=== PATIENT | male | born 1945 | race Caucasian/White ===

== ENCOUNTER → 2021-02-15 01:08 | Outpatient (CLI) | payer MEDICARE, SELFPAY ==
[2021-02-15 18:48] LABS: SARS-CoV-2 RNA PCR Negative
== END ==
PROVIDERS: PCP Internal Medicine; Visit Provider Urology
DX: Z01.812 Encounter for preprocedural laboratory examination (principal); Z20.822 Contact with and (suspected) exposure to COVID-19
CPT/HCPCS: C9803; U0003; U0005

== ENCOUNTER 2021-02-19 16:06 | Observation (INO) | payer MEDICARE, SELFPAY ==
[2021-02-03 15:36] VITALS: BMI 26.9
--- NOTE | 2021-02-12 08:04 | PM.IMHP ---
H&P: HPI History of Present Illness Date/Time: 02/12/21 08:04 75-year-old gentleman's been known to our practice for quite some time. He has longstanding lower urinary tract symptoms consisting of both obstructive and irritable symptoms. He tried a variety of BPH and overactive bladder medications either by themselves or in combination with minimal success. Recent urodynamic study shows a mixed picture of both hyperreflexia and outlet obstruction. After discussion of therapeutic options he has elected to proceed with a TURP with the understanding that he may have persistent irritable voiding symptoms thereafter. His where the risk of this procedure including retrograde ejaculation and postoperative hematuria Chief Complaint: Lower urinary tract symptoms Review of Systems Cardiovascular: Cardiovascular: Denies chest pain, Denies lightheadedness, Denies palpitations and Denies dyspnea Respiratory: Respiratory: Denies dyspnea Gastrointestinal: Gastrointestinal: Denies diarrhea, Denies nausea and Denies vomiting Genitourinary: Genitourinary: Denies hematuria and Denies dysuria Endocrine: Endocrine: Denies palpitations [facility] Surgical History Surgical History H/O toe surgery (~08/2019) Family History Family History Sibling Family history of arthritis Father Family history of congestive heart failure, Onset Age: 86 Patient's father is Mother Patient's mother is Social History Social History Smoking status: Never smoker Second hand tobacco smoke exposure: No Alcohol intake: current Drinks per week: 2 Substance use: never Spiritual care concerns: No Meds Home Medications and Allergies Home Medications Medication Instructions Recorded Confirmed Type aspirin 81 mg tablet,delayed 81 mg PO DAILY 08/13/19 02/03/21 History release atorvastatin 20 mg tablet 20 mg PO DAILY 08/13/19 02/03/21 History cyanocobalamin (vitamin B-12) 1,000 mcg PO DAILY 08/13/19 02/03/21 History 1,000 mcg capsule ergocalciferol (vitamin D2) 1,250 50,000 unit PO WEEKLY 08/13/19 02/03/21 History mcg (50,000 unit) capsule gabapentin 300 mg capsule 600 mg PO HS 08/13/19 02/05/21 History testosterone 30 mg/actuation (1.5 2 pump TOPICAL DAILY 08/13/19 02/03/21 History mL) transderm solution metered pump triamcinolone acetonide 0.025 % 1 applic TOPICAL BID 08/13/19 02/03/21 History topical cream Lactobacillus 1 cap PO DAILY 02/14/20 02/03/21 History acidophilus-Bifidobac.animalis 2.5 billion cell capsule allopurinol 100 mg tablet 100 mg PO DAILY 02/14/20 02/03/21 History metoprolol succinate 50 mg 50 mg PO DAILY 02/14/20 02/03/21 History tablet,extended release 24 hr multivitamin 1 tablet PO DAILY 02/14/20 02/03/21 History calcium carbonate 600 mg calcium 600 mg PO DAILY 08/19/20 02/03/21 History (1,500 mg) tablet diphenhydramine HCl 25 mg capsule 25 mg PO Q6H PRN 08/19/20 02/03/21 History glucosamine-chondroitin 250 mg-200 2 tablet PO TID 08/19/20 02/03/21 History mg tablet nabumetone 750 mg tablet 750 mg PO BID #180 tablet 09/22/20 02/03/21 Rx lisinopril 20 mg tablet 20 mg PO DAILY #90 tablet 10/19/20 02/03/21 Rx tramadol 50 mg tablet 100 mg PO .COMPLEX PRN #270 tablet 12/02/20 02/03/21 Rx venlafaxine 75 mg capsule,extended 75 mg PO DAILY #90 cap 01/01/21 02/03/21 Rx release 24 hr Allergies Allergy/AdvReac Type Severity Reaction Status Date / Time adhesive Allergy Mild Rash Verified 02/03/21 15:11 bupropion Allergy Mild rash Verified 02/03/21 15:11 sertraline Allergy Mild rash Verified 02/03/21 15:11 Exam Const: General: no acute distress Resp: Effort & Inspection: normal respiratory effort GI: Inspection: non-distended GI Palp: No abdominal tenderness and No Guarding due t
[2021-02-18] VITALS (17 sets, daily range): BP systolic 103–129; BP diastolic 51–78; PULSE 41–84; RESP 10–20; TEMP 36.2–36.7; O2SAT 92–100
--- NOTE | 2021-02-18 06:33 | WPDHPUPDATE1 ---
History and Physical Update Update Date/Time: 02/18/21 06:33 History and Physical has been reviewed, including an updated exam of the patient. There are NO changes in the patient's condition. Risks, benefits, and alternatives have been discussed and questions answered. Patient agrees to proceed with procedure.
--- NOTE | 2021-02-18 10:08 | WPDANESEPPF ---
Anes - Initial Pre Proc Eval Procedure: Operation Date: 02/18/21 12:00 Proposed Procedures p Trans Urethral Resection Prostate - Juan Pablo Frank MD Date/Time: 02/18/21 10:08 Surgeon: Juan Pablo Frank MD Pre Op Diagnosis: BPH Patient Data Age: 75 Gender: M Height: 1.88 m Weight: 95.35 kg Allergies Allergy/AdvReac Type Severity Reaction Status Date / Time adhesive Allergy Mild Rash Verified 02/18/21 10:29 bupropion Allergy Mild rash Verified 02/18/21 10:29 sertraline Allergy Mild rash Verified 02/18/21 10:29 Home Medications Medication Instructions Recorded Confirmed Type aspirin 81 mg tablet,delayed 81 mg PO DAILY 08/13/19 02/03/21 History release atorvastatin 20 mg tablet 20 mg PO DAILY 08/13/19 02/03/21 History cyanocobalamin (vitamin B-12) 1,000 mcg PO DAILY 08/13/19 02/03/21 History 1,000 mcg capsule ergocalciferol (vitamin D2) 1,250 50,000 unit PO WEEKLY 08/13/19 02/03/21 History mcg (50,000 unit) capsule gabapentin 300 mg capsule 600 mg PO HS 08/13/19 02/05/21 History testosterone 30 mg/actuation (1.5 2 pump TOPICAL DAILY 08/13/19 02/03/21 History mL) transderm solution metered pump triamcinolone acetonide 0.025 % 1 applic TOPICAL BID 08/13/19 02/03/21 History topical cream Lactobacillus 1 cap PO DAILY 02/14/20 02/03/21 History acidophilus-Bifidobac.animalis 2.5 billion cell capsule allopurinol 100 mg tablet 100 mg PO DAILY 02/14/20 02/03/21 History metoprolol succinate 50 mg 50 mg PO DAILY 02/14/20 02/03/21 History tablet,extended release 24 hr multivitamin 1 tablet PO DAILY 02/14/20 02/03/21 History calcium carbonate 600 mg calcium 600 mg PO DAILY 08/19/20 02/03/21 History (1,500 mg) tablet diphenhydramine HCl 25 mg capsule 25 mg PO Q6H PRN 08/19/20 02/03/21 History glucosamine-chondroitin 250 mg-200 2 tablet PO TID 08/19/20 02/03/21 History mg tablet nabumetone 750 mg tablet 750 mg PO BID #180 tablet 09/22/20 02/03/21 Rx lisinopril 20 mg tablet 20 mg PO DAILY #90 tablet 10/19/20 02/03/21 Rx tramadol 50 mg tablet 100 mg PO .COMPLEX PRN #270 tablet 12/02/20 02/03/21 Rx venlafaxine 75 mg capsule,extended 75 mg PO DAILY #90 cap 01/01/21 02/03/21 Rx release 24 hr Patient hx anesthesia problems: none Family hx anesthesia problems: none [facility] Past Medical History Medical History (Updated 02/17/21 @ 10:05 by Raffi Merrill DO) Anxiety Depression Excessive anger Hyperlipidemia Hypertension PVC (premature ventricular contraction) Sleep apnea, unspecified Surgical History Surgical History (Updated 02/17/21 @ 10:05 by Raffi Merrill DO) H/O toe surgery (~08/2019) History of joint replacement right knee Family History Family History Sibling Family history of arthritis Father Family history of congestive heart failure, Onset Age: 86 Patient's father is Mother Patient's mother is Social History Social History Smoking status: Never smoker Second hand tobacco smoke exposure: No Alcohol intake: current Drinks per week: 2 Substance use: never Living arrangements: with family Spiritual care concerns: No Anes - Eval Final PreProcedure Day of Procedure 02/18/21 10:08 Patient weight: overweight Heart: regular rate and rhythm Lungs: clear to auscultation and normal air movement Airway: Mallampati scale class II Neurological: alert and oriented Last oral intake: >/= 8 hours ASA classification: III Emergent: no Anesthetic plan: proceed Anesthesia type and monitoring: general LMA and standard monitoring Informed Consent: The patient's anesthetic plan and its attendant risks and benefits were discussed with the patient/family/POA. Questions were solicited and answers provided to the satisfaction of the patient/family/POA.
[2021-02-18] MEDS: LACTATED RINGERS 1,000 ML 30 ML IV CONT (10:49)
[2021-02-18] MEDS: ceFAZolin 2 GM/D5W 50 ML 2 GM/50 ML BAG IVPB (12:44)
--- NOTE | 2021-02-18 13:25 | SUR.OPER ---
EBL 50ML
--- NOTE | 2021-02-18 13:37 | PM.PROC ---
Procedure Note - Detailed Date of procedure: 02/18/21 Pre-op diagnosis: BPH Post-op diagnosis: same Procedure performed: TURP Description of procedure: The patient was brought to the operative suite where he is prepped and draped in routine sterile fashion while in the dorsal lithotomy position after the uneventful induction of a general LMA anesthetic. A 27 Telugu resectoscope sheath was placed into his bladder. He had no urethral strictures. The patient had bilobar hyperplasia with no significant median lobe. The bladder itself was endoscopically normal, showing no mucosal hyperemia, intravesical neoplasm or foreign bodies. There was a single, orthotopic ureteral orifice bilaterally. These orifices were identified and preserved throughout the remainder of the procedure. The left lateral lobe was resected starting at the 6 o'clock position, working counter clockwise to the 12 o'clock position. Again, resection was carried out from the bladder neck to the verumontanum until the capsular fibers of the prostate were identified. The right lateral lobe was resected in a similar fashion starting at the 6 o'clock position working clockwise to the 12 o'clock position and carried out until the capsular fibers of the prostate were identified. Apical tissue was then circumferentially resected. Identified 5 Urolift stable-like devices. All of these were transected and removed. All chips were evacuated from the bladder using an Cube [employer] evacuator. Hemostasis was obtained with electric cautery. The ureteral orifices were again inspected and found to be without injury. Estimated blood loss throughout this procedure was 50cc. The patient was taken to recovery room having tolerated this well. Anesthesia: GLMA Surgeon: Juan Pablo Frank MD Car Inspection And Repair Manager: None Estimated blood loss (mL): 50 Drains: Yes (24F hematuria) Packing: No Pathology: yes Complications: No immediate complications Condition: stable Disposition: PACU
[2021-02-18] MEDS: fentaNYL CITRATE INJ (*CRX) 100 MCG/2 ML VIAL 25 MCG IV PUSH ×4 (14:20→14:39)
--- NOTE | 2021-02-18 15:15 | ADMGEN ---
This patient, Marshal Wray, was admitted to Medical Room 261-01. Patient/family oriented to hospital policies and general routines including ID bracelet, bed and alarms, visiting hours, pain management, procedures, bathroom and other care routines, personal items, smoking policy, room service/diet, and visiting hours. Information on how to activate the Rapid Response Team has been discussed. Patient/Family are encouraged to report perceived risks to care and to ask questions if they do not understand what they are told or what they should do.
[2021-02-18] MEDS: DEXTROSE 5%/LACTATED RINGERS 1,000 ML 125 ML IV CONT (15:35)
[2021-02-18] MEDS: VENLAFAXINE HCL XR 75 MG CAP.ER.24H PO (15:41)
[2021-02-18] MEDS: ATORVASTATIN 20 MG TABLET PO (15:41)
[2021-02-18] MEDS: allopurinoL 100 MG TABLET PO (15:41)
[2021-02-18] MEDS: lisinopriL 20 MG TABLET PO (15:41)
[2021-02-18] MEDS: METOPROLOL SUCCINATE EXT REL 50 MG TABCR PO (15:41)
[2021-02-18] MEDS: HYDROcodone/acetaminophen (*CRX) 5-325 MG TABLET 1 TAB PO ×2 (15:42→23:27)
[2021-02-18] MEDS: HYOSCYAMINE SULFATE 0.125 MG TABLET SUBLINGUAL (15:48)
[2021-02-18] MEDS: DOCUSATE SODIUM 100 MG CAPSULE PO (15:48)
[2021-02-18] MEDS: GABAPENTIN 300 MG CAPSULE 600 MG PO (20:01)
[2021-02-19] VITALS (11 sets, daily range): BP systolic 103–152; BP diastolic 54–88; PULSE 56–95; RESP 16–24; TEMP 36–37.1; O2SAT 93–100
--- NOTE | ~2021-02-19 | US_ITS ---
EXAMINATION: US renal BI DATE: 02/20/2021 15:59 INDICATION: Acute kidney injury TECHNIQUE: Multiple grayscale and Doppler ultrasound images of the kidneys were obtained. COMPARISON: CT, 07/12/2018 FINDINGS: The right kidney measures 11.2 x 5.7 x 7.5 cm and contains a 3.6 cm cyst. The left kidney m easures 11.5 x 6.3 x 6.3 cm and contains a 3.1 cm cyst. The kidneys demonstrate normal parenchymal ec hogenicity. There is no hydronephrosis. The bladder is incompletely distended but otherwise normal in appearance. IMPRESSION: 1. Normal kidneys without hydronephrosis. Reviewed, dictated and finalized at location A.
[2021-02-19 05:42] LABS: Hematocrit 39.4 % (42.0-52.0); Hemoglobin 12.3 g/dL (14.0-18.0)
[2021-02-19 05:58] LABS: Potassium 4.5 mmol/L (3.4-5.0)
[2021-02-19 05:59] LABS: Anion Gap 6 mmol/L (8-16); Blood Urea Nitrogen 18 mg/dL (9-20); Calcium 8.9 mg/dL (8.4-10.2); Carbon Dioxide 27 mmol/L (22-30); Chloride 105 mmol/L (98-107); Estimated CRCL calculation 72 ml/min; Estimated Glomerular Filt Rate > 60; Glucose 120 mg/dL (75-110); Sodium 138 mmol/L (137-145)
--- NOTE | 2021-02-19 07:06 | WPDUROPN2 ---
Progress Note: A&P Assessment and Plan (1) BPH loc w urin obs/LUTS: Code(s): N40.1 - Benign prostatic hyperplasia with lower urinary tract symptoms Status: Acute Assessment and Plan: Doing well POD #1 TURP Stop CBI now, voiding trial later this morning if urine remains clarence. Subjective Subjective Date/Time Seen: 02/19/21 07:06 Comfortable, uneventful night Review of Systems Cardiovascular: Cardiovascular: Denies chest pain, Denies lightheadedness, Denies palpitations and Denies dyspnea Respiratory: Respiratory: Denies dyspnea Gastrointestinal: Gastrointestinal: Denies diarrhea, Denies nausea and Denies vomiting Genitourinary: Genitourinary: Denies hematuria and Denies dysuria Endocrine: Endocrine: Denies palpitations Exam Const: General: no acute distress Resp: Effort & Inspection: normal respiratory effort GI: Inspection: non-distended GI Palp: No abdominal tenderness and No Guarding due to palpation present (GI) Auscultation: normal bowel sounds Urinary Catheter: Urinary Catheter: patent and draining and urine clear Objective Data Vital Signs Vital Signs: Vital Signs - 24 hr 02/18/21 11:07 02/18/21 13:33 02/18/21 13:45 Temperature 98.1 F 97.8 F Pulse Rate 41 L 70 67 Respiratory Rate 16 10 L 16 Blood Pressure 114/66 129/75 111/68 Pulse Oximetry 98 98 100 02/18/21 14:00 02/18/21 14:15 02/18/21 14:30 Temperature Pulse Rate 76 72 73 Respiratory Rate 17 14 16 Blood Pressure 112/76 117/70 112/76 Pulse Oximetry 100 94 93 02/18/21 14:45 02/18/21 14:54 02/18/21 15:09 Temperature 97.1 F L 97.5 F L Pulse Rate 66 62 70 Respiratory Rate 15 16 16 Blood Pressure 110/78 120/65 115/62 Pulse Oximetry 92 98 97 02/18/21 15:39 02/18/21 15:41 02/18/21 16:39 Temperature 97.4 F L 97.3 F L Pulse Rate 64 84 60 Respiratory Rate 16 16 Blood Pressure 112/59 L 106/62 Pulse Oximetry 96 94 02/18/21 18:00 02/18/21 20:32 02/18/21 20:33 Temperature 97.4 F L 97.1 F L 97.1 F L Pulse Rate 66 56 L 56 L Respiratory Rate 16 20 20 Blood Pressure 128/63 121/51 L 121/51 L Pulse Oximetry 98 98 98 02/18/21 23:02 02/18/21 23:59 02/19/21 02:00 Temperature 97.4 F L 97.4 F L Pulse Rate 76 56 L 56 L Respiratory Rate 20 20 Blood Pressure 103/60 103/60 Pulse Oximetry 95 96 96 02/19/21 04:39 02/19/21 06:00 Temperature 96.8 F L 97.1 F L Pulse Rate 56 L 95 Respiratory Rate 20 24 H Blood Pressure 105/56 L 152/88 H Pulse Oximetry 93 100 Intake/Output Intake/Output: Intake & Output 02/16/21 02/17/21 02/18/21 02/19/21 23:59 23:59 23:59 23:59 Intake Total 2040 190 Output Total 2800 750 Balance -760 -560 Meds/Results Medications: Active Medications Generic Name Dose Route Start Last Admin Trade Name Freq PRN Reason Stop Dose Admin Hydrocodone Bitart/Acetaminophen 1 tab 02/18/21 14:54 02/18/21 23:27 Hydrocodone/Acetaminophen (*Crx) 5-325 Mg Tablet PO 1 tab Q4H PRN Administration Pain Rated 1-6 Allopurinol 100 mg 02/18/21 15:00 02/18/21 15:41 Allopurinol 100 Mg Tablet PO 100 mg DAILY NIMESH Administration Atorvastatin Calcium 20 mg 02/18/21 15:00 02/18/21 15:41 Atorvastatin 20 Mg Tablet PO 20 mg DAILY NIMESH Administration Cephalexin HCl 500 mg 02/19/21 13:00 Cephalexin 500 Mg Capsule PO QID NIMESH Docusate Sodium 100 mg 02/18/21 17:00 02/18/21 15:48 Docusate Sodium 100 Mg Capsule PO 100 mg BID NIMESH Administration Fentanyl Citrate 25 mcg 02/17/21 10:05 02/18/21 14:39 Fentanyl Citrate Inj (*Crx) 100 Mcg/2 Ml Vial IV PUSH 25 mcg Q2M PRN Administration Pain Gabapentin 600 mg 02/18/21 21:00 02/18/21 20:01 Gabapentin 300 Mg Capsule PO 600 mg HS NIMESH Administration Hyoscyamine 0.125 mg 02/18/21 14:54 02/18/21 15:48 Hyoscyamine Sulfate 0.125 Mg Tablet SUBLINGUAL 0.125 mg Q6H PRN Administration Bladder Spasm Lisinopril 20 mg 02/18/21 15:00 02/18/21 15:41 Lis
[2021-02-19] MEDS: DOCUSATE SODIUM 100 MG CAPSULE PO ×2 (08:29→16:43)
[2021-02-19] MEDS: METOPROLOL SUCCINATE EXT REL 50 MG TABCR PO (08:29)
[2021-02-19] MEDS: allopurinoL 100 MG TABLET PO (08:29)
[2021-02-19] MEDS: ATORVASTATIN 20 MG TABLET PO (08:29)
[2021-02-19] MEDS: VENLAFAXINE HCL XR 75 MG CAP.ER.24H PO (08:29)
[2021-02-19] MEDS: lisinopriL 20 MG TABLET PO (08:29)
[2021-02-19] MEDS: CEPHALEXIN 500 MG CAPSULE PO ×3 (12:28→19:49)
[2021-02-19 16:24] LABS: Hematocrit 38.4 % (42.0-52.0); Hemoglobin 12.6 g/dL (14.0-18.0); Mean Corpuscular HGB Conc 32.8 g/dl (32-36); Mean Corpuscular Hemoglobin 31.1 pg (26-34); Mean Corpuscular Volume 94.8 fl (80-100); Mean Platelet Volume 9.3 fl (7.4-10.4); Platelet Count Result 288 k/mm3 (150-375); Red Blood Count 4.05 M/mm3 (4.6-6.20); Red Cell Distribution Width 11.9 % (11.5-14.5); White Blood Count 16.2 K/mm3 (4.5-10.0)
[2021-02-19 16:34] LABS: Anion Gap 5 mmol/L (8-16); Blood Urea Nitrogen 24 mg/dL (9-20); Carbon Dioxide 23 mmol/L (22-30); Chloride 106 mmol/L (98-107); Estimated CRCL calculation 37 ml/min; Estimated Glomerular Filt Rate 37; Glucose 168 mg/dL (75-110); Potassium 3.6 mmol/L (3.4-5.0); Sodium 134 mmol/L (137-145)
[2021-02-19] MEDS: GABAPENTIN 300 MG CAPSULE 600 MG PO (19:48)
--- NOTE | 2021-02-19 20:00 | PM.IMCN ---
Assessment and Plan Assessment and plan (1) Weakness: Code(s): R53.1 - Weakness Status: Acute Assessment and Plan: PT and OT evaluation. Is reported that the patient had tremors. The patient denies any alcohol withdrawal symptoms. The patient stated he last drank alcohol approximately 1 week ago. Patient is not currently having any hand tremors. He states that he typically does not have hand tremors. He does not have a shuffling gait or any other symptoms the Parkinson's. The patient appears to be dehydrated and he has acute kidney injury today. I encouraged the patient to drink more water. (2) S/P TURP: Code(s): Z90.79 - Acquired absence of other genital organ(s) Status: Chronic Assessment and Plan: Postop care per Dr. espinosa. Patient stated that he was incontinent x2. He stated that he does have some pain when he urinates. Pain management per urology. (3) Congestive heart failure: Code(s): I50.9 - Heart failure, unspecified Status: Chronic Assessment and Plan: I am going to hold his lisinopril today due to his acute kidney injury. He has been continue with metoprolol. He is managed by cardiology outpatient. (4) Gout: Code(s): M10.9 - Gout, unspecified Status: Chronic Assessment and Plan: The patient is on allopurinol daily if his renal function gets worse may consider holding they allopurinol. (5) Acute kidney injury: Code(s): N17.9 - Acute kidney failure, unspecified Status: Acute Assessment and Plan: Patient has had a poor oral intake. Encourage the patient to take in more liquids today. May consider renal ultrasound. (6) Depression: Code(s): F32.9 - Major depressive disorder, single episode, unspecified Status: Chronic Assessment and Plan: The patient is on Effexor. The patient has been complaining of dry eyes and dry mouth. Could be related to his Effexor. I did order Biotene (7) Anxiety: Code(s): F41.9 - Anxiety disorder, unspecified Status: Chronic Assessment and Plan: Continue Effexor (8) Hypertension: Code(s): I10 - Essential (primary) hypertension Status: Acute Assessment and Plan: Hold lisinopril but continue metoprolol (9) Sleep apnea, unspecified: Code(s): G47.30 - Sleep apnea, unspecified Status: Acute Assessment and Plan: The patient has a CPAP from here. However patient stated he did not think he would use it tonight because it was too loud. I asked if we could get him another 1 or his could bring his in. HPI Data of Consult Consult date: 02/19/21 Requesting Physician: Juan Pablo Frank MD Primary Care Provider: John Ibrahim, DO Consult Narrative Narrative: Marshal Wray is a 75 year old male who has a history of BPH. He is on postop day 1. For a TURP per Dr. espinosa. The patient stated that he is doing well except for when he urinates. The patient stated that he was incontinent 2 times a day. The patient stated that he wanted to get up and shower today but he felt very shaky and weak. He said his appetite was poor today and he was not drinking that much. Patient was complaining about dry eyes and a dry mouth. He denies having any history of having any chronic kidney diseaseAnd the patient's creatinine was found to be 1.8 today. The patient stated that he was having a poor appetite and not drinking that much today. 134. His glucose was 168. Patient's H&H just 12.6 and 38.4. Patient who was admitted for observation per urology and the hospitalist group was asked to consult on the patient due to his weakness and shakiness. Date of consult is 02/19/2021. Review of Systems Review of Systems: All systems reviewed & are unremarkable except as noted in HPI and below Constitutional: Constitutional: Reports as per HPI and Reports no additional constitutional complaints Eyes: Eyes: Reports as per HPI and R
[2021-02-20] VITALS (8 sets, daily range): BP systolic 100–126; BP diastolic 51–76; PULSE 60–85; RESP 16–20; TEMP 36.2–37.2; O2SAT 93–98
[2021-02-20 06:16] LABS: Hematocrit 37.3 % (42.0-52.0); Mean Corpuscular HGB Conc 32.2 g/dl (32-36); Mean Corpuscular Hemoglobin 30.6 pg (26-34); Mean Corpuscular Volume 95.2 fl (80-100); Mean Platelet Volume 9.4 fl (7.4-10.4); Platelet Count Result 251 k/mm3 (150-375); Red Blood Count 3.92 M/mm3 (4.6-6.20); White Blood Count 14.7 K/mm3 (4.5-10.0)
[2021-02-20 06:27] LABS: Anion Gap 3 mmol/L (8-16); Blood Urea Nitrogen 27 mg/dL (9-20); Calcium 8.8 mg/dL (8.4-10.2); Carbon Dioxide 26 mmol/L (22-30); Chloride 105 mmol/L (98-107); Estimated CRCL calculation 40 ml/min; Estimated Glomerular Filt Rate 39; Glucose 104 mg/dL (75-110); Magnesium 2.1 mg/dL (1.6-2.3); Potassium 4.3 mmol/L (3.4-5.0); Sodium 134 mmol/L (137-145)
[2021-02-20] MEDS: SALIVA SUBSTITUTE RINSE 473 ML BOTTLE 15 ML PO (06:41)
[2021-02-20] MEDS: CEPHALEXIN 500 MG CAPSULE PO ×4 (08:56→20:16)
[2021-02-20] MEDS: DOCUSATE SODIUM 100 MG CAPSULE PO ×2 (08:56→16:25)
[2021-02-20] MEDS: ATORVASTATIN 20 MG TABLET PO (08:56)
[2021-02-20] MEDS: allopurinoL 100 MG TABLET PO (08:56)
[2021-02-20] MEDS: VENLAFAXINE HCL XR 75 MG CAP.ER.24H PO (08:57)
[2021-02-20] MEDS: METOPROLOL SUCCINATE EXT REL 50 MG TABCR PO (08:57)
--- NOTE | 2021-02-20 10:19 | WPDUROPN2 ---
Progress Note: A&P Assessment and Plan (1) S/P TURP: Code(s): Z90.79 - Acquired absence of other genital organ(s) Status: Chronic Assessment and Plan: he is voiding with urge incontinence. check post void residuals. no clots, urine pink, expected (2) Acute kidney injury: Code(s): N17.9 - Acute kidney failure, unspecified Status: Acute Assessment and Plan: Cr improving, encouraged po hydration, monitor I/O. may consider light IVF if not drinking. we will check Cr tomorrow appreciate hospitalist tirso, lisinopril on hold possible d/c tomorrow pending improvement in Cr (3) BPH loc w urin obs/LUTS: Code(s): N40.1 - Benign prostatic hyperplasia with lower urinary tract symptoms Status: Acute Assessment and Plan: s/p TURP (4) Weakness: Code(s): R53.1 - Weakness Status: Acute Assessment and Plan: pt attributes to hydrocodone. he has been on tramadol in the past, we will use for pain control. Subjective Subjective Date/Time Seen: 02/20/21 10:19 No acute events overnight. he complains of urgency and urge incontinence, denies stress incontinence. No fevers/chills/dysuria. No flank pain. He states his weakness is improved. + ambulating Review of Systems Review of Systems: All systems reviewed & are unremarkable except as noted in HPI and below Constitutional: Constitutional: Reports as per HPI Eyes: Eyes: Reports no additional eye complaints Cardiovascular: Cardiovascular: Reports no additional cardiovascular complaints Respiratory: Respiratory: Reports no additional respiratory complaints Gastrointestinal: Gastrointestinal: Denies abdominal pain Genitourinary: Genitourinary: Reports as per HPI Musculoskeletal: Musculoskeletal: Reports no additional musculoskeletal complaints Integumentary/Breasts: Skin/Breast: Reports system reviewed and no additional complaints, except as docu Hematologic/Lymphatic: Hematologic/Lymphatic: Reports as per HPI Exam Const: General: cooperative, healthy appearing, comfortable and no acute distress HENMT: Head: normal to inspection, normocephalic and atraumatic Ears: hearing grossly normal bilaterally Face and sinus: normal facial exam Eyes: General: appearance normal, both eyes and all related structures EOM: EOMs intact bilaterally GI: Inspection: non-distended GI Palp: No abdominal tenderness, Yes Soft to palpation and No Tenderness to palpation present (GI) : General: Yes no CVA tenderness Back/Spine/Pelvis: Back: no CVA tenderness Neuro: General: oriented to person, oriented to place, oriented to time and patient oriented x3 Extrem: General: no pedal edema and no calf tenderness Objective Data Vital Signs Vital Signs: Vital Signs - 24 hr 02/19/21 11:33 02/19/21 12:49 02/19/21 14:00 Temperature 36.6 C 37.1 C 37.1 C Pulse Rate 92 82 90 Respiratory Rate 20 18 Blood Pressure 106/67 112/65 106/69 Pulse Oximetry 94 94 02/19/21 18:00 02/19/21 20:00 02/19/21 21:29 Temperature 36.3 C L 37.1 C Pulse Rate 65 65 81 Respiratory Rate 16 16 20 Blood Pressure 125/54 L 120/54 L Pulse Oximetry 100 100 96 02/20/21 00:36 02/20/21 05:36 02/20/21 08:49 Temperature 37.2 C 36.8 C Pulse Rate 85 78 Respiratory Rate 18 20 Blood Pressure 102/62 113/62 111/60 Pulse Oximetry 96 96 02/20/21 08:57 02/20/21 09:10 Temperature 36.2 C L Pulse Rate 85 83 Respiratory Rate 18 Blood Pressure 100/60 Pulse Oximetry 98 Intake/Output Intake/Output: Intake & Output 02/17/21 02/18/21 02/19/21 02/20/21 23:59 23:59 23:59 23:59 Intake Total 2040 1730 886 Output Total 2800 1100 Balance -760 630 886 Meds/Results Medications: Active Medications Generic Name Dose Route Start Last Admin Trade Name Freq PRN Reason Stop Dose Admin Hydrocodone Bitart/Acetaminophen 1 tab 02/18/21 14:54 02/18/21 23:27 Hydrocodone/Acetaminophen (*Crx) 5-325 Mg Tablet PO 1 tab
--- NOTE | 2021-02-20 14:23 | P.PNIM_ITS ---
Progress Note: A&P Assessment and Plan (1) Alcohol abuse with alcohol-induced anxiety disorder: Code(s): F10.180 - Alcohol abuse with alcohol-induced anxiety disorder Status: Acute Assessment and Plan: * Patient is aggressive * patient threatened to call the police * Patient stated that he would like beer, wine, or cocktail * CIWA ordered * Ativan and Librium ordered PRN in line with the CIWA score (2) Weakness: Code(s): R53.1 - Weakness Status: Acute Assessment and Plan: PT and OT evaluation. Is reported that the patient had tremors. The patient denies any alcohol withdrawal symptoms. The patient stated he last drank alcohol approximately 1 week ago. Patient is not currently having any hand tremors. He states that he typically does not have hand tremors. He does not have a shuffling gait or any other symptoms the Parkinson's. The patient appears to be dehydrated and he has acute kidney injury today. I encouraged the patient to drink more water. (3) S/P TURP: Code(s): Z90.79 - Acquired absence of other genital organ(s) Status: Chronic Assessment and Plan: * Postop care per Dr. espinosa. * Patient stated that he was incontinent x2. * He stated that he does have some pain when he urinates. * Pain management per urology. (4) Congestive heart failure: Qualifiers: Heart failure type: unspecified Heart failure chronicity: chronic Qualified Code(s): I50.9 - Heart failure, unspecified Code(s): I50.9 - Heart failure, unspecified Status: Chronic Assessment and Plan: * 2+ pitting edema * Hold lisinopril acute kidney injury. * Continue metoprolol 50mg Daily * He is managed by cardiology outpatient. 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 * Encourage the patient to take in more liquids today. * Gatorade ordered for better intake * Educated the patient about need for PO intake * Creatinine 1.8 after procedure down to 1.7 this am * Trend creatinine * Labs in the am * 1L bolus of LR (7) Depression: Qualifiers: Depression Type: unspecified Qualified Code(s): F32.9 - Major depressive disorder, single episode, unspecified Code(s): F32.9 - Major depressive disorder, single episode, unspecified Status: Chronic Assessment and Plan: * Continue home Effexor. * The patient has been complaining of dry eyes and dry mouth. * Biotene ordered (8) Anxiety: Code(s): F41.9 - Anxiety disorder, unspecified Status: Chronic Assessment and Plan: * Continue Effexor (9) Hypertension: Qualifiers: Hypertension type: essential hypertension Qualified Code(s): I10 - Essential (primary) hypertension Code(s): I10 - Essential (primary) hypertension
--- NOTE | 2021-02-20 14:23 | PM.IMPN ---
Progress Note: A&P Assessment and Plan (1) Alcohol abuse with alcohol-induced anxiety disorder: Code(s): F10.180 - Alcohol abuse with alcohol-induced anxiety disorder Status: Acute Assessment and Plan: Patient is aggressive patient threatened to call the police Patient stated that he would like beer, wine, or cocktail CIWA ordered Ativan and Librium ordered PRN in line with the CIWA score (2) Weakness: Code(s): R53.1 - Weakness Status: Acute Assessment and Plan: PT and OT evaluation. Is reported that the patient had tremors. The patient denies any alcohol withdrawal symptoms. The patient stated he last drank alcohol approximately 1 week ago. Patient is not currently having any hand tremors. He states that he typically does not have hand tremors. He does not have a shuffling gait or any other symptoms the Parkinson's. The patient appears to be dehydrated and he has acute kidney injury today. I encouraged the patient to drink more water. (3) S/P TURP: Code(s): Z90.79 - Acquired absence of other genital organ(s) Status: Chronic Assessment and Plan: Postop care per Dr. espinosa. Patient stated that he was incontinent x2. He stated that he does have some pain when he urinates. Pain management per urology. (4) Congestive heart failure: Qualifiers: Heart failure type: unspecified Heart failure chronicity: chronic Qualified Code(s): I50.9 - Heart failure, unspecified Code(s): I50.9 - Heart failure, unspecified Status: Chronic Assessment and Plan: 2+ pitting edema Hold lisinopril acute kidney injury. Continue metoprolol 50mg Daily He is managed by cardiology outpatient. 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 Encourage the patient to take in more liquids today. Gatorade ordered for better intake Educated the patient about need for PO intake Creatinine 1.8 after procedure down to 1.7 this am Trend creatinine Labs in the am 1L bolus of LR (7) Depression: Qualifiers: Depression Type: unspecified Qualified Code(s): F32.9 - Major depressive disorder, single episode, unspecified Code(s): F32.9 - Major depressive disorder, single episode, unspecified Status: Chronic Assessment and Plan: Continue home Effexor. The patient has been complaining of dry eyes and dry mouth. Biotene ordered (8) Anxiety: Code(s): F41.9 - Anxiety disorder, unspecified Status: Chronic Assessment and Plan: Continue Effexor (9) Hypertension: Qualifiers: Hypertension type: essential hypertension Qualified Code(s): I10 - Essential (primary) hypertension Code(s): I10 - Essential (primary) hypertension Status: Acute Assessment and Plan: Blood pressure 106/51 Trend blood pressure Metoprolol 50mg daily Hold lisinopril due to HARSH (10) Sleep apnea, unspecified: Qualifiers: Sleep apnea type: unspecified type Qualified Code(s): G47.30 - Sleep apnea, unspecified Code(s): G47.30 - Sleep apnea, unspecified Status: Acute Assessment and Plan: Uses a home cpap Refuses house CPAP due to noise and comfort Refused this intervention last night Trend night SPO2 Josue
[2021-02-20] MEDS: SODIUM CHLORIDE 0.9% IV 500 ML 999 ML IV CONT (15:38)
[2021-02-20] MEDS: GABAPENTIN 300 MG CAPSULE 600 MG PO (20:16)
[2021-02-21] MEDS: traMADol HCL (*CRX) 50 MG TABLET PO (00:43)
[2021-02-21 00:50] VITALS: BP 106/54; PULSE 63; RESP 18; TEMP 36.6; O2SAT 96
[2021-02-21 04:51] VITALS: BP 112/67; PULSE 77; RESP 20; TEMP 36.4; O2SAT 93
[2021-02-21 06:19] LABS: Hematocrit 35.6 % (42.0-52.0); Hemoglobin 11.6 g/dL (14.0-18.0); Mean Corpuscular HGB Conc 32.6 g/dl (32-36); Mean Corpuscular Hemoglobin 30.9 pg (26-34); Mean Corpuscular Volume 94.7 fl (80-100); Platelet Count Result 239 k/mm3 (150-375); Red Blood Count 3.76 M/mm3 (4.6-6.20); Red Cell Distribution Width 11.9 % (11.5-14.5); White Blood Count 9.8 K/mm3 (4.5-10.0)
[2021-02-21 06:26] LABS: Anion Gap 5 mmol/L (8-16); Blood Urea Nitrogen 20 mg/dL (9-20); Calcium 8.8 mg/dL (8.4-10.2); Carbon Dioxide 24 mmol/L (22-30); Chloride 109 mmol/L (98-107); Estimated CRCL calculation 72 ml/min; Estimated Glomerular Filt Rate > 60; Glucose 103 mg/dL (75-110); Potassium 3.9 mmol/L (3.4-5.0); Sodium 138 mmol/L (137-145)
[2021-02-21] MEDS: HYOSCYAMINE SULFATE 0.125 MG TABLET SUBLINGUAL (07:37)
[2021-02-21] MEDS: VENLAFAXINE HCL XR 75 MG CAP.ER.24H PO (08:38)
[2021-02-21] MEDS: CEPHALEXIN 500 MG CAPSULE PO (08:38)
[2021-02-21] MEDS: allopurinoL 100 MG TABLET PO (08:38)
[2021-02-21 08:39] VITALS: PULSE 68
[2021-02-21] MEDS: METOPROLOL SUCCINATE EXT REL 50 MG TABCR PO (08:39)
--- NOTE | 2021-02-21 08:42 | PC.NURSE ---
pt refused am lipitor takes in pm will take at home tonight
[2021-02-21 09:00] VITALS: BP 125/70; PULSE 68; RESP 18; TEMP 36.3; O2SAT 98
--- NOTE | 2021-02-21 09:40 | WPDUROPN2 ---
Progress Note: A&P Assessment and Plan (1) S/P TURP: Code(s): Z90.79 - Acquired absence of other genital organ(s) Status: Chronic Assessment and Plan: stable UTS, urine clear. urge incotniennce unchanged. plan for dc and followup to assess urge in few weeks. will allow prostat efossa to heeal, may benefit from anticholinergic, or beta 3 agonist after TURP has healed (2) Acute kidney injury: Code(s): N17.9 - Acute kidney failure, unspecified Status: Acute Assessment and Plan: Cr back to baseline. ok to dc Subjective Subjective Date/Time Seen: 02/21/21 09:40 doing better, pain controlled. urine clearing. Still with urge incontinence ( present prior to admission) Review of Systems Constitutional: Constitutional: Reports no additional constitutional complaints and Denies chills Exam Const: General: cooperative, healthy appearing, comfortable and no acute distress Eyes: General: appearance normal, both eyes and all related structures Resp: Effort & Inspection: normal respiratory effort, able to speak in complete sentences and no audible wheezes : General: Yes no CVA tenderness Skin: General skin exam: normal color and no rashes or lesions noted Neuro: General: oriented to person, oriented to place, oriented to time and patient oriented x3 Extrem: General: no clubbing, cyanosis or edema, no pedal edema and no calf tenderness Objective Data Vital Signs Vital Signs: Vital Signs - 24 hr 02/20/21 13:00 02/20/21 17:00 02/20/21 21:00 Temperature 36.4 C L 36.7 C 36.6 C Pulse Rate 72 60 63 Respiratory Rate 16 20 20 Blood Pressure 106/51 L 126/67 116/76 Pulse Oximetry 96 94 93 02/21/21 00:50 02/21/21 04:51 02/21/21 08:39 Temperature 36.6 C 36.4 C Pulse Rate 63 77 68 Respiratory Rate 18 20 Blood Pressure 106/54 L 112/67 Pulse Oximetry 96 93 Intake/Output Intake/Output: Intake & Output 02/18/21 02/19/21 02/20/21 02/21/21 23:59 23:59 23:59 23:59 Intake Total 2040 1730 1826 390 Output Total 2800 1100 175 300 Balance -783 895 6494 90 Meds/Results Medications: Active Medications Generic Name Dose Route Start Last Admin Trade Name Freq PRN Reason Stop Dose Admin Hydrocodone Bitart/Acetaminophen 1 tab 02/18/21 14:54 02/18/21 23:27 Hydrocodone/Acetaminophen (*Crx) 5-325 Mg Tablet PO 1 tab Q4H PRN Administration Pain Rated 1-6 Allopurinol 100 mg 02/18/21 15:00 02/21/21 08:38 Allopurinol 100 Mg Tablet PO 100 mg DAILY NIMESH Administration Artificial Tears 1 drop 02/19/21 19:51 02/20/21 06:42 Artificial Tears Op Soln 15 Ml Bottle EACH EYE 1 drop QID PRN Administration Dry Eye(s) Atorvastatin Calcium 20 mg 02/18/21 15:00 02/21/21 08:42 Atorvastatin 20 Mg Tablet PO Not Given DAILY NIMESH Cephalexin HCl 500 mg 02/19/21 13:00 02/21/21 08:38 Cephalexin 500 Mg Capsule PO 500 mg QID NIMESH Administration Chlordiazepoxide HCl 25 mg 02/20/21 14:27 Chlordiazepoxide (*Crx) 25 Mg Capsule PO Q6H PRN Withdrawal Docusate Sodium 100 mg 02/18/21 17:00 02/21/21 08:42 Docusate Sodium 100 Mg Capsule PO Not Given BID NIMESH Gabapentin 600 mg 02/18/21 21:00 02/20/21 20:16 Gabapentin 300 Mg Capsule PO 600 mg HS NIMESH Administration Hyoscyamine 0.125 mg 02/18/21 14:54 02/21/21 07:37 Hyoscyamine Sulfate 0.125 Mg Tablet SUBLINGUAL 0.125 mg Q6H PRN Administration Bladder Spasm Lorazepam 1 mg 02/20/21 14:27 Lorazepam Inj (*Crx) 2 Mg/Ml Vial IV PUSH Q4H PRN Withdrawal Metoprolol Succinate 50 mg 02/18/21 15:00 02/21/21 08:39 Metoprolol Succinate Ext Rel 50 Mg Tabcr PO 50 mg DAILY NIMESH Administration Morphine Sulfate 2 mg 02/18/21 14:54 Morphine Sulfate (*Crx) 2 Mg/Ml Inj IV PUSH Q2H PRN Pain Rated 7-10 Naloxone HCl 0.1 mg 02/18/21 14:54 Naloxone Hcl 0.4 Mg/Ml Vial IV PUSH Q2M PRN Opiate Reversal Ondansetron
--- NOTE | 2021-02-21 09:48 | P.PNIM_ITS ---
Progress Note: A&P Assessment and Plan (1) Alcohol abuse with alcohol-induced anxiety disorder: Code(s): F10.180 - Alcohol abuse with alcohol-induced anxiety disorder Status: Acute Assessment and Plan: * Patient is aggressive * patient threatened to call the police * Patient stated that he would like beer, wine, or cocktail * CIWA ordered * Ativan and Librium ordered PRN in line with the CIWA score * patient is very particular. * CIWA scores have been as high as three (2) Weakness: Code(s): R53.1 - Weakness Status: Acute Assessment and Plan: PT and OT evaluation. Is reported that the patient had tremors. The patient denies any alcohol withdrawal symptoms. The patient stated he last drank alcohol approximately 1 week ago. Patient is not currently having any hand tremors. He states that he typically does not have hand tremors. He does not have a shuffling gait or any other symptoms the Parkinson's. The patient appears to be dehydrated and he has acute kidney injury today. I encouraged the patient to drink more water. (3) S/P TURP: Code(s): Z90.79 - Acquired absence of other genital organ(s) Status: Chronic Assessment and Plan: * Postop care per Dr. espinosa. * Patient stated that he was incontinent x2. * He stated that he does have some pain when he urinates. * Complains of urgency and frequency * Dr. Saenz wants to see patient in one week to readdress. * Pain management per urology. (4) Congestive heart failure: Qualifiers: Heart failure type: unspecified Heart failure chronicity: chronic Qualified Code(s): I50.9 - Heart failure, unspecified Code(s): I50.9 - Heart failure, unspecified Status: Chronic Assessment and Plan: * 2+ pitting edema * Restart lisinopril acute kidney injury. * Continue metoprolol 50mg Daily * He is managed by cardiology outpatient. 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 * Encourage the patient to take in more liquids today. * Gatorade ordered for better intake * Educated the patient about need for PO intake * Creatinine 1.7 after procedure down to 0.9 this am * Trend creatinine (7) Depression: Qualifiers: Depression Type: unspecified Qualified Code(s): F32.9 - Major depressive disorder, single episode, unspecified Code(s): F32.9 - Major depressive disorder, single episode, unspecified Status: Chronic Assessment and Plan: * Continue home Effexor. * The patient has been complaining of dry eyes and dry mouth. * Seem to be resolved today * Biotene ordered (8) Anxiety: Code(s): F41.9 - Anxiety disorder, unspecified Status: Chronic Assessment and Plan: * Continue Effexor (9) Hypertension: Qualifiers:
--- NOTE | 2021-02-21 09:48 | PM.IMPN ---
Progress Note: A&P Assessment and Plan (1) Alcohol abuse with alcohol-induced anxiety disorder: Code(s): F10.180 - Alcohol abuse with alcohol-induced anxiety disorder Status: Acute Assessment and Plan: Patient is aggressive patient threatened to call the police Patient stated that he would like beer, wine, or cocktail CIWA ordered Ativan and Librium ordered PRN in line with the CIWA score patient is very particular. CIWA scores have been as high as three (2) Weakness: Code(s): R53.1 - Weakness Status: Acute Assessment and Plan: PT and OT evaluation. Is reported that the patient had tremors. The patient denies any alcohol withdrawal symptoms. The patient stated he last drank alcohol approximately 1 week ago. Patient is not currently having any hand tremors. He states that he typically does not have hand tremors. He does not have a shuffling gait or any other symptoms the Parkinson's. The patient appears to be dehydrated and he has acute kidney injury today. I encouraged the patient to drink more water. (3) S/P TURP: Code(s): Z90.79 - Acquired absence of other genital organ(s) Status: Chronic Assessment and Plan: Postop care per Dr. espinosa. Patient stated that he was incontinent x2. He stated that he does have some pain when he urinates. Complains of urgency and frequency Dr. Saenz wants to see patient in one week to readdress. Pain management per urology. (4) Congestive heart failure: Qualifiers: Heart failure type: unspecified Heart failure chronicity: chronic Qualified Code(s): I50.9 - Heart failure, unspecified Code(s): I50.9 - Heart failure, unspecified Status: Chronic Assessment and Plan: 2+ pitting edema Restart lisinopril acute kidney injury. Continue metoprolol 50mg Daily He is managed by cardiology outpatient. 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 Encourage the patient to take in more liquids today. Gatorade ordered for better intake Educated the patient about need for PO intake Creatinine 1.7 after procedure down to 0.9 this am Trend creatinine (7) Depression: Qualifiers: Depression Type: unspecified Qualified Code(s): F32.9 - Major depressive disorder, single episode, unspecified Code(s): F32.9 - Major depressive disorder, single episode, unspecified Status: Chronic Assessment and Plan: Continue home Effexor. The patient has been complaining of dry eyes and dry mouth. Seem to be resolved today Biotene ordered (8) Anxiety: Code(s): F41.9 - Anxiety disorder, unspecified Status: Chronic Assessment and Plan: Continue Effexor (9) Hypertension: Qualifiers: Hypertension type: essential hypertension Qualified Code(s): I10 - Essential (primary) hypertension Code(s): I10 - Essential (primary) hypertension Status: Acute Assessment and Plan: Blood pressure 125/70 Trend blood pressure Metoprolol 50mg daily Continue lisinopril (10) Sleep apnea, unspecified: Qualifiers: Sleep apnea type: unspecified type Qualified Code(s): G47.30 - Sleep apnea, unspecified Code(s): G47.30 - Sleep apnea, unspecified Status: Acute
--- NOTE | 2021-02-21 09:57 | PC.NURSE ---
bladder scan 26 ml
--- NOTE | 2021-02-25 06:45 | PM.DS ---
DS: Admitting Diagnosis Admitting Diagnosis Admitting Diagnosis: BPH DS: Discharge Diagnosis Discharge Diagnosis (1) BPH loc w urin obs/LUTS: Code(s): N40.1 - Benign prostatic hyperplasia with lower urinary tract symptoms Status: Acute (2) Acute kidney injury: Code(s): N17.9 - Acute kidney failure, unspecified Status: Acute (3) S/P TURP: Code(s): Z90.79 - Acquired absence of other genital organ(s) Status: Chronic (4) Alcohol abuse with alcohol-induced anxiety disorder: Code(s): F10.180 - Alcohol abuse with alcohol-induced anxiety disorder Status: Acute DS: Summary Hospital Course Hospital Course: Patient was admitted on the morning of a planned TURP for persistent lower urinary tract symptoms with urodynamics suggesting both outlet obstruction and hyperreflexia. After discussion of options he has elected to proceed with a TURP with the understanding that persistent irritable symptoms may required additional medications and/or procedures in the future. Procedure was uneventful his Jimenez catheter was removed the following morning. Was anticipating discharge but he developed some anxiety and feeling of shakiness. He was seen by hospitalist consultation felt this was likely due to anxiety with possible contribution from alcohol abuse in the past. He had a transient elevation in his serum creatinine from 0.9-1.8 but that resolved quickly with hydration. Discharge his creatinine was back down the 0.9. His catheter was out he was voiding clear urine with some persistent frequency and urgency. Time Spent with Patient Time attestation: Total time spent providing and/or coordinating discharge services: 30 min. Exam Const: General: no acute distress Resp: Effort & Inspection: normal respiratory effort GI: Inspection: non-distended GI Palp: No abdominal tenderness and No Guarding due to palpation present (GI) Auscultation: normal bowel sounds DS: Data Data Completed and Pending Completed studies during hospitalization: Pending at discharge 02/18/21 13:24 Surgical [PTH] Routine Discharge Plan Discharge Attending physician on discharge: Juan Pablo Frank Consulting providers: Sin Giles ; Denise Petersen ; Yohan Alfonso ; Ernesto Saenz Discharging Clinician: Ernesto Saenz Anticipated Discharge Date/Time: 02/21/21 09:42 Patient Disposition: Home, Self-Care Activity: as tolerated Diet: regular Discharge Instructions: 1) Activity: No lifting/straining >15lbs. x2 weeks. 2) Diet: Resume normal pre-admission diet. 3) Follow-up: 2-3 weeks / call office for appointment ([phone]). Stand Alone Forms: General Discharge Instructions Follow-up/Referrals: Juan Pablo Frank MD [Physician] - 1 Week Discharge Medications: New hydrocodone-acetaminophen 5-325 mg tablet 1 - 2 tablet PO Q6H PRN (Reason: pain) Qty: 20 RF: 0 cephalexin 500 mg capsule 500 mg PO Q8H Qty: 9 RF: 0 hyoscyamine sulfate [Levsin] 0.125 mg tablet 0.125 mg PO BID Qty: 14 RF: 0 Continued metoprolol succinate 50 mg tablet extended release 24 hr 50 mg PO DAILY RF: 0 multivitamin [Multiple Vitamins] Tablet 1 tablet PO DAILY RF: 0 allopurinol 100 mg tablet 100 mg PO DAILY RF: 0 Daily Probiotic 2.5 billion cell capsule 1 cap PO DAILY RF: 0 diphenhydramine HCl [Benadryl] 25 mg capsule 25 mg PO Q6H PRN (Reason: Allergy Symptoms) RF: 0 calcium carbonate [Calcium 600] 600 mg calcium (1,500 mg) tablet 600 mg PO DAILY RF: 0 triamcinolone acetonide 0.025 % cream 1 applic TOPICAL BID RF: 0 atorvastatin [Lipitor] 20 mg tablet 20 mg PO DAILY RF: 0 ergocalciferol (vitamin D2) 50,000 unit capsule 50,000 unit PO WEEKLY RF: 0 testosterone 30 mg/actuation (1.5 mL) solution in metered pump w/karen 2 pump TOPICAL DAILY RF: 0 gabapentin 300 mg capsule 600 mg PO HS RF: 0 cyanocobalamin (vitamin B-1
== END 2021-02-21 11:39 | disposition home or self-care (01) ==
LOC: ANHSURGERY 16:15 → ANH2MED 02-20 09:13
PROVIDERS: Nurse Practitioner; Admitting Provider Urology; PCP Internal Medicine; Visit Provider Urology
PROC: 0VT08ZZ Resection of Prostate, Via Natural or Artificial Opening Endoscopic (ICD-10-PCS; CPT 52601; principal; 2021-02-18 12:00)
DX: N40.1 Benign prostatic hyperplasia with lower urinary tract symptoms (principal); N34.2 Other urethritis; N13.9 Obstructive and reflux uropathy, unspecified; N17.9 Acute kidney failure, unspecified; F10.180 Alcohol abuse with alcohol-induced anxiety disorder; I11.0 Hypertensive heart disease with heart failure; I50.9 Heart failure, unspecified; R53.1 Weakness; M10.9 Gout, unspecified; F41.8 Other specified anxiety disorders; E78.5 Hyperlipidemia, unspecified; G47.30 Sleep apnea, unspecified; I49.3 Ventricular premature depolarization; Z79.82 Long term (current) use of aspirin
CPT/HCPCS: 52601; 36415; 76775; 80048; 83735; 84443; 85014; 85018; 85027; 88305; 97161; 97165; A9270; C1757; C1758; G0378; J0690; J1100; J2405; J2704; J3010; J7040; J7120; J7121

== ENCOUNTER 2021-06-14 01:58 | Day surgery (SDC) | payer MEDICARE, SELFPAY ==
[2021-06-09 11:10] VITALS: BMI 29.0
--- NOTE | ~2021-06-14 | XR_ITS ---
EXAMINATION: XR fl neurostim insert<1hr EXAM DATE: 06/14/2021 14:31 INDICATION: Neurostimulator implant. TECHNIQUE: Fluoroscopy used during XR fl neurostim insert<1hr performed by Dr. Sebas Brown MD . Radiologist was not present for the imaging or procedure. Total fluoroscopic time of 123 seconds. The DAP for this procedure was 1.9 mGym2. A total of 3 images sent to PACS from the exam. FINDINGS: Neural stimulator identified, lead likely projecting through the right S3-4 neural foramin a. Correlate with procedure note. IMPRESSION: Fluoroscopy used during neurostimulator insertion. Reviewed, dictated and finalized at location B.
--- NOTE | 2021-06-14 07:30 | PM.IMHP ---
H&P: HPI History of Present Illness Date/Time: 06/14/21 07:30 76 yo with Urge incontinence and a successful interStim trial Chief Complaint: UUI Review of Systems Review of Systems: All systems reviewed & are unremarkable except as noted in HPI and below PMFSH Past Medical History Medical History Alcohol abuse with alcohol-induced anxiety disorder Anxiety Cardiac arrhythmia Frequent PVCs and PACs Chronic back pain Congestive heart failure Depression Dry eyes Excessive anger Gout Hyperlipidemia Hypertension Hypertension PVC (premature ventricular contraction) Sleep apnea, unspecified Surgical History Surgical History H/O bilateral cataract extraction H/O foot surgery Left foot hammertoe H/O toe surgery (~08/2019) History of arthroplasty of right knee History of joint replacement right knee S/P TURP Family History Family History Sibling Family history of arthritis Father Family history of congestive heart failure, Onset Age: 86 Patient's father is Mother Patient's mother is Heart disease Family history of congestive heart failure Social History Social History Social History: The patient is a lifelong nonsmoker. He is and lives with his . She is the durable power commonwealth attorney for healthcare. He has 2 biological children and 1 stepchild. The patient is retired from [employer] and [employer]. The patient desires to be a full code. The patient states that he socially drinks wine. Smoking status: Never smoker Second hand tobacco smoke exposure: No Alcohol intake: current Drinks per week: 6 Substance use: never Substance use type: does not use Living arrangements: with family Gender identity (if verbalized by the patient): Male Spiritual care concerns: No Meds Home Medications and Allergies Home Medications Medication Instructions Recorded Confirmed Type aspirin 81 mg tablet,delayed 81 mg PO DAILY 08/13/19 06/09/21 History release atorvastatin 20 mg tablet 20 mg PO DAILY 08/13/19 06/09/21 History cyanocobalamin (vitamin B-12) 1,000 mcg PO DAILY 08/13/19 06/09/21 History 1,000 mcg capsule ergocalciferol (vitamin D2) 1,250 50,000 unit PO WEEKLY 08/13/19 06/09/21 History mcg (50,000 unit) capsule testosterone 30 mg/actuation (1.5 2 pump TOPICAL DAILY 08/13/19 06/09/21 History mL) transderm solution metered pump triamcinolone acetonide 0.025 % 1 applic TOPICAL BID 08/13/19 06/09/21 History topical cream Lactobacillus 1 cap PO DAILY 02/14/20 06/09/21 History acidophilus-Bifidobac.animalis 2.5 billion cell capsule allopurinol 100 mg tablet 100 mg PO DAILY 02/14/20 06/09/21 History metoprolol succinate 50 mg 50 mg PO DAILY 02/14/20 06/09/21 History tablet,extended release 24 hr multivitamin 1 tablet PO DAILY 02/14/20 06/09/21 History calcium carbonate 600 mg calcium 600 mg PO DAILY 08/19/20 06/09/21 History (1,500 mg) tablet diphenhydramine HCl 25 mg capsule 25 mg PO Q6H PRN 08/19/20 06/09/21 History glucosamine-chondroitin 250 mg-200 2 tablet PO TID 08/19/20 06/09/21 History mg tablet venlafaxine 75 mg capsule,extended 75 mg PO DAILY #90 cap 01/01/21 06/09/21 Rx release 24 hr hydrocodone-acetaminophen 1 - 2 tablet PO Q6H PRN #20 tablet 02/19/21 06/09/21 Rx hyoscyamine sulfate [Levsin] 0.125 mg PO BID #14 tablet 02/21/21 06/09/21 Rx nabumetone 750 mg tablet 750 mg PO BID #180 tablet 04/08/21 06/09/21 Rx lisinopril 20 mg tablet 20 mg PO DAILY #90 tablet 05/02/21 06/09/21 Rx gabapentin 300 mg capsule 600 mg PO HS #180 cap 05/31/21 06/09/21 Rx cephalexin 500 mg PO DAILY 06/09/21 06/09/21 History metronidazole 0.75 applic TOPICAL BID 06/09/21 06/09/21 His
--- NOTE | 2021-06-14 07:32 | WPDHPUPDATE1 ---
History and Physical Update Update Date/Time: 06/14/21 07:32 History and Physical has been reviewed, including an updated exam of the patient. There are NO changes in the patient's condition. Risks, benefits, and alternatives have been discussed and questions answered. Patient agrees to proceed with procedure.
--- NOTE | 2021-06-14 08:38 | WPDANESEPPF ---
Anes - Initial Pre Proc Eval Procedure: Operation Date: 06/14/21 13:00 Proposed Procedures p Neurostimulator Implant - Sebas Brown MD Date/Time: 06/14/21 08:38 Surgeon: Sebas Brown MD Pre Op Diagnosis: urge incontinence Patient Data Age: 76 Gender: M Height: 1.85 m Weight: 99.8 kg Allergies Allergy/AdvReac Type Severity Reaction Status Date / Time adhesive Allergy Mild Rash Verified 06/09/21 10:47 bupropion Allergy Mild rash Verified 06/09/21 10:47 sertraline Allergy Mild rash Verified 06/09/21 10:47 Home Medications Medication Instructions Recorded Confirmed Type aspirin 81 mg tablet,delayed 81 mg PO DAILY 08/13/19 06/09/21 History release atorvastatin 20 mg tablet 20 mg PO DAILY 08/13/19 06/09/21 History cyanocobalamin (vitamin B-12) 1,000 mcg PO DAILY 08/13/19 06/09/21 History 1,000 mcg capsule ergocalciferol (vitamin D2) 1,250 50,000 unit PO WEEKLY 08/13/19 06/09/21 History mcg (50,000 unit) capsule testosterone 30 mg/actuation (1.5 2 pump TOPICAL DAILY 08/13/19 06/09/21 History mL) transderm solution metered pump triamcinolone acetonide 0.025 % 1 applic TOPICAL BID 08/13/19 06/09/21 History topical cream Lactobacillus 1 cap PO DAILY 02/14/20 06/09/21 History acidophilus-Bifidobac.animalis 2.5 billion cell capsule allopurinol 100 mg tablet 100 mg PO DAILY 02/14/20 06/09/21 History metoprolol succinate 50 mg 50 mg PO DAILY 02/14/20 06/09/21 History tablet,extended release 24 hr multivitamin 1 tablet PO DAILY 02/14/20 06/09/21 History calcium carbonate 600 mg calcium 600 mg PO DAILY 08/19/20 06/09/21 History (1,500 mg) tablet diphenhydramine HCl 25 mg capsule 25 mg PO Q6H PRN 08/19/20 06/09/21 History glucosamine-chondroitin 250 mg-200 2 tablet PO TID 08/19/20 06/09/21 History mg tablet venlafaxine 75 mg capsule,extended 75 mg PO DAILY #90 cap 01/01/21 06/09/21 Rx release 24 hr hydrocodone-acetaminophen 1 - 2 tablet PO Q6H PRN #20 tablet 02/19/21 06/09/21 Rx hyoscyamine sulfate [Levsin] 0.125 mg PO BID #14 tablet 02/21/21 06/09/21 Rx nabumetone 750 mg tablet 750 mg PO BID #180 tablet 04/08/21 06/09/21 Rx lisinopril 20 mg tablet 20 mg PO DAILY #90 tablet 05/02/21 06/09/21 Rx gabapentin 300 mg capsule 600 mg PO HS #180 cap 05/31/21 06/09/21 Rx cephalexin 500 mg PO DAILY 06/09/21 06/09/21 History metronidazole 0.75 applic TOPICAL BID 06/09/21 06/09/21 History tramadol 100 mg PO HS PRN 06/09/21 06/09/21 History Patient hx anesthesia problems: none Family hx anesthesia problems: none PMFSH Past Medical History Medical History (Updated 06/14/21 @ 08:39 by Raffi Merrill DO) Alcohol abuse with alcohol-induced anxiety disorder Anxiety Cardiac arrhythmia Frequent PVCs and PACs Chronic back pain Congestive heart failure Depression Dry eyes Excessive anger Gout Hyperlipidemia Hypertension Hypertension Neuropathy JUAN (obstructive sleep apnea) PVC (premature ventricular contraction) Sleep apnea, unspecified Surgical History Surgical History H/O bilateral cataract extraction H/O foot surgery Left foot hammertoe H/O toe surgery (~08/2019) History of arthroplasty of right knee History of joint replacement right knee S/P TURP Family History Family History Sibling Family history of arthritis Father Family history of congestive heart failure, Onset Age: 86 Patient's father is Mother Patient's mother is Heart disease Family history of congestive heart failure Social History Social History Social History: The patient is a lifelong nonsmoker. He is and lives with his . She is the durable power servomechanism designer for healthcare. He has 2 biological children and 1 stepchild. The patient is retired from [employer] physical [employer]
[2021-06-14 11:30] VITALS: BP 133/79; PULSE 95; RESP 16; TEMP 36.5; O2SAT 99
[2021-06-14] MEDS: ceFAZolin 2 GM/D5W 50 ML 2 GM/50 ML BAG IVPB (13:45)
[2021-06-14] MEDS: BUPIVACAINE/EPINEPHRINE 0.25% 50 ML VIAL 20 ML INFILTRATE (13:59)
--- NOTE | 2021-06-14 14:18 | SUR.OPER ---
Medtronic leads [id number] exp 2022-12-07 Sacrum Lead Medtronic Interstim 11 Neurostimulator [id number], Exp 2022-09-28 PIN [id number] Implant right upper buttock
--- NOTE | 2021-06-14 14:36 | W.PM.PROC2 ---
Procedure Note - Detailed Date of Procedure 06/14/21 Pre-op Diagnosis urge incontinence Post-op Diagnosis same Procedure Performed Implantation of sacral lead 12011 Fluoroscopic guidance for needle placement 79197-15 Placement of implantable pulse generator 63984 Complex neurostimulator programming impedance check 78312 Surgeon Sebas Brown MD Anesthesia MAC and local Indications This is a patient with refractory urge urinary incontinence. They have undergone a successful trial of sacral nerve stimulation. They present today for permanent implantation. They understand the risks of bleeding, infection, decreased efficacy, need for revision and battery changes. They agree to proceed Findings See dictated Description of Procedure They were correctly identified and informed consent was obtained. There brought to the operating room. There placed in the prone position. There given appropriate perioperative antibiotics. A time-out performed. I used fluoroscopy to angela out my sacral landmarks in the AP and the lateral orientation. I anesthetized the skin. I entered the S3 foramen. I monitored the needle with fluoroscopy. I got appropriate Nathaniel and toe response at a low threshold. I made a skin jake. I placed a stylet. I placed the lead introducer sheath. I thinned placed and deployed to my lead. I got appropriate responses again at a low threshold. I marked out the site of the pulse generator. I anesthetized the skin and made that incision. I created a subcutaneous pocket to house the pulse generator. I tunneled the lead towards this pocket. Appropriate connections were made between the lead and the battery. It was placed in the pocket. It was programmed and impedances were checked and found to be normal. I irrigated out all wounds. I ensured hemostasis. I closed the subcutaneous tissues with 2 Vicryl. I closed the skin with 4 0 Vicryl. Glue was applied. There then awakened and transferred to the PACU in stable condition. Implants Sacral neurostimulator Estimated Blood Loss 5 Drains No Packing No Pathology none sent Condition stable Disposition PACU
[2021-06-14 14:37] VITALS: BP 130/82; PULSE 50; RESP 16; O2SAT 97
[2021-06-14] MEDS: LACTATED RINGERS 1,000 ML 30 ML IV CONT (14:37)
[2021-06-14 15:07] VITALS: BP 152/71; PULSE 62; RESP 16
[2021-06-14 15:37] VITALS: BP 149/75; PULSE 65; RESP 16
[2021-06-14 15:50] VITALS: BP 142/76; PULSE 68; RESP 16
== END 2021-06-14 16:00 | disposition home or self-care (01) ==
PROVIDERS: PCP Internal Medicine; Visit Provider Urology
PROC: (CPT 64590; principal; 2021-06-14 13:00)
DX: N39.41 Urge incontinence (principal); I11.0 Hypertensive heart disease with heart failure; I50.9 Heart failure, unspecified; E78.5 Hyperlipidemia, unspecified; I49.3 Ventricular premature depolarization; G47.30 Sleep apnea, unspecified; M10.9 Gout, unspecified; F41.8 Other specified anxiety disorders; Z79.82 Long term (current) use of aspirin; Z79.891 Long term (current) use of opiate analgesic
CPT/HCPCS: 64590; 64581; C1767; C1778; C1787; J0690; J2250; J2704; J3010; J7120

== ENCOUNTER 2023-02-20 12:37 | Outpatient (CLI) | payer MEDICARE, SELFPAY ==
--- NOTE | ~2023-02-20 | US_ITS ---
US retroperitoneal comp 02/20/2023 13:07 Procedure: Realtime transabdominal ultrasound of the kidneys and bladder. Indication: Benign prostatic hypertension Comparison: 02/20/2021 Findings: Renal echotexture is normal bilaterally without hydronephrosis, contour deforming mass or r enal calculus. The right kidney measures 20 2011.6 cm and left kidney measures 10.6 cm. Bladder with in normal limits. Impression: 1: Unremarkable renal ultrasound. No stones, masses or hydronephrosis. Reviewed, dictated and finalized at location B. Impression: 1: Unremarkable renal ultrasound. No stones, masses or hydronephrosis.
== END 2023-02-20 12:38 | disposition home or self-care (01) ==
PROVIDERS: PCP Internal Medicine; Visit Provider Urology
DX: N40.1 Benign prostatic hyperplasia with lower urinary tract symptoms (principal)
CPT/HCPCS: 76770

== ENCOUNTER 2023-06-23 00:42 | Day surgery (SDC) | payer MEDICARE, SELFPAY ==
[2023-06-09 08:44] VITALS: BMI 30.4
[2023-06-23 07:09] VITALS: BP 136/70; PULSE 57; RESP 18; TEMP 36.1; O2SAT 99
[2023-06-23] MEDS: LACTATED RINGERS 1,000 ML 150 ML IV CONT (07:26)
--- NOTE | 2023-06-23 07:58 | WPDANESEPPF ---
Anes - Initial Pre Proc Eval Procedure: Operation Date: 06/23/23 08:30 Proposed Procedures p Colonoscopy - Woody Turner MD Date/Time: 06/23/23 07:58 Surgeon: Woody Turner MD Pre Op Diagnosis: hx colon polyps Patient Data Age: 78 Gender: M Height: 1.85 m Weight: 106 kg Last Vital Signs Temp 97 F L 06/23/23 07:09 Pulse 57 L 06/23/23 07:09 Resp 18 06/23/23 07:09 BP 136/70 06/23/23 07:09 Pulse Ox 99 06/23/23 07:09 O2 Del Method Room Air 06/23/23 07:09 Allergies Allergy/AdvReac Type Severity Reaction Status Date / Time adhesive Allergy Mild Rash Verified 06/23/23 07:08 bupropion Allergy Mild rash Verified 06/23/23 07:08 sertraline Allergy Mild rash Verified 06/23/23 07:08 Home Medications Medication Instructions Recorded Confirmed Type aspirin 81 mg tablet,delayed 81 mg PO DAILY 08/13/19 06/09/23 History release (Adult Low Dose Aspirin) atorvastatin 20 mg tablet (Lipitor) 20 mg PO DAILY 08/13/19 06/09/23 History cyanocobalamin (vitamin B-12) 1,000 mcg PO 3XW 08/13/19 06/09/23 History 1,000 mcg capsule metoprolol succinate 50 mg 50 mg PO DAILY 02/14/20 06/09/23 History tablet,extended release 24 hr calcium carbonate 600 mg calcium 600 mg PO 3XW 08/19/20 06/09/23 History (1,500 mg) tablet (Calcium) diphenhydramine HCl 25 mg capsule 50 mg PO HS 08/19/20 06/09/23 History (Benadryl) glucosamine-chondroitin 250 mg-200 1 tablet PO DAILY 08/19/20 06/09/23 History mg tablet (Osteo Bi-Flex) gabapentin 300 mg capsule 600 mg PO HS #180 caps 05/31/21 06/09/23 Rx metronidazole 0.75 % topical gel 0.75 applic topical HS 06/09/21 06/09/23 History lisinopril 40 mg tablet 40 mg PO DAILY #1 tablet 07/11/22 06/09/23 Rx allopurinol 100 mg tablet 100 mg PO DAILY #90 tabs 12/30/22 06/09/23 Rx tramadol 50 mg tablet 100 mg PO HS PRN pain #180 tabs 04/02/23 06/09/23 Rx venlafaxine 75 mg capsule,extended 75 mg PO DAILY #90 caps 04/07/23 06/09/23 Rx release 24 hr (Effexor XR) nabumetone 750 mg tablet 750 mg PO BID #180 tabs 05/15/23 06/09/23 Rx Patient hx anesthesia problems: none Family hx anesthesia problems: none Results Review: All pre-operative results and documents have been reviewed as part of the pre-operative evaluation. [facility] Past Medical History Medical History Alcohol abuse with alcohol-induced anxiety disorder Anxiety Cardiac arrhythmia Frequent PVCs and PACs Chronic back pain Congestive heart failure Depression Dry eyes Excessive anger Gout Hyperlipidemia Hypertension Hypertension Neuropathy JUAN (obstructive sleep apnea) PVC (premature ventricular contraction) Sleep apnea, unspecified Surgical History Surgical History H/O bilateral cataract extraction H/O foot surgery Left foot hammertoe H/O toe surgery (~08/2019) History of arthroplasty of right knee History of joint replacement right knee S/P TURP Family History Family History Sibling Family history of arthritis Father Family history of congestive heart failure, Onset Age: 86 Patient's father is Mother Patient's mother is Heart disease Family history of congestive heart failure Social History Social History Social History: The patient is a lifelong nonsmoker. He is and lives with his . She is the durable power employment law attorney for healthcare. He has 2 biological children and 1 stepchild. 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 The patient desires to be a full code. The patient states that he socially drinks wine. Smoking status: Never smoker Second hand tobacco smoke exposure: No Alcohol intake: current Drinks per week: 7 Alcohol use details: WINE OR
--- NOTE | 2023-06-23 08:17 | PM.HPGS ---
History of Present Illness History of Present Illness Consent: Risks, benefits, and alternatives have been discussed and questions answered. Patient agrees to proceed with procedure. Chief complaint: hx colon polyps Narrative: Marshal Wray is a 78 year old male with colon polyp in 2018 Review of Systems Constitutional: Constitutional: Denies headache(s) and Denies weakness Eyes: Eyes: Denies blurry vision ENT: Reports Normal hearing present, Denies headache(s) and Denies neck pain Cardiovascular: Cardiovascular: Denies chest pain and Denies dyspnea Respiratory: Respiratory: Denies dyspnea Gastrointestinal: Gastrointestinal: Reports no additional gastrointestinal complaints Genitourinary: Genitourinary: Denies dysuria Musculoskeletal: Musculoskeletal: Denies neck pain Integumentary/Breasts: Skin/Breast: Denies dry skin Neurologic: Reports Normal hearing present, Denies headache(s) and Denies weakness Psychiatric: Psychiatric: Denies anxiety Endocrine: Endocrine: Denies change in body appearance Hematologic/Lymphatic: Hematologic/Lymphatic: Denies easy bleeding Allergic/Immunologic: Allergic/Immunologic: Denies urticaria PMFSH Past Medical History Medical History (Updated 06/23/23 @ 08:17 by Woody Turner MD) Alcohol abuse with alcohol-induced anxiety disorder Anxiety Cardiac arrhythmia Frequent PVCs and PACs Chronic back pain Colon polyp Congestive heart failure Depression Dry eyes Excessive anger Gout Hyperlipidemia Hypertension Hypertension Neuropathy JUAN (obstructive sleep apnea) PVC (premature ventricular contraction) Sleep apnea, unspecified Surgical History Surgical History H/O bilateral cataract extraction H/O foot surgery Left foot hammertoe H/O toe surgery (~08/2019) History of arthroplasty of right knee History of joint replacement right knee S/P TURP Family History Family History Sibling Family history of arthritis Father Family history of congestive heart failure, Onset Age: 86 Patient's father is Mother Patient's mother is Heart disease Family history of congestive heart failure Social History Social History Social History: The patient is a lifelong nonsmoker. He is and lives with his . She is the durable power news internship for healthcare. He has 2 biological children and 1 stepchild. The patient is retired from [employer]. The patient desires to be a full code. The patient states that he socially drinks wine. Smoking status: Never smoker Second hand tobacco smoke exposure: No Alcohol intake: current Drinks per week: 7 Alcohol use details: WINE OR DRINK Substance use: never Substance use type: does not use Lack of Transportation: No Lack of Food: Never True Current Housing: I Have Housing Concerned About Future Housing: No Difficulty Paying Gas/Electric Bills: No Difficulty Paying for Meds: No Education: Bachelor's Degree Difficulty w/ Childcare or Family Care: No Living arrangements: with family Gender identity (if verbalized by the patient): Male Spiritual care concerns: No Meds Home Medications and Allergies Home Medications Medication Instructions Recorded Confirmed Type aspirin 81 mg tablet,delayed 81 mg PO DAILY 08/13/19 06/09/23 History release (Adult Low Dose Aspirin) atorvastatin 20 mg tablet (Lipitor) 20 mg PO DAILY 08/13/19 06/09/23 History cyanocobalamin (vitamin B-12) 1,000 mcg PO 3XW 08/13/19 06/09/23 History 1,000 mcg capsule metoprolol succinate 50 mg 50 mg PO DAILY 02/14/20 06/09/23 History tablet,extended release 24 hr calcium carbonate 600 mg calcium 600 mg PO 3XW 08/19/20 06/09/23 History (1,500 mg) tablet (Calc
[2023-06-23 08:48] VITALS: BP 104/63; PULSE 57; RESP 20; O2SAT 96
[2023-06-23 08:58] VITALS: BP 117/75; PULSE 62; RESP 18; O2SAT 100
[2023-06-23 09:08] VITALS: BP 123/74; PULSE 60; RESP 18; O2SAT 100
== END 2023-06-23 09:19 | disposition home or self-care (01) ==
PROVIDERS: PCP Internal Medicine; Visit Provider Internal Medicine Gastroenterology
PROC: 0DJD8ZZ Inspection of Lower Intestinal Tract, Via Natural or Artificial Opening Endoscopic (ICD-10-PCS; CPT 45378; principal; 2023-06-23 08:30)
DX: Z12.11 Encounter for screening for malignant neoplasm of colon (principal); D12.3 Benign neoplasm of transverse colon; K63.5 Polyp of colon; K57.30 Diverticulosis of large intestine without perforation or abscess without bleeding; K64.8 Other hemorrhoids; I11.0 Hypertensive heart disease with heart failure; I50.9 Heart failure, unspecified; E78.5 Hyperlipidemia, unspecified; G47.30 Sleep apnea, unspecified; G62.9 Polyneuropathy, unspecified; I49.3 Ventricular premature depolarization; F41.9 Anxiety disorder, unspecified; F32.A Depression, unspecified; M10.9 Gout, unspecified; Z79.82 Long term (current) use of aspirin; E66.9 Obesity, unspecified; Z68.30 Body mass index [BMI] 30.0-30.9, adult
CPT/HCPCS: 45385; 88305; J2704; J7120

== ENCOUNTER 2023-09-01 16:05 | Outpatient (CLI) | payer MEDICARE, SELFPAY ==
--- NOTE | ~2023-09-01 | XR_ITS ---
XR chest 2V 09/01/2023 16:22 Indication: Shortness of breath and feet swelling Procedure: 2 view chest Comparison: 10/13/2016 Findings: Elevated left diaphragm with left basilar atelectasis. No focal pneumonia, edema, significa nt effusion or pneumothorax. No acute osseous abnormality. 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 2: Left basilar atelectasis. Reviewed, dictated and finalized at location B. 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 2: Left basilar atelectasis.
== END 2023-09-01 16:06 | disposition home or self-care (01) ==
LOC: ANHIMG 16:12
PROVIDERS: PCP Internal Medicine; Visit Provider Nurse Practitioner Adult Health
DX: R06.09 Other forms of dyspnea (principal); R91.8 Other nonspecific abnormal finding of lung field
CPT/HCPCS: 71046

== ENCOUNTER 2023-09-30 11:33 | Outpatient (CLI) | payer MEDICARE, SELFPAY ==
[2023-09-30 12:08] LABS: Anion Gap 8 mmol/L (8-16); Blood Urea Nitrogen 41 mg/dL (9-20); Calcium 9.8 mg/dL (8.4-10.2); Carbon Dioxide 22 mmol/L (22-30); Chloride 109 mmol/L (98-107); Estimated Glomerular Filt Rate 45; Glucose 123 mg/dL (65-110); Potassium 5.1 mmol/L (3.4-5.0); Sodium 139 mmol/L (137-145)
== END 2023-09-30 11:34 | disposition home or self-care (01) ==
PROVIDERS: PCP Internal Medicine; Visit Provider Nurse Practitioner Adult Health
DX: I42.8 Other cardiomyopathies (principal)
CPT/HCPCS: 36415; 80048

== ENCOUNTER 2023-11-02 16:09 | Outpatient (CLI) | payer MEDICARE, SELFPAY ==
--- NOTE | ~2023-11-02 | US_ITS ---
EXAMINATION: US venous doppler [facility] DATE: 11/02/2023 16:56 INDICATION: Left lower limb pain TECHNIQUE: Grayscale ultrasound images without and with compression and Doppler ultrasound images of the bilateral lower extremity veins were obtained. COMPARISON: None. FINDINGS: The visualized portions of right common femoral vein, profunda (deep) femoral vein, femoral vein, pop liteal vein, posterior tibial veins, peroneal veins, gastrocnemius vein and greater saphenous vein ou tflow are patent. The visualized portions of left common femoral vein, profunda femoral vein, femoral vein, popliteal v ein, posterior tibial veins, peroneal veins, gastrocnemius vein and greater saphenous vein outflow ar e patent. IMPRESSION: 1. No deep venous thrombosis in either lower limb. Reviewed, dictated and finalized at location A. [facility]
== END 2023-11-02 16:10 | disposition home or self-care (01) ==
LOC: ANHIMG 16:14
PROVIDERS: PCP Internal Medicine; Visit Provider Internal Medicine Nephrology
DX: M79.672 Pain in left foot (principal); M79.89 Other specified soft tissue disorders
CPT/HCPCS: 93970

== ENCOUNTER 2023-11-03 10:10 | Outpatient (CLI) | payer MEDICARE, SELFPAY ==
--- NOTE | ~2023-11-03 | US_ITS ---
Renal-Bladder ultrasound Clinical History: Abnormal renal function studies Technique: Real-time sonographic imaging of the kidneys and urinary bladder was performed. Findings: The right kidney measures 11.0 cm in length and the left kidney measures 9.9 cm. There is n o hydronephrosis or renal calculus identified. Renal cortical echogenicity is within normal limits. N o solid renal mass lesion is identified. Bilateral renal cysts are noted. The urinary bladder is partially distended at the time of this exam. There is a 1.0 x 0.6 cm hyperech oic round structure or mass at the posterior left side of the bladder. No distinct posterior shadowin g. Impression: No significant abnormality of the kidneys. 1.0 x 0.6 cm hyperechoic round structure or mass at the posterior left bladder. Diagnostic considerat ions include stone, possibly small soft tissue mass, or possibly iatrogenic material. Correlate with any relevant procedural history. Reviewed, dictated and finalized at [facility]. LOADER Impression: No significant abnormality of the kidneys. 1.0 x 0.6 cm hyperechoic round structure or mass at the posterior left bladder. Diagnostic considerations include stone, possibly small soft tissue mass, or p ossibly iatrogenic material. Correlate with any relevant procedural history.
== END 2023-11-03 10:11 ==
LOC: MICIMG 10:13
PROVIDERS: PCP Internal Medicine; Visit Provider Internal Medicine Nephrology
DX: R94.4 Abnormal results of kidney function studies (principal)
CPT/HCPCS: 76775

== ENCOUNTER 2023-11-20 12:49 | Outpatient (CLI) | payer MEDICARE, SELFPAY ==
[2023-11-20 13:44] LABS: Albumin Level 4.5 g/dL (3.5-5.1); Anion Gap 8 mmol/L (8-16); Blood Urea Nitrogen 54 mg/dL (9-20); Calcium 10.2 mg/dL (8.4-10.2); Carbon Dioxide 21 mmol/L (22-30); Chloride 112 mmol/L (98-107); Estimated Glomerular Filt Rate 39; Glucose 111 mg/dL (65-110); Phosphorus 5.3 mg/dL (2.5-4.5); Potassium 5.4 mmol/L (3.4-5.0); Sodium 141 mmol/L (137-145)
== END 2023-11-20 12:50 | disposition home or self-care (01) ==
LOC: ANHLAB 12:51
PROVIDERS: PCP Internal Medicine; Visit Provider Internal Medicine Nephrology
DX: R94.4 Abnormal results of kidney function studies (principal)
CPT/HCPCS: 36415; 80069

== ENCOUNTER 2023-12-27 10:52 | Outpatient (CLI) | payer MEDICARE, SELFPAY ==
--- NOTE | ~2023-12-27 | CT_ITS ---
EXAMINATION: CT abdomen pelvis wo con DATE: 12/27/2023 11:12 INDICATION: Microhematuria TECHNIQUE: Computed tomography (CT) of the abdomen and pelvis was performed without intravenous contr ast. The dose-length product was 982.91 mGy-cm. Automated exposure control and iterative reconstructi on technique were employed. COMPARISON: CT dated 07/12/2018 FINDINGS: Chronic bibasilar atelectasis. Heart size normal. No significant pleural or pericardial eff usion. The liver, spleen, pancreas, adrenal glands are unremarkable. There are bilateral renal cysts. Gallbladder is present. Nonobstructive bowel gas pattern. Colonic diverticulosis without evidence fo r diverticulitis. There is atherosclerosis of the aorta without aneurysm. No lymphadenopathy. No free air or free fluid. Nonobstructive bowel pattern. There is gas in the bladder lumen, likely from prio r instrumentation. Severe lower thoracic and lumbar spondylosis with scoliosis. IMPRESSION: 1. Bilateral renal cysts, largest in the left kidney measuring 3.6 cm. 2: Chronic bibasilar atelectasis. Reviewed, dictated and finalized at location B.
== END 2023-12-27 10:53 | disposition home or self-care (01) ==
PROVIDERS: PCP Internal Medicine; Visit Provider Urology
DX: R31.29 Other microscopic hematuria (principal); N28.1 Cyst of kidney, acquired
CPT/HCPCS: 74176

== ENCOUNTER 2024-01-08 09:30 | Outpatient (CLI) | payer MEDICARE, SELFPAY ==
--- NOTE | 2024-01-08 09:35 | EST_ITS ---
Patient Info Name: Marshal Wray Age: 78 years : 1945 Gender: Male Ht: 75 in Wt: 240 lbs BSA: 2.42 m2 HR: 58 bpm BP: 104 / 67 mmHg Technical Quality: Good Exam Date: 01/08/2024 9:42 AM Exam Location: Echo Lab Patient Status: Outpatient Admit Date: 01/08/2024 Staff Ordering Physician: Ramiro Crystal PA-C Corporate Relations Director: Jing Valdovinos RDCS Attending Provider: JAYY ALCOCER NP Referring Physician: Marah CASTAÑEDA; Exercise Technologist: Jing Valdovinos RDCS Nurse: Jayy Alcocer APN Exam Type: CA stress echo Study Info Indications R06.02 - Shortness of breath Treadmill exercise stress echocardiogram is performed. Summary 1. Sinus rhythm with occasional PVCs intraventricular conduction delay, incomplete left bundle branch block. 2. No diagnostic ST and T abnormalities, sensitivity reduced because of IVCD. 3. Occasional PVCs. 4. Non-sustained ventricular tachycardia (3-5 beats). 5. At rest left ventricular is mildly enlarged with mild global systolic dysfunction and abnormal septal motion with bundle branch block ejection fraction 40%. 6. Post exercise LV is smaller with all segments demonstrating augmented contractility, no stress-induced ischemia. Protocol: Prakash Stress ECG Details Stage: REST Duration (min): 1 min : 45 sec Speed (mph): 0.0 Grade (%): 0 HR (bpm): 58 SBP (mmHg): 104 DBP (mmHg): 67 METS: --- Stage: REST Duration (min): 10 min : 7 sec Speed (mph): 0.0 Grade (%): 0 HR (bpm): 71 SBP (mmHg): 104 DBP (mmHg): 67 METS: --- Stage: STAGE 1 Duration (min): 1 min : 0 sec Speed (mph): 1.7 Grade (%): 10 HR (bpm): 105 SBP (mmHg): 104 DBP (mmHg): 67 METS: --- Stage: STAGE 1 Duration (min): 2 min : 0 sec Speed (mph): 1.7 Grade (%): 10 HR (bpm): 115 SBP (mmHg): 104 DBP (mmHg): 67 METS: --- Stage: STAGE 1 Duration (min): 3 min : 0 sec Speed (mph): 0.0 Grade (%): 0 HR (bpm): 113 SBP (mmHg): 115 DBP (mmHg): 68 METS: --- Stage: STAGE 1 Duration (min): 4 min : 0 sec Speed (mph): 0.0 Grade (%): 0 HR (bpm): 106 SBP (mmHg): 115 DBP (mmHg): 68 METS: --- Stage: STAGE 1 Duration (min): 5 min : 0 sec Speed (mph): 0.0 Grade (%): 0 HR (bpm): 78 SBP (mmHg): 115 DBP (mmHg): 68 METS: --- Stage: STAGE 1 Duration (min): 5 min : 10 sec Speed (mph): 0.0 Grade (%): 0 HR (bpm): 75 SBP (mmHg): 115 DBP (mmHg): 68 METS: --- Stage: RECOVERY Duration (min): 0 min : 49 sec Speed (mph): 0.0 Grade (%): 0 HR (bpm): 71 SBP (mmHg): 115 DBP (mmHg): 68 METS: --- Stage: RECOVERY Duration (min): 1 min : 49 sec Speed (mph): 0.0 Grade (%): 0 HR (bpm): 74 SBP (mmHg): 115 DBP (mmHg): 68 METS: --- Stage: RECOVERY Duration (min): 2 min : 49 sec Speed (mph): 0.0 Grade (%): 0 HR (bpm): 87 SBP (mmHg): 129 DBP (mmHg): 83 METS: --- Stage: RECOVERY Duration (min): 3 min : 4 sec Speed (mph): 0.0 Grade
== END 2024-01-08 09:31 | disposition home or self-care (01) ==
LOC: ANHCARD 09:32
PROVIDERS: PCP Internal Medicine; Visit Provider Physician Assistant
DX: R06.02 Shortness of breath (principal); I51.89 Other ill-defined heart diseases
CPT/HCPCS: 93351

== ENCOUNTER 2024-04-17 10:26 | Outpatient (CLI) | payer MEDICARE, SELFPAY ==
[2024-04-17 11:18] LABS: Albumin Level 4.3 g/dL (3.5-5.1); Anion Gap 9 mmol/L (4-12); Blood Urea Nitrogen 53 mg/dL (9-20); Calcium 9.3 mg/dL (8.4-10.2); Carbon Dioxide 21 mmol/L (22-30); Chloride 111 mmol/L (98-107); Estimated Glomerular Filt Rate 31; Glucose 93 mg/dL (65-110); Phosphorus 4.3 mg/dL (2.5-4.5); Potassium 5.4 mmol/L (3.4-5.0); Sodium 141 mmol/L (137-145)
== END 2024-04-17 10:27 | disposition home or self-care (01) ==
PROVIDERS: Visit Provider Internal Medicine Nephrology
DX: R94.4 Abnormal results of kidney function studies (principal)
CPT/HCPCS: 36415; 80069

== ENCOUNTER 2024-06-10 10:45 | Outpatient (CLI) | payer MEDICARE, SELFPAY ==
[2024-06-10 11:46] LABS: Basophils Percent Auto 0.6 % (0.2-1.2); Eosinophils Absolute Auto 0.2 K/mm3 (0-0.3); Eosinophils Percent Auto 3.5 % (0-4.4); Hematocrit 44.4 % (42.0-52.0); Hemoglobin 14.2 g/dL (14.0-18.0); Immature Granulocyte Absolute 0.02 K/mm3 (0.00-0.031); Immature Granulocyte Percent A 0.3 % (0-0.5); Lymphocytes Absolute Auto 1.63 K/mm3 (0.9-3.2); Lymphocytes Percent Auto 23.9 % (18.3-44.2); Mean Corpuscular Hemoglobin 31.6 pg (26-34); Mean Corpuscular Volume 98.9 fl (80-100); Mean Platelet Volume 9.7 fl (7.4-10.4); Monocytes Absolute Auto 0.7 K/mm3 (0.1-0.6); Monocytes Percent Auto 10.9 % (2.6-8.5); Neutrophils Absolute Auto 4.2 K/mm3 (1.3-6.7); Neutrophils Percent Auto 60.8 % (45.5-73.1); Platelet Count Result 240 k/mm3 (150-375); Red Blood Count 4.49 M/mm3 (4.6-6.20); Red Cell Distribution Width 12.3 % (11.5-14.5); White Blood Count 6.8 K/mm3 (4.5-10.0)
[2024-06-10 11:57] LABS: Add Urine Microscopic? YES; Appearance Urine Clear (Clear); Bacteria Urine None Seen /hpf; Bilirubin Urine Negative (Negative); Blood Urine Negative (Negative); Color Urine Dark Yellow (Yellow); Glucose Urine UA Negative (Negative); Ketones Urine Negative (Negative); Leukocyte Esterase Ur Negative LEU/UL (Negative); Nitrate Urine Negative (Negative); Protein Urine Trace mg/dL (Negative); RBC Urine 0-2 /hpf (0-2); Specific Grav Ur 1.032 (1.001-1.035); Squamous Epithelial Cell Urine None Seen /hpf (Few); Urobilinogen Urine 0.2 mg/dL (<2.0); WBC Urine 0-5 /hpf (0-3); pH Urine 5.5 (5.0-9.0)
[2024-06-10 12:11] LABS: Creatinine Urine 219.3 mg/dL
[2024-06-10 12:13] LABS: Alanine Aminotransferase 28 U/L (6-50); Albumin Level 4.3 g/dL (3.5-5.1); Alkaline Phosphatase 112 U/L (38-126); Anion Gap 12 mmol/L (4-12); Aspartate Amino Transferase 30 U/L (17-59); Bilirubin,Total 0.6 mg/dL (0.2-1.3); Blood Urea Nitrogen 28 mg/dL (9-20); Calcium 9.6 mg/dL (8.4-10.2); Carbon Dioxide 22 mmol/L (22-30); Chloride 106 mmol/L (98-107); Estimated Glomerular Filt Rate 58; Glucose 150 mg/dL (65-110); Phosphorus 3.3 mg/dL (2.5-4.5); Potassium 3.9 mmol/L (3.4-5.0); Sodium 140 mmol/L (137-145)
[2024-06-10 12:15] LABS: Sodium Urine Random 78 meq/L
[2024-06-10 12:36] LABS: Immunoglobulin A 164 mg/dL (70-400); Immunoglobulin G 846 mg/dL (700-1600)
[2024-06-10 12:52] LABS: Immunoglobulin M 750 mg/dL (40-230)
[2024-06-12 06:44] LABS: Protein, Total 6.9 g/dL (6.1-8.1)
[2024-06-12 15:03] LABS: Abnormal Protein Band 1 0.7 g/dL (NONE DETECTED); Abnormal Protein Band 2 0.2 g/dL (NONE DETECTED); Albumin 4.1 g/dL (3.8-4.8); Alpha 1 Globulin 0.2 g/dL (0.2-0.3); Alpha 2 Globulin 0.7 g/dL (0.5-0.9); Beta 1 Globulin 0.5 g/dL (0.4-0.6); Gamma Globulin 0.8 g/dL (0.8-1.7)
[2024-06-14 16:04] LABS: Kappa\\Lambda Light Chains 6.52 (0.26-1.65); Lambda Light Chain 12.3 mg/L (5.7-26.3)
== END 2024-06-10 10:46 | disposition home or self-care (01) ==
PROVIDERS: PCP Internal Medicine; Referring Provider Internal Medicine Hematology & Oncology; Visit Provider Internal Medicine Nephrology
DX: D72.9 Disorder of white blood cells, unspecified (principal)
CPT/HCPCS: 36415; 80053; 81001; 82570; 82784; 83883; 84100; 84155; 84165; 84300; 85025

== ENCOUNTER 2024-06-25 10:36 | Outpatient (CLI) | payer MEDICARE, SELFPAY ==
[2024-06-27 12:13] LABS: TSH QUEST 1.99 mIU/L (0.40-4.50)
== END 2024-06-25 10:37 | disposition home or self-care (01) ==
PROVIDERS: PCP Internal Medicine; Visit Provider Internal Medicine Hematology & Oncology
DX: R61 Generalized hyperhidrosis (principal)
CPT/HCPCS: 36415; 84481; 86376

== ENCOUNTER 2024-06-27 10:30 | Outpatient (CLI) | payer MEDICARE, SELFPAY ==
[2024-07-03 05:43] LABS: Metanephrine, Total Urine 543 mcg/24 h (224-832); Metanephrine, Urine 81 mcg/24 h (90-315); Normetanephrine, Urine 462 mcg/24 h (122-676)
[2024-07-05 07:35] LABS: Calculated Total (E+NE) 61 mcg/24 h (26-121); Dopamine, 24hr Urine 275 mcg/24 h (52-480); Norepinephrine, 24hr Urine 61 mcg/24 h (15-100)
== END 2024-06-27 10:31 | disposition home or self-care (01) ==
LOC: ANHLAB 10:40
PROVIDERS: PCP Internal Medicine; Visit Provider Internal Medicine Hematology & Oncology
DX: R61 Generalized hyperhidrosis (principal)
CPT/HCPCS: 82384; 83497; 83835

== ENCOUNTER 2024-08-26 10:59 | Outpatient (CLI) | payer MEDICARE, SELFPAY ==
[2024-08-26 12:09] LABS: Albumin Level 4.2 g/dL (3.5-5.1); Anion Gap 5 mmol/L (4-12); Blood Urea Nitrogen 26 mg/dL (9-20); Calcium 9.5 mg/dL (8.4-10.2); Carbon Dioxide 26 mmol/L (22-30); Chloride 109 mmol/L (98-107); Estimated Glomerular Filt Rate > 60; Glucose 133 mg/dL (65-110); Phosphorus 3.1 mg/dL (2.5-4.5); Sodium 140 mmol/L (137-145)
[2024-08-26 12:21] LABS: Parathyroid Intact 50.8 pg/mL (14.5-75.2)
[2024-08-26 12:27] LABS: Creatinine Urine 76.7 mg/dL; Total Protein Urine Random 7 mg/dL; Ur Ttl Prot Creatinine Ratio 0.09 mg/mg (0-0.20)
[2024-08-26 13:03] LABS: Hematocrit 41.5 % (42.0-52.0); Hemoglobin 13.2 g/dL (14.0-18.0); Mean Corpuscular HGB Conc 31.8 g/dl (32-36); Mean Corpuscular Hemoglobin 31.3 pg (26-34); Mean Corpuscular Volume 98.3 fl (80-100); Mean Platelet Volume 10.2 fl (7.4-10.4); Platelet Count Result 225 k/mm3 (150-375); Red Blood Count 4.22 M/mm3 (4.6-6.20); Red Cell Distribution Width 12.8 % (11.5-14.5)
== END 2024-08-26 11:00 | disposition home or self-care (01) ==
PROVIDERS: PCP Internal Medicine; Visit Provider Internal Medicine Nephrology
DX: R94.4 Abnormal results of kidney function studies (principal); N18.9 Chronic kidney disease, unspecified
CPT/HCPCS: 36415; 80069; 82570; 83970; 84156; 85027

== ENCOUNTER 2025-01-06 18:44 | Emergency (ER) | payer MEDICARE, SELFPAY ==
--- NOTE | ~2025-01-06 | CT_ITS ---
History: Left groin pain and chronic back pain PROCEDURE: CT lumbar spine without intravenous contrast. COMPARISON: None. Reference is made to an MRI examination of the lumbar spine dated 08/20/2015. TECHNIQUE: Multiple contiguous axial images of the lumbar spine were performed without the administration of int ravenous contrast. DLP: 1091 mGy-cm FINDINGS: 41 degrees of levoscoliotic curvature of the lumbar spine is visualized. Straightening of the lumbar spine is also noted, likely muscular in origin. Diffuse bony demineralization is present. A heterogeneous appearance bone marrow is also noted without discrete lytic or blastic lesions identi fied. No acute compression fractures are present. At the level of T12/L1: A left paracentral disc protrusion is identified with mass effect on both the spinal canal and bilate ral neural foramen. At the level of L1/L2: There is a broad-based disc protrusion with significant mass effect on both th e spinal canal and bilateral neural foramen. Hypertrophy of the ligamentum flavum is also noted, contributing to the degree of spinal stenosis. At the level of L2/L3: There is a broad-based disc protrusion with significant mass effect on the spi nal canal and right neural foramen. Hypertrophy of the ligamentum flavum is also noted contributing to the degree of spinal stenosis. At the level of L3/L4: There is a broad-based disc protrusion with significant mass effect on both th e spinal canal and bilateral neural foramen. Hypertrophy of the ligamentum flavum is also noted contributing to the degree of spinal stenosis. At the level of L4/L5: There is a broad-based disc protrusion with mass effect on both the spinal can al and bilateral neural foramen. Hypertrophy of the ligamentum flavum is also noted contributing to the degree of spinal stenosis. At the level of L5/S1: is a left paracentral disc protrusion without significant mass effect on the s traci canal or bilateral neural foramen. Impression: No acute findings within the lumbar spine. Multilevel disc disease most prominent at the levels of L1/L2, L2/L3, and L3/L4. No acute compression fracture. Reviewed, dictated and finalized at location A. Impression: No acute findings within the lumbar spine. Multilevel disc disease most prominent at the levels of L1/L2, L2/L3, and L3/L4 . No acute compression fracture.
--- NOTE | ~2025-01-06 | XR_ITS ---
HISTORY: pain in groin; no injury COMPARISON: None TECHNIQUE: 2 views of the left hip along with an AP view of the pelvis FINDINGS: No acute fracture or dislocation is identified. Superior lateral sclerosis of the femoral acetabular joint space is present consistent with osteoarth ritis. Neurostimulator projects over the right hemipelvis. Fecal stasis within the colon. Air within the rectum. Normal mineralization. IMPRESSION: Degenerative disease without acute fracture or dislocation Reviewed, dictated and finalized at location A.
--- OUTSIDE RECORDS SUMMARY | 2025-01-06 18:47 | XMS_ITS | Encounter Summary ---
Author Organization [facility] Address [address] [place] [address] Care Team Providers Care Buncher Operator Name Role Phone Irene Solis MD Unavailable [phone] John Ibrahim DO Primary Care Provider [phone] Encounter Details Date Type Department Care Team (Late st Contact Info) Description 02/20/2024 Lab Requisition [facility] Derm[facility] Lab [address] [place] [id number] Jose العراقي MD [address] [place] [address] Social History Tobacco Use Types Packs/Day Years Used Date Smoking Tobacco: Never Smokeless Tobacco: Never Alcohol Use Standard Drinks/Week Comments Yes 0 (1 standard drink = 0.6 oz pur e alcohol) 2-4 glasses of wine per day Sex and Gender Information Value Date Recorded Sex Assigned at Not on file Gender Identity Not on file Sexual Orientation Not on file documented as of this encounter Plan of Treatment Not on file documented as of this encounter Visit Diagnoses Not on filedocumented in this encounter Care Teams Buncher Operator Relationship Specialty Start Date End Date John Ibrahim DO [address] [facility] [address] [facility] [address] [place] [address] PCP - General Internal Medicine 12/25/13 Irene Solis MD Orthopedic Surgery 12/25/13 documented as of this encounter
--- OUTSIDE RECORDS SUMMARY | 2025-01-06 18:47 | XMS_ITS | Clinical Summary ---
Author Organization [facility] Address [address] [place] [address] Care Team Providers Care Card Folder Name Role Phone Irene Solis MD Unavailable [phone] John Ibrahim DO Primary Care Provider [phone] Source Comments [facility],non-owned Affiliates and Associated Physician Practices is amultiple site organization consisting of ambulatory clinics and hospital sitesin [place], [place], [place] and [place]. This disclosure is being madepursuant to the Care Everywhere program and may not contain all information available regarding this patient. Last updated 18.[facility] Allergies Active Allergy Reactions Criticality Noted Date Comments Adhesive Sensitivity 12/25/2013 Medications * Be aware that medications may not be up to date on this document. Alwaysverify current medications with the patient. Medication Sig Dispensed Refills Start Date End Date Status atorvastatin (LIPITOR) 20 MG tabletIndications:K nee pain,Rotator cuff (capsule) sprain,Osteoarthros is, unspecified whether generalized or localized, lower leg,Tear of medial cartilage or meniscus of knee, current,Tear of lateral cartilage or meniscus of knee, current Take 20 mg by mouth at bedtime. Active lisinopril (PRINIVIL; ZESTRIL) 20 MG tabletIndications:K nee pain,Rotator cuff (capsule) sprain,Osteoarthros is, unspecified whether generalized or localized, lower leg,Tear of medial cartilage or meniscus of knee, current,Tear of lateral cartilage or meniscus of knee, current Take 20 mg by mouth once daily. Active nabumetone (RELAFEN) 750 MG tabletIndications:K nee pain,Rotator cuff (capsule) sprain,Osteoarthros is, unspecified whether generalized or localized, lower leg,Tear of medial cartilage or meniscus of knee, current,Tear of lateral cartilage or meniscus of knee, current Take 750 mg by mouth 2 times daily. Active aspirin 81 MG tabletIndications:K nee pain,Rotator cuff (capsule) sprain,Osteoarthros is, unspecified whether generalized or localized, lower leg,Tear of medial cartilage or meniscus of knee, current,Tear of lateral cartilage or meniscus of knee, current Take 81 mg by mouth once daily. Active diphenhydrAMINE (BENADRYL) 25 MG capsule Take 50 mg by mouth nightly as needed Active traMADol (ULTRAM) 50 MG tablet Take 100 mg by mouth at bedtime Active venlafaxine (EFFEXOR) 37.5 MG tablet Take 75 mg by mouth once daily Active triamcinolone acetonide (KENALOG) 0.025 % ointment Apply to affected area 2 times daily Active allopurinol (ZYLOPRIM) 100 MG tablet Take 100 mg by mouth once daily 09/16/2019 Active Testosterone (AXIRON) 30 MG/ACT solution Apply 1 Pump to affected area once daily as needed 10/30/2019 Active metoprolol succinate XL 24hr (TOPROL XL) 50 MG tablet TAKE 1 TABLET DAILY 08/03/2020 Active cephalexin (KEFLEX) 500 MG capsuleIndications: Acne rosacea Take one daily 90 day supply 90 capsule 3 10/19/2020 Active metroNIDAZOLE (METROGEL) 0.75 % gelIndications:Acne rosacea Apply thin layer topically to affected areav twice daily. 30 days supply. 45 g 2 10/19/2020 Active gabapentin (NEURONTIN) 300 MG capsuleIndications: Brachioradial pruritus Take 2 (two) capsules by mouth at bedtime 180 capsule 12/01/2020 Active Active Problems Problem Noted Date Diagnosed Date Actinic skin damage 10/19/2020 Assessment & Plan (10/19/2020 10:27 AM PUBLIC RELATIONS DIRECTOR): - Chronic - Extensive lesions associated with sun damage and increased risk of skin cancer - Reviewed concerning signs for development of skin cancer - Counseled on importance of daily sun protection, recommend OTC broad spectrum, SPF >30 - Advised monthly self skin exams Ingrown hair 10/19/2020 Assessment & Plan (10/19/2020 10:38 AM PUBLIC RELATIONS DIRECTOR): - L upper cutaneous lip - Topical retinoid samples provided today, apply small amount to area TIW Seborrheic keratosis, inflamed 06/24/2019 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 06/24/2019 Rash and other nonspecific skin eruption 019 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 (10/19/2020 10:28 AM PUBLIC RELATIONS DIRECTOR): - Chronic, stable - Continue gabapentin 600 mg QHS - Refills today Actinic keratosis 04/30/2018 Assessment & Plan (10/19/2020 10:37 AM PUBLIC RELATIONS DIRECTOR): - Counseled on diagnosis, etiology, natural disease course- including pre- malignant nature of lesions and association with sun exposure - Discussed option for Efudex vs more frequent visits for cryotherapy, patient elects for cryotherapy - Cryotherapy performed today (see procedure note) - Wound care reviewed, post-cryo handout given - Counseled on importance of daily sun protection (SPF 30+, UVA/UVB) and monthly self skin exams Seborrheic keratosis 04/30/2018 Acne rosacea 04/30/2018 Assessment & Plan (10/19/2020 10:27 AM PUBLIC RELATIONS DIRECTOR): - Chronic, stable - Continue Keflex 500 mg EOD - Continue metrogel 0.75% daily - Refills today Inflamed seborrheic keratosis 04/30/2018 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 04/30/2018 Lentigines 04/30/2018 Primary localized osteoarthrosis, lower leg 05/0 10/2014 Old bucket handle tear of medial meniscus 2013 Encounters Date Type Department Care Team Description 10/25/2024 Telephone [facility] - Dermatology [address] [place] [address], [place] [address] Vamsi Nguyen MD Concerns from Last 3 Months Immunizations Name Administration Dates Next Due INFLUENZA VACCINE, HIGH-DOSE , QUADR. (FLUZONE HIGH-DOSE QUADRIVALENT; 65Y+), 0.7 ML (HD-IIV4) 06/01/2020,06/27/2019 PNEUMOCOCCAL PPSV23 06/27/2019 Zoster Hzv Vacc Recombinant Inj Im 08/05/2020, Family History Medical History Relation Name Comments None Known Brother None Known Father None Known Maternal Aunt None Known Maternal Grandfather None Known Maternal Grandmother None Known Maternal Uncle None Known Mother None Known Other None Known Paternal Aunt None Known Paternal Grandfather None Known Paternal Grandmother None Known Paternal Uncle None Known Sister Asthma Neg Hx CVA Neg Hx Cancer - Breast Neg Hx Cancer - Other Neg Hx Cancer - Skin, Melanoma Neg Hx Cancer - Skin, Non Melanoma Neg Hx Eczema Neg Hx Hemophilia Neg Hx Psoriasis Neg Hx Relation Name Status Comments Brother Father Maternal Aunt Maternal Grandfather Maternal Grandmother Maternal Uncle Mother Other Paternal Aunt Paternal Grandfather Paternal Grandmother Paternal Uncle Sister Social History Tobacco Use Types Packs/Day Years Used Date Smoking Tobacco: Never Smokeless Tobacco: Never Alcohol Use Standard Drinks/Week Comments Yes 0 (1 standard drink = 0.6 oz pur e alcohol) 2-4 glasses of wine per day Sex and Gender Information Value Date Recorded Sex Assigned at Not on file Gender Identity Not on file Sexual Orientation Not on file Last Filed Vital Signs Vital Sign Reading Time Taken Comments Blood Pressure 111/81 02/27/2014 9:15 AM CDT Pulse 76 02/27/2014 9:15 AM CDT Temperature 36.7 C (98 F) 02/27/2014 9:15 AM CDT Respiratory Rate 16 02/27/2014 9:15 AM CDT Oxygen Saturation 98% 02/27/2014 9:34 AM CDT Inhaled Oxygen Concentration - - Weight 103.5 kg (228 lb 2 oz) 02/27/2014 6:28 AM CDT Height 190.5 cm (6' 3 ) 02/27/2014 6:28 AM CDT Body Mass Index 28.51 02/27/2014 6:28 AM CDT Plan of Treatment Health Maintenance Due Date Last Done Comments MEDICARE AWV 12 MONTHS 1945 DTAP/TDAP/TD VACCINES (1 - Tdap) 1964 Respiratory Syncytial Virus (RSV) Vaccine Pt: or over 60 yrs (1 - 1-dose 75+ series) 2020 PNEUMOCOCCAL VACCINE 50+ (2 of 2 - PCV) 06/27/2020 06/27/2019 COVID-19 VACCINE (2023-2 5 season) 2024 DEPRESSION SCREENING 10/02/2024 INFLUENZA VACCINE (Season Ended) 2025 06/01/2020, 06/27/2019 ZOSTER VACCINE Completed 08/05/2020, 06/01/2020 HEPATITIS B VACCINE Aged Out No longe r eligible based on patient's age to complete this topic HIB VACCINE Aged Out No longer eligi ble based on patient's age to complete this topic HPV VACCINE Aged Out No longer eligi ble based on patient's age to complete this topic MENINGOCOCCAL (Group B) VACCINE SHARED DECISION-MAKING Aged Out No longer eligible based on patient's age to complete this topic MENINGOCOCCAL GROUPS A/C/Y/W VACCINE Aged Out No longer eligible b ased on patient's age to complete this topic Care Teams Card Folder Relationship Specialty Start Date End Date John Ibrahim DO [address] [facility] [address] [place] [address] PCP - General Internal Medicine 12/25/13 Irene Solis MD Orthopedic Surgery 12/25/13
--- OUTSIDE RECORDS SUMMARY | 2025-01-06 18:47 | XMS_ITS | Clinical Summary ---
Author Organization [facility] Address [address] [place] [id number] Care Team Providers Care Refuse Driver Name Role Phone Medardo Jaramillo DO Primary Care Provider [phone] Allergies Active Allergy Reactions Criticality Noted Date Comments Adhesive Tape-Silicones Swelling Medium Medications traMADol (ULTRAM) 50 mg tablet take 1 tablet (50MG) by oral route every 6 hours as needed 0 2 Active triamcinolone (KENALOG) 0.025 % ointment apply by topical route 2 times every day a thin layer to the affected area(s) 0 0 4 Active aspirin 81 mg tablet take 1 tablet by oral route every day 0 0 6 Active nabumetone (RELAFEN) 750 mg tablet take 1 tablet by oral route 2 times every day 0 0 6 Active diphenhydrAMINE (diphenhydrAMINE) 25 mg capsule Take 1 tablet/capsu le (25 mg total) by mouth every 6 (six) hours as needed for itching Active venlafaxine XR (EFFEXOR-XR) 75 mg 24 hr capsule Take 1 capsule (75 mg total) by mouth daily 3 Active gabapentin (NEURONTIN) 300 mg capsuleIndications: Neuropathic Pain Take 1 capsule (300 mg total) by mouth 2 (two) times a day for 90 days, THEN 2 capsules (600 mg total) nightly. 120 capsule 3 4 Active metoprolol XL (TOPROL-XL) 50 mg extended release tablet TAKE 1 TABLET DAILY 90 tablet 3 4 Active atorvastatin (LIPITOR) 20 mg tablet TAKE 1 TABLET DAILY 90 tablet 2 4 Active allopurinoL (ZYLOPRIM) 100 mg tablet Take 1 tablet (100 mg total) by mouth daily 5 Active sacubitriL-valsarta n (ENTRESTO) 24-26 mg tabletIndications:c hronic heart failure Take 1 tablet by mouth 2 (two) times a day 30 tablet 3 5 Active empagliflozin (JARDIANCE) 10 mg tabletIndications:D ilated cardiomyopathy (HCC) Take 1 tablet (10 mg total) by mouth daily 30 tablet 3 5 Active Active Problems Problem Noted Date Diagnosed Date Chronic combined systolic an d diastolic congestive heart failure 08/28/2024 Right wrist tendonitis 04/10/2024 Wrist arthritis 04/10/2024 Pain of left eye 03/22/2024 Hypotension 01/15/2024 Shortness of breath 01/15/2024 Glaucoma suspect of both eyes 03/11/2023 Chronic fatigue 08/31/2022 Plasma cell disorder 08/31/2022 Trigger ring finger of right hand 11/10/2021 Right wrist pain 11/10/2021 Left wrist pain 11/10/2021 Mixed hyperlipidemia 07/30/2021 Actinic skin damage 10/19/2020 Overview (11/10/2021): Last Assessment & Plan: - Chronic - Extensive lesions associated with sun damage and increased risk of skin cancer - Reviewed concerning signs for development of skin cancer - Counseled on importance of daily sun protection, recommend OTC broad spectrum, SPF >30 - Advised monthly self skin exams Last Assessment & Plan: - Chronic - Extensive lesions associated with sun damage and increased risk of skin cancer - Reviewed concerning signs for development of skin cancer - Counseled on importance of daily sun protection, recommend OTC broad spectrum, SPF >30 - Advised monthly self skin exams Ingrown hair 10/19/2020 Overview (11/10/2021): Last Assessment & Plan: - L upper cutaneous lip - Topical retinoid samples provided today, apply small amount to area TIW Last Assessment & Plan: - L upper cutaneous lip - Topical retinoid samples provided today, apply small amount to area TIW Dry eye syndrome of left eye 01/04/2019 Ptosis of both eyelids 01/04/2019 Pseudophakia of both eyes 12/29/2018 JUAN on CPAP 08/20/2018 Acne rosacea 04/30/2018 Minocycline pigmentation 04/30/2018 Seborrheic keratosis 04/30/2018 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 Overview (11/10/2021): Last Assessment & Plan: - Chronic, stable - Continue gabapentin 600 mg QHS - Refills today Premature atrial contractions 02/14/2018 Cervical radiculopathy, chronic 01/23/2018 Cervical disc disorder 11/21/2017 H/O cardiac radiofrequency ablation 08/31/2017 Abnormal laboratory test result 07/31/2017 Eczema 04/19/2017 Testicular hypofunction 10/10/2016 Overview (01/07/2017): Testicular hypofunction Assessment & Plan (11/16/2022 11:48 AM PAYROLL EXAMINER): Hypogonadism for few years. on small dose of Testosterone, due to high H&H He was symptomatic when we took him off Androgel. PSA stable at 0.2 on 01/17/22- done annually with his Urologist. Last testosterone was normal 536 on 04/20/22 H/H was 14.7/42 Plan: Patient agrees that it is better to get him off Testosterone. I would like him to try to wean off Testosterone gradually and see if he can get off medication Decrease Androgel 1 pumps /day, 3 x per week for 4 weeks then go down to once /week for and if asymptomatic then can stop Patient will continue to have prostate checked with his Urologist on annual basis. No follow up needed with me. Assessment & Plan (04/20/2022 10:31 AM CDT): Hypogonadism for few years. on small dose of Testosterone, due to high H&H He was symptomatic when we took him off Androgel. PSA stable at 0.2 on 01/17/22- done annually with his Urologist. Last testosterone was normal 404 on 10/20/21 H/H was 14.7/46 Plan: Explained to patient possibility of developing prostate cancer as he gets older. I would like him to try to wean off Testosterone gradually and see if he can get off medication Decrease Androgel 1 pumps /day, and if asymptomatic then can make it every other day Check labs today. Patient will continue to have prostate checked with his Urologist on annual basis. Assessment & Plan (10/20/2021 10:00 AM PAYROLL EXAMINER): Hypogonadism for few years. on small dose of Testosterone, due to high H&H He was symptomatic when we took him off Androgel. PSA stable at 0.4 on 12/22/20- done annually with his Urologist. Last testosterone was normal 784 on 04/20/21 H/H was 13.8/44 Plan: Side effects of testosterone treatment reviewed with patient especially on older men. We will monitor CBC and he needs PSA on annual basis. Continue Androgel 2 pumps /day Check labs today- I will adjust the dose of testosterone based on results. Patient will continue to have prostate checked with his Urologist on annual basis. Assessment & Plan (04/14/2021 10:23 AM CDT): Hypogonadism for few years. on small dose of Testosterone, due to high H&H He was symptomatic when we took him off Androgel. PSA 0.4 on 12/09/19- done annually with his Urologist. Last testosterone on 10/14/20 was 381 H/H was 15.7/48.7 Plan: Side effects of testosterone treatment reviewed with patient especially on older men. We will monitor CBC and he needs PSA on annual basis. Continue Androgel 2 pumps /day Check labs today- I will adjust the dose of testosterone based on results. Patient will continue to have prostate checked with his Urologist on annual basis. Assessment & Plan (10/14/2020 10:19 AM PAYROLL EXAMINER): Hypogonadism for few years. on small dose of Testosterone, due to high H&H He was symptomatic when we took him off Androgel. PSA 0.4 on 12/09/19- done annually with his Urologist. Last testosterone on 04/15/20 : 388 H/H was 15.4/48.8 Plan: Side effects of testosterone treatment reviewed with patient especially on older men. We will monitor CBC and he needs PSA on annual basis. Continue Androgel 2 pumps /day Check labs today- I will adjust the dose of testosterone based on results. Patient will continue to have prostate checked with his Urologist on annual basis. Carpal tunnel syndrome of left wrist 09/02/2016 History of open heart surgery 07/05/2016 Overview (01/07/2017): S/P ablation operation for arrhythmia PVC's (premature ventricular contractions) 12/28 Overview (01/07/2017): PVC's (premature ventricular contractions) Benign hypertension 12/29/2015 Overview (01/07/2017): HTN (hypertension), benign Assessment & Plan (11/16/2022 11:39 AM PAYROLL EXAMINER): Controlled with medication - low salt diet - continue medication per PCP Assessment & Plan (04/20/2022 10:28 AM CDT): Controlled with medication - low salt diet - continue medication per PCP Assessment & Plan (10/20/2021 10:01 AM PAYROLL EXAMINER): Controlled with medication - low salt diet - continue medication per PCP Assessment & Plan (04/14/2021 10:36 AM CDT): Controlled with medication - low salt diet - continue medication per PCP Assessment & Plan (10/14/2020 10:19 AM PAYROLL EXAMINER): Controlled with medication - low salt diet - patient to reduce risk factors for CVD with control of BP- cholesterol and weight. - continue medication per PCP Nonischemic cardiomyopathy 12/29/2015 Overview (01/07/2017): Nonischemic cardiomyopathy Swelling of extremity 12/04/2015 Surgical follow-up care 12/03/2015 Lumbago 08/18/2015 Perineal pain in male 07/28/2015 Primary localized osteoarthrosis, lower leg 05/0 10/2014 Notalgia 11/19/2014 Cervicalgia 11/19/2014 Dizziness 11/18/2014 Overview (01/07/2017): Dizziness Knee pain 09/30/2013 Arthralgia of shoulder 05/30/2012 Arthralgia of hip 08/31/2011 Resolved Problems Problem Noted Date Diagnosed Date Resolved Date After-cataract with vision obscured 01/30/2017 08/20/2018 Meibomianitis 11/21/2016 02/13/2022 Rosacea blepharoconjunctivitis 11/21/2016 03/22/2024 Corneal scar 11/21/2016 03/22/2024 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), bilateral 05/10/2016 03/11/2023 Dyslipidemia 12/29/2015 07/30/2021 Overview (01/07/2017): Mixed dyslipidemia Benign prostatic hyperplasia 05/01/2007 05/01/2019 Encounters Date Type Department Care Team Description 12/25/2024 11:00 AM CDT Office Visit [facility] Cardiology [address] [facility] [[email or web address] [address] [place] [address] Polly West NP Dilated cardiomyopathy (HCC) (Primary Dx); Nonischemic cardiomyopathy (HCC); Chronic combined systolic and diastolic congestive heart failure (HCC); Benign hypertension 10/29/2024 Telephone [facility] [address] [facility] [address] [place] [address] Carmelina Norwood MA 10/25/2024 Telephone [facility] [address] [facility] [address] [place] [address] Lisa Pollard RN DME order 10/25/2024 Orders Only [facility] [address] [facility] [address] [place] [id number] Nino Vivar MD JUAN (obstructive sleep apnea) (Primary Dx) 10/16/2024 Documentation [facility] [address] [facility] [address] [place] [address] Nino Vivar MD 10/11/2024 Orders Only [facility] Scanning, Provider from Last 3 Months Immunizations Immunization Administration Dates Next Due Influenza, Quadrivalent, Hig h Dose, Preservative Free, Intrr 06/01/2020 Influenza, Quadrivalent, Spl it, Preservative Free, Intramuscular 08/12/2013 Influenza, Trivalent, High D ose, Split, Preservative Free, Intramuscular 06/27/2019,06/25/2018,06/11/2017,06/24,07/05/2015 Influenza, Trivalent, IM (MDV) 06/24/2014 Pneumococcal Conjugate PCV 13 06/25/2018 Pneumococcal Polysaccharide PPV23 06/27/2019 ZOSTER Recombinant 08/05/2020,06/01/2020 Surgical History Surgery Date Site/Laterality Comments OTHER SURGICAL HISTORY Arrhythmias very (frequent PVC's): EPIDURAL INJECTION LUMBOSACRAL 10/20/2015 N/A EPIDURAL INJECTION LUMBOSACRAL 09/10/2015 N/A CATARACT EXTRACTION BLEPHAROPTOSIS REPAIR Medical History Medical History Date Comments Hx Other Medical Cardiomyopathy Hx Other Medical Arrhythmias pro y (frequent PVC's) Hypertension Hypertension Hx Other Medical mild aortic gurjit t dilatation at 4.1 Hx Other Medical small pericardi al effusion Hx Other Medical ASD Hx Other Medical Sleep Apnea, CP AP Dry eye syndrome of both eyes Achilles tendon injury Family History Medical History Relation Name Comments Heart failure Father Congestive Hea rt Failure; Heart failure Mother Congestive Hea rt Failure; Macular degeneration Mother's Sister Glaucoma Neg Hx Relation Name Status Comments Father Alive Mother Alive Mother's Sister Other Alive Social History Tobacco Use Types Packs/Day Years Used Date Smoking Tobacco: Never Smokeless Tobacco: Never Tobacco Cessation:Counseling Given: Not Answered Alcohol Use Standard Drinks/Week Comments Yes 0 (1 standard drink = 0.6 oz pur e alcohol) AUDIT-C Answer Date Recorded Q1: How often do you have a drink containing alc ohol? 2-3 times a week 12/09/2021 Q2: How many drinks containi ng alcohol do you have on a typical day when you are drinking? 1 or 2 12/09/2021 Q3: How often do you have si x or more drinks on one occasion? Never 12/09/2021 Sex and Gender Information Value Date Recorded Sex Assigned at Not on file Legal Sex Male 2:41 AM PAYROLL EXAMINER Gender Identity Not on file Sexual Orientation Not on file Occupation Industry Job Start Date Job End Date retired Not on file Not on file Not on file Obstetrics History Last Filed Vital Signs Vital Sign Reading Time Taken Comments Blood Pressure 122/78 12/25/2024 11:01 AM CDT Pulse 75 12/25/2024 11:01 AM CDT Temperature 36.9 C (98.5 F) 09/17/2024 10:36 AM PAYROLL EXAMINER Respiratory Rate 18 11/14/2022 8:47 AM PAYROLL EXAMINER Oxygen Saturation 95% 12/25/2024 11:01 AM CDT Inhaled Oxygen Concentration - - Weight 110.7 kg (244 lb) 12/25/2024 11:01 AM CDT Height 188 cm (6' 2 ) 12/25/2024 11:01 AM CDT Body Mass Index 31.33 12/25/2024 11:01 AM CDT Plan of Treatment Health Maintenance Due Date Last Done Comments Depression Screening 1945 Fall Risk Assessment 1945 Hepatitis C Screening 1945 DTaP/Tdap/Td Vaccine (1 - Tdap) 1956 Hepatitis B Screening 1963 Well Visit 65+ 2010 Influenza Vaccine (Season Ended) 2025 06/01/2020, 06/27/2019, 06/25/2018, Additional history exists Pneumococcal vaccine 65+ Completed 06/27/2019, 06/03 Zoster Vaccine Completed 08/05/2020, 06/01/2020 Medical Devices Implanted Type Area Community Relations Coordinator Device Identifier Shelf Expiration Date Model / Serial / Lot Neurostimulator Bladder-05/04/2021 Implanted: 021 by Unknown, Notinfile (Quantity not on file) Neurostimulator Pelvis Medtronic Neuro [id number] / / Neurostimulator Lead-05/04/2021 Implanted: 021 by Unknown, Notinfile (Quantity not on file) Neurostimulator Pelvis Medtronic Neuro [id number] / / Procedures Procedure Name Priority Date/Time Associated Diagnosis Comments SLEEP LAB/STUDY - RESULT 10/11/2024 4:59 PM PAYROLL EXAMINER from Last 3 Months Results * SLEEP LAB/STUDY - RESULT (10/11/2024 4:59 PM PAYROLL EXAMINER) us Provider Scanning Final Result from Last 3 Months Insurance [facility] MEDICARE [facility] MEDICARE [facility] Member Subscriber Plan / Payer ( fective 2020-Present) Name:[place] Paulette Eli Relation to Subscriber:Self Name:Paulette Wray Payer ID:[id number] Type:COMMERCIAL Address: [facility] [id number] [place] [phone] MEDICARE Care Teams Refuse Driver Relationship Specialty Start Date End Date Medardo Jaramillo DO [address] [place] [address] PCP - General Internal Medicine 08/28/24
--- OUTSIDE RECORDS SUMMARY | 2025-01-06 18:47 | XMS_ITS | Patient Health Record ---
Author Organization 1 OF [facility] Address [address] [address] Care Team Providers Care E Learning Developer Name Role Phone John Ibrahim MD Primary Care Provider Merlin Junior Unavailable [phone] Allergies Allergen (clinical drug ingredient) Drug/Non Drug Allergy documented on EMR Reaction Allergy Type Onset Date Status Adhesive Unknown Allergy Active Reason For Referral No Information Medications Medication SIG (Take, Route, Frequency, Duration) Notes Start Date End Date Status Nabumetone 750 MG TAKE 1 TABLET BY THANG TH TWICE DAILY Oral for 90 Active Metoprolol Succinate ER 50 MG Oral for 90 Active Atorvastatin Calcium 20 MG Oral for 90 Active Lisinopril 40 MG Oral for 90 A ctive Sildenafil Citrate 100 MG TAKE 1 TABLET BY MOUTH ONCE DAILY NEEDED Oral for 10 Active Venlafaxine HCl ER 75 MG Oral for 90 Active traMADol HCl 50 MG TAKE 2 TABLETS BY MO UTH AT BEDTIME NEEDED FOR PAIN. MUST LAST 90 DAYS. Diagnosis Unavailable Oral for 90 Active Gabapentin 300 MG Oral for 30 Active Allopurinol 100 MG Oral for 90 Active Social History Tobacco Use: Social History Observation Description Date Details (start date - stop date) Never Smoker NA - NA Tobacco Use/Smoking Question Answer Notes Are you a nonsmoker Problems Problem Type SNOMED Code ICD Code Onset Dates Problem Status W/U Status Risk Notes Problem [id number] Contusion of right great toe without damage to nail, initial encounter (S90.111A) Active confirmed Problem 33268501 Idiopathic peripheral neuropathy (G60.9) Active confirmed Problem 282712255 Lumbar radiculopathy (M54.16) Active confirmed Problem [id number] Hammertoe of left foot (M20.42) Active confirmed Problem 05316199 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 ELEANOR Ramos [id number] Marshal Rivera Self - patient is the insured [facility] [address] [place] [address] [id number] Marshal Rivera Self - patient is the insured Medical (General) History Medical History History ICD Code arthritis Gout HTN Neuropathy of feet Surgical History Surgery Date(Month/Year) Cardiac Ablation
--- OUTSIDE RECORDS SUMMARY | 2025-01-06 18:47 | XMS_ITS | Clinical Summary ---
Author Organization [facility] Oneida Lanza Address [address] [place] [address] Care Team Providers Care Rug Cleaner Hand Name Role Phone LanafloraJohn Primary Care Provider [phone] Allergies No known active allergies Medications atorvastatin (LIPITOR) 20 mg tablet Take 20 mg by mouth daily. Active cephALEXin (KEFLEX) 500 mg capsule Take 500 mg by mouth 4 times daily. Active diphenhydrAMINE (BENADRYL) 25 mg tablet Take 25 mg by mouth every 6 hours as needed for Allergies. Active gabapentin (NEURONTIN) 300 mg capsule Take 300 mg by mouth 3 times daily. Active metoprolol succinate (TOPROL XL) 50 mg Extended Release 24 hour tablet Take 50 mg by mouth daily. Active nabumetone (RELAFEN) 750 mg tablet Take 750 mg by mouth 2 times daily. Active traMADoL (ULTRAM) 50 mg tablet Take by mouth every 6 hours as needed for Pain. Active triamcinolone acetonide (KENALOG) 0.025 % Cream Apply to affected area 2 times daily. Active venlafaxine (EFFEXOR) 37.5 mg tablet Take 37.5 mg by mouth 3 times daily. 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 Encounters Date Type Department Care Team Description 12/18/2024 External Device Data [facility] ABSTRACTION Provider, Abstract 12/07/2024 External Device Data [facility] ABSTRACTION Provider, Abstract 12/06/2024 External Device Data [facility] ABSTRACTION Provider, Abstract 11/20/2024 External Device Data [facility] ABSTRACTION Provider, Abstract 10/24/2024 External Device Data [facility] ABSTRACTION Provider, Abstract from Last 3 Months Social History Tobacco Use Types Packs/Day Years Used Date Smoking Tobacco: Never Smokeless Tobacco: Never Tobacco Cessation:Counseling Given: Not Answered Sex and Gender Information Value Date Recorded Sex Assigned at Not on file Legal Sex Male 1:44 PM CDT Gender Identity Not on file Sexual Orientation Not on file Last Filed Vital Signs Vital Sign Reading Time Taken Comments Blood Pressure 138/79 06/25/2024 9:54 AM CDT Pulse 62 06/25/2024 9:54 AM CDT Temperature 36.5 C (97.7 F) 06/25/2024 9:54 AM CDT Respiratory Rate 16 06/25/2024 9:54 AM CDT Oxygen Saturation 94% 06/25/2024 9:54 AM CDT Inhaled Oxygen Concentration - - Weight 108.7 kg (239 lb 9.6 oz) 06/25/2024 9:54 AM CDT Height 188 cm (6' 2 ) 07/04/2022 1:33 PM CDT Body Mass Index 30.76 07/04/2022 1:33 PM CDT Plan of Treatment Upcoming Encounters Date Type Department Care Team (Late st Contact Info) Description 03/26/2025 10:00 AM CDT Office Visit [facility] Oncology and Hematology - [facility] [address] [facility] [address] [place] [address] [place] [address] [place] [address] [address] [place] [address] Health Maintenance Due Date Last Done Comments DTAP/TDAP/TD VACCINES (1 - Tdap) 1964 RSV VACCINE (60+ or ) (1 - 1-dose 75+ series) 2020 INFLUENZA VACCINE (#1) 2024 0, 06/27/2019, 06/27/2019, Additional history exists COLORECTAL SCREENING Discontinued 08/09/2018 Colorectal Cancer Screening Discontinued PNEUMOCOCCAL VACCINE 50+ YEARS Completed 06/27/2019 , 06/25/2018 ZOSTER VACCINE Completed 08/05/2020, 06/01/2020 FIT-DNA Q 3 years Discontinued FIT/FOBT Q 1 year Discontinued Flex Sig/CT Colonography Q 5 years Discontinued Insurance MEDICARE PART A AND B [facility] [id number] Care Teams Rug Cleaner Hand Relationship Specialty Start Date End Date John Ibrahim DO [address] [facility] [address] [place] [address] PCP - General Internal Medicine 07/04/22
--- OUTSIDE RECORDS SUMMARY | 2025-01-06 18:47 | XMS_ITS | Encounter Summary ---
Author Organization [facility] Care Team Providers Care Lead Informatica Developer Name Role Phone Medardo Jaramillo DO Primary Care Provider [phone] Encounter Details Date Type Department Care Team (Latest Contact Info) Description 06/26/2017 Orders Only [facility] ProviderAnahi MD [address] [place] [id number] Social History Tobacco Use Types Packs/Day Years Used Date Smoking Tobacco: Never Alcohol Use Standard Drinks/Week Comments Yes 0 (1 standard drink = 0.6 oz pur e alcohol) Sex and Gender Information Value Date Recorded Sex Assigned at Not on file Legal Sex Male 2:41 AM BIODIESEL DIVISION MANAGER Gender Identity Not on file Sexual Orientation Not on file documented as of this encounter Plan of Treatment Not on file documented as of this encounter Procedures Procedure Name Priority Date/Time Associated Diagnosis Comments PROCEDURE - RESULT 06/26/2017 12 :00 AM CDT documented in this encounter Results * PROCEDURE - RESULT (06/26/2017 12:00 AM CDT) Narrative 06/26/2017 12:00 AM CDT Ordered by an unspecified provider. Historical Provider Final Res ult documented in this encounter Visit Diagnoses Not on filedocumented in this encounter Care Teams Lead Informatica Developer Relationship Specialty Start Date End Date Medardo Jaramillo DO [address] [facility] [address] [place], [place] [id number] PCP - General Internal Medicine 08/28/24 documented as of this encounter
--- OUTSIDE RECORDS SUMMARY | 2025-01-06 18:47 | XMS_ITS | Referral Summary ---
Author Organization [facility] Address [address] [place] [id number] Care Team Providers Care Presentation Manager Name Role Phone Medardo Jaramillo DO Primary Care Provider [phone] Encounters Date Type Department Care Team Description 12/25/2024 11:00 AM CDT Office Visit [facility] Cardiology [address] [facility] [address] [place] [phone] Polly West NP Dilated cardiomyopathy (HCC) (Primary Dx); Nonischemic cardiomyopathy (HCC); Chronic combined systolic and diastolic congestive heart failure (HCC); Benign hypertension 10/29/2024 Telephone [facility] [address] [facility] 6th [address] [place] [phone] Carmelina Norwood MA 10/25/2024 Telephone [facility] [address] [facility] 6[address] [place] [address] Lisa Pollard RN DME order 10/25/2024 Orders Only [facility] [address] [facility] 6[address] [place] [address] Nino Vivar MD JUAN (obstructive sleep apnea) (Primary Dx) 10/16/2024 Documentation [facility] [address] [facility] 6th [address] [place] [address] Nino Vivar MD 10/11/2024 Orders Only [facility] SLEEP Scanning, Provider from Last 3 Months Allergies Active Allergy Reactions Criticality Noted Date [...] hypofunction Assessment & Plan (11/16/2022 11:48 AM REGIONAL SALES LEADER): Hypogonadism for few years. on small dose [...] basis. Assessment & Plan (10/20/2021 10:00 AM REGIONAL SALES LEADER): Hypogonadism for few years. on small dose [...] basis. Assessment & Plan (10/14/2020 10:19 AM REGIONAL SALES LEADER): Hypogonadism for few years. on small dose [...] benign Assessment & Plan (11/16/2022 11:39 AM REGIONAL SALES LEADER): Controlled with medication - low salt diet - continue medication per PCP Assessment & Plan (04/20/2022 10:28 AM CDT): Controlled with medication - low salt diet - continue medication per PCP Assessment & Plan (10/20/2021 10:01 AM REGIONAL SALES LEADER): Controlled with medication - low salt diet - continue medication per PCP Assessment & Plan (04/14/2021 10:36 AM CDT): Controlled with medication - low salt diet - continue medication per PCP Assessment & Plan (10/14/2020 10:19 AM REGIONAL SALES LEADER): Controlled with medication - low salt diet - patient to reduce risk factors for CVD with control of BP- cholesterol and weight. - continue medication per PCP Nonischemic cardiomyopathy 12/29/2015 Overview (01/07/2017): Nonischemic cardiomyopathy Swelling of extremity 12/04/2015 Surgical follow-up care 12/03/2015 Lumbago 08/18/2015 Perineal pain in male 07/28/2015 Primary localized osteoarthrosis, lower leg 10/2014 Notalgia 11/19/2014 Cervicalgia 11/19/2014 Dizziness 11/18/2014 [...] Mixed dyslipidemia Benign prostatic hyperplasia 05/01/2007 05/01/2019 Immunizations Immunization Administration Dates Next Due Influenza, Quadrivalent, Hig h Dose, Preservative Free, Intrr 06/01/2020 Influenza, Quadrivalent, Spl it, Preservative Free, Intramuscular 08/12/2013 Influenza, Trivalent, High D ose, Split, Preservative Free, Intramuscular 06/27/2019,06/25/2018,06/11/2017,06/24,07/05/2015 Influenza, Trivalent, IM (MDV) 06/24/2014 Pneumococcal Conjugate PCV 13 06/25/2018 Pneumococcal Polysaccharide PPV23 06/27/2019 ZOSTER Recombinant 08/05/2020,06/01/2020 Social History Tobacco Use Types Packs/Day Years [...] on file Legal Sex Male 2:41 AM REGIONAL SALES LEADER Gender Identity Not on file Sexual Orientation Not on file Occupation Industry Job Start Date Job End Date retired Not on file Not on file Not on file Last Filed Vital Signs Vital Sign Reading Time Taken Comments Blood Pressure 122/78 12/25/2024 11:01 AM CDT Pulse 75 12/25/2024 11:01 AM CDT Temperature 36.9 C (98.5 F) 09/17/2024 10:36 AM REGIONAL SALES LEADER Respiratory Rate 18 11/14/2022 8:47 AM REGIONAL SALES LEADER Oxygen Saturation 95% 12/25/2024 11:01 AM CDT Inhaled Oxygen Concentration - - Weight 110.7 kg (244 lb) 12/25/2024 11:01 AM CDT Height 188 cm (6' 2 ) 12/25/2024 11:01 AM CDT Body Mass Index 31.33 12/25/2024 11:01 AM CDT Plan of Treatment Not on file Medical Devices Implanted Type Area Air Traffic Instructor Device Identifier Shelf Expiration Date Model / Serial / Lot Neurostimulator Bladder-05/04/2021 Implanted: 021 by Unknown, Notinfile (Quantity not on file) Neurostimulator Pelvis Medtronic Neuro [id number] / / Neurostimulator Lead-05/04/2021 Implanted: 021 by Unknown, Notinfile (Quantity not on file) Neurostimulator Pelvis Medtronic Neuro [id number] / / Procedures Procedure Name Priority Date/Time Associated Diagnosis Comments SLEEP LAB/STUDY - RESULT 10/11/2024 4:59 PM REGIONAL SALES LEADER from Last 3 Months Results * SLEEP LAB/STUDY - RESULT (10/11/2024 4:59 PM REGIONAL SALES LEADER) us Provider Scanning Final Result from Last 3 Months Insurance [facility] MEDICARE [facility] MEDICARE [facility] MEDICARE Care Teams Presentation Manager Relationship Specialty Start Date End Date Medardo Jaramillo DO [address] [facility] [address] [place] [address] PCP - General Internal Medicine 08/28/24
--- OUTSIDE RECORDS SUMMARY | 2025-01-06 18:47 | XMS_ITS | Clinical Summary ---
Author Organization [facility] Address [address] [address] Phone Care Team Providers Care Filler Blender Name Role Phone John Ibrahim DO Primary Care Provider [phone] Social History Tobacco Use Types Packs/Day Years Used Date Smoking Tobacco: Never Assessed Sex and Gender Information Value Date Recorded Sex Assigned at Not on file Legal Sex Male 10:35 PM CDT Gender Identity Not on file Sexual Orientation Not on file Plan of Treatment Health Maintenance Due Date Last Done Comments Hepatitis C Virus (HCV) Screening 1945 TdaP Immunization 1945 Respiratory Syncytial Virus (RSV) Immunization (Adult) (1 - 1-dose 75+ series) 2020 Influenza Immunization (#1) 06/02/202405/04, 06/27/2019, 06/25/2018, Additional history exists SARS-COV-2 Immunization ( season) 2024 09/09/2021, 12/04/2020, 11/09/2020 Colonoscopy High Risk Discontinued 08/09/2018, 012 Colonoscopy Discontinued 08/09/2018, 08/16/2012 Colorectal Cancer Screening Discontinued Pneumococcal Immunization (50+ years) Completed 06/27/2019, 06/25/2018 Pneumococcal Immunization Combined Discontinued 06/27/2019, 06/25/2018 Zoster Immunization Completed 08/05/2020, 0 Cologuard Discontinued Hepatitis B Immunization Aged Out No longer eligible based on patient's age to complete this topic Immunochemical Fecal Occult Blood Discontinued Meningococcal Immunization (ACWY) Aged Out No longer eligible based on patient's age to complete this topic Rotavirus Immunization Aged Out No lo nger eligible based on patient's age to complete this topic Procedures Procedure Name Priority Date/Time Associated Diagnosis Comments COLONOSCOPY Routine 08/09/2018 from Last 3 Months or Most Recently Relevant to Health Maintenance Results * COLONOSCOPY (08/09/2018) Sameer Rose DO PROCEDURE/MINOR SURGICAL ORDERA BLES Final Result from Last 3 Months or Most Recently Relevant to Health Maintenance Insurance MEDICARE Care Teams Filler Blender Relationship Specialty Start Date End Date John Ibrahim DO [address] [facility] [address] [place] [address] PCP - General Internal Medicine 02/08/18
--- OUTSIDE RECORDS SUMMARY | 2025-01-06 18:47 | XMS_ITS | Continuity of Care Document ---
Author Organization [facility] Address [address] [facility] [address] [place] [address] Phone Care Team Providers Care Brazer Helper Induction Name Role Phone Best Valle PT Unavailable [...] Diagnoses Date Provider Providers Copied on Encounter [facility] [facility], [place], [place], [id number], tel:[phone] [place] No Information 3 Tori Jewell. . [facility], [place], [place], [id number], tel:[phone] [place] No Information 3 Delиван Jewell. . Referring Provider: Gaston Mckenzie, [address] [facility] [address], [place], [address]. tel:[phone] [facility], [place], [place], [id number], tel:[phone] [place] No Information 3 Dellamano Best. . Referring Provider: Herbie Ruiz [facility] [address], [place], [address]. tel:[phone] [address] [address], [place], [place], [id number], tel:[phone] [place] No Information 3 Dellamano Best. . Referring Provider: Herbie Ruiz [facility] [address], [place], [address]. tel:[phone] [address] [address], [place], [place], [id number], tel:[phone] [place] No Information 3 Dellamano Best. . Referring Provider: Herbie Ruiz [facility] [address], [place], [address]. tel:[phone] [address] [address], [place], [place], [id number], tel:[phone] [place] No Information 3 Short Josefa. . Referring Provider: Herbie Ruiz [facility] [address], [place], [address]. tel:[phone] Family History Family Member Type Diagnosis Age At Onset No Information Payers Payer name Insurance type Covered green party ID Authorluha cosmo(s) Medicare [place] MB [id number] Social History Type Description Quantity Date Captured [...]
--- OUTSIDE RECORDS SUMMARY | 2025-01-06 18:47 | XMS_ITS | Encounter Summary ---
Author Organization [facility] Address [address] [place] [address] Care Team Providers Care Laborer Heading Name Role Phone Irene Solis MD Unavailable [phone] Jonh Ibrahim DO Primary Care Provider [phone] Reason for Visit * Reason Onset Date Comments General 05/14/2018 Encounter Details Date Type Department Care Team (Late st Contact Info) Description 05/14/2018 Telephone [facility] [address] [place] [address] Kiersten Mary PA [address] [facility] [address] [place] [phone] General Social History Tobacco Use Types Packs/Day Years [...] on file documented as of this encounter Miscellaneous Notes * Telephone Encounter - Bailey Colbert - 05/14/2018 9:29 AM CDT Pt called stating that he had missed a call from Usman Hutchison. He would lie a return call so that he can find out what the call was pertaining to. documented in this encounter Plan of Treatment Not on file documented as of this encounter Visit Diagnoses Not on filedocumented in this encounter Care Teams Laborer Heading Relationship Specialty Start Date End Date John Ibrahim DO [address] [facility] [address] [address] PCP - General Internal Medicine 12/25/13 Irene Solis MD Orthopedic Surgery 12/25/13 documented as of this encounter
--- OUTSIDE RECORDS SUMMARY | 2025-01-06 18:47 | XMS_ITS | Clinical Summary ---
Author Organization [facility] Address [address] [place] [address] Care Team Providers Care Sander And Buffer Name Role Phone John Ibrahim MD Primary Care Provider [phone] Allergies Active Allergy Reactions Criticality Noted Date Comments Tape Swelling Medium 02/08/2021 Medications allopurinol 100 MG tablet Take 100 mg by mouth daily. 1 Active Aspirin Buf,CaCarb-MgCa rb-MgO, 81 MG Tab Take 81 mg by mouth daily. Active atorvastatin 20 MG tablet Take 20 mg by mouth daily. 0 Active cephALEXin 500 MG capsule Take 500 mg by mouth daily. 0 Active diphenhydrAMINE 25 MG capsule Take 50 mg by mouth. Active gabapentin 300 MG capsule Take 600 mg by mouth daily. 1 Active lisinopril 20 MG tablet Take 20 mg by mouth daily. Active metoprolol succinate ER 50 MG 24 hr tablet TAKE 1 TABLET DAILY 0 Active metroNIDAZOLE 0.75 % gel Apply thin layer topically to affected areav twice daily. 30 days supply. 1 Active Multiple Vitamin (MULTIVITAMIN) capsule Take 1 capsule by mouth daily. Active nabumetone 750 MG tablet Take 750 mg by mouth 2 (two) times daily. Active testosterone 20.25 MG/ACT (1.62%) Gel 2 pump presses /day - one on each shoulder 0 Active traMADol 50 MG tablet Take 100 mg by mouth. Active trospium 20 MG tablet Take 20 mg by mouth 2 (two) times daily. Active venlafaxine 37.5 MG tablet Take 75 mg by mouth daily. Active venlafaxine XR 75 MG 24 hr capsule Take 75 mg by mouth daily. Active Active Problems Problem Noted Date Diagnosed Date Actinic skin damage 10/19/2020 Overview (05/05/2021): Last Assessment & Plan: - Chronic - Extensive lesions associated with sun damage and increased risk of skin cancer - Reviewed concerning signs for development of skin cancer - Counseled on importance of daily sun protection, recommend OTC broad spectrum, SPF >30 - Advised monthly self skin exams Ingrown hair 10/19/2020 Overview (05/05/2021): Last Assessment & Plan: - L upper cutaneous lip - Topical retinoid samples provided today, apply small amount to area TIW Dry eye syndrome of left eye 01/04/2019 Ptosis of both eyelids 01/04/2019 Pseudophakia of both eyes 12/29/2018 JUAN on CPAP 08/20/2018 Acne rosacea 04/30/2018 Overview (05/05/2021): Last Assessment & Plan: - Chronic, stable - Continue Keflex 500 mg EOD - Continue metrogel 0.75% daily - Refills today Actinic keratosis 04/30/2018 Overview (05/05/2021): Last Assessment & Plan: - Counseled on diagnosis, etiology, natural disease [...] 30+, UVA/UVB) and monthly self skin exams Inflamed seborrheic keratosis 04/30/2018 Lentigines 04/30/2018 Neoplasm of uncertain behavior 04/30/2018 Premature atrial contractions 02/14/2018 Cervical radiculopathy, chronic 01/23/2018 Cervical disc disorder 11/21/2017 H/O cardiac radiofrequency ablation 08/31/2017 Eczema 04/19/2017 Meibomianitis 11/21/2016 Corneal scar 11/21/2016 Rosacea blepharoconjunctivitis 11/21/2016 Testicular hypofunction 10/10/2016 Overview (05/05/2021): Testicular hypofunction Last Assessment & Plan: Hypogonadism for few years. on small dose [...] checked with his Urologist on annual basis. 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/2015 Overview (05/05/2021): PVC's (premature ventricular contractions) Nonischemic cardiomyopathy (CMS/HCC [facility]/HCC) Overview (05/05/2021): Nonischemic cardiomyopathy Swelling of extremity 12/04/2015 Perineal pain in male 07/28/2015 Primary localized osteoarthrosis, lower leg 05/10/2014 Cervicalgia 11/19/2014 Old bucket handle tear of medial meniscus 2013 Arthralgia of shoulder 05/30/2012 Immunizations Name Administration Dates Next Due Fluzone High Dose - >Age 65 (Prefilled Syringe) 06/01/2020,06/27/2019,06/25/2018,2016,06/24/2016,07/05/2015 Influenza Adult (Generic) 06/24/2014,08/12/2013 Pneumococcal (Pneumovax 23) 06/27/2019 Pneumococcal (Prevnar 13) 06/25/2018 Shingrix 08/05/2020,06/01/2020 Family History Medical History Relation Comments Cancer Brother Heart Disease Father No Known Problems Maternal Aunt No Known Problems Mother No Known Problems Sister Relation Status Comments Brother Father Maternal Aunt Mother Sister Social History Tobacco Use Types Packs/Day Years Used Date Smoking Tobacco: Never Smokeless Tobacco: Never Tobacco Cessation:Counseling Given: Yes Alcohol Use Standard Drinks/Week Comments Yes 0 (1 standard drink = 0.6 oz pur e alcohol) Sex and Gender Information Value Date Recorded Sex Assigned at Not on file Legal Sex Male 7:18 PM CDT Gender Identity Not on file Sexual Orientation Not on file Last Filed Vital Signs Vital Sign Reading Time Taken Comments Blood Pressure 118/68 05/05/2021 9:37 AM CDT Pulse 41 05/05/2021 9:37 AM CDT irreg ular Temperature 36.4 C (97.5 F) 05/05/2021 9:37 AM CDT Respiratory Rate 20 05/05/2021 9:37 AM CDT Oxygen Saturation 98% 03/31/2021 9:27 AM CDT Inhaled Oxygen Concentration - - Weight 104.3 kg (230 lb) 05/05/2021 9:37 AM CDT Height 188 cm (6' 2 ) 05/05/2021 9:37 AM CDT Body Mass Index 29.53 05/05/2021 9:37 AM CDT Plan of Treatment Health Maintenance Due Date Last Done Comments Hepatitis C 1963 DTaP, Tdap and Td Vaccines ( 1 - Tdap) 1964 Annual Medicare Wellness Visit 2010 RSV Immunization or 60+ Years (1 - 1-dose 75+ series) 2020 COVID-19 Vaccine (3 2023-2 5 season) 2024 12/04/2020, 11/09/2020 Pneumococcal Vaccine: 65+ Years Completed 06/27/2019, 06/25/2018 Zoster Vaccines Completed 08/05/2020, 06/01/2020 Meningococcal B Vaccine Aged Out No l onger eligible based on patient's age to complete this topic Meningococcal Vaccine Aged Out No lynn marita eligible based on patient's age to complete this topic RSV Immunizations Under 20 Months Aged Out No longer eligible b ased on patient's age to complete this topic Insurance MEDICARE [facility] Care Teams Sander And Buffer Relationship Specialty Start Date End Date John Ibrahim MD [address] [place] [address] PCP - General INTERNAL MEDICINE 02/02/21
--- OUTSIDE RECORDS SUMMARY | 2025-01-06 18:47 | XMS_ITS | Encounter Summary ---
Author Organization [facility] Address [address] [place] [address] Care Team Providers Care Chisel Mortiser Operator Name Role Phone Irene Solis MD Unavailable John Ibrahim DO Primary Care Provider [phone] Encounter Details Date Type Department Care Team (Late st Contact Info) Description 01/27/2023 Lab Requisition [facility] DermPath Lab [address] [facility] [place] [place] [phone] Jose العراقي MD [address] [place] [address] Social History Tobacco Use Types Packs/Day Years [...] Procedure Name Priority Date/Time Associated Diagnosis Comments DERMATOPATHOLOGY Routine 01/26/2023 12:0 0 AM CDT documented in this encounter Results * DERMATOPATHOLOGY (01/26/2023 12:00 AM CDT) Case Report Dermatopathology Report Case: [id number] Authorizing Provider: Jose العراقي MD Collected: 01/26/2023 12:00 AM Ordering Location: [facility] Derm[facility] Lab Received: 01/27/2023 12:28 PM Pathologist: Rohini Murphy MD Specimen: Skin, right posterior shoulder 1:10 PM CDT DERMATOPATHOLOGY LABORATORY Final Diagnosis Specimen A. SKIN, right posterior shoulder: EPIDERMOID CYST WITH EVIDENCE OF RUPTURE (L72.0) 1:10 PM CDT DERMATOPATHOLOGY LABORATORY Clinical History Cyst Check margins 1:10 PM CDT DERMATOPATHOLOGY LABORATORY Gross Description Specimen A: Received is one formalin filled container labeled with the patient's name and designated right posterior shoulder. The specimen consists of a [id number] mm piece of skin. The margin is inked green. The specimen is bisected lengthwise and submitted in 1 cassette. Jar 0. 1:10 PM CDT DERMATOPATHOLOGY LABORATORY Microscopic Description Specimen A. SKIN, right posterior shoulder: Within the dermis, there is a space lined by epithelium that resembles normal epidermis and the infundibular portion of the hair follicle. Surrounding this is an infiltrate with neutrophils, histiocytes, and multinucleated giant cells. 1:10 PM CDT DERMATOPATHOLOGY LABORATORY Disclaimer An external and internal positive and negative controls are appropriate for the histochemical, immunohistochemical and immunofluorescence stain(s) in this case (if any), except where stated explicitly. The performance characteristics of the stain(s) cited in this report were developed and its performance characteristic determined by the Dermatopathology Laboratory at [facility], directed by Dr. Ed Dietz. These tests need not be, and therefore are not, approved by the [place] Food and Drug Administration. The tests are used for clinical purposes. Billing Codes Specimen Charges Stain Charges 83525 1 1:10 PM CDT DERMATOPATHOLOGY LABORATORY Embedded Images 1:10 PM CDT DERMATOPATHOLOGY LABORATORY Pathology/Cytolog y TISSUE SPECIMEN FROM SKIN / Unknown 01/26/2023 01/27/2023 12:28 PM CDT Jose العراقي MD LAB - PATHOLOGY/CYTO LOGY ORDERABLES DERMATOPATHOLOGY LABORATORY [facility] - Department of Dermatology [facility] Specialized Medicine [address] [place] [address], [address]rd [address] [phone] documented in this encounter Visit Diagnoses Not on filedocumented in this encounter Care Teams Chisel Mortiser Operator Relationship Specialty Start Date End Date John Ibrahim DO [address] [facility] [address] [facility] [address] [place] [address] PCP - General Internal Medicine 12/25/13 Irene Solis MD Orthopedic Surgery 12/25/13 documented as of this encounter
--- OUTSIDE RECORDS SUMMARY | 2025-01-06 18:47 | XMS_ITS | Encounter Summary ---
Author Organization [facility] Care Team Providers Care Hardboard Factory Worker Name Role Phone Medardo Jaramillo DO Primary Care Provider [phone] Encounter Details Date Type Department Care Team (Latest Contact Info) Description 03/22/2017 Orders Only [facility] ProviderAnahi MD [address] [place] [address] Social History Tobacco Use Types Packs/Day Years Used Date Smoking Tobacco: Never Alcohol Use Standard Drinks/Week Comments Yes 0 (1 standard drink = 0.6 oz pur e alcohol) Sex and Gender Information Value Date Recorded Sex Assigned at Not on file Legal Sex Male 2:41 AM APPAREL EMBROIDERY DIGITIZER Gender Identity Not on file Sexual Orientation Not on file documented as of this encounter Plan of Treatment Not on file documented as of this encounter Procedures Procedure Name Priority Date/Time Associated Diagnosis Comments PROCEDURE - RESULT 03/22/2017 12 :00 AM CDT documented in this encounter Results * PROCEDURE - RESULT (03/22/2017 12:00 AM CDT) Narrative 03/22/2017 12:00 AM CDT Ordered by an unspecified provider. Historical Provider Final Res ult documented in this encounter Visit Diagnoses Not on filedocumented in this encounter Care Teams Hardboard Factory Worker Relationship Specialty Start Date End Date Medardo Jaramillo DO [address] [facility] [address] [place], [place] [id number] PCP - General Internal Medicine 08/28/24 documented as of this encounter
--- OUTSIDE RECORDS SUMMARY | 2025-01-06 18:47 | XMS_ITS | Encounter Summary ---
Author Organization [facility] Address [address] [place] [address] Care Team Providers Care Airplane Cleaner Name Role Phone Irene Solis MD Unavailable John Ibrahim DO Primary Care Provider [phone] Encounter Details Date Type Department Care Team (Late st Contact Info) Description 02/20/[address] [facility] - DermPath Lab [address] [facility], [place] [address] Jose العراقي MD [address] [place] [address] Social History Tobacco Use Types [...] Priority Date/Time Associated Diagnosis Comments DERMATOPATHOLOGY Routine 02/19/2024 12:0 0 AM CDT documented in this encounter Results * DERMATOPATHOLOGY (02/19/2024 12:00 AM CDT) Case Report Dermatopathology Report Case: [id number] Authorizing Provider: Jose العراقي MD Collected: 02/19/2024 12:00 AM Ordering Location: [facility] - Received: 02/20/2024 10:17 AM DermPath Lab Pathologist: Polly Ho MD Specimen: Skin, left upper lip 11:01 AM T DERMATOPATHOLOGY LABORATORY Final Diagnosis Specimen A. SKIN, left upper lip: VERRUCA VULGARIS (B07.8) (see microscopic description) 11:01 AM [facility] DERMATOPATHOLOGY LABORATORY Clinical History R/O neoplasm 11:01 AM T DERMATOPATHOLOGY LABORATORY Gross Description Specimen A: Received is one formalin filled container labeled with the patient's name and designated left upper lip. The specimen consists of a shave biopsy measuring 2x2x1 mm. Jar 0. 11:01 AM [facility] DERMATOP[facility]Y [facility]ORATORY Microscopic Description Specimen A. SKIN, left upper lip: There is digitated epidermal hyperplasia, hypergranulosis, vacuolated granular layer cells, and compact hyperorthokeratosis . The lesion fails to stain with CD34. Mib-1 stain highlights proliferating keratinocytes confined to the basilar epidermis. Additional deeper sections were obtained and reviewed. 11:01 AM [facility]ERMATOPATHOLOGY LABORATORY Disclaimer An external and internal positive and negative controls are appropriate for the histochemical, immunohistochemical and immunofluorescence stain(s) in this case (if any), except where stated explicitly. The performance characteristics of the stain(s) cited in this report were developed and its performance characteristic determined by the Dermatopathology Laboratory at [facility], directed by Dr. Ed Dietz. These tests need not be, and therefore are not, approved by the [place] Food and Drug Administration. The tests are used for clinical purposes. Billing Codes Specimen Charges Stain Charges 98527 1 07249 21241 1 1 11:01 AM T DERMATOPATHOLOGY LABORATORY Embedded Images 11:01 AM T DERMATOPATHOLOGY LABORATORY Pathology/Cytolog y TISSUE SPECIMEN FROM SKIN / Unknown 02/19/2024 02/20/2024 10:17 AM CDT Jose العراقي MD LAB - PATHOLOGY/CYTO LOGY ORDERABLES DERMATOPATHOLOGY LABORATORY [facility] - Department of Dermatology [facility] Medicine [address] [place] [address], [address]rd Floor [address] [phone] documented in this encounter Visit Diagnoses Not on filedocumented in this encounter Care Teams Airplane Cleaner Relationship Specialty Start Date End Date John Ibrahim DO [address] [facility] [address] [facility] [address] [place] [address] PCP - General Internal Medicine 12/25/13 Irene Solis MD Orthopedic Surgery 12/25/13 documented as of this encounter
[2025-01-06 19:19] VITALS: BP 141/89; PULSE 83; RESP 16; TEMP 36.8; O2SAT 99
[2025-01-06 21:14] VITALS: BP 156/91; PULSE 86; PULSE 88; RESP 18; O2SAT 100
--- OUTSIDE RECORDS SUMMARY | 2025-01-06 21:22 | XMS_ITS | Clinical Summary ---
Author Organization [facility] Address [address] [place] [address] Care Team Providers Care Insulation Power Unit Tender Name Role Phone John Ibrahim MD Primary Care Provider [phone] Allergies Active Allergy Reactions Criticality Noted Date [...] PVC's (premature ventricular contractions) Nonischemic cardiomyopathy (CMS/HCC [facility]/HCC) Overview (05/05/2021): Nonischemic cardiomyopathy Swelling of extremity [...] age to complete this topic Insurance MEDICARE [facility] Care Teams Insulation Power Unit Tender Relationship Specialty Start Date End Date John Ibrahim MD [address] [place] [address] PCP - General INTERNAL MEDICINE 02/02/21
--- OUTSIDE RECORDS SUMMARY | 2025-01-06 21:22 | XMS_ITS | Encounter Summary ---
Author Organization [facility] Address [address] [facility] [place] [place] [address] Care Team Providers Care Beam Department Supervisor Name Role Phone Irene Solis MD Unavailable [phone] John Ibrahim DO Primary Care Provider [phone] Reason for Visit * Reason Onset Date Comments General 05/14/2018 Encounter Details Date Type Department Care Team (Late st Contact Info) Description 05/14/2018 Telephone [facility] Dermatology [address] [place] [address] Kiersten Mary PA [address] [facility] [address] [place] [address] General Social History Tobacco Use Types Packs/Day [...] on filedocumented in this encounter Care Teams Beam Department Supervisor Relationship Specialty Start Date End Date John Ibrahim DO [address] [facility] [address] [address] PCP - General Internal Medicine 12/25/13 Irene Solis MD Orthopedic Surgery 12/25/13 documented as of this encounter
--- OUTSIDE RECORDS SUMMARY | 2025-01-06 21:22 | XMS_ITS | Encounter Summary ---
Author Organization [facility] Address [address] [facility] [place] [address] Care Team Providers Care Medical Territory Manager Name Role Phone Irene Solis MD Unavailable John Ibrahim DO Primary Care Provider [phone] Encounter Details Date Type Department Care Team (Late st Contact Info) Description 01/27/2023 Lab Requisition [facility] DermPath Lab [address] [facility], [place] [phone] Jose العراقي MD [address] [place] [address] Social History Tobacco Use Types [...] AM CDT) Case Report Dermatopathology Report Case: [id number] Authorizing Provider: Jose العراقي MD Collected: 01/26/2023 12:00 AM Ordering Location: [facility] DermPath Lab Received: 01/27/2023 12:28 PM Pathologist: [...] posterior shoulder. The specimen consists of a 97e17o6 mm piece of skin. The margin is [...] characteristic determined by the Dermatopathology Laboratory at [facility], directed by Dr. Ed Dietz. These tests need not be, and therefore are not, approved by the [place] Food and Drug Administration. The tests are used for clinical purposes. Billing Codes Specimen Charges Stain Charges 65442 1 1:10 PM CDT DERMATOPATHOLOGY LABORATORY Embedded Images 1:10 PM CDT DERMATOPATHOLOGY LABORATORY Pathology/Cytolog y TISSUE SPECIMEN FROM SKIN / Unknown 01/26/2023 01/27/2023 12:28 PM CDT Jose العراقي MD LAB - PATHOLOGY/CYTO LOGY ORDERABLES DERMATOPATHOLOGY LABORATORY [facility] - Department of Dermatology [facility] Specialized Medicine [address] [place] [address], [address]rd Floor [address] [phone] documented in this encounter Visit Diagnoses Not on filedocumented in this encounter Care Teams Medical Territory Manager Relationship Specialty Start Date End Date John Ibrahim DO [address] [facility] [address] [facility] 21 [place] [address] PCP - General Internal Medicine 12/25/13 Irene Solis MD Orthopedic Surgery 12/25/13 documented as of this encounter
--- OUTSIDE RECORDS SUMMARY | 2025-01-06 21:22 | XMS_ITS | Continuity of Care Document ---
Author Organization [facility] Address [address] [facility] [address] [place] [address] Phone Care Team Providers Care Silo Tender Name Role Phone Best Valle PT Unavailable [...] Diagnoses Date Provider Providers Copied on Encounter [facility], [place], [place], [id number], tel:[phone] [place] No Information 3 Tori Jewell. . [facility], [place], [place], [address], tel:[phone] [place] No Information 3 Delиван Jewell. . Referring Provider: Gaston Mckenzie, [address] [facility] [address], [place], [address]. tel:[phone] [facility], [place], [place], [address], tel:[phone] [place] No Information 3 Dellamano Best. . Referring Provider: Herbie Ruiz [facility] [address], [place], [address]. tel:[phone] [place] [address], [place], [place], [address], tel:[phone] [place] No Information 3 Dellamano Best. . Referring Provider: Herbie Ruiz [facility] [address], [place], [address]. tel:[phone] [address] [address], [place], [place], [address], tel:[phone] [place] No Information 3 Dellamano Best. . Referring Provider: Herbie Ruiz [facility] [address], [place], [address]. tel:[phone] [address] [address], [place], [place], [address], tel:[phone] [place] No Information 3 Short Josefa. . Referring Provider: Herbie Ruiz [facility] [address], [place], [address]. tel:[phone] Family History Family Member Type Diagnosis Age At Onset No Information Payers Payer name Insurance type Covered green party ID Authorluha cosmo(s) Medicare [place] [id number] Social History Type Description Quantity Date Captured [...]
--- OUTSIDE RECORDS SUMMARY | 2025-01-06 21:22 | XMS_ITS | Encounter Summary ---
Author Organization [facility] Care Team Providers Care Hotel Service Supervisor Name Role Phone Medardo Jaramillo DO Primary Care Provider [phone] Encounter Details Date Type Department Care Team (Latest Contact Info) Description 06/26/2017 Orders Only [facility] ProviderAnahi MD [address] [place] [address] Social History Tobacco Use Types Packs/Day Years Used Date Smoking Tobacco: Never Alcohol Use Standard Drinks/Week Comments Yes 0 (1 standard drink = 0.6 oz pur e alcohol) Sex and Gender Information Value Date Recorded Sex Assigned at Not on file Legal Sex Male 2:41 AM PROGRAM WRITER Gender Identity Not on file Sexual Orientation [...] on filedocumented in this encounter Care Teams Hotel Service Supervisor Relationship Specialty Start Date End Date Medardo Jaramillo DO [address] [facility] 21 [place], [place] [id number] PCP - General Internal Medicine 08/28/24 documented as of this encounter
--- OUTSIDE RECORDS SUMMARY | 2025-01-06 21:22 | XMS_ITS | Clinical Summary ---
Author Organization [facility] Address [address] [place] [address] Care Team Providers Care Cafeteria Operator Name Role Phone Medardo Jaramillo DO Primary Care Provider [phone] Allergies Active Allergy Reactions Criticality Noted Date [...] hypofunction Assessment & Plan (11/16/2022 11:48 AM FORK LIFT MECHANIC): Hypogonadism for few years. on small dose [...] basis. Assessment & Plan (10/20/2021 10:00 AM FORK LIFT MECHANIC): Hypogonadism for few years. on small dose [...] basis. Assessment & Plan (10/14/2020 10:19 AM FORK LIFT MECHANIC): Hypogonadism for few years. on small dose [...] benign Assessment & Plan (11/16/2022 11:39 AM FORK LIFT MECHANIC): Controlled with medication - low salt diet - continue medication per PCP Assessment & Plan (04/20/2022 10:28 AM CDT): Controlled with medication - low salt diet - continue medication per PCP Assessment & Plan (10/20/2021 10:01 AM FORK LIFT MECHANIC): Controlled with medication - low salt diet - continue medication per PCP Assessment & Plan (04/14/2021 10:36 AM CDT): Controlled with medication - low salt diet - continue medication per PCP Assessment & Plan (10/14/2020 10:19 AM FORK LIFT MECHANIC): Controlled with medication - low salt diet [...] Description 12/25/2024 11:00 AM CDT Office Visit [facility] Cardiology [address] [facility] [address] [place] [address] Polly West NP Dilated cardiomyopathy (HCC) (Primary Dx); Nonischemic cardiomyopathy (HCC); Chronic combined systolic and diastolic congestive heart failure (HCC); Benign hypertension 10/29/2024 Telephone [facility] Neuro Sleep [address] [place] [address] Carmelina Norwood MA 10/25/2024 Telephone [facility] Neuro Sleep [address] [place] [address] Lisa Pollard RN DME order 10/25/2024 Orders Only [facility] Neuro Sleep [address] [place] [address] Nino Vivar MD JUAN (obstructive sleep apnea) (Primary Dx) 10/16/2024 Documentation [facility] Neuro Sleep [address] [place] [address] Nino Vivar MD 10/11/2024 Orders Only [facility] [...] on file Legal Sex Male 2:41 AM FORK LIFT MECHANIC Gender Identity Not on file Sexual Orientation Not on file Occupation Industry Job Start Date Job End Date retired Not on file Not on file Not on file Obstetrics History Last Filed Vital Signs Vital Sign Reading Time Taken Comments Blood Pressure 122/78 12/25/2024 11:01 AM CDT Pulse 75 12/25/2024 11:01 AM CDT Temperature 36.9 C (98.5 F) 09/17/2024 10:36 AM FORK LIFT MECHANIC Respiratory Rate 18 11/14/2022 8:47 AM FORK LIFT MECHANIC Oxygen Saturation 95% 12/25/2024 11:01 AM CDT [...] 08/05/2020, 06/01/2020 Medical Devices Implanted Type Area Manager Nursing Device Identifier Shelf Expiration Date Model / Serial / Lot Neurostimulator Bladder-05/04/2021 Implanted: 021 by Unknown, Notinfile (Quantity not on file) Neurostimulator Pelvis Medtronic Neuro [id number] / / Neurostimulator Lead-05/04/2021 Implanted: 021 by Unknown, Notinfile (Quantity not on file) Neurostimulator Pelvis Medtronic Neuro [id number] / / Procedures Procedure Name Priority Date/Time Associated Diagnosis Comments SLEEP LAB/STUDY - RESULT 10/11/2024 4:59 PM FORK LIFT MECHANIC from Last 3 Months Results * SLEEP LAB/STUDY - RESULT (10/11/2024 4:59 PM FORK LIFT MECHANIC) us Provider Scanning Final Result from Last 3 Months Insurance [facility] MEDICARE [facility] MEDICARE [facility] Member Subscriber Plan / Payer ( fective 2020-Present) Name:[place] Paulette Eli Relation to Subscriber:Self Name:Paulette Wray Payer ID:[id number] Type:COMMERCIAL Address: [facility] [id number] [place] [id number] MEDICARE Care Teams Cafeteria Operator Relationship Specialty Start Date End Date Medardo Jaramillo DO [address] [place] [address] PCP - General Internal Medicine 08/28/24
--- OUTSIDE RECORDS SUMMARY | 2025-01-06 21:22 | XMS_ITS | Clinical Summary ---
Author Organization [facility] Address [address] [facility] [place] [address] Care Team Providers Care Candy Rolling Machine Operator Name Role Phone Irene Solis MD Unavailable [phone] John Ibrahim DO Primary Care Provider [phone] Source Comments [facility],non-owned Affiliates and Associated Physician Practices is amultiple site organization consisting of ambulatory clinics and hospital sitesin [place], [place], [place] and [place]. This disclosure is being madepursuant to the Care Everywhere program and may not contain all information available regarding this patient. Last updated 18.[facility] Allergies Active Allergy Reactions Criticality [...] 10/19/2020 Assessment & Plan (10/19/2020 10:27 AM AEROSPACE PHYSIOLOGICAL TECHNICIAN): - Chronic - Extensive lesions associated with sun damage and increased risk of skin cancer - Reviewed concerning signs for development of skin cancer - Counseled on importance of daily sun protection, recommend OTC broad spectrum, SPF >30 - Advised monthly self skin exams Ingrown hair 10/19/2020 Assessment & Plan (10/19/2020 10:38 AM AEROSPACE PHYSIOLOGICAL TECHNICIAN): - L upper cutaneous lip - Topical retinoid samples provided today, apply small amount to area TIW Seborrheic keratosis, inflamed 06/24/2019 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 06/24/2019 Rash and other nonspecific skin eruption 019 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 (10/19/2020 10:28 AM AEROSPACE PHYSIOLOGICAL TECHNICIAN): - Chronic, stable - Continue gabapentin 600 mg QHS - Refills today Actinic keratosis 04/30/2018 Assessment & Plan (10/19/2020 10:37 AM AEROSPACE PHYSIOLOGICAL TECHNICIAN): - Counseled on diagnosis, etiology, natural disease [...] 04/30/2018 Assessment & Plan (10/19/2020 10:27 AM AEROSPACE PHYSIOLOGICAL TECHNICIAN): - Chronic, stable - Continue Keflex 500 mg EOD - Continue metrogel 0.75% daily - Refills today Inflamed seborrheic keratosis 04/30/2018 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 04/30/2018 Lentigines 04/30/2018 Primary localized osteoarthrosis, lower leg 05/0 10/2014 Old bucket handle tear of medial meniscus 2013 Encounters Date Type Department Care Team Description 10/25/2024 Telephone [facility] - Dermatology [address] [place] [address], [place] [address] Vamsi Nguyen MD Concerns from [...] age to complete this topic Care Teams Candy Rolling Machine Operator Relationship Specialty Start Date End Date John Ibrahim DO [address] [facility] [address] [place] [address] PCP - General Internal Medicine 12/25/13 Irene Solis MD Orthopedic Surgery 12/25/13
--- OUTSIDE RECORDS SUMMARY | 2025-01-06 21:22 | XMS_ITS | Encounter Summary ---
Author Organization [facility] Address [address] [facility] [place] [address] Care Team Providers Care Machine Heel Builder Name Role Phone Irene Solis MD Unavailable John Ibrahim DO Primary Care Provider [phone] Encounter Details Date Type Department Care Team (Late st Contact Info) Description 02/20/2024 Lab Requisition [facility] - DermPath Lab [address] [facility], [place] [phone] Jose العراقي MD [address] [place] [address] Social History Tobacco Use Types [...] AM CDT) Case Report Dermatopathology Report Case: [id number] Authorizing Provider: Jose العراقي MD Collected: 02/19/2024 12:00 AM Ordering Location: [facility] - Received: 02/20/2024 10:17 AM DermPath Lab Pathologist: Polly Ho MD Specimen: Skin, left upper lip 11:01 AM T DERMATOPATHOLOGY LABORATORY Final Diagnosis Specimen A. SKIN, left upper lip: VERRUCA VULGARIS (B07.8) (see microscopic description) 11:[address] [facility] DERMATOPATHOLOGY LABORATORY Clinical History R/O neoplasm 11:01 AM T DERMATOPATHOLOGY LABORATORY Gross Description Specimen A: Received is one formalin filled container labeled with the patient's name and designated left upper lip. The specimen consists of a shave biopsy measuring 2x2x1 mm. Jar 0. 11:[address] [facility] DERMATOPATHOLOGY LABORATORY Microscopic Description Specimen A. SKIN, left upper lip: There is digitated epidermal hyperplasia, hypergranulosis, vacuolated granular layer cells, and compact hyperorthokeratosis . The lesion fails to stain with CD34. Mib-1 stain highlights proliferating keratinocytes confined to the basilar epidermis. Additional deeper sections were obtained and reviewed. 11:[address] [facility] DERMATOPATHOLOGY LABORATORY Disclaimer An external and internal positive and negative controls are appropriate for the histochemical, immunohistochemical and immunofluorescence stain(s) in this case (if any), except where stated explicitly. The performance characteristics of the stain(s) cited in this report were developed and its performance characteristic determined by the Dermatopathology Laboratory at [facility], directed by Dr. Ed Dietz. These tests need not be, and therefore are not, approved by the [place] Food and Drug Administration. The tests are used for clinical purposes. Billing Codes Specimen Charges Stain Charges 18771 1 89986 20710 1 1 11:01 AM T DERMATOPATHOLOGY LABORATORY Embedded Images 11:01 AM T DERMATOPATHOLOGY LABORATORY Pathology/Cytolog y TISSUE SPECIMEN FROM SKIN / Unknown 02/19/2024 02/20/2024 10:17 AM CDT Jose العراقي MD LAB - PATHOLOGY/CYTO LOGY ORDERABLES DERMATOPATHOLOGY LABORATORY [facility] - Department of Dermatology [facility] Medicine [address] [place] [address], [address] [phone] documented in this encounter Visit Diagnoses Not on filedocumented in this encounter Care Teams Machine Heel Builder Relationship Specialty Start Date End Date John Ibrahim DO [address] [facility] [address] [facility] 21 [place] [address] PCP - General Internal Medicine 12/25/13 Irene Solis MD Orthopedic Surgery 12/25/13 documented as of this encounter
--- OUTSIDE RECORDS SUMMARY | 2025-01-06 21:22 | XMS_ITS | Clinical Summary ---
Author Organization [facility]ida [facility] Address [address] [place] [address] Care Team Providers Care Wire Inspector Name Role Phone LanafloraJohn Primary Care Provider [phone] Allergies No known active allergies Medications atorvastatin [...] Description 03/26/2025 10:00 AM CDT Office Visit [facility] Oncology and Hematology - [place] [address] [facility] [address] [place] [address] [place] [address] [place] [address] [address] [place] [address] Health Maintenance Due Date Last [...] Discontinued Insurance MEDICARE PART A AND B [facility] [id number] Care Teams Wire Inspector Relationship Specialty Start Date End Date John Ibrahim DO [address] [facility] [address] [place] [address] PCP - General Internal Medicine 07/04/22
--- OUTSIDE RECORDS SUMMARY | 2025-01-06 21:22 | XMS_ITS | Referral Summary ---
Author Organization [facility] Address [address] [place] [id number] Care Team Providers Care Workshop Manager Name Role Phone Medardo Jaramillo DO Primary Care Provider [phone] Encounters Date Type Department Care Team Description 12/25/2024 11:00 AM CDT Office Visit [facility] Cardiology [address] [facility] [address] [place] [phone] Polly West NP Dilated cardiomyopathy (HCC) (Primary Dx); Nonischemic cardiomyopathy (HCC); Chronic combined systolic and diastolic congestive heart failure (HCC); Benign hypertension 10/29/2024 Telephone [facility] [address] [facility] 6[address] [place] [phone] Carmelina Norwood MA 10/25/2024 Telephone [facility] [address] [facility] [address] [place] [address] Lisa Pollard RN DME order 10/25/2024 Orders Only [facility] [address] [facility] [address] [place] [address] Nino Vivar MD JUAN (obstructive sleep apnea) (Primary Dx) 10/16/2024 Documentation [facility] [address] [facility] 6[address] [place] [address] Nino Vivar MD 10/11/2024 Orders Only [facility] SLEEP Scanning, Provider from Last 3 Months [...] hypofunction Assessment & Plan (11/16/2022 11:48 AM BAR TACKER): Hypogonadism for few years. on small dose [...] basis. Assessment & Plan (10/20/2021 10:00 AM BAR TACKER): Hypogonadism for few years. on small dose [...] basis. Assessment & Plan (10/14/2020 10:19 AM BAR TACKER): Hypogonadism for few years. on small dose [...] benign Assessment & Plan (11/16/2022 11:39 AM BAR TACKER): Controlled with medication - low salt diet - continue medication per PCP Assessment & Plan (04/20/2022 10:28 AM CDT): Controlled with medication - low salt diet - continue medication per PCP Assessment & Plan (10/20/2021 10:01 AM BAR TACKER): Controlled with medication - low salt diet - continue medication per PCP Assessment & Plan (04/14/2021 10:36 AM CDT): Controlled with medication - low salt diet - continue medication per PCP Assessment & Plan (10/14/2020 10:19 AM BAR TACKER): Controlled with medication - low salt diet [...] on file Legal Sex Male 2:41 AM BAR TACKER Gender Identity Not on file Sexual Orientation Not on file Occupation Industry Job Start Date Job End Date retired Not on file Not on file Not on file Last Filed Vital Signs Vital Sign Reading Time Taken Comments Blood Pressure 122/78 12/25/2024 11:01 AM CDT Pulse 75 12/25/2024 11:01 AM CDT Temperature 36.9 C (98.5 F) 09/17/2024 10:36 AM BAR TACKER Respiratory Rate 18 11/14/2022 8:47 AM BAR TACKER Oxygen Saturation 95% 12/25/2024 11:01 AM CDT Inhaled Oxygen Concentration - - Weight 110.7 kg (244 lb) 12/25/2024 11:01 AM CDT Height 188 cm (6' 2 ) 12/25/2024 11:01 AM CDT Body Mass Index 31.33 12/25/2024 11:01 AM CDT Plan of Treatment Not on file Medical Devices Implanted Type Area Run Lead Device Identifier Shelf Expiration Date Model / Serial / Lot Neurostimulator Bladder-05/04/2021 Implanted: 021 by Unknown, Notinfile (Quantity not on file) Neurostimulator Pelvis Medtronic Neuro [id number] / / Neurostimulator Lead-05/04/2021 Implanted: 021 by Unknown, Notinfile (Quantity not on file) Neurostimulator Pelvis Medtronic Neuro [id number] / / Procedures Procedure Name Priority Date/Time Associated Diagnosis Comments SLEEP LAB/STUDY - RESULT 10/11/2024 4:59 PM BAR TACKER from Last 3 Months Results * SLEEP LAB/STUDY - RESULT (10/11/2024 4:59 PM BAR TACKER) us Provider Scanning Final Result from Last 3 Months Insurance [facility] MEDICARE [facility] MEDICARE [facility] MEDICARE Care Teams Workshop Manager Relationship Specialty Start Date End Date Medardo Jaramillo DO [address] [facility] [address] [place] [address] PCP - General Internal Medicine 08/28/24
--- OUTSIDE RECORDS SUMMARY | 2025-01-06 21:22 | XMS_ITS | Encounter Summary ---
Author Organization [facility] Address [address] [facility] [place] [address] Care Team Providers Care Machine Milker Name Role Phone Irene Solis MD Unavailable [phone] John Ibrahim DO Primary Care Provider [phone] Encounter Details Date Type Department Care Team (Late st Contact Info) Description 02/20/2024 Lab Requisition [facility] - DermPath Lab [address] [facility] [place] [phone] Jose العراقي MD [address] [place] [address] Social History Tobacco Use Types Packs/Day Years [...] filedocumented in this encounter Care Teams Machine Milker Relationship Specialty Start Date End Date John Ibrahim DO [address] [facility] [address] [facility] [address] [place] [address] PCP - General Internal Medicine 12/25/13 Irene Solis MD Orthopedic Surgery 12/25/13 documented as of this encounter
--- OUTSIDE RECORDS SUMMARY | 2025-01-06 21:22 | XMS_ITS | Clinical Summary ---
Author Organization [facility] Address [address] [address] [address] Phone Care Team Providers Care Learning Center Instructor Name Role Phone John Ibrahim DO Primary Care Provider Social History Tobacco Use Types Packs/Day Years [...] to Health Maintenance Insurance MEDICARE Care Teams Learning Center Instructor Relationship Specialty Start Date End Date John Ibrahim DO [address] [facility] [address] [place] [address] PCP - General Internal Medicine 02/08/18
--- OUTSIDE RECORDS SUMMARY | 2025-01-06 21:23 | XMS_ITS | Encounter Summary ---
Author Organization [facility] Care Team Providers Care Horticultural Manager Name Role Phone Medardo Jaramillo DO Primary Care Provider [phone] Encounter Details Date Type Department Care Team (Latest Contact Info) Description 03/22/2017 Orders Only [facility] ProviderAnahi MD [address] [place] [id number] Social History Tobacco Use Types Packs/Day Years Used Date Smoking Tobacco: Never Alcohol Use Standard Drinks/Week Comments Yes 0 (1 standard drink = 0.6 oz pur e alcohol) Sex and Gender Information Value Date Recorded Sex Assigned at Not on file 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
--- NOTE | 2025-01-06 21:25 | ED.GENADULT ---
HPI - General Adult General Chief complaint: Unspecified <Ramon Shelton MD - Last Filed: 01/06/25 22:00> Stated complaint: Left groin [id number] to walk today <Ramon Shelton MD - Last Filed: 01/06/25 22:00> Time Seen by Provider: 01/06/25 21:13 <Ramon Shelton MD - Last Filed: 01/06/25 22:00> Source: patient and family <Ramon Shelton MD - Last Filed: 01/06/25 22:00> Mode of arrival: wheelchair <Ramon Shelton MD - Last Filed: 01/06/25 22:00> Limitations: no limitations <Ramon Shelton MD - Last Filed: 01/06/25 22:00> History of Present Illness HPI narrative: 79-year-old with a history of hypertension, anxiety, depression disorder here with a complains of low back pain, left hip pain radiating into his groin for past 1 week. Patient states that he has been seeing the chiropractor however since yesterday the pain has been quite intense. He states he took 2 tablets of tramadol which helped the pain yesterday however this evening he was unable to get out of the bed . He denies any fall <Ramon Shelton MD - Last Filed: 01/06/25 22:00> Onset (ago): week(s) (1) <Ramon Shelton MD - Last Filed: 01/06/25 22:00> Location: lower extremity <Ramon Shelton MD - Last Filed: 01/06/25 22:00> Radiation: non-radiation <Ramon Shelton MD - Last Filed: 01/06/25 22:00> Severity: moderate <Ramon Shelton MD - Last Filed: 01/06/25 22:00> Quality: aching <Ramon Shelton MD - Last Filed: 01/06/25 22:00> Pain Consistency: constant <Ramon Shelton MD - Last Filed: 01/06/25 22:00> Relieving factors: none <Ramon Shelton MD - Last Filed: 01/06/25 22:00> Exacerbating factors: none <Ramon Shelton MD - Last Filed: 01/06/25 22:00> Associated symptoms: denies other symptoms <Ramon Shelton MD - Last Filed: 01/06/25 22:00> Related Data Home medications: Home Medications ?Medication ?Instructions ?Recorded ?Confirmed ?Last Taken ?Type aspirin 81 mg tablet,delayed 81 mg PO DAILY 08/13/19 12/03/24 11/30/23 History release (Adult Low Dose Aspirin) atorvastatin 20 mg tablet (Lipitor) 20 mg PO DAILY 08/13/19 12/03/24 Unknown History cyanocobalamin (vitamin B-12) 1,000 mcg PO 3XW 08/13/19 12/03/24 Unknown History 1,000 mcg capsule metoprolol succinate 50 mg 50 mg PO DAILY 02/14/20 12/03/24 12/08/23 History tablet,extended release 24 hr calcium carbonate (Calcium 600) 600 mg PO 3XW 08/19/20 12/03/24 Unknown History diphenhydramine HCl 25 mg capsule 50 mg PO HS 08/19/20 12/03/24 Unknown History (Benadryl) glucosamine-chondroitin 250 mg-200 1 tablet PO DAILY 08/19/20 12/03/24 Unknown History mg tablet (Osteo Bi-Flex) alpha lipoic acid 100 mg capsule 100 mg PO DAILY 12/20/23 12/03/24 Unknown History cholecalciferol (vitamin D3) 25 25 mcg PO DAILY 12/20/23 12/03/24 Unknown History mcg (1,000 unit) capsule magnesium gluconate 12.5 mg 1,000 mg PO BID 12/20/23 12/03/24 Unknown History magnesium (250 mg) tablet saw palmetto 160 mg capsule 160 mg PO DAILY 12/20/23 12/03/24 Unknown History vitamin B complex 1 tablet PO DAILY 12/20/23 12/03/24 Unknown History <Ramon Shelton MD - Last Filed: 01/06/25 22:00> Allergies/adverse reactions: Allergies Allergy/AdvReac Type Severity Reaction Status Date / Time adhesive Allergy Mild Rash Verified 01/06/25 18:46 bupropion Allergy Mild rash Verified 01/06/25 18:46 sertraline Allergy Mild rash Verified 01/06/25 18:46 <Ramon Shelton MD - Last Filed: 01/06/25 22:00> Review of Systems Review of Systems: All systems reviewed & are unremarkable except as noted in HPI and below <Ramon Shelton MD - Last Filed: 01/06/25 22:00> Constitutional: Constitutional: Reports no additional constitutional complaints <Ramon Shelton MD - Last Filed: 01/06/25 22:00> Eyes: Eyes: Reports no additional eye complaints <Ramon Shelton MD - Last Filed: 01/06/25 22:00> ENT: Reports system reviewed and no additional complaints, except as documented <Ramon Shelton MD - Last Filed: 01/06/25 22:00> Cardiovascular: Cardiovascular: Reports no additional cardiovascular complaints <Ramon Shelton MD - Last Filed: 01/06/25 22:00> Respiratory: Respiratory: Reports no additional respiratory complaints <Ramon Shelton MD - Last Filed: 01/06/25 22:00> Gastrointestinal: Gastrointestinal: Reports no additional gastrointestinal complaints <Ramon Shelton MD - Last Filed: 01/06/25 22:00> Musculoskeletal: Musculoskeletal: Reports no additional musculoskeletal complaints <Ramon Shelton MD - Last Filed: 01/06/25 22:00> Integumentary/Breasts: Skin/Breast: Reports system reviewed and no additional complaints, except as docu <Ramon Shelton MD - Last Filed: 01/06/25 22:00> Neurologic: Reports system reviewed and no additional complaints, except as documented <Ramon Shelton MD - Last Filed: 01/06/25 22:00> Psychiatric: Psychiatric: Reports no additional psychiatric complaints <Ramon Shelton MD - Last Filed: 01/06/25 22:00> Endocrine: Endocrine: Reports no additional endocrine complaints <Ramon Shelton MD - Last Filed: 01/06/25 22:00> Hematologic/Lymphatic: Hematologic/Lymphatic: Reports no additional hematologic/lymphatic complaints <Ramon Shelton MD - Last Filed: 01/06/25 22:00> PMFSH Past Medical History Medical History: Medical History Rupture of left Achilles tendon Pes planus of right foot Acquired claw toe of left foot Radiculopathy due to disorder of intervertebral disc of lumbar spine Peripheral neuropathy Colon polyp JUAN (obstructive sleep apnea) Neuropathy Alcohol abuse with alcohol-induced anxiety disorder Cardiac arrhythmia Frequent PVCs and PACs Chronic back pain Hypertension Gout Congestive heart failure Dry eyes Depression Anxiety PVC (premature ventricular contraction) Hyperlipidemia Hypertension Excessive anger Sleep apnea, unspecified <Ramon Shelton MD - Last Filed: 01/06/25 22:00> Surgical History Surgical History: Surgical History S/P TURP H/O foot surgery Left foot hammertoe History of arthroplasty of right knee H/O bilateral cataract extraction History of joint replacement right knee H/O toe surgery (~08/2019) <Ramon Shelton MD - Last Filed: 01/06/25 22:00> Family History Family History: Family History Sibling Family history of arthritis Father Family history of congestive heart failure, Onset Age: 86 Patient's father is Mother Patient's mother is Heart disease Family history of congestive heart failure <Ramon Shelton MD - Last Filed: 01/06/25 22:00> Social History Social History: Social History (Updated 12/03/24 @ 12:30 by Roseann Powell [facility]) Social History: The patient is a lifelong nonsmoker. He is and lives with his . She is the durable power assistant prosecuting attorney for healthcare. He has 2 biological children and 1 stepchild. The patient is retired from [employer] physical [employer]. The patient desires to be a full code. The patient states that he socially drinks wine. 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 HEAD: Normocephalic, atraumatic. EYES: PERRLA and EOMI. ENT: Nares clear, no rhinorrhea or epistaxis. Mucous membranes moist. NECK: Supple. CHEST: Clear to auscultation. No respiratory distress. HEART: Regular rate and rhythm. No murmur heard. Normal peripheral pulses. ABDOMEN: Soft, nontender, nondistended, normal active bowel sounds. EXTREMITIES: painful ROM left hip SKIN: Warm, dry, no rash. NEURO: No focal deficits. Alert and oriented x3. PSYCH: Normal mood and affect. <Ramon Shelton MD - Last Filed: 01/06/25 22:00> Course Vital Signs Vital signs: Vital Signs Temperature 98.3 F 01/06/25 19:19 Pulse Rate 83 01/06/25 19:19 Respiratory Rate 16 01/06/25 19:19 Blood Pressure 141/89 H 01/06/25 19:19 Pulse Oximetry 99 01/06/25 19:19 Oxygen Delivery Room Air 01/06/25 19:19 Temperature 98.3 F 01/06/25 19:19 Pulse Rate 91 01/06/25 23:50 Respiratory Rate 18 01/06/25 23:50 Blood Pressure 122/91 H 01/06/25 23:50 Pulse Oximetry 97 01/06/25 23:50 Oxygen Delivery Room Air 01/06/25 21:14 <Ramon Shelton MD - Last Filed: 01/06/25 22:00> Vital Signs Temperature 98.3 F 01/06/25 19:19 Pulse Rate 83 01/06/25 19:19 Respiratory Rate 16 01/06/25 19:19 Blood Pressure 141/89 H 01/06/25 19:19 Pulse Oximetry 99 01/06/25 19:19 Oxygen Delivery Room Air 01/06/25 19:19 Temperature 98.3 F 01/06/25 19:19 Pulse Rate 91 01/06/25 23:50 Respiratory Rate 18 01/06/25 23:50 Blood Pressure 122/91 H 01/06/25 23:50 Pulse Oximetry 97 01/06/25 23:50 Oxygen Delivery Room Air 01/06/25 21:14 <Laura Benitez PA-C - Last Filed: 01/07/25 03:03> Medical Decision Making MDM Narrative Medical decision making narrative: Care signed out to myself at shift change pending remainder of imaging. X-ray of left hip/pelvis negative for acute fracture. CT of lumbar side showing degenerative disease, but no acute findings. No acute fracture. Patient is not exhibiting any signs or symptoms of cauda equina or cord compression. Feeling improved with supportive therapy in the ED. Able to ambulate. Feels comfortable going home. Family in agreement with plan. Discharged in stable condition. Will prescribe short course of muscle relaxers for home. <Laura Benitez PA-C - Last Filed: 01/07/25 03:03> Medical Records Medical records reviewed: Yes I reviewed the external patient's medical records. <Laura Benitez PA-C - Last Filed: 01/07/25 03:03> Vital Signs Vital Signs: Vital Signs Temperature 98.3 F 01/06/25 19:19 Pulse Rate 83 01/06/25 19:19 Respiratory Rate 16 01/06/25 19:19 Blood Pressure 141/89 H 01/06/25 19:19 Pulse Oximetry 99 01/06/25 19:19 Oxygen Delivery Room Air 01/06/25 19:19 Temperature 98.3 F 01/06/25 19:19 Pulse Rate 91 01/06/25 23:50 Respiratory Rate 18 01/06/25 23:50 Blood Pressure 122/91 H 01/06/25 23:50 Pulse Oximetry 97 01/06/25 23:50 Oxygen Delivery Room Air 01/06/25 21:14 <Ramon Shelton MD - Last Filed: 01/06/25 22:00> Vital Signs Temperature 98.3 F 01/06/25 19:19 Pulse Rate 83 01/06/25 19:19 Respiratory Rate 16 01/06/25 19:19 Blood Pressure 141/89 H 01/06/25 19:19 Pulse Oximetry 99 01/06/25 19:19 Oxygen Delivery Room Air 01/06/25 19:19 Temperature 98.3 F 01/06/25 19:19 Pulse Rate 91 01/06/25 23:50 Respiratory Rate 18 01/06/25 23:50 Blood Pressure 122/91 H 01/06/25 23:50 Pulse Oximetry 97 01/06/25 23:50 Oxygen Delivery Room Air 01/06/25 21:14 <Laura Benitez PA-C - Last Filed: 01/07/25 03:03> Imaging Data Attestation: I personally reviewed and interpreted this imaging study as follows: <Laura Benitez PA-C - Last Filed: 01/07/25 03:03> Radiologist's impression: ITS Impressions Hip/Pelvis X-Ray 01/06/25 21:36 IMPRESSION: Degenerative disease without acute fracture or dislocation Lumbar Spine CT 01/06/25 22:17 Impression: No acute findings within the lumbar spine. Multilevel disc disease most prominent at the levels of L1/L2, L2/L3, and L3/L4. No acute compression fracture. <JEANNIE Wiggins Last Filed: 01/07/25 03:03> Discharge Plan Discharge Clinical Impression: Acute hip pain Qualifiers: Laterality: left Qualified Code(s): M25.552 - Pain in left hip Lumbar degenerative disc disease Qualifiers: Disc-related pain type: unspecified whether pain present Qualified Code(s): M51.369 - Other intervertebral disc degeneration, lumbar region without mention of lumbar back pain or lower extremity pain <Ramon Shelton MD - Last Filed: 01/06/25 22:00> Patient Disposition: Home <Ramon Shelton MD - Last Filed: 01/06/25 22:00> Condition: Stable <Ramon Shelton MD - Last Filed: 01/06/25 22:00> Instructions: Antibiotic Form, Low Back Strain (ED), Acute Low Back Pain (ED) <Ramon Shelton MD - Last Filed: 01/06/25 22:00> Additional Instructions: Continue Tylenol and Ibuprofen/aleve as needed for pain. Tramadol as needed for more severe pain. You may use ice/heat, lidocaine patches to area of pain. Take muscle relaxers as needed and prescribed. Recommend taking these at night as they may cause sedation. Do not drive, operate heavy machinery, drink alcohol while on muscle relaxers as this may cause further sedation. Follow-up with your primary care doctor and/or assistive technology specialist for further evaluation. Return to the ED if you experience worsening or severe pain, recurrent injury, numbness in groin or legs, going to the bathroom without meaning to, unable to keep down food or drink, or any other symptoms of concern. <Ramon Shelton MD - Last Filed: 01/06/25 22:00> Patient Language: Citizen Of [place] <Ramon Shelton MD - Last Filed: 01/06/25 22:00> Prescriptions: New lidocaine 5 % adhesive patch,medicated 1 patch topical DAILY Qty: 15 0RF Rx Instructions: leave on most painful area for up to 12 hrs cyclobenzaprine 5 mg tablet 5 mg PO TID PRN (Reason: muscle spasm) Qty: 15 0RF No Action metoprolol succinate 50 mg tablet extended release 24 hr 50 mg PO DAILY diphenhydramine HCl [Benadryl] 25 mg capsule 50 mg PO HS glucosamine-chondroitin [Osteo Bi-Flex] 250-200 mg tablet 1 tablet PO DAILY Rx Instructions: give after food/meal calcium carbonate [Calcium 600] 600 mg calcium (1,500 mg) tablet 600 mg PO 3XW vitamin B complex Tablet 1 tablet PO DAILY magnesium gluconate 12.5 mg magne- sium (250 mg) tablet 1,000 mg PO BID cholecalciferol (vitamin D3) 25 mcg (1,000 unit) capsule 25 mcg PO DAILY saw palmetto 160 mg capsule 160 mg PO DAILY Rx Instructions: give with meal/snack alpha lipoic acid 100 mg capsule 100 mg PO DAILY atorvastatin [Lipitor] 20 mg tablet 20 mg PO DAILY aspirin [Adult Low Dose Aspirin] 81 mg tablet,delayed release (DR/EC) 81 mg PO DAILY cyanocobalamin (vitamin B-12) 1,000 mcg capsule 1,000 mcg PO 3XW triamcinolone acetonide 0.1 % cream 1 applic topical BID Qty: 15 0RF gabapentin 300 mg capsule 300 mg PO .COMPLEX Qty: 360 1RF Rx Instructions: 300 mg orally 1 capsule in the AM, one capsule at 3 PM and 2 capsules at night. venlafaxine 75 mg capsule,extended release 24hr 75 mg PO DAILY Qty: 90 2RF Wegovy 0.25 mg/0.5 mL pen injector 0.25 mg subcut WEEKLY Qty: 2 0RF Rx Instructions: administer weeks 1 through 4 of therapy; call for next dose tramadol 50 mg tablet 100 mg PO HS PRN (Reason: pain) Qty: 60 1RF Rx Instructions: 2 TABS PO at night PRN; nabumetone 750 mg tablet See Rx Instructions .ROUTE .COMPLEX Qty: 180 1RF Dose Instruction: TAKE 1 TABLET BY MOUTH TWICE DAILY Rx Instructions: TAKE 1 TABLET BY MOUTH TWICE DAILY <Ramon Shelton MD - Last Filed: 01/06/25 22:00> Follow-up/Referrals: Milton Haq, CARCASS WASHER [Primary Care Provider] - <Ramon Shelton MD - Last Filed: 01/06/25 22:00> Time of Disposition: 23:28 <Ramon Shelton MD - Last Filed: 01/06/25 22:00> 23:28 <Laura Benitez PA-C - Last Filed: 01/07/25 03:03>
[2025-01-06] MEDS: HYDROmorphone HCL INJ (*CRX) 1 MG/ML SYR IV PUSH (21:45)
[2025-01-06] MEDS: ONDANSETRON INJ 4 MG/2 ML VIAL IV PUSH (21:46)
[2025-01-06] MEDS: KETOROLAC 30 MG/ML VIAL (*BKC) 15 MG IV PUSH (21:46)
[2025-01-06] MEDS: CYCLOBENZAPRINE HCL 5 MG TABLET PO (23:38)
[2025-01-06 23:50] VITALS: BP 122/91; PULSE 91; RESP 18; O2SAT 97
== END 2025-01-06 23:51 | disposition home or self-care (01) ==
PROVIDERS: Emergency Provider Family Medicine; PCP Nurse Practitioner
DX: M51.369 Other intervertebral disc degeneration, lumbar region without mention of lumbar back pain or lower extremity pain (principal); M25.552 Pain in left hip; I50.9 Heart failure, unspecified; I11.0 Hypertensive heart disease with heart failure; E78.5 Hyperlipidemia, unspecified; G62.9 Polyneuropathy, unspecified; G47.33 Obstructive sleep apnea (adult) (pediatric); F32.A Depression, unspecified; F41.9 Anxiety disorder, unspecified; Z96.651 Presence of right artificial knee joint; Z86.0100 Personal history of colon polyps, unspecified; Z98.42 Cataract extraction status, left eye; Z98.41 Cataract extraction status, right eye
CPT/HCPCS: 72131; 73502; 96374; 96375; 99284; A9270; J1171; J1885; J2405

== ENCOUNTER 2025-01-13 15:07 | Outpatient (CLI) | payer MEDICARE, SELFPAY ==
[2025-01-13 16:22] LABS: Anion Gap 9 mmol/L (4-12); Blood Urea Nitrogen 38 mg/dL (9-20); Calcium 9.2 mg/dL (8.4-10.2); Carbon Dioxide 21 mmol/L (22-30); Chloride 107 mmol/L (98-107); Estimated Glomerular Filt Rate 46; Glucose 134 mg/dL (65-110); Potassium 3.8 mmol/L (3.4-5.0); Sodium 137 mmol/L (137-145)
--- OUTSIDE RECORDS SUMMARY | 2025-01-13 16:58 | XMS_ITS | Encounter Summary ---
Author Organization [facility] Address [address] [place] [address] Care Team Providers Care Business Information Analyst Name Role Phone Irene Solis MD Unavailable [phone] John Ibrahim DO Primary Care Provider [phone] Reason for Visit * Reason Onset Date Comments General 05/14/2018 Encounter Details Date Type Department Care Team (Late st Contact Info) Description 05/14/2018 Telephone [facility] [address] [place] [address] Kiersten Mary PA [address] [facility] [address] [place] [id number] General Social History Tobacco Use Types Packs/Day Years Used Date Smoking Tobacco: Never Smokeless Tobacco: Never Alcohol Use Standard Drinks/Week Comments Yes 0 (1 standard drink = 0.6 oz pur e alcohol) 2-4 glasses of wine per day Sex and Gender Information Value Date Recorded Sex Assigned at Not on file 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
--- OUTSIDE RECORDS SUMMARY | 2025-01-13 16:59 | XMS_ITS | Continuity of Care Document ---
Author Organization [facility] Address [address] [place] [address] Phone Care Team Providers Care Adolescent Specialist Name Role Phone Best Valle PT Unavailable [...] Provider Providers Copied on Encounter [facility] [facility], [place], [place], [id number], tel:[phone] [place] No Information 3 Tori Jewell. . [facility], [place], [place], [id number], tel:[phone] [place] No Information 3 Delиван Jewell. . Referring Provider: Gaston Mckenzie, [address], [place], [address]. tel:[phone] [facility], [place], [place], [id number], tel:[phone] [place] No Information 3 Dellamano Best. . Referring Provider: Herbie Ruiz [facility] [address], [place], [address]. tel:[phone] [address], [place], [place], [id number], tel:[phone] [place] No Information 3 Dellamano Best. . Referring Provider: Herbie Ruiz [facility] [address], [place], [address]. tel:[phone] [address] [address], [place], [place], [id number], tel:[phone] [place] No Information 3 Dellamano Best. . Referring Provider: Herbie Ruiz [facility] [address], [place], [address]. tel:[phone] [address] [address], [place], [place], [id number], tel:[phone] [place] No Information 3 Short Josefa. . Referring Provider: Herbie Ruiz [facility] [address], [place], [address]. tel:[phone] Family History Family Member Type Diagnosis Age At Onset No Information Payers Payer name Insurance type Covered democrat ID Authorluha cosmo(s) Medicare [place] [id number] Social History Type Description Quantity Date Captured [...]
--- OUTSIDE RECORDS SUMMARY | 2025-01-13 16:59 | XMS_ITS | Clinical Summary ---
Author Organization [facility] Address [address] [place] [address] Care Team Providers Care Warehouse Laborer Name Role Phone Medardo Jaramillo DO Primary Care Provider [phone] Allergies Active Allergy Reactions Criticality Noted Date [...] hypofunction Assessment & Plan (11/16/2022 11:48 AM PATTERNMAKER SAMPLE): Hypogonadism for few years. on small dose [...] basis. Assessment & Plan (10/20/2021 10:00 AM PATTERNMAKER SAMPLE): Hypogonadism for few years. on small dose [...] basis. Assessment & Plan (10/14/2020 10:19 AM PATTERNMAKER SAMPLE): Hypogonadism for few years. on small dose [...] benign Assessment & Plan (11/16/2022 11:39 AM PATTERNMAKER SAMPLE): Controlled with medication - low salt diet - continue medication per PCP Assessment & Plan (04/20/2022 10:28 AM CDT): Controlled with medication - low salt diet - continue medication per PCP Assessment & Plan (10/20/2021 10:01 AM PATTERNMAKER SAMPLE): Controlled with medication - low salt diet - continue medication per PCP Assessment & Plan (04/14/2021 10:36 AM CDT): Controlled with medication - low salt diet - continue medication per PCP Assessment & Plan (10/14/2020 10:19 AM PATTERNMAKER SAMPLE): Controlled with medication - low salt diet [...] Encounters Date Type Department Care Team Description 01/13/2025 Telephone [facility] Cardiology [address] [address] [place] [phone] Wally Dela Cruz MD 12/25/2024 11:00 AM CDT Office Visit [facility] Card[facility] [address] [place] [phone] Polly West NP Dilated cardiomyopathy (HCC) (Primary Dx); Nonischemic cardiomyopathy (HCC); Chronic combined systolic and diastolic congestive heart failure (HCC); Benign hypertension 10/29/2024 Telephone [facility] [address] [facility] 6th [address] [place] [phone] aCrmelina Norwood MA 10/25/2024 Telephone [facility] [address] [facility] 6th [address] [place] [phone] Lisa Pollard RN DME order 10/25/2024 Orders Only [facility] [address] [facility] 6th [address] [place] [phone] Nino Vivar MD JUAN (obstructive sleep apnea) (Primary Dx) 10/16/2024 Documentation [facility] [address] [place] [phone] Nino Vivar MD from Last 3 Months Immunizations Immunization Administration [...] on file Legal Sex Male 2:41 AM PATTERNMAKER SAMPLE Gender Identity Not on file Sexual Orientation Not on file Occupation Industry Job Start Date Job End Date retired Not on file Not on file Not on file Obstetrics History Last Filed Vital Signs Vital Sign Reading Time Taken Comments Blood Pressure 122/78 12/25/2024 11:01 AM CDT Pulse 75 12/25/2024 11:01 AM CDT Temperature 36.9 C (98.5 F) 09/17/2024 10:36 AM PATTERNMAKER SAMPLE Respiratory Rate 18 11/14/2022 8:47 AM PATTERNMAKER SAMPLE Oxygen Saturation 95% 12/25/2024 11:01 AM CDT [...] 08/05/2020, 06/01/2020 Medical Devices Implanted Type Area Maintenance Service Dispatcher Device Identifier Shelf Expiration Date Model / Serial / Lot Neurostimulator Bladder-05/04/2021 Implanted: 021 by Unknown, Notinfile (Quantity not on file) Neurostimulator Pelvis Medtronic Neuro [id number] / / Neurostimulator Lead-05/04/2021 Implanted: 021 by Unknown, Notinfile (Quantity not on file) Neurostimulator Pelvis Medtronic Neuro [id number] / / Insurance [employer] [facility] MEDICARE [employer] [facility] [facility] MEDICARE [employer] MEDICARE Care Teams Warehouse Laborer Relationship Specialty Start Date End Date Medardo Jaramillo DO [address] [facility] [address] [place] [address] PCP - General Internal Medicine 08/28/24
--- OUTSIDE RECORDS SUMMARY | 2025-01-13 16:59 | XMS_ITS | Encounter Summary ---
Author Organization [facility] Facility Care Team Providers Care Metal Worker Name Role Phone Medardo Jaramillo DO Primary Care Provider [phone] Encounter Details Date Type Department Care Team (Latest Contact Info) Description 06/26/2017 Orders Only [facility] ProviderAnahi MD [address] [place] [address] Social History Tobacco Use Types Packs/Day Years Used Date Smoking Tobacco: Never Alcohol Use Standard Drinks/Week Comments Yes 0 (1 standard drink = 0.6 oz pur e alcohol) Sex and Gender Information Value Date Recorded Sex Assigned at Not on file Legal Sex Male 2:41 AM PREPLEATER Gender Identity Not on file Sexual Orientation [...] on filedocumented in this encounter Care Teams Metal Worker Relationship Specialty Start Date End Date Medardo Jaramillo DO [address] [facility] [address] [place], [place] [address] PCP - General Internal Medicine 08/28/24 documented as of this encounter
--- OUTSIDE RECORDS SUMMARY | 2025-01-13 16:59 | XMS_ITS | Clinical Summary ---
Author Organization [facility] Address [address] [address] Phone Care Team Providers Care Vehicle Operator Technician Name Role Phone John Ibrahim DO Primary Care Provider [phone] Social History Tobacco Use Types Packs/Day Years [...] to Health Maintenance Insurance MEDICARE Care Teams Vehicle Operator Technician Relationship Specialty Start Date End Date John Ibrahim DO [address] [address] [place] [address] PCP - General Internal Medicine 02/08/18
--- OUTSIDE RECORDS SUMMARY | 2025-01-13 16:59 | XMS_ITS | Patient Health Record ---
Author Organization [address] [facility] Address [address] [address] Care Team Providers Care Metal Turner Name Role Phone John Ibrahim MD Primary Care Provider Merlin Junior Unavailable [phone] Allergies Allergen (clinical drug ingredient) Drug/Non Drug [...] Problem Status W/U Status Risk Notes Problem [id number] Contusion of right great toe without damage to nail, initial encounter (S90.111A) Active confirmed Problem [id number] Idiopathic peripheral neuropathy (G60.9) Active confirmed Problem 734338329 Lumbar radiculopathy (M54.16) Active confirmed Problem [id number] Hammertoe of left foot (M20.42) Active confirmed Problem [id number] 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 [place], [place] [id number] Marshal Rivera Self - patient is the insured [facility] Medicare Advantage [address] [place] [address] [id number] Marshal Rivera Self - patient is the insured Medical (General) History Medical History History ICD Code arthritis Gout HTN Neuropathy of feet Surgical History Surgery Date(Month/Year) Cardiac Ablation
--- OUTSIDE RECORDS SUMMARY | 2025-01-13 16:59 | XMS_ITS | Encounter Summary ---
Author Organization [facility] Facility Care Team Providers Care Advertising Account Representative Name Role Phone Medardo Jaramillo DO Primary Care Provider [phone] Encounter Details Date Type Department Care Team (Latest Contact Info) Description 03/22/2017 Orders Only [facility] ProviderAnahi MD [address] [place] [address] Social History Tobacco Use Types Packs/Day Years Used Date Smoking Tobacco: Never Alcohol Use Standard Drinks/Week Comments Yes 0 (1 standard drink = 0.6 oz pur e alcohol) Sex and Gender Information Value Date Recorded Sex Assigned at Not on file Legal Sex Male 2:41 AM 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
--- OUTSIDE RECORDS SUMMARY | 2025-01-13 16:59 | XMS_ITS | Referral Summary ---
Author Organization [facility] Address [address] [place] [address] Care Team Providers Care Brewing Technician Name Role Phone Medardo Jaramillo DO Primary Care Provider [phone] Encounters Date Type Department Care Team Description 01/13/2025 Telephone [facility] Cardiology [address] [facility] [address] [place] [phone] Wally Dela Cruz MD 12/25/2024 11:00 AM CDT Office Visit [facility] Card[facility] [address] [facility] [address] [place] [address] Polly West NP Dilated cardiomyopathy (HCC) (Primary Dx); Nonischemic cardiomyopathy (HCC); Chronic combined systolic and diastolic congestive heart failure (HCC); Benign hypertension 10/29/2024 Telephone [facility] [address] [facility] 6th [address] [place] [address] Carmelina Norwood MA 10/25/2024 Telephone [facility] [address] [facility] 6th [address] [place] [address] Lisa Pollard RN DME order 10/25/2024 Orders Only [facility] [address] [facility] 6th [address] [place] [address] Nino Vivar MD JUAN (obstructive sleep apnea) (Primary Dx) 10/16/2024 Documentation [facility] Sleep [address] [facility] [address] [place] [address] Nino Vivar MD from Last 3 Months Allergies Active Allergy [...] hypofunction Assessment & Plan (11/16/2022 11:48 AM BOLOGNA MAKER): Hypogonadism for few years. on small dose [...] basis. Assessment & Plan (10/20/2021 10:00 AM BOLOGNA MAKER): Hypogonadism for few years. on small dose [...] basis. Assessment & Plan (10/14/2020 10:19 AM BOLOGNA MAKER): Hypogonadism for few years. on small dose [...] benign Assessment & Plan (11/16/2022 11:39 AM BOLOGNA MAKER): Controlled with medication - low salt diet - continue medication per PCP Assessment & Plan (04/20/2022 10:28 AM CDT): Controlled with medication - low salt diet - continue medication per PCP Assessment & Plan (10/20/2021 10:01 AM BOLOGNA MAKER): Controlled with medication - low salt diet - continue medication per PCP Assessment & Plan (04/14/2021 10:36 AM CDT): Controlled with medication - low salt diet - continue medication per PCP Assessment & Plan (10/14/2020 10:19 AM BOLOGNA MAKER): Controlled with medication - low salt diet [...] on file Legal Sex Male 2:41 AM BOLOGNA MAKER Gender Identity Not on file Sexual Orientation Not on file Occupation Industry Job Start Date Job End Date retired Not on file Not on file Not on file Last Filed Vital Signs Vital Sign Reading Time Taken Comments Blood Pressure 122/78 12/25/2024 11:01 AM CDT Pulse 75 12/25/2024 11:01 AM CDT Temperature 36.9 C (98.5 F) 09/17/2024 10:36 AM BOLOGNA MAKER Respiratory Rate 18 11/14/2022 8:47 AM BOLOGNA MAKER Oxygen Saturation 95% 12/25/2024 11:01 AM CDT Inhaled Oxygen Concentration - - Weight 110.7 kg (244 lb) 12/25/2024 11:01 AM CDT Height 188 cm (6' 2 ) 12/25/2024 11:01 AM CDT Body Mass Index 31.33 12/25/2024 11:01 AM CDT Plan of Treatment Not on file Medical Devices Implanted Type Area Survey Research Analyst Device Identifier Shelf Expiration Date Model / Serial / Lot Neurostimulator Bladder-05/04/2021 Implanted: 021 by Unknown, Notinfile (Quantity not on file) Neurostimulator Pelvis Medtronic Neuro [id number] / / Neurostimulator Lead-05/04/2021 Implanted: 021 by Unknown, Notinfile (Quantity not on file) Neurostimulator Pelvis Medtronic Neuro [id number] / / Insurance [facility] MEDICARE [facility] MEDICARE [facility] MEDICARE Care Teams Brewing Technician Relationship Specialty Start Date End Date Medardo Jaramillo DO [address] [facility] 21 [place] [address] PCP - General Internal Medicine 08/28/24
--- OUTSIDE RECORDS SUMMARY | 2025-01-13 16:59 | XMS_ITS | Clinical Summary ---
Author Organization [facility] Address [address] [facility] [place] [address] Care Team Providers Care Casting Machine Control Board Operator Name Role Phone Irene Solis MD Unavailable [phone] John Ibrahim DO Primary Care Provider Source Comments [facility],non-owned Affiliates and Associated Physician Practices is amultiple site organization consisting of ambulatory clinics and hospital sitesin [place], [place], [place] and [place]. This disclosure is being madepursuant to the Care Everywhere program and may not contain all information available regarding this patient. Last updated 18.[facility] Allergies Active Allergy Reactions Criticality Noted Date Comments Adhesive Sensitivity 12/25/2013 Medications * Be aware that medications may not be up to date on this document. Alwaysverify current medications with the patient. atorvastatin (LIPITOR) 20 MG tabletIndication s:Knee pain,Rotator cuff (capsule) sprain,Osteoarth rosis, unspecified whether generalized or localized, lower leg,Tear of medial cartilage or meniscus of knee, current,Tear of lateral cartilage or meniscus of knee, current Take 20 mg by mouth at bedtime. Active lisinopril (PRINIVIL; ZESTRIL) 20 MG tabletIndication s:Knee pain,Rotator cuff (capsule) sprain,Osteoarth rosis, unspecified whether generalized or localized, lower leg,Tear of medial cartilage or meniscus of knee, current,Tear of lateral cartilage or meniscus of knee, current Take 20 mg by mouth once daily. Active nabumetone (RELAFEN) 750 MG tabletIndication s:Knee pain,Rotator cuff (capsule) sprain,Osteoarth rosis, unspecified whether generalized or localized, lower leg,Tear of medial cartilage or meniscus of knee, current,Tear of lateral cartilage or meniscus of knee, current Take 750 mg by mouth 2 times daily. Active aspirin 81 MG tabletIndication s:Knee pain,Rotator cuff (capsule) sprain,Osteoarth rosis, unspecified whether generalized or localized, lower leg,Tear [...] Take 100 mg by mouth once daily 9 Active Testosterone (AXIRON) 30 MG/ACT solution Apply 1 Pump to affected area once daily as needed 0 Active metoprolol succinate XL 24hr (TOPROL XL) 50 MG tablet TAKE 1 TABLET DAILY 0 Active cephalexin (KEFLEX) 500 MG capsuleIndicatio ns:Acne rosacea Take one daily 90 day supply 90 capsule 3 1 Active metroNIDAZOLE (METROGEL) 0.75 % gelIndications:A cne rosacea Apply thin layer topically to affected areav twice daily. 30 days supply. 45 g 2 1 Active gabapentin (NEURONTIN) 300 MG capsuleIndicatio ns:Brachioradial pruritus Take 2 (two) capsules by mouth at bedtime 180 capsule 1 Active Active Problems Problem Noted Date Diagnosed Date Actinic skin damage 10/19/2020 Assessment & Plan (10/19/2020 10:27 AM UNIVERSAL GRINDER OPERATOR): - Chronic - Extensive lesions associated with sun damage and increased risk of skin cancer - Reviewed concerning signs for development of skin cancer - Counseled on importance of daily sun protection, recommend OTC broad spectrum, SPF >30 - Advised monthly self skin exams Ingrown hair 10/19/2020 Assessment & Plan (10/19/2020 10:38 AM UNIVERSAL GRINDER OPERATOR): - L upper cutaneous lip - Topical retinoid samples provided today, apply small amount to area TIW Seborrheic keratosis, inflamed 06/24/2019 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 06/24/2019 Rash and other nonspecific skin eruption 019 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 (10/19/2020 10:28 AM UNIVERSAL GRINDER OPERATOR): - Chronic, stable - Continue gabapentin 600 mg QHS - Refills today Actinic keratosis 04/30/2018 Assessment & Plan (10/19/2020 10:37 AM UNIVERSAL GRINDER OPERATOR): - Counseled on diagnosis, etiology, natural disease [...] 04/30/2018 Assessment & Plan (10/19/2020 10:27 AM UNIVERSAL GRINDER OPERATOR): - Chronic, stable - Continue Keflex 500 mg EOD - Continue metrogel 0.75% daily - Refills today Inflamed seborrheic keratosis 04/30/2018 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 04/30/2018 Lentigines 04/30/2018 Primary localized osteoarthrosis, lower leg 10/2014 Old bucket handle tear of medial meniscus 2013 Encounters Date Type Department Care Team Description 10/25/2024 Telephone [facility]ology [address] [facility] [place] [address] Vamsi Nguyen MD Concerns from Last 3 Months Immunizations Immunization Administration Dates Next Due INFLUENZA VACCINE, HIGH-DOSE [...] on file Legal Sex Male 6:29 AM UNIVERSAL GRINDER OPERATOR Gender Identity Not on file Sexual Orientation [...] 2 - PCV) 06/27/2020 06/27/2019 COVID-19 VACCINE (1 - 2023-2 5 season) 2024 DEPRESSION SCREENING 10/02/2024 INFLUENZA [...] age to complete this topic Insurance MEDICARE MEDICARE Care Teams Casting Machine Control Board Operator Relationship Specialty Start Date End Date John Ibrahim DO [address] [facility] [address] [place] [address] PCP - General Internal Medicine 12/25/13 Irene Solis MD Orthopedic Surgery 12/25/13
--- OUTSIDE RECORDS SUMMARY | 2025-01-13 16:59 | XMS_ITS | Clinical Summary ---
Author Organization [facility] Address [address] [place] [address] Care Team Providers Care Treating Machine Operator Name Role Phone John Ibrahim MD Primary Care Provider [phone] Allergies Active Allergy Reactions Criticality Noted Date [...] PVC's (premature ventricular contractions) Nonischemic cardiomyopathy (CMS/HCC [facility]/HCC) Overview (05/05/2021): Nonischemic cardiomyopathy Swelling of extremity 12/04/2015 Perineal pain in male 07/28/2015 Primary localized osteoarthrosis, lower leg 05/10/2014 Cervicalgia 11/19/2014 Old bucket handle tear of medial meniscus 2013 Arthralgia of shoulder 05/30/2012 Immunizations Immunization Administration Dates Next Due Fluzone High Dose [...] 5 season) 2024 12/04/2020, 11/09/2020 Pneumococcal Vaccine: 50+ Years Completed 06/27/2019, 06/25/2018 Zoster Vaccines Completed 08/05/2020, 06/01/2020 Meningococcal B Vaccine Aged Out No l onger eligible based on patient's age to complete this topic Meningococcal Vaccine Aged Out No lynn marita eligible based on patient's age to complete this topic RSV Immunizations Under 20 Months Aged Out No longer eligible b ased on patient's age to complete this topic Insurance MEDICARE [facility] Care Teams Treating Machine Operator Relationship Specialty Start Date End Date John Ibrahim MD [address] [place] [address] PCP - General INTERNAL MEDICINE 02/02/21
--- OUTSIDE RECORDS SUMMARY | 2025-01-13 16:59 | XMS_ITS | Encounter Summary ---
Author Organization [facility] Address [address] [place] [address] Care Team Providers Care Pot Feeder Name Role Phone Irene Solis MD Unavailable [phone] John Ibrahim DO Primary Care Provider [phone] Encounter Details Date Type Department Care Team (Late st Contact Info) Description 02/20/2024 Lab Requisition [facility] - DermPath Lab [address] [facility] [place] [id number] Jose العراقي MD [address] [place] [address] Social History Tobacco Use Types Packs/Day Years Used Date Smoking Tobacco: Never Smokeless Tobacco: Never Alcohol Use Standard Drinks/Week Comments Yes 0 (1 standard drink = 0.6 oz pur e alcohol) 2-4 glasses of wine per day Sex and Gender Information Value Date Recorded Sex Assigned at Not on file Legal Sex Male 6:29 AM TRACK SURFACING MACHINE OPERATOR Gender Identity Not on file Sexual Orientation Not on file documented as of this encounter Plan of Treatment Not on file documented as of this encounter Visit Diagnoses Not on filedocumented in this encounter Care Teams Pot Feeder Relationship Specialty Start Date End Date John Ibrahim DO [address] [facility] [address] [facility] [address] [place] [address] PCP - General Internal Medicine 12/25/13 Irene Solis MD Orthopedic Surgery 12/25/13 documented as of this encounter
--- OUTSIDE RECORDS SUMMARY | 2025-01-13 16:59 | XMS_ITS | Clinical Summary ---
Author Organization [facility] Oneida Lanza Address [address] [place] [address] Care Team Providers Care Photographic Process Worker Name Role Phone LanafloraJohn Primary Care Provider [phone] Allergies No known active allergies Medications atorvastatin [...] Description 03/26/2025 10:00 AM CDT Office Visit [facility] Oncology and Hematology - Jesus [address] [facility] [address] [place] [address] [place] [address] [place] [address] [address] [place] [address] Health Maintenance Due Date Last [...] Discontinued Insurance MEDICARE PART A AND B [facility] [id number] Care Teams Photographic Process Worker Relationship Specialty Start Date End Date John Ibrahim DO [address] [facility] [address] [place] [address] PCP - General Internal Medicine 07/04/22
--- OUTSIDE RECORDS SUMMARY | 2025-01-13 16:59 | XMS_ITS | Encounter Summary ---
Author Organization [facility] Address [address] [facility] [place] [address] Care Team Providers Care Planisher Name Role Phone Irene Solis MD Unavailable John Ibrahim DO Primary Care Provider [phone] Encounter Details Date Type Department Care Team (Late st Contact Info) Description 02/20/2024 Lab Requisition [facility] Physician [facility] - DermPath Lab [address] [facility] [place] [id number] Jose العراقي MD [address] [place] [address] Social History Tobacco Use Types Packs/Day Years Used Date Smoking Tobacco: Never Smokeless Tobacco: Never Alcohol Use Standard Drinks/Week Comments Yes 0 (1 standard drink = 0.6 oz pur e alcohol) 2-4 glasses of wine per day Sex and Gender Information Value Date Recorded Sex Assigned at Not on file Legal Sex Male 6:29 AM PROPOSAL DIRECTOR Gender Identity Not on file Sexual Orientation Not on file documented as of this encounter Plan of Treatment Not on file documented as of this encounter Procedures Procedure Name Priority Date/Time Associated Diagnosis Comments DERMATOPATHOLOGY Routine 02/19/2024 12:0 0 AM CDT documented in this encounter Results * DERMATOPATHOLOGY (02/19/2024 12:00 AM CDT) Case Report Dermatopathology Report Case: [id number] Authorizing Provider: Jose العراقي MD Collected: 02/19/2024 12:00 AM Ordering Location: [facility] - Received: 02/20/2024 10:17 AM DermPath Lab Pathologist: Polly Ho MD Specimen: Skin, left upper lip 11:01 AM T DERMATOPATHOLOGY LABORATORY Final Diagnosis Specimen A. SKIN, left upper lip: VERRUCA VULGARIS (B07.8) (see microscopic description) 11:01 AM T DERMATOPATHOLOGY LABORATORY Clinical History R/O neoplasm 11:01 AM T DERMATOPATHOLOGY LABORATORY Gross Description Specimen A: Received is one formalin filled container labeled with the patient's name and designated left upper lip. The specimen consists of a shave biopsy measuring 2x2x1 mm. Jar 0. 11:01 AM T DERMATOPATHOLOGY LABORATORY Microscopic Description Specimen A. SKIN, left upper lip: There is digitated epidermal hyperplasia, hypergranulosis, vacuolated granular layer cells, and compact hyperorthokeratosis . The lesion fails to stain with CD34. Mib-1 stain highlights proliferating keratinocytes confined to the basilar epidermis. Additional deeper sections were obtained and reviewed. 11:01 AM [facility] DERMATOPATHOLOGY LABORATORY Disclaimer An external and internal positive and negative controls are appropriate for the histochemical, immunohistochemical and immunofluorescence stain(s) in this case (if any), except where stated explicitly. The performance characteristics of the stain(s) cited in this report were developed and its performance characteristic determined by the Dermatopathology Laboratory at [facility], directed by Dr. Ed Dietz. These tests need not be, and therefore are not, approved by the [place] Food and Drug Administration. The tests are used for clinical purposes. Billing Codes Specimen Charges Stain Charges 54997 1 52862 06634 1 1 11:01 AM CDT DERMATOPATHOLOGY LABORATORY Embedded Images 11:01 AM T DERMATOPATHOLOGY LABORATORY Pathology/Cytolog y TISSUE SPECIMEN FROM SKIN / Unknown 02/19/2024 02/20/2024 10:17 AM CDT us Joes العراقي MD LAB - PATHOLOGY/CYTOLOGY ORDERAB LES Final Result DERMATOPATHOLOGY LABORATORY [facility] - Department of Dermatology [address], [address] [phone] documented in this encounter Visit Diagnoses Not on filedocumented in this encounter Care Teams Planisher Relationship Specialty Start Date End Date John Ibrahim DO [address] [facility] [address] [facility] [address] [place] [address] PCP - General Internal Medicine 12/25/13 Irene Solis MD Orthopedic Surgery 12/25/13 documented as of this encounter
--- OUTSIDE RECORDS SUMMARY | 2025-01-13 16:59 | XMS_ITS | Encounter Summary ---
Author Organization [facility] Address [address] [facility] [place] [address] Care Team Providers Care Marketing/Sales Person Name Role Phone Irene Solis MD Unavailable John Ibrahim DO Primary Care Provider [phone] Encounter Details Date Type Department Care Team (Late st Contact Info) Description 01/27/2023 Lab Requisition 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 DermPath Lab Received: 01/27/2023 12:28 PM [...] posterior shoulder. The specimen consists of a [id number] mm piece of skin. The margin is [...] characteristic determined by the Dermatopathology Laboratory at [facility], directed by Dr. Ed Dietz. These tests need not be, and therefore are not, approved by the [place] Food and Drug Administration. The tests are used for clinical purposes. Billing Codes Specimen Charges Stain Charges 78891 1 1:10 PM CDT DERMATOPATHOLOGY LABORATORY Embedded Images 1:10 PM CDT DERMATOPATHOLOGY LABORATORY Pathology/Cytolog y TISSUE SPECIMEN FROM SKIN / Unknown 01/26/2023 01/27/2023 12:28 PM CDT Jose العراقي MD LAB - PATHOLOGY/CYTOLOGY ORDERAB LES Final Result DERMATOPATHOLOGY LABORATORY [facility] - Department of Dermatology [facility] Specialized Medicine [address] [place] [address], [address] [phone] documented in this encounter Visit Diagnoses Not on filedocumented in this encounter Care Teams Marketing/Sales Person Relationship Specialty Start Date End Date John Ibrahim DO [address] [facility] [address] [facility] [address] [place] [address] PCP - General Internal Medicine 12/25/13 Irene Solis MD Orthopedic Surgery 12/25/13 documented as of this encounter
--- OUTSIDE RECORDS SUMMARY | 2025-01-13 16:59 | XMS_ITS | Encounter Summary ---
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 Pt verbalized understanding. * Telephone Encounter - Fallon Scott - 01/13/2025 12:06 PM CDT Pt was given additional medications on last visit with [facility]. Last week he was sent by ambulance to [facility] Back spasms and issues. He just wants to make sure that the additional medications doesn't interfere with his back issues. Please call back at [phone] documented in this encounter Plan of Treatment Not on file documented as of this encounter Visit Diagnoses Not on filedocumented in this encounter Care Teams Relations Director Relationship Specialty Start Date End Date Medardo Jaramillo DO [address] [place] [address] PCP - General Internal Medicine 08/28/24 documented as of this encounter
== END 2025-01-13 15:08 | disposition home or self-care (01) ==
LOC: ANHLAB 15:09
PROVIDERS: PCP Nurse Practitioner; Visit Provider Internal Medicine Cardiovascular Disease
DX: I42.0 Dilated cardiomyopathy (principal)
CPT/HCPCS: 36415; 80048

== ENCOUNTER 2025-02-06 12:05 | Outpatient (CLI) | payer MEDICARE, SELFPAY ==
--- OUTSIDE RECORDS SUMMARY | 2025-02-06 12:11 | XMS_ITS | Encounter Summary ---
Author Organization [facility] Address [address] [facility] [place] [address] Care Team Providers Care Associate Embalmer/Funeral Director Name Role Phone Irene Solis MD Unavailable [phone] John Ibrahim DO Primary Care Provider [phone] Reason for Visit * Reason Onset Date Comments General 05/14/2018 Encounter Details Date Type Department Care Team (Late st Contact Info) Description 05/14/2018 Telephone [facility] General Dermatology [address] [place] [address] Kiersten Mary PA [address] [facility] [address]L [place] [id number] General Social History Tobacco Use Types Packs/Day Years Used Date Smoking Tobacco: Never Smokeless Tobacco: Never Alcohol Use Standard Drinks/Week Comments Yes 0 (1 standard drink = 0.6 oz pur e alcohol) 2-4 glasses of wine per day Sex and Gender Information Value Date Recorded Sex Assigned at Not on file 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
--- OUTSIDE RECORDS SUMMARY | 2025-02-06 12:11 | XMS_ITS | Clinical Summary ---
Author Organization [facility] Address [address] [facility] [place] [place] [address] Care Team Providers Care Director Of Cardiology Name Role Phone Irene Solis MD Unavailable [phone] John Ibrahim DO Primary Care Provider [phone] [facility],non-owned Affiliates and Associated Physician Practices is amultiple site organization consisting of ambulatory clinics and hospital sitesin [place], [place] and [place]. This disclosure is being madepursuant to the Care Everywhere program and may not contain all information available regarding this patient. Last updated 18.[facility] Allergies Active Allergy Reactions Criticality Noted Date [...] 10/19/2020 Assessment & Plan (10/19/2020 10:27 AM TUBE BUILDER AIRPLANE): - Chronic - Extensive lesions associated with sun damage and increased risk of skin cancer - Reviewed concerning signs for development of skin cancer - Counseled on importance of daily sun protection, recommend OTC broad spectrum, SPF >30 - Advised monthly self skin exams Ingrown hair 10/19/2020 Assessment & Plan (10/19/2020 10:38 AM TUBE BUILDER AIRPLANE): - L upper cutaneous lip - Topical retinoid samples provided today, apply small amount to area TIW Seborrheic keratosis, inflamed 06/24/2019 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 06/24/2019 Rash and other nonspecific skin eruption 019 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 (10/19/2020 10:28 AM TUBE BUILDER AIRPLANE): - Chronic, stable - Continue gabapentin 600 mg QHS - Refills today Actinic keratosis 04/30/2018 Assessment & Plan (10/19/2020 10:37 AM TUBE BUILDER AIRPLANE): - Counseled on diagnosis, etiology, natural disease [...] 04/30/2018 Assessment & Plan (10/19/2020 10:27 AM TUBE BUILDER AIRPLANE): - Chronic, stable - Continue Keflex 500 mg EOD - Continue metrogel 0.75% daily - Refills today Inflamed seborrheic keratosis 04/30/2018 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 04/30/2018 Lentigines 04/30/2018 Primary localized osteoarthrosis, lower leg 10/2014 Old bucket handle tear of medial meniscus 2013 Immunizations Immunization Administration Dates Next Due INFLUENZA [...] on file Legal Sex Male 6:29 AM TUBE BUILDER AIRPLANE Gender Identity Not on file Sexual Orientation [...] 2 - PCV) 06/27/2020 06/27/2019 COVID-19 VACCINE ( - 2023-2 5 season) 2024 DEPRESSION SCREENING [...] patient's age to complete this topic Insurance [facility] MEDICARE MEDICARE Care Teams Director Of Cardiology Relationship Specialty Start Date End Date John Ibrahim DO [address] [facility] [address] [place] [address] PCP - General Internal Medicine 12/25/13 Irene Solis MD Orthopedic Surgery 12/25/13
--- OUTSIDE RECORDS SUMMARY | 2025-02-06 12:11 | XMS_ITS | Clinical Summary ---
Author Organization [facility] Address [address] [place] [address] Care Team Providers Care Coat Operator Name Role Phone Medardo Jaramillo DO Primary Care Provider [phone] Allergies Active Allergy Reactions Criticality Noted Date [...] daily 3 Active gabapentin (NEURONTIN) 300 mg capsuleIndications :Neuropathic Pain Take 1 capsule (300 mg total) by mouth 2 (two) times a day for 90 days, THEN 2 capsules (600 mg total) nightly. 120 capsule 3 4 Active atorvastatin (LIPITOR) 20 mg tablet TAKE 1 TABLET DAILY 90 tablet 2 4 Active allopurinoL (ZYLOPRIM) 100 mg tablet Take 1 tablet (100 mg total) by mouth daily 5 Active sacubitriL-valsart an (ENTRESTO) 24-26 mg tabletIndications: chronic heart failure Take 1 tablet by mouth 2 (two) times a day 30 tablet 3 5 Active empagliflozin (JARDIANCE) 10 mg tabletIndications: Dilated cardiomyopathy (HCC) Take 1 tablet (10 mg total) by mouth daily 30 tablet 3 5 Active metoprolol XL (TOPROL-XL) 50 mg extended release tablet Take 1 tablet (50 mg total) by mouth daily 90 tablet 3 5 Active metoprolol XL (TOPROL-XL) 50 mg extended release tablet TAKE 1 TABLET DAILY 90 tablet 3 4 025 Discontin ued(Reord er) Active Problems Problem Noted Date Diagnosed Date [...] hypofunction Assessment & Plan (11/16/2022 11:48 AM CRUST SORTER): Hypogonadism for few years. on small dose [...] basis. Assessment & Plan (10/20/2021 10:00 AM CRUST SORTER): Hypogonadism for few years. on small dose [...] basis. Assessment & Plan (10/14/2020 10:19 AM CRUST SORTER): Hypogonadism for few years. on small dose [...] benign Assessment & Plan (11/16/2022 11:39 AM CRUST SORTER): Controlled with medication - low salt diet - continue medication per PCP Assessment & Plan (04/20/2022 10:28 AM CDT): Controlled with medication - low salt diet - continue medication per PCP Assessment & Plan (10/20/2021 10:01 AM CRUST SORTER): Controlled with medication - low salt diet - continue medication per PCP Assessment & Plan (04/14/2021 10:36 AM CDT): Controlled with medication - low salt diet - continue medication per PCP Assessment & Plan (10/14/2020 10:19 AM CRUST SORTER): Controlled with medication - low salt diet [...] Encounters Date Type Department Care Team Description 02/03/2025 Telephone [facility] Medical Group Cardiology [address] [place] [address] Wally Dela Cruz MD 01/13/2025 Telephone [facility] Medical [facility] Cardiology [address] [place] [address] Wally Dela Cruz MD 12/25/2024 11:00 AM CDT Office Visit [facility] Medical Group Cardiology [address] [place] [address] Polly West NP Dilated cardiomyopathy (HCC) (Primary Dx); Nonischemic cardiomyopathy (HCC); Chronic combined systolic and diastolic congestive heart failure (HCC); Benign hypertension from Last 3 Months Immunizations Immunization Administration [...] on file Legal Sex Male 2:41 AM CRUST SORTER Gender Identity Not on file Sexual Orientation Not on file Occupation Industry Job Start Date Job End Date retired Not on file Not on file Not on file Obstetrics History Last Filed Vital Signs Vital Sign Reading Time Taken Comments Blood Pressure 122/78 12/25/2024 11:01 AM CDT Pulse 75 12/25/2024 11:01 AM CDT Temperature 36.9 C (98.5 F) 09/17/2024 10:36 AM CRUST SORTER Respiratory Rate 18 11/14/2022 8:47 AM CRUST SORTER Oxygen Saturation 95% 12/25/2024 11:01 AM CDT [...] 08/05/2020, 06/01/2020 Medical Devices Implanted Type Area Wardrobe Consultant Device Identifier Shelf Expiration Date Model / Serial / Lot Neurostimulator Bladder-05/04/2021 Implanted: 021 by Unknown, Notinfile (Quantity not on file) Neurostimulator Pelvis Medtronic Neuro [id number] / / Neurostimulator Lead-05/04/2021 Implanted: 021 by Unknown, Notinfile (Quantity not on file) Neurostimulator Pelvis Medtronic Neuro [id number] / / Insurance [facility] MEDICARE [facility] MEDICARE AAR MEDICARE Care Teams Coat Operator Relationship Specialty Start Date End Date Medardo Jaramillo DO [address] [address] PCP - General Internal Medicine 08/28/24
--- OUTSIDE RECORDS SUMMARY | 2025-02-06 12:11 | XMS_ITS | Encounter Summary ---
Author Organization [facility] Address [address] [place] [address] Care Team Providers Care Upper Lining Cementer Name Role Phone Irene Solis MD Unavailable John Ibrahim DO Primary Care Provider [phone] Encounter Details Date Type Department Care Team (Late st Contact Info) Description 02/20/2024 Lab Requisition [facility] - DermPath Lab [address] [facility] [place] [id number] Jose العراقي MD [address] [place] [address] Social History Tobacco Use Types Packs/Day Years Used Date Smoking Tobacco: Never Smokeless Tobacco: Never Alcohol Use Standard Drinks/Week Comments Yes 0 (1 standard drink = 0.6 oz pur e alcohol) 2-4 glasses of wine per day Sex and Gender Information Value Date Recorded Sex Assigned at Not on file 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 Gender Identity Not on file Sexual Orientation Not on file documented as of this encounter Plan of Treatment Not on file documented as of this encounter Procedures Procedure Name Priority Date/Time Associated Diagnosis Comments DERMATOPATHOLOGY Routine 02/19/2024 12:0 0 AM CDT documented in this encounter Results * DERMATOPATHOLOGY (02/19/2024 12:00 AM CDT) Case Report Dermatopathology Report Case: [id number] Authorizing Provider: Jose العراقي MD Collected: 02/19/2024 12:00 AM Ordering Location: [facility] - Received: 02/20/2024 10:17 [...] were obtained and reviewed. 11:[address] [facility] DERMATOPATHOLOGY LABORATORY Disclaimer An external and internal positive and negative controls are appropriate for the histochemical, immunohistochemical and immunofluorescence stain(s) in this case (if any), except where stated explicitly. The performance characteristics of the stain(s) cited in this report were developed and its performance characteristic determined by the Dermatopathology Laboratory at [facility], directed by Dr. Ed Dietz. These tests need not be, and therefore are not, approved by the [place] Food and Drug Administration. The tests are used for clinical purposes. Billing Codes Specimen Charges Stain Charges 00730 1 61753 33654 1 1 11:01 AM CDT DERMATOPATHOLOGY LABORATORY Embedded Images 11:01 AM T DERMATOPATHOLOGY LABORATORY Pathology/Cytolog y TISSUE SPECIMEN FROM SKIN / Unknown 02/19/2024 02/20/2024 10:17 AM CDT us Jose العراقي MD LAB - PATHOLOGY/CYTOLOGY ORDERAB LES Final Result DERMATOPATHOLOGY LABORATORY [facility] - Department of Dermatology [address], [address] [phone] documented in this encounter Visit Diagnoses Not on filedocumented in this encounter Care Teams Upper Lining Cementer Relationship Specialty Start Date End Date John Ibrahim DO [address] [facility] [address] [facility] [address] [place] [address] PCP - General Internal Medicine 12/25/13 Irene Solis MD Orthopedic Surgery 12/25/13 documented as of this encounter
--- OUTSIDE RECORDS SUMMARY | 2025-02-06 12:11 | XMS_ITS | Encounter Summary ---
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 Pt report having a urology appt approximately two weeks ago in which his BP was 70/50. Pt states that he decided at that time to stop taking the Entresto and Jardiance. Pt states that he had some lower extremity swelling and was pt back on furosemide 40 mg daily and that has improvedsome. Advised pt that his instructions were to closely monitor BP and contact our office with any systolic readings less than 100, as well as have a BMP drawn two weeks after starting new meds. Pt states that he had a lot going on and did not keep close track of that. Pt would like to know what to do now. He states that the Entresto and Jardiance cost a little over $100 a month and he doesn't want to continue if they wont help him. Pt had numerous concerns, including not seeing MAF at his last visit and frustration with an unresolved, ongoing issue with diaphoresis and the need to urinate. CK please advise. Thanks! * Telephone Encounter - Wally Torres RN - 02/04/2025 8:41 AM CDT Spoke with pt spouse, pt is currently not at home and will return around 2:30. Pt spouse advised that he would return call around that time. * Telephone Encounter - Wally Torres RN - 02/03/2025 4:26 PM CDT LM on advising callback to discuss. * Telephone Encounter - Mia Manuel - 02/03/2025 11:25 AM CDT Pt stated that he went to see his Urologist a week or so ago and when they took his BP it was 70/?.Due to the low BP he stopped taking the sacubitriL-valsartan (ENTRESTO) 24-26 mg and empagliflozin (JARDIANCE) 10 mg. He said that he stopped taking them around the same time he saw his urologist. Rusty stated that his feet have been swollen and his Urologist put him back on furosemide (LASIX) 40 mg. Pt is very concerned that the swelling could be due to a heart condition and would like to knowwhat he needs to do. Please advise pt said the best time to reach him would be late afternoon. Thank you Contact: documented in this encounter Plan of Treatment Not on file documented as of this encounter Visit Diagnoses Not on filedocumented in this encounter Care Teams Siebel Developer Relationship Specialty Start Date End Date Medardo Jaramillo DO [address] [phone] PCP - General Internal Medicine 08/28/24 documented as of this encounter
--- OUTSIDE RECORDS SUMMARY | 2025-02-06 12:11 | XMS_ITS | Encounter Summary ---
Author Organization [facility] Address [address] [place] [address] Care Team Providers Care Clothing Consultant Name Role Phone Irene Solis MD Unavailable [phone] John Ibrahim DO Primary Care Provider [phone] Encounter Details Date Type Department Care Team (Late st Contact Info) Description 02/20/2024 Lab Requisition [facility] - DermPath Lab [address] [facility] [place] [phone] Jose العراقي MD [address] [place] [address] Social History Tobacco Use Types Packs/Day Years Used Date Smoking Tobacco: Never Smokeless Tobacco: Never Alcohol Use Standard Drinks/Week Comments Yes 0 (1 standard drink = 0.6 oz pur e alcohol) 2-4 glasses of wine per day Sex and Gender Information Value Date Recorded Sex Assigned at Not on file 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
--- OUTSIDE RECORDS SUMMARY | 2025-02-06 12:11 | XMS_ITS | Referral Summary ---
Author Organization [facility] Address [address] [place] [address] Care Team Providers Care Mechanical Detailer Name Role Phone Medardo Jaramillo DO Primary Care Provider [phone] Encounters Date Type Department Care Team Description 02/03/2025 Telephone [facility] Medical [facility] Cardiology [address] [place] [phone] Wally Dela Cruz MD 01/13/2025 Telephone [facility] Cardiology [address] [place] [phone] Wally Dela Cruz MD 12/25/2024 11:00 AM CDT Office Visit [facility] Medical [facility] Cardiology [address] [facility] [address] [place] [phone] Polly West NP Dilated cardiomyopathy (HCC) (Primary Dx); Nonischemic cardiomyopathy (HCC); Chronic combined systolic and diastolic congestive heart failure (HCC); Benign hypertension from Last 3 Months Allergies Active Allergy [...] by oral route every day 0 0 10/04/201 6 Active nabumetone (RELAFEN) 750 mg tablet [...] hypofunction Assessment & Plan (11/16/2022 11:48 AM BUILDING DISMANTLER): Hypogonadism for few years. on small dose [...] basis. Assessment & Plan (10/20/2021 10:00 AM BUILDING DISMANTLER): Hypogonadism for few years. on small dose [...] basis. Assessment & Plan (10/14/2020 10:19 AM BUILDING DISMANTLER): Hypogonadism for few years. on small dose [...] benign Assessment & Plan (11/16/2022 11:39 AM BUILDING DISMANTLER): Controlled with medication - low salt diet - continue medication per PCP Assessment & Plan (04/20/2022 10:28 AM CDT): Controlled with medication - low salt diet - continue medication per PCP Assessment & Plan (10/20/2021 10:01 AM BUILDING DISMANTLER): Controlled with medication - low salt diet - continue medication per PCP Assessment & Plan (04/14/2021 10:36 AM CDT): Controlled with medication - low salt diet - continue medication per PCP Assessment & Plan (10/14/2020 10:19 AM BUILDING DISMANTLER): Controlled with medication - low salt diet [...] on file Legal Sex Male 2:41 AM BUILDING DISMANTLER Gender Identity Not on file Sexual Orientation Not on file Occupation Industry Job Start Date Job End Date retired Not on file Not on file Not on file Last Filed Vital Signs Vital Sign Reading Time Taken Comments Blood Pressure 122/78 12/25/2024 11:01 AM CDT Pulse 75 12/25/2024 11:01 AM CDT Temperature 36.9 C (98.5 F) 09/17/2024 10:36 AM BUILDING DISMANTLER Respiratory Rate 18 11/14/2022 8:47 AM BUILDING DISMANTLER Oxygen Saturation 95% 12/25/2024 11:01 AM CDT Inhaled Oxygen Concentration - - Weight 110.7 kg (244 lb) 12/25/2024 11:01 AM CDT Height 188 cm (6' 2 ) 12/25/2024 11:01 AM CDT Body Mass Index 31.33 12/25/2024 11:01 AM CDT Plan of Treatment Not on file Medical Devices Implanted Type Area Automatic Punch Press Operator Device Identifier Shelf Expiration Date Model / Serial / Lot Neurostimulator Bladder-05/04/2021 Implanted: 021 by Unknown, Notinfile (Quantity not on file) Neurostimulator Pelvis Medtronic Neuro [id number] / / Neurostimulator Lead-05/04/2021 Implanted: 021 by Unknown, Notinfile (Quantity not on file) Neurostimulator Pelvis Medtronic Neuro [id number] / / Insurance [facility] MEDICARE [facility] MEDICARE [facility] MEDICARE Care Teams Mechanical Detailer Relationship Specialty Start Date End Date Medardo Jaramillo DO [address] [place], [place] [phone] PCP - General Internal Medicine 08/28/24
--- OUTSIDE RECORDS SUMMARY | 2025-02-06 12:11 | XMS_ITS | Encounter Summary ---
Author Organization [facility] Address [address] [facility] [place] [address] Care Team Providers Care Harness And Bag Inspector Name Role Phone Irene Solis MD Unavailable [phone] John Ibrahim DO Primary Care Provider [phone] Encounter Details Date Type Department Care Team (Late st Contact Info) Description 01/27/2023 Lab Requisition [facility] Care DermPath Lab [address] [facility] [place] [address] Jose العراقي MD [address] [place] [address] Social History Tobacco Use Types Packs/Day Years Used Date Smoking Tobacco: Never Smokeless Tobacco: Never Alcohol Use Standard Drinks/Week Comments Yes 0 (1 standard drink = 0.6 oz pur e alcohol) 2-4 glasses of wine per day Sex and Gender Information Value Date Recorded Sex Assigned at Not on file 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 Gender Identity Not on file Sexual Orientation Not on file documented as of this encounter Plan of Treatment Not on file documented as of this encounter Procedures Procedure Name Priority Date/Time Associated Diagnosis Comments DERMATOPATHOLOGY Routine 01/26/2023 12:0 0 AM CDT documented in this encounter Results * DERMATOPATHOLOGY (01/26/2023 12:00 AM CDT) Case Report Dermatopathology Report Case: [id number] Authorizing Provider: Jose العراقي MD Collected: 01/26/2023 12:00 AM Ordering Location: [facility] DermPath Lab Received: 01/27/2023 12:28 PM Pathologist: [...] posterior shoulder. The specimen consists of a 50k20n5 mm piece of skin. The margin is [...] characteristic determined by the Dermatopathology Laboratory at [facility], directed by Dr. Ed Dietz. These tests need not be, and therefore are not, approved by the [place] Food and Drug Administration. The tests are used for clinical purposes. Billing Codes Specimen Charges Stain Charges 17168 1 1:10 PM CDT DERMATOPATHOLOGY LABORATORY Embedded Images 1:10 PM CDT DERMATOPATHOLOGY LABORATORY Pathology/Cytolog y TISSUE SPECIMEN FROM SKIN / Unknown 01/26/2023 01/27/2023 12:28 PM CDT Jose العراقي MD LAB - PATHOLOGY/CYTOLOGY ORDERAB LES Final Result DERMATOPATHOLOGY LABORATORY [facility] - Department of Dermatology [facility] Specialized Medicine [address] [place] [address], [address] [phone] documented in this encounter Visit Diagnoses Not on filedocumented in this encounter Care Teams Harness And Bag Inspector Relationship Specialty Start Date End Date John Ibrahim DO [address] [facility] [address] [facility] 21 [place] [address] PCP - General Internal Medicine 12/25/13 Irene Solis MD Orthopedic Surgery 12/25/13 documented as of this encounter
--- OUTSIDE RECORDS SUMMARY | 2025-02-06 12:12 | XMS_ITS | Encounter Summary ---
Author Organization [facility] Facility Care Team Providers Care Computational Chemist Name Role Phone Medardo Jaramillo DO Primary Care Provider [phone] Encounter Details Date Type Department Care Team (Latest Contact Info) Description 06/26/2017 Orders Only [facility] CLINCONV ProviderAnahi MD [address] [place] [address] Social History Tobacco Use Types Packs/Day Years Used Date Smoking Tobacco: Never Alcohol Use Standard Drinks/Week Comments Yes 0 (1 standard drink = 0.6 oz pur e alcohol) Sex and Gender Information Value Date Recorded Sex Assigned at Not on file 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
--- OUTSIDE RECORDS SUMMARY | 2025-02-06 12:12 | XMS_ITS | Clinical Summary ---
Author Organization [facility] Address [address] [place] [address] Care Team Providers Care Acoustical Tile Carpenters Supervisor Name Role Phone John Ibrahim MD Primary Care Provider [phone] Allergies Active Allergy Reactions Criticality Noted Date [...] PVC's (premature ventricular contractions) Nonischemic cardiomyopathy (CMS/HCC [facility]/HCC) Overview (05/05/2021): Nonischemic cardiomyopathy Swelling of [...] age to complete this topic Insurance MEDICARE [facility] Care Teams Acoustical Tile Carpenters Supervisor Relationship Specialty Start Date End Date John Ibrahim MD [address] [place] [address] [place] [address] PCP - General INTERNAL MEDICINE 02/02/21
--- OUTSIDE RECORDS SUMMARY | 2025-02-06 12:12 | XMS_ITS | Encounter Summary ---
Author Organization [facility] Facility Care Team Providers Care Computer System Technician Name Role Phone Medardo Jaramillo DO Primary Care Provider [phone] Encounter Details Date Type Department Care Team (Latest Contact Info) Description 03/22/2017 Orders Only [facility] CLINCONV ProviderAnahi MD [address] [place] [address] Social History Tobacco Use Types Packs/Day Years Used Date Smoking Tobacco: Never Alcohol Use Standard Drinks/Week Comments Yes 0 (1 standard drink = 0.6 oz pur e alcohol) Sex and Gender Information Value Date Recorded Sex Assigned at Not on file 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
--- OUTSIDE RECORDS SUMMARY | 2025-02-06 12:12 | XMS_ITS | Clinical Summary ---
Author Organization [facility] Address [address] [address] Phone Care Team Providers Care Garment Manufacturing Supervisor Name Role Phone John Ibrahim DO Primary Care Provider [phone] Social History Tobacco Use Types Packs/Day Years [...] to Health Maintenance Insurance MEDICARE Care Teams Garment Manufacturing Supervisor Relationship Specialty Start Date End Date John Ibrahim DO [address] [facility] [address] [place] [address] PCP - General Internal Medicine 02/08/18
--- OUTSIDE RECORDS SUMMARY | 2025-02-06 12:12 | XMS_ITS | Patient Health Record ---
Author Organization [facility] Address [address] [address] Care Team Providers Care Construction Area Manager Name Role Phone John Ibrahim MD Primary Care Provider Merlin Junior Unavailable [phone] Allergies Allergen (clinical drug ingredient) Drug/Non Drug [...] Problem Status W/U Status Risk Notes Problem [id number] Contusion of right great toe without damage to nail, initial encounter (S90.111A) Active confirmed Problem 96552704 Idiopathic peripheral neuropathy (G60.9) Active confirmed Problem [id number] Lumbar radiculopathy (M54.16) Active confirmed Problem [id number] Hammertoe of left foot (M20.42) Active confirmed Problem [id number] 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 [place], [place] [id number] Marshal Rivera Self - patient is the insured [facility] Medicare Supplement [address] [place] [address] [id number] Marshal Rivera Self - patient is the insured Medical (General) History Medical History History ICD Code arthritis Gout HTN Neuropathy of feet Surgical History Surgery Date(Month/Year) Cardiac Ablation
--- OUTSIDE RECORDS SUMMARY | 2025-02-06 12:12 | XMS_ITS | Clinical Summary ---
Author Organization [facility] Address [address] [place] [address] Care Team Providers Care Membership Administrator Name Role Phone LanafloraJohn Primary Care Provider [phone] Allergies No known active allergies Medications atorvastatin [...] Description 03/26/2025 10:00 AM CDT Office Visit [facility] Oncology and Hematology - [place] [address] [facility] [address] [place] [address] Rafy Morales MD [address] [facility] [address] [place] [address] Health Maintenance Due Date Last [...] Discontinued Insurance MEDICARE PART A AND B [facility] [id number] Care Teams Membership Administrator Relationship Specialty Start Date End Date John Ibrahim DO [address] [facility] [address] [place] [address] PCP - General Internal Medicine 07/04/22
[2025-02-06 12:29] LABS: Hematocrit 41.2 % (42.0-52.0); Mean Corpuscular HGB Conc 31.6 g/dl (32-36); Mean Corpuscular Hemoglobin 30.6 pg (26-34); Mean Corpuscular Volume 96.9 fl (80-100); Mean Platelet Volume 9.2 fl (7.4-10.4); Platelet Count Result 279 k/mm3 (150-375); Red Blood Count 4.25 M/mm3 (4.6-6.20); Red Cell Distribution Width 12.7 % (11.5-14.5); White Blood Count 8.2 K/mm3 (4.5-10.0)
[2025-02-06 12:39] LABS: Albumin Level 4.5 g/dL (3.5-5.1); Anion Gap 11 mmol/L (4-12); Blood Urea Nitrogen 44 mg/dL (9-20); Calcium 9.7 mg/dL (8.4-10.2); Carbon Dioxide 26 mmol/L (22-30); Chloride 104 mmol/L (98-107); Estimated Glomerular Filt Rate 45; Glucose 109 mg/dL (65-110); Phosphorus 4.8 mg/dL (2.5-4.5); Potassium 4.3 mmol/L (3.4-5.0); Sodium 141 mmol/L (137-145)
[2025-02-06 12:41] LABS: Total Protein Urine Random 8 mg/dL; Ur Ttl Prot Creatinine Ratio 0.12 mg/mg (0-0.20)
[2025-02-06 12:51] LABS: Parathyroid Intact 58.3 pg/mL (14.5-75.2)
== END 2025-02-06 12:06 | disposition home or self-care (01) ==
PROVIDERS: PCP Internal Medicine; Visit Provider Internal Medicine Nephrology
DX: R94.4 Abnormal results of kidney function studies (principal); N18.9 Chronic kidney disease, unspecified
CPT/HCPCS: 36415; 80069; 82570; 83970; 84156; 85027

== ENCOUNTER 2025-03-19 09:38 | Outpatient (CLI) | payer MEDICARE, SELFPAY ==
[2025-03-19 09:58] LABS: Basophils Absolute Auto 0.1 K/mm3 (0.0-0.1); Basophils Percent Auto 0.8 % (0.2-1.2); Eosinophils Absolute Auto 0.2 K/mm3 (0-0.3); Eosinophils Percent Auto 2.6 % (0-4.4); Hematocrit 45.3 % (42.0-52.0); Hemoglobin 14.6 g/dL (14.0-18.0); Immature Granulocyte Absolute 0.04 K/mm3 (0.00-0.031); Immature Granulocyte Percent A 0.5 % (0-0.5); Lymphocytes Percent Auto 27.1 % (18.3-44.2); Mean Corpuscular HGB Conc 32.2 g/dl (32-36); Mean Corpuscular Hemoglobin 31.3 pg (26-34); Mean Corpuscular Volume 97.2 fl (80-100); Mean Platelet Volume 9.2 fl (7.4-10.4); Monocytes Absolute Auto 0.7 K/mm3 (0.1-0.6); Neutrophils Absolute Auto 4.4 K/mm3 (1.3-6.7); Platelet Count Result 281 k/mm3 (150-375); Red Blood Count 4.66 M/mm3 (4.6-6.20); Red Cell Distribution Width 12.8 % (11.5-14.5); White Blood Count 7.4 K/mm3 (4.5-10.0)
--- OUTSIDE RECORDS SUMMARY | 2025-03-19 10:35 | XMS_ITS | Clinical Summary ---
Author Organization [facility] Address [address] [address] Phone Care Team Providers Care Social Work Instructor Name Role Phone John Ibrahim DO Primary Care Provider [phone] Social History Tobacco Use Types Packs/Day Years [...] (Adult) (1 - 1-dose 75+ series) 2020 SARS-COV-2 Immunization ( season) 2024 09/09/2021, 12/04/2020, 11/09/2020 Influenza Immunization (Season Ended) 2025 06/01/2020, 06/27/2019, 06/25/2018, Additional history exists Colonoscopy Discontinued 08/09/2018, 08/16/2012 Colorectal Cancer Screening Discontinued Pneumococcal Immunization (50+ years) Completed 06/27/2019, 06/25/2018 Pneumococcal Immunization Combined Discontinued 06/27/2019, 06/25/2018 Zoster Immunization Completed 08/05/2020, 0 Cologuard Discontinued Hepatitis B Immunization Aged Out No longer eligible based on patient's age to complete this topic Human Papillomavirus (HPV) Immunization Aged Out No longer eligible based [...] to Health Maintenance Insurance MEDICARE Care Teams Social Work Instructor Relationship Specialty Start Date End Date John Ibrahim DO [address] [place] [address] PCP - General Internal Medicine 02/08/18
--- OUTSIDE RECORDS SUMMARY | 2025-03-19 10:35 | XMS_ITS | Clinical Summary ---
Author Organization [facility] Address [address] [place] [address] Care Team Providers Care Layout Mechanic Name Role Phone Medardo Jaramillo Primary Care Provider [phone] Joe Perea MD Unavailable Allergies Active Allergy Reactions Criticality Noted Date [...] mouth daily 90 tablet 3 5 Active Active Problems Problem [...] hypofunction Assessment & Plan (11/16/2022 11:48 AM MARKETING EDUCATION TEACHER): Hypogonadism for few years. on small dose [...] basis. Assessment & Plan (10/20/2021 10:00 AM MARKETING EDUCATION TEACHER): Hypogonadism for few years. on small dose [...] basis. Assessment & Plan (10/14/2020 10:19 AM MARKETING EDUCATION TEACHER): Hypogonadism for few years. on small dose [...] benign Assessment & Plan (11/16/2022 11:39 AM MARKETING EDUCATION TEACHER): Controlled with medication - low salt diet - continue medication per PCP Assessment & Plan (04/20/2022 10:28 AM CDT): Controlled with medication - low salt diet - continue medication per PCP Assessment & Plan (10/20/2021 10:01 AM MARKETING EDUCATION TEACHER): Controlled with medication - low salt diet - continue medication per PCP Assessment & Plan (04/14/2021 10:36 AM CDT): Controlled with medication - low salt diet - continue medication per PCP Assessment & Plan (10/14/2020 10:19 AM MARKETING EDUCATION TEACHER): Controlled with medication - low salt diet [...] Encounters Date Type Department Care Team Description 03/14/2025 8:06 AM CDT - 03/14/2025 11:59 PM CDT Hospital Encounter [facility] Pain Mgmt [address] [address] Joe Perea MD 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); Lumbar radiculopathy; Neural foraminal stenosis of lumbar spine Discharge Disposition: Discharge to home or self care 03/13/2025 8:34 AM CDT - 03/13/2025 11:59 PM CDT Hospital Encounter [facility] Pain Mgmt [address] [address] Joe Perea MD Lumbar radiculopathy (Primary Dx) Discharge Disposition: Discharge to home or self care 02/03/2025 Telephone [facility] Cardiology [address] [place] [phone] Wally Dela Cruz MD 01/13/2025 Telephone [facility] Cardiology [address] [place] [address] Wally Dela Cruz MD 12/25/2024 11:00 AM CDT Office Visit [facility] Cardiology [facility] [address] [place] [address] Polly West NP Dilated cardiomyopathy [...] on file Legal Sex Male 2:41 AM MARKETING EDUCATION TEACHER Gender Identity Not on file Sexual Orientation Not on file Occupation Industry Job Start Date Job End Date retired Not on file Not on file Not on file Obstetrics History Last Filed Vital Signs Vital Sign Reading Time Taken Comments Blood Pressure 128/85 03/14/2025 8:53 AM CDT Pulse 80 03/14/2025 8:53 AM CDT Temperature 35.8 C (96.5 F) 03/13/2025 8:41 AM CDT Respiratory Rate 20 03/14/2025 8:53 AM CDT Oxygen Saturation 96% 03/14/2025 8:53 AM CDT Inhaled Oxygen Concentration - - Weight 108.4 kg (239 lb) 03/13/2025 8:41 AM CDT Height 188 cm (6' 2) 03/13/2025 8:41 AM CDT Body Mass Index 30.69 03/13/2025 8:41 AM CDT Plan of Treatment Health Maintenance [...] 08/05/2020, 06/01/2020 Medical Devices Implanted Type Area Needle Punch Operator Device Identifier Shelf Expiration Date Model / Serial / Lot Neurostimulator Bladder-05/04/2021 Implanted: 021 by Unknown, Notinfile (Quantity not on file) Neurostimulator Pelvis Medtronic Neuro [id number] / / Neurostimulator Lead-05/04/2021 Implanted: 021 by Unknown, Notinfile (Quantity not on file) Neurostimulator Pelvis Medtronic Neuro [id number] / / Procedures Procedure Name Priority Date/Time Associated Diagnosis Comments PAIN MGMT IMAGING LUMBAR/SACRAL SELECTIVE NERVE ROOT INJ (TFE) BILATERAL Schedule Routine, Read Routine (OP Routine) 03/14/2025 8:43 AM CDT Lumbar radiculopathy from Last 3 Months Results * Imaging Lumbar/Sacral Selective Nerve Root INJ (TFE) Bilateral (65123) (03/14/2025 8:43 AM CDT) Narrative RAD_COLLETTE_MHB_MHE - 03/14/2025 1:27 PM CDT The images from this study are not interpreted by Radiology. Please refer to the physician's procedure / OR operative note. Joe Perea MD IMG PAIN MGMT PROCEDURES Final R esult RAD_CLARIO_MHB_MHE from Last 3 Months Insurance AARP Member Subscriber Plan / Payer (Ef fective 2013-Present) Name:PAULETTE WRAY Relation to Subscriber:Self Name:Paulette Wray Payer ID:[id number] Group ID:[id number] Type:COMMERCIAL Address: [facility] [id number] [phone] MEDICARE [facility] Member Subscriber Plan / Payer ( fective 2018-Present) Name:Nils Paulette Benitez Relation to Subscriber:Self Name:Paulette Wray Payer ID:[id number] Group ID:[id number] Type:[employer] Address: [facility] [id number] [phone] MEDICARE [facility] MEDICARE Care Teams Layout Mechanic Relationship Specialty Start Date End Date Medardo Jaramillo DO [address] [facility] [address] [place] [address] PCP - General Internal Medicine 08/28/24 Joe Perea MD [address] [address] Consulting Physician Pain Management 03/13/25
--- OUTSIDE RECORDS SUMMARY | 2025-03-19 10:35 | XMS_ITS | Clinical Summary ---
Author Organization [facility] Oneida Lanza Address [address] [place] [address] Care Team Providers Care Ladle Liner Name Role Phone LanafloraJohn Primary Care Provider [phone] Allergies No known active allergies Medications atorvastatin [...] Encounters Date Type Department Care Team Description 02/25/2025 External Device Data STL ABSTRACTION Provider, Abstract 02/25/2025 External Device Data STL ABSTRACTION Provider, Abstract 02/19/2025 External Device Data STL ABSTRACTION Provider, Abstract 02/18/2025 External Device Data STL ABSTRACTION Provider, Abstract 12/18/2024 External Device Data STL ABSTRACTION Provider, [...] 9:54 AM CDT Height 188 cm (6' 2) 07/04/2022 1:33 PM CDT Body Mass Index 30.76 07/04/2022 1:33 PM CDT Plan of Treatment Upcoming Encounters Date Type Department Care Team (Late st Contact Info) Description 03/26/2025 10:00 AM CDT Office Visit [facility] Oncology and Hematology - [place] [address] [facility] [address] [place] [address] [place] [address] [place] [address] [address] [place] [address] Health Maintenance Due Date Last [...] Discontinued Insurance MEDICARE PART A AND B [facility] [id number] Care Teams Ladle Liner Relationship Specialty Start Date End Date John Ibrahim DO [address] [facility] [address] [place] [address] PCP - General Internal Medicine 07/04/22
--- OUTSIDE RECORDS SUMMARY | 2025-03-19 10:35 | XMS_ITS | Encounter Summary ---
Author Organization [facility] Address [address] [place] [address] Care Team Providers Care Mergers And Acquisitions Manager Name Role Phone Irene Solis MD Unavailable [phone] John Ibrahim DO Primary Care Provider [phone] Encounter Details Date Type Department Care Team (Late st Contact Info) Description 02/20/2024 Lab Requisition [facility] - DermPath Lab [address] [facility], [place] [phone] Jose العراقي MD [address] [place] [address] Social History Tobacco Use Types Packs/Day Years Used Date Smoking Tobacco: Never Smokeless Tobacco: Never Alcohol Use Standard Drinks/Week Comments Yes 0 (1 standard drink = 0.6 oz pur e alcohol) 2-4 glasses of wine per day Sex and Gender Information Value Date Recorded Sex Assigned at Not on file 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
--- OUTSIDE RECORDS SUMMARY | 2025-03-19 10:35 | XMS_ITS | Clinical Summary ---
Author Organization [facility] Address [address] [facility] [place] [address] Care Team Providers Care Supervisor Tunnel Heading Name Role Phone Irene Solis MD Unavailable [phone] John Ibrahim DO Primary Care Provider [phone] Source Comments [facility],non-owned Affiliates and Associated Physician Practices is amultiple site organization consisting of ambulatory clinics and hospital sitesin [place], [place], [place] and [place]. This disclosure is being madepursuant to the Care Everywhere program and may not contain all information available regarding this patient. Last updated 18.[facility] Allergies Active Allergy Reactions Criticality Noted [...] 10/19/2020 Assessment & Plan (10/19/2020 10:27 AM ACCESS SERVICES ASSISTANT): - Chronic - Extensive lesions associated with sun damage and increased risk of skin cancer - Reviewed concerning signs for development of skin cancer - Counseled on importance of daily sun protection, recommend OTC broad spectrum, SPF >30 - Advised monthly self skin exams Ingrown hair 10/19/2020 Assessment & Plan (10/19/2020 10:38 AM ACCESS SERVICES ASSISTANT): - L upper cutaneous lip - Topical retinoid samples provided today, apply small amount to area TIW Seborrheic keratosis, inflamed 06/24/2019 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 06/24/2019 Rash and other nonspecific skin eruption 019 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 (10/19/2020 10:28 AM ACCESS SERVICES ASSISTANT): - Chronic, stable - Continue gabapentin 600 mg QHS - Refills today Actinic keratosis 04/30/2018 Assessment & Plan (10/19/2020 10:37 AM ACCESS SERVICES ASSISTANT): - Counseled on diagnosis, etiology, natural disease [...] 04/30/2018 Assessment & Plan (10/19/2020 10:27 AM ACCESS SERVICES ASSISTANT): - Chronic, stable - Continue Keflex 500 [...] on file Legal Sex Male 6:29 AM ACCESS SERVICES ASSISTANT Gender Identity Not on file Sexual Orientation [...] 6:28 AM CDT Height 190.5 cm (6' 3) 02/27/2014 6:28 AM CDT Body Mass Index [...] patient's age to complete this topic Insurance [facility] MEDICARE MEDICARE Care Teams Supervisor Tunnel Heading Relationship Specialty Start Date End Date John Ibrahim DO [address] [facility] [address] [place] [address] PCP - General Internal Medicine 12/25/13 Irene Solis MD Orthopedic Surgery 12/25/13
--- OUTSIDE RECORDS SUMMARY | 2025-03-19 10:35 | XMS_ITS | Encounter Summary ---
Author Organization [facility] Address [address] [facility] [place] [address] Care Team Providers Care Bilingual Counter Sales Retail Name Role Phone Irene Solis MD Unavailable John Ibrahim DO Primary Care Provider [phone] Encounter Details Date Type Department Care Team (Late st Contact Info) Description 02/20/2024 Lab Requisition [facility] - DermPath Lab [address] 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 Gender Identity Not on file Sexual Orientation Not on file documented as of this encounter Plan of Treatment Not on file documented as of this encounter Procedures Procedure Name Priority Date/Time Associated Diagnosis Comments DERMATOPATHOLOGY Routine 02/19/2024 12:0 0 AM CDT documented in this encounter Results * DERMATOPATHOLOGY (02/19/2024 12:00 AM CDT) Case Report Dermatopathology Report Case: [id number] Authorizing Provider: Jose العراقي MD Collected: 02/19/2024 12:00 AM Ordering Location: [facility] - Received: 02/20/2024 10:17 AM DermPath Lab Pathologist: Polly Ho MD Specimen: Skin, left upper lip 11:01 AM CDT DERMATOPATHOLOGY LABORATORY Final Diagnosis Specimen A. SKIN, left upper lip: VERRUCA VULGARIS (B07.8) (see microscopic description) 11:01 AM T DERMATOPATHOLOGY LABORATORY at 1100 CDT Clinical History R/O neoplasm 11:01 AM T [...] sections were obtained and reviewed. 11:01 AM T DERMATOPATHOLOGY LABORATORY Disclaimer An external and internal positive and negative controls are appropriate for the histochemical, immunohistochemical and immunofluorescence stain(s) in this case (if any), except where stated explicitly. The performance characteristics of the stain(s) cited in this report were developed and its performance characteristic determined by the Dermatopathology Laboratory at [facility], directed by Dr. Ed Dietz. These tests need not be, and therefore are not, approved by the [place] Food and Drug Administration. The tests are used for clinical purposes. Billing Codes Specimen Charges Stain Charges 30270 1 63754 46291 1 1 11:01 AM CDT DERMATOPATHOLOGY LABORATORY Embedded Images 11:01 AM CDT DERMATOPATHOLOGY LABORATORY Pathology/Cytolog y TISSUE SPECIMEN FROM SKIN / Unknown 02/19/2024 02/20/2024 10:17 AM CDT Jose العراقي MD LAB - PATHOLOGY/CYTOLOGY ORDERAB LES Final Result DERMATOPATHOLOGY LABORATORY [facility] - Department of Dermatology [address], [address] [phone] documented in this encounter Visit Diagnoses Not on filedocumented in this encounter Care Teams Bilingual Counter Sales Retail Relationship Specialty Start Date End Date John Ibrahim DO [address] [facility] [address] [facility] [address] [place] [address] PCP - General Internal Medicine 12/25/13 Irene Solis MD Orthopedic Surgery 12/25/13 documented as of this encounter
--- OUTSIDE RECORDS SUMMARY | 2025-03-19 10:35 | XMS_ITS | Referral Summary ---
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); Lumbar radiculopathy; Neural foraminal stenosis of lumbar spine Discharge Disposition: Discharge to home or self care 03/13/2025 8:34 AM CDT - 03/13/2025 11:59 PM CDT Hospital Encounter [facility] Ctr Pain Mgmt [address] [address] Joe Perea MD Lumbar radiculopathy (Primary Dx) Discharge Disposition: Discharge to home or self care 02/03/2025 Telephone [facility] Cardiology [address] [place] [phone] Wally Dela Cruz MD 01/13/2025 Telephone [facility] Cardiology [address] [place] [address] Wally Dela Cruz MD 12/25/2024 11:00 AM CDT Office Visit [facility] Cardiology [address] [place] [address] Polly West NP Dilated cardiomyopathy (HCC) (Primary [...] hypofunction Assessment & Plan (11/16/2022 11:48 AM PERFORMANCE MANAGEMENT CONSULTANT): Hypogonadism for few years. on small dose [...] basis. Assessment & Plan (10/20/2021 10:00 AM PERFORMANCE MANAGEMENT CONSULTANT): Hypogonadism for few years. on small dose [...] basis. Assessment & Plan (10/14/2020 10:19 AM PERFORMANCE MANAGEMENT CONSULTANT): Hypogonadism for few years. on small dose [...] benign Assessment & Plan (11/16/2022 11:39 AM PERFORMANCE MANAGEMENT CONSULTANT): Controlled with medication - low salt diet - continue medication per PCP Assessment & Plan (04/20/2022 10:28 AM CDT): Controlled with medication - low salt diet - continue medication per PCP Assessment & Plan (10/20/2021 10:01 AM PERFORMANCE MANAGEMENT CONSULTANT): Controlled with medication - low salt diet - continue medication per PCP Assessment & Plan (04/14/2021 10:36 AM CDT): Controlled with medication - low salt diet - continue medication per PCP Assessment & Plan (10/14/2020 10:19 AM PERFORMANCE MANAGEMENT CONSULTANT): Controlled with medication - low salt diet [...] on file Legal Sex Male 2:41 AM PERFORMANCE MANAGEMENT CONSULTANT Gender Identity Not on file Sexual Orientation [...] 03/13/2025 8:41 AM CDT Plan of Treatment Not on file Medical Devices Implanted Type Area Drilling Superintendent Device Identifier Shelf Expiration Date Model / Serial / Lot Neurostimulator Bladder-05/04/2021 Implanted: 021 by Unknown, Notinfile (Quantity not on file) Neurostimulator Pelvis Medtronic Neuro [id number] / / Neurostimulator Lead-05/04/2021 Implanted: 021 by Unknown, Notinfile (Quantity not on file) Neurostimulator Pelvis Medtronic Neuro [id number] / / Procedures Procedure Name Priority Date/Time Associated Diagnosis Comments PAIN MGMT IMAGING LUMBAR/SACRAL SELECTIVE NERVE ROOT INJ (TFE) BILATERAL Schedule Routine, Read Routine (OP Routine) 03/14/2025 8:43 AM CDT Lumbar radiculopathy from Last 3 Months Results * Imaging Lumbar/Sacral Selective Nerve Root INJ (TFE) Bilateral (32450) (03/14/2025 8:43 AM CDT) Narrative DELFINA_COLLETTE_INOCENCIA_MHE - 03/14/2025 1:27 PM CDT The images from this study are not interpreted by Radiology. Please refer to the physician's procedure / OR operative note. us Joe Perea MD IMG PAIN MGMT PROCEDURES Final R esult RAD_CLARIO_MHB_MHE from Last 3 Months Insurance [facility] MEDICARE [facility] MEDICARE [facility] MEDICARE Care Teams Air Brake Mechanic Relationship Specialty Start Date End Date Medardo Jaramillo DO [address] [facility] [address] [address] PCP - General Internal Medicine 08/28/24 Joe Perea MD [address] [facility] [address] [place] [address] Consulting Physician Pain Management 03/13/25
--- OUTSIDE RECORDS SUMMARY | 2025-03-19 10:35 | XMS_ITS | Encounter Summary ---
Author Organization [facility] Address [address] [facility] [place] [address] Care Team Providers Care Cinder Crusher Operator Name Role Phone Irene Solis MD Unavailable [phone] John Ibrahim DO Primary Care Provider [phone] Reason for Visit * Reason Onset Date Comments General 05/14/2018 Encounter Details Date Type Department Care Team (Late st Contact Info) Description 05/14/2018 Telephone [facility] Dermatology [address] [place] [address] Kiersten Mary PA [address] [facility] [address] [place] [phone] General Social History Tobacco Use Types Packs/Day Years Used Date Smoking Tobacco: Never Smokeless Tobacco: Never Alcohol Use Standard Drinks/Week Comments Yes 0 (1 standard drink = 0.6 oz pur e alcohol) 2-4 glasses of wine per day Sex and Gender Information Value Date Recorded Sex Assigned at Not on file Legal Sex Male 6:29 AM BPM DEVELOPER Gender Identity Not on file Sexual Orientation [...] on filedocumented in this encounter Care Teams Cinder Crusher Operator Relationship Specialty Start Date End Date John Ibrahim DO [address] [facility] [address] [place] [address] PCP - General Internal Medicine 12/25/13 Irene Solis MD Orthopedic Surgery 12/25/13 documented as of this encounter
--- OUTSIDE RECORDS SUMMARY | 2025-03-19 10:35 | XMS_ITS | Encounter Summary ---
Author Organization [facility] Address [address] [facility] [place] [address] Care Team Providers Care Adjunct Physics Instructor Name Role Phone Irene Solis MD Unavailable John Ibrahim DO Primary Care Provider [phone] Encounter Details Date Type Department Care Team (Late st Contact Info) Description 01/27/2023 Lab Requisition [facility] Care DermPath Lab [address] [facility] [place] [address] Jose العراقي MD [address] [place] [address] Social History Tobacco Use Types Packs/Day Years Used Date Smoking Tobacco: Never Smokeless Tobacco: Never Alcohol Use Standard Drinks/Week Comments Yes 0 (1 standard drink = 0.6 oz pur e alcohol) 2-4 glasses of wine per day Sex and Gender Information Value Date Recorded Sex Assigned at Not on file 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 Gender Identity Not on file Sexual Orientation Not on file documented as of this encounter Plan of Treatment Not on file documented as of this encounter Procedures Procedure Name Priority Date/Time Associated Diagnosis Comments DERMATOPATHOLOGY Routine 01/26/2023 12:0 0 AM CDT documented in this encounter Results * DERMATOPATHOLOGY (01/26/2023 12:00 AM CDT) Case Report Dermatopathology Report Case: [id number] Authorizing Provider: Jose العراقي MD Collected: 01/26/2023 12:00 AM Ordering Location: [facility] DermPath Lab Received: 01/27/2023 12:28 PM Pathologist: Rohini Murphy MD Specimen: Skin, right posterior shoulder 1:10 PM CDT DERMATOPATHOLOGY LABORATORY Final Diagnosis Specimen A. SKIN, right posterior shoulder: EPIDERMOID CYST WITH EVIDENCE OF RUPTURE (L72.0) 1:10 PM CDT DERMATOPATHOLOGY LABORATORY at 1310 CDT Clinical History Cyst Check margins 1:10 PM CDT DERMATOPATHOLOGY LABORATORY Gross Description Specimen A: Received is one formalin filled container labeled with the patient's name and designated right posterior shoulder. The specimen consists of a 34m45a1 mm piece of skin. The margin is [...] characteristic determined by the Dermatopathology Laboratory at [facility], directed by Dr. Ed Dietz. These tests need not be, and therefore are not, approved by the [place] Food and Drug Administration. The tests are used for clinical purposes. Billing Codes Specimen Charges Stain Charges 14246 1 1:10 PM CDT DERMATOPATHOLOGY LABORATORY Embedded Images 1:10 PM CDT DERMATOPATHOLOGY LABORATORY Pathology/Cytolog y TISSUE SPECIMEN FROM SKIN / Unknown 01/26/2023 01/27/2023 12:28 PM CDT Jose العراقي MD LAB - PATHOLOGY/CYTOLOGY ORDERAB LES Final Result DERMATOPATHOLOGY LABORATORY [facility] - Department of Dermatology [facility] Specialized Medicine [address] [place] [address], [address] [phone] documented in this encounter Visit Diagnoses Not on filedocumented in this encounter Care Teams Adjunct Physics Instructor Relationship Specialty Start Date End Date John Ibrahim DO [address] [facility] [address] [facility] [address] [place] [address] PCP - General Internal Medicine 12/25/13 Irene Solis MD Orthopedic Surgery 12/25/13 documented as of this encounter
--- OUTSIDE RECORDS SUMMARY | 2025-03-19 10:36 | XMS_ITS | Patient Health Record ---
Author Organization 1 OF Peter [facility]mond [facility] Address [address] [address] Care Team Providers Care Regulator Pin Inserter Name Role Phone John Ibrahim MD Primary Care Provider Merlin Junior Unavailable [phone] Allergies Allergen (clinical drug ingredient) Drug/Non Drug [...] Problem Status W/U Status Risk Notes Problem [id number] Contusion of right great toe without damage to nail, initial encounter (S90.111A) Active confirmed Problem 35362360 Idiopathic peripheral neuropathy (G60.9) Active confirmed Problem 807705254 Lumbar radiculopathy (M54.16) Active confirmed Problem 642701166 Hammertoe of left foot (M20.42) Active confirmed Problem 01217107 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 [place], [place] [id number] Marshal Rivera Self - patient is the insured [facility] MEDICARE SUPPLEMENT [address] [place] [address] [id number] Marshal Rivera Self - patient is the insured Medical (General) History Medical History History ICD Code arthritis Gout HTN Neuropathy of feet Surgical History Surgery Date(Month/Year) Cardiac Ablation
--- OUTSIDE RECORDS SUMMARY | 2025-03-19 10:36 | XMS_ITS | Encounter Summary ---
Author Organization [facility] Facility Care Team Providers Care Tile Machine Operator Name Role Phone Medardo Jaramillo DO Primary Care Provider [phone] Joe Perea MD Unavailable Encounter Details Date Type Department Care Team (Latest Contact Info) Description 03/22/2017 Orders Only [facility] CLINCONV ProviderAnahi MD [address] [place] [address] Social History Tobacco Use Types Packs/Day Years Used Date Smoking Tobacco: Never Alcohol Use Standard Drinks/Week Comments Yes 0 (1 standard drink = 0.6 oz pur e alcohol) Sex and Gender Information Value Date Recorded Sex Assigned at Not on file Legal Sex Male 2:41 AM ANTENNA DESIGN ENGINEER Gender Identity Not on file Sexual Orientation [...] on filedocumented in this encounter Care Teams Tile Machine Operator Relationship Specialty Start Date End Date Medardo Jaramillo DO [address] [facility] [address] [place], [place] [id number] PCP - General Internal Medicine 08/28/24 Joe Perea MD [address] [facility] [address] [place] [address] Consulting Physician Pain Management 03/13/25 documented as of this encounter
--- OUTSIDE RECORDS SUMMARY | 2025-03-19 10:36 | XMS_ITS | Encounter Summary ---
Author Organization [facility] Facility Care Team Providers Care Loss Prevention Research Engineer Name Role Phone Medardo Jaramillo DO Primary Care Provider [phone] Joe Perea MD Unavailable Encounter Details Date Type Department Care Team (Latest Contact Info) Description 06/26/2017 Orders Only [facility] CLINCONV ProviderAnahi MD [address] [place] [address] Social History Tobacco Use Types Packs/Day Years Used Date Smoking Tobacco: Never Alcohol Use Standard Drinks/Week Comments Yes 0 (1 standard drink = 0.6 oz pur e alcohol) Sex and Gender Information Value Date Recorded Sex Assigned at Not on file Legal Sex Male 2:41 AM TOBACCO SORTER Gender Identity Not on file Sexual [...] on filedocumented in this encounter Care Teams Loss Prevention Research Engineer Relationship Specialty Start Date End Date Medardo Jaramillo DO [address] [facility] [address] [place], [place] [id number] PCP - General Internal Medicine 08/28/24 Joe Perea MD [address] [facility] [address] [place] [address] Consulting Physician Pain Management 03/13/25 documented as of this encounter
[2025-03-19 13:03] LABS: Alanine Aminotransferase 31 U/L (6-50); Albumin Level 4.5 g/dL (3.5-5.1); Alkaline Phosphatase 121 U/L (38-126); Anion Gap 11 mmol/L (4-12); Aspartate Amino Transferase 45 U/L (17-59); Bilirubin,Total 0.6 mg/dL (0.2-1.3); Blood Urea Nitrogen 39 mg/dL (9-20); Calcium 9.8 mg/dL (8.4-10.2); Carbon Dioxide 24 mmol/L (22-30); Chloride 106 mmol/L (98-107); Estimated Glomerular Filt Rate 46; Glucose 123 mg/dL (65-110); Potassium 4.4 mmol/L (3.4-5.0); Sodium 141 mmol/L (137-145); Total Protein 8.1 g/dL (6.3-8.2)
[2025-03-19 13:10] LABS: Immunoglobulin A 190 mg/dL (70-400); Immunoglobulin G 1116 mg/dL (700-1600)
[2025-03-19 16:43] LABS: Immunoglobulin M 772 mg/dL (40-230)
[2025-03-20 17:13] LABS: Protein, Total 7.3 g/dL (6.1-8.1)
[2025-03-21 11:36] LABS: Kappa\\Lambda Light Chains 5.85 (0.26-1.65); Lambda Light Chain 13.1 mg/L (5.7-26.3)
[2025-03-21 20:34] LABS: Abnormal Protein Band 1 0.7 g/dL (NONE DETECTED); Abnormal Protein Band 2 0.2 g/dL (NONE DETECTED); Albumin 4.2 g/dL (3.8-4.8); Alpha 1 Globulin 0.2 g/dL (0.2-0.3); Alpha 2 Globulin 0.7 g/dL (0.5-0.9); Beta 1 Globulin 0.5 g/dL (0.4-0.6); Gamma Globulin 0.9 g/dL (0.8-1.7)
== END 2025-03-19 09:39 | disposition home or self-care (01) ==
PROVIDERS: PCP Internal Medicine; Visit Provider Internal Medicine Hematology & Oncology
DX: D72.9 Disorder of white blood cells, unspecified (principal)
CPT/HCPCS: 36415; 80053; 82784; 83883; 84155; 84165; 85025

== ENCOUNTER 2025-04-28 08:48 | Outpatient (CLI) | payer MEDICARE, SELFPAY ==
--- NOTE | ~2025-04-28 | XR_ITS ---
EXAM: XR forearm RT 2V DATE: 04/28/2025 09:09 HISTORY: Localized swelling, mass and lump medial rt forearm x1 month . COMPARISON: None available. FINDINGS: Decreased mineralization. No fracture or dislocation. No lytic or blastic lesion. Mild art hritic changes in the elbow and wrist. Chondrocalcinosis. No erosion or periosteal change. Suggestion of proximal and mid forearm soft tissue swelling with subcutaneous stranding medially IMPRESSION: Proximal/mid forearm soft tissue swelling with possible subcutaneous edema. Correlate for clinical signs of infection. Consider soft tissue ultrasound or MRI without and with contrast for fu rther evaluation. Reviewed, dictated and finalized at location K. IMPRESSION: Proximal/mid forearm soft tissue swelling with possible subcutaneou s edema. Correlate for clinical signs of infection. Consider soft tissue ultras ound or MRI without and with contrast for further evaluation.
--- OUTSIDE RECORDS SUMMARY | 2025-04-28 08:59 | XMS_ITS | Encounter Summary ---
Author Organization [facility] Address [address] [facility] [place] [address] Care Team Providers Care Plant Pathology Teacher Name Role Phone Irene Solis MD Unavailable [phone] John Ibrahim DO Primary Care Provider [phone] Encounter Details Date Type Department Care Team (Late st Contact Info) Description 01/27/2023 Lab Requisition [facility] Care DermPath Lab [address] [facility], [place] [address] Jose العراقي MD [address] [place] [address] Social History Tobacco Use Types Packs/Day Years Used Date Smoking Tobacco: Never Smokeless Tobacco: Never Alcohol Use Standard Drinks/Week Comments Yes 0 (1 standard drink = 0.6 oz pur e alcohol) 2-4 glasses of wine per day Sex and Gender Information Value Date Recorded Sex Assigned at Not on file Legal Sex Male 6:29 AM CREDIT CARD CLERK Gender Identity Not on file Sexual Orientation Not on file documented as of this encounter Plan of Treatment Not on file documented as of this encounter Procedures Procedure Name Priority Date/Time Associated Diagnosis Comments DERMATOPATHOLOGY Routine 01/26/2023 12:0 0 AM CDT documented in this encounter Results * DERMATOPATHOLOGY (01/26/2023 12:00 AM CDT) Case Report Dermatopathology Report Case: [id number] Authorizing Provider: Jose العراقي MD Collected: 01/26/2023 12:00 AM Ordering Location: [facility] DermPath Lab Received: 01/27/2023 12:28 PM [...] posterior shoulder. The specimen consists of a 32d82h6 mm piece of skin. The margin is [...] characteristic determined by the Dermatopathology Laboratory at [facility], directed by Dr. Ed Dietz. These tests need not be, and therefore are not, approved by the [place] Food and Drug Administration. The tests are used for clinical purposes. Billing Codes Specimen Charges Stain Charges 71840 1 1:10 PM CDT DERMATOPATHOLOGY LABORATORY Embedded Images 1:10 PM CDT DERMATOPATHOLOGY LABORATORY Pathology/Cytolog y TISSUE SPECIMEN FROM SKIN / Unknown 01/26/2023 01/27/2023 12:28 PM CDT Jose العراقي MD LAB - PATHOLOGY/CYTOLOGY ORDERAB LES Final Result DERMATOPATHOLOGY LABORATORY [facility] - Department of Dermatology [facility] Special[facility] Medicine [address] [place] [address], [address] [phone] documented in this encounter Visit Diagnoses Not on filedocumented in this encounter Care Teams Plant Pathology Teacher Relationship Specialty Start Date End Date John Ibrahim DO [address] [facility] [address] [facility] 21 [place] [address] PCP - General Internal Medicine 12/25/13 Irene Solis MD Orthopedic Surgery 12/25/13 documented as of this encounter
--- OUTSIDE RECORDS SUMMARY | 2025-04-28 08:59 | XMS_ITS | Clinical Summary ---
Author Organization [facility] Address [address] [facility] [place] [address] Care Team Providers Care Dusting And Brushing Machine Operator Name Role Phone Irene Solis MD Unavailable [phone] John Ibrahim DO Primary Care Provider Source Comments [facility],non-owned Affiliates and Associated Physician Practices is amultiple site organization consisting of ambulatory clinics and hospital sitesin [place], [place], [place] and [place]. This disclosure is being madepursuant to the Care Everywhere program and may not contain all information available regarding this patient. Last updated 18.[facility] Allergies Active Allergy Reactions Criticality Noted Date [...] 10/19/2020 Assessment & Plan (10/19/2020 10:27 AM SUPERVISOR ROLLING ROOM): - Chronic - Extensive lesions associated with sun damage and increased risk of skin cancer - Reviewed concerning signs for development of skin cancer - Counseled on importance of daily sun protection, recommend OTC broad spectrum, SPF >30 - Advised monthly self skin exams Ingrown hair 10/19/2020 Assessment & Plan (10/19/2020 10:38 AM SUPERVISOR ROLLING ROOM): - L upper cutaneous lip - Topical retinoid samples provided today, apply small amount to area TIW Seborrheic keratosis, inflamed 06/24/2019 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 06/24/2019 Rash and other nonspecific skin eruption 019 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 (10/19/2020 10:28 AM SUPERVISOR ROLLING ROOM): - Chronic, stable - Continue gabapentin 600 mg QHS - Refills today Actinic keratosis 04/30/2018 Assessment & Plan (10/19/2020 10:37 AM SUPERVISOR ROLLING ROOM): - Counseled on diagnosis, etiology, natural disease [...] 04/30/2018 Assessment & Plan (10/19/2020 10:27 AM SUPERVISOR ROLLING ROOM): - Chronic, stable - Continue Keflex 500 [...] on file Legal Sex Male 6:29 AM SUPERVISOR ROLLING ROOM Gender Identity Not on file Sexual Orientation [...] season) 2024 DEPRESSION SCREENING 10/02/2024 INFLUENZA VACCINE (#1) 2025 0, 06/27/2019 ZOSTER VACCINE Completed 08/05/2020, 06/01/2020 HEPATITIS [...] patient's age to complete this topic Insurance [facility] MEDICARE MEDICARE Care Teams Dusting And Brushing Machine Operator Relationship Specialty Start Date End Date John Ibrahim DO [address] [facility] [address] [place] [address] PCP - General Internal Medicine 12/25/13 Irene Solis MD Orthopedic Surgery 12/25/13
--- OUTSIDE RECORDS SUMMARY | 2025-04-28 08:59 | XMS_ITS | Clinical Summary ---
Author Organization [facility]ida [facility] Address [address] [place] [address] Care Team Providers Care Director Of Consumer Marketing Name Role Phone ClintMedardo Primary Care Provider [phone] Allergies No known active allergies Medications atorvastatin [...] mg by mouth 3 times daily. Active empagliflozin (JARDIANCE) 10 mg tablet Take 10 mg by mouth daily. 12/25/2024 Active allopurinoL (ZYLOPRIM) 100 mg tablet Take 100 mg by mouth daily. 11/08/2024 Active furosemide (LASIX) 20 mg tablet Take 20 mg by mouth daily. 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 Encounters Date Type Department Care Team Description 2025 External Device Data STL ABSTRACTION Provider, Abstract 2025 External Device Data STL ABSTRACTION Provider, Abstract 2025 External Device Data STL ABSTRACTION Provider, Abstract 03/28/2025 Orders Only [facility] Oncology and Hematology - [place] [address] [place] [address] Rafy Morales MD 03/26/2025 10:00 AM CDT Office Visit [facility] - [place] [address] [place] [address] Rafy Morales MD Plasma cell disorder (Primary Dx) 03/26/2025 Orders Only [facility]ology - [place] [address] [place] [address] Rafy Morales MD 03/25/2025 Orders Only [facility]ematology - [place] [address] [place] [address] Rafy Morales MD 03/18/2025 External Device Data STL ABSTRACTION Provider, Abstract [...] Sign Reading Time Taken Comments Blood Pressure 126/70 03/26/2025 10:03 AM CDT Pulse 61 03/26/2025 10:03 AM CDT Temperature 36 C (96.8 F) 03/26/2025 10:03 AM CDT Respiratory Rate 15 03/26/2025 10:0 3 AM CDT Oxygen Saturation 91% 03/26/2025 10: 03 AM CDT Inhaled Oxygen Concentration - - Weight 107.8 kg (237 lb 9.6 oz) 06/25/2 025 10:03 AM CDT Height 188 cm (6' 2) 07/04/2022 1:33 PM CDT Body Mass Index 30.51 07/04/2022 1:33 PM CDT Plan of Treatment Upcoming Encounters Date Type Department Care Team (Late st Contact Info) Description 04/01/2026 11:00 AM CDT Office Visit [facility] Oncology and Hematology - [place] [address] [facility] [address] [place] [address] Rafy Morales MD [address] [facility] [address] [place] [address] Health Maintenance Due Date Last Done Comments DTAP/TDAP/TD VACCINES (1 - Tdap) 1964 RSV VACCINE (60+ or ) (1 - 1-dose 75+ series) 2020 INFLUENZA VACCINE (#1) 2025 0, 06/27/2019, 06/27/2019, Additional history exists COLORECTAL SCREENING Discontinued 08/09/2018 Colorectal Cancer Screening Discontinued PNEUMOCOCCAL VACCINE 50+ YEARS Completed 06/27/2019 , 06/25/2018 ZOSTER VACCINE Completed 08/05/2020, 06/01/2020 FIT-DNA Q 3 years Discontinued FIT/FOBT Q 1 year Discontinued Flex Sig/CT Colonography Q 5 years Discontinued Procedures Procedure Name Priority Date/Time Associated Diagnosis Comments CBC WITH DIFFERENTIAL Routine 03/19/2025 5:17 PM CDT KAPPA/LAMBDA LIGHT CHAINS Routine 2024 1:52 PM CDT IMMUNOGLOBULINS IGG IGA IGM Routine 03/19/2025 1:09 PM CDT PROTEIN ELECTROPHORESIS, CSF Routine 03/19/2025 10:43 AM CDT from Last 3 Months Results * CBC WITH DIFFERENTIAL (03/19/2025 5:17 PM CDT) Blood Rafy Morales MD HEMATOLOGY ORDERABLES Final Res ult * KAPPA/LAMBDA, FREE LIGHT CHAINS (03/19/2025 1:52 PM CDT) Blood Rafy Morales MD CHEMISTRY ORDERABLES Final Resu lt * IMMUNOGLOBULINS IGG IGA IGM (03/19/2025 1:09 PM CDT) Blood Rafy Morales MD CHEMISTRY ORDERABLES Final Resu lt * PROTEIN ELECTROPHORESIS, CSF (03/19/2025 10:43 AM CDT) Cerebrospinal fluid CEREBROSPINAL FLUID / Unknown Rafy Morales MD BODY FLUIDS AND STOOLS Final Re sult from Last 3 Months Insurance MEDICARE PART A AND B [facility] [id number] Care Teams Director Of Consumer Marketing Relationship Specialty Start Date End Date Medardo Jaramillo DO [address] [facility] [address] [place] [phone] PCP - General Internal Medicine 03/26/25
--- OUTSIDE RECORDS SUMMARY | 2025-04-28 08:59 | XMS_ITS | Encounter Summary ---
Author Organization [facility] Address [address] [facility] [place] [address] Care Team Providers Care Sql Developer Dba Name Role Phone Irene Solis MD Unavailable John Ibrahim DO Primary Care Provider [phone] Encounter Details Date Type Department Care Team (Late st Contact Info) Description 02/20/2024 Lab Requisition [facility] - DermPath Lab [address] [facility], [place] [address] Jose العراقي MD [address] [place] [address] Social History Tobacco Use Types Packs/Day Years Used Date Smoking Tobacco: Never Smokeless Tobacco: Never Alcohol Use Standard Drinks/Week Comments Yes 0 (1 standard drink = 0.6 oz pur e alcohol) 2-4 glasses of wine per day Sex and Gender Information Value Date Recorded Sex Assigned at Not on file 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
--- OUTSIDE RECORDS SUMMARY | 2025-04-28 08:59 | XMS_ITS | Clinical Summary ---
Author Organization [facility] Address [address] [address] Phone Care Team Providers Care Binder Folder Operator Name Role Phone John Ibrahim DO Primary [...] season) 2024 09/09/2021, 12/04/2020, 11/09/2020 Influenza Immunization (#1) 06/02/202505/04, 06/27/2019, 06/25/2018, Additional history exists Colonoscopy Discontinued [...] to Health Maintenance Insurance MEDICARE Care Teams Binder Folder Operator Relationship Specialty Start Date End Date John Ibrahim DO [address] [place] [address] PCP - General Internal Medicine 02/08/18
--- OUTSIDE RECORDS SUMMARY | 2025-04-28 08:59 | XMS_ITS | Encounter Summary ---
Author Organization [facility] Facility Care Team Providers Care Seed Cleaner Operator Name Role Phone Medardo Jaramillo DO Primary Care Provider [phone] Joe Perea MD Unavailable Encounter Details Date Type Department Care Team (Latest Contact Info) Description 06/26/2017 Orders Only [facility] CLINCONV ProviderAnahi MD [address] [place] [address] Social History Tobacco Use Types Packs/Day Years Used Date Smoking Tobacco: Never Alcohol Use Standard Drinks/Week Comments Yes 0 (1 standard drink = 0.6 oz pur e alcohol) Sex and Gender Information Value Date Recorded Sex Assigned at Not on file Legal Sex Male 2:41 AM CONSTRUCTION DIRECTOR Gender Identity Not on file Sexual [...] on filedocumented in this encounter Care Teams Seed Cleaner Operator Relationship Specialty Start Date End Date Medardo Jaramillo DO [address] [facility] 21 [place], [place] [phone] PCP - General Internal Medicine 08/28/24 Joe Perea MD [address] [facility] [address] [place] [place] [address] Consulting Physician Pain Management 03/13/25 documented as of this encounter
--- OUTSIDE RECORDS SUMMARY | 2025-04-28 08:59 | XMS_ITS | Encounter Summary ---
Author Organization [facility] Address [address] [facility] [place] [address] Care Team Providers Care Stopper Grinder Name Role Phone Irene Solis MD Unavailable [phone] John Ibrahim DO Primary Care Provider [phone] Reason for Visit * Reason Onset Date Comments General 05/14/2018 Encounter Details Date Type Department Care Team (Late st Contact Info) Description 05/14/2018 Telephone [facility] [address] [place] [address] Kiersten Mary PA [address] [facility] [address] [place] [phone] General Social History Tobacco Use Types Packs/Day Years Used Date Smoking Tobacco: Never Smokeless Tobacco: Never Alcohol Use Standard Drinks/Week Comments Yes 0 (1 standard drink = 0.6 oz pur e alcohol) 2-4 glasses of wine per day Sex and Gender Information Value Date Recorded Sex Assigned at Not on file Legal Sex Male 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
--- OUTSIDE RECORDS SUMMARY | 2025-04-28 08:59 | XMS_ITS | Clinical Summary ---
Author Organization [facility] Address [address] [place] [address] Care Team Providers Care Balance Wheel Arm Burnisher Name Role Phone Medardo Jaramillo Primary Care Provider Joe Perea MD Unavailable Allergies Active Allergy [...] hypofunction Assessment & Plan (11/16/2022 11:48 AM SHIPPING AND RECEIVING CLERK): Hypogonadism for few years. on small dose [...] basis. Assessment & Plan (10/20/2021 10:00 AM SHIPPING AND RECEIVING CLERK): Hypogonadism for few years. on small dose [...] basis. Assessment & Plan (10/14/2020 10:19 AM SHIPPING AND RECEIVING CLERK): Hypogonadism for few years. on small dose [...] benign Assessment & Plan (11/16/2022 11:39 AM SHIPPING AND RECEIVING CLERK): Controlled with medication - low salt diet - continue medication per PCP Assessment & Plan (04/20/2022 10:28 AM CDT): Controlled with medication - low salt diet - continue medication per PCP Assessment & Plan (10/20/2021 10:01 AM SHIPPING AND RECEIVING CLERK): Controlled with medication - low salt diet - continue medication per PCP Assessment & Plan (04/14/2021 10:36 AM CDT): Controlled with medication - low salt diet - continue medication per PCP Assessment & Plan (10/14/2020 10:19 AM SHIPPING AND RECEIVING CLERK): Controlled with medication - low salt diet [...] Encounters Date Type Department Care Team Description 04/25/2025 12:51 PM CDT - 04/25/2025 11:59 PM CDT Hospital Encounter [facility] [address] [address] Joe Perea MD Greater trochanteric bursitis of both hips (Primary Dx) Discharge Disposition: Discharge to home or self care 04/14/2025 Telephone [facility] Cardiology [address] [place] [address] Wally Dela Cruz MD 03/14/2025 8:06 AM CDT - 03/14/2025 11:59 PM CDT Hospital Encounter [facility] Pain [facility] [address] [facility] [address] [place] [address] Joe Perea MD 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); Lumbar radiculopathy; Neural foraminal stenosis of lumbar spine Discharge Disposition: Discharge to home or self care 03/13/2025 8:34 AM CDT - 03/13/2025 11:59 PM CDT Hospital Encounter [facility] [address] [facility] [address] [place] [address] Joe Perea MD Lumbar radiculopathy (Primary Dx); Bulge of lumbar disc without myelopathy; Neural foraminal stenosis of lumbar spine Discharge Disposition: Discharge to home or self care 02/03/2025 Telephone [facility] Cardiology [address] [place] [address] Wally Dela Cruz MD from Last 3 Months Immunizations Immunization [...] on file Legal Sex Male 2:41 AM SHIPPING AND RECEIVING CLERK Gender Identity Not on file Sexual Orientation Not on file Occupation Industry Job Start Date Job End Date retired Not on file Not on file Not on file Obstetrics History Last Filed Vital Signs Vital Sign Reading Time Taken Comments Blood Pressure 141/91 04/25/2025 12:59 PM CDT Pulse 88 04/25/2025 12:59 PM CDT Temperature 36.1 C (97 F) 04/25/2025 12:59 PM CDT Respiratory Rate 18 04/25/2025 12:59 PM CDT Oxygen Saturation 96% 04/25/2025 12:59 PM CDT Inhaled Oxygen Concentration - - Weight 107 kg (235 lb 12.8 oz) 04/25/2025 12:59 PM CDT Height 188 cm (6' 2) 04/25/2025 12:59 PM CDT Body Mass Index 30.27 04/25/2025 12:59 PM CDT Plan of Treatment Health Maintenance Due Date Last Done Comments Depression Screening 1945 Fall Risk Assessment 1945 DTaP/Tdap/Td Vaccine (1 - Tdap) 1956 Hepatitis B Screening 1963 Well Visit 65+ 2010 Influenza Vaccine (#1) 2025 , 06/27/2019, 06/25/2018, Additional history exists Pneumococcal vaccine 65+ Completed 06/27/2019, 06/03 Zoster Vaccine Completed 08/05/2020, 06/01/2020 Medical Devices Implanted Type Area Skull Chopper Device Identifier Shelf Expiration Date Model / Serial / Lot Neurostimulator Bladder-05/04/2021 Implanted: 021 by Unknown, Notinfile (Quantity not on file) Neurostimulator Pelvis Medtronic Neuro [id number] / / Neurostimulator Lead-05/04/2021 Implanted: 021 by Unknown, Notinfile (Quantity not on file) Neurostimulator Pelvis Medtronic Neuro [id number] / / Procedures Procedure Name Priority Date/Time Associated Diagnosis Comments PAIN MGMT IMAGING LUMBAR/SACRAL SELECTIVE NERVE ROOT INJ (TFE) BILATERAL Schedule Routine, Read Routine (OP Routine) 03/14/2025 8:43 AM CDT Lumbar radiculopathy from Last 3 Months Results * Imaging Lumbar/Sacral Selective Nerve Root INJ (TFE) Bilateral (08821) (03/14/2025 8:43 AM CDT) Narrative DELFINA_COLLETTE_MHB_MHE - 03/14/2025 1:27 PM CDT The images from this study are not interpreted by Radiology. Please refer to the physician's procedure / OR operative note. us Joe Perea MD IMG PAIN MGMT PROCEDURES Final R esult RAD_CLARIO_MHB_MHE from Last 3 Months Insurance [facility] MEDICARE [facility] MEDICARE [facility] MEDICARE Care Teams Balance Wheel Arm Burnisher Relationship Specialty Start Date End Date Medardo Jaramillo DO [address] [address] PCP - General Internal Medicine 08/28/24 Joe Perea MD [address] [facility] [address] [place] [address] Consulting Physician Pain Management 03/13/25
--- OUTSIDE RECORDS SUMMARY | 2025-04-28 08:59 | XMS_ITS | Encounter Summary ---
Author Organization [facility] Address [address] [facility] [facility] [place] [address] Care Team Providers Care Workers Compensation Defense Attorney Name Role Phone Irene Solis MD Unavailable John Ibrahim DO Primary Care Provider [phone] Encounter Details Date Type Department Care Team (Late st Contact Info) Description 02/20/2024 Lab Requisition [facility] - DermPath Lab [address] [facility], [place] [id number] Jose العراقي MD [address] [place] [address] Social History Tobacco Use Types Packs/Day Years Used Date Smoking Tobacco: Never Smokeless Tobacco: Never Alcohol Use Standard Drinks/Week Comments Yes 0 (1 standard drink = 0.6 oz pur e alcohol) 2-4 glasses of wine per day Sex and Gender Information Value Date Recorded Sex Assigned at Not on file 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 Gender Identity Not on file Sexual Orientation Not on file documented as of this encounter Plan of Treatment Not on file documented as of this encounter Procedures Procedure Name Priority Date/Time Associated Diagnosis Comments DERMATOPATHOLOGY Routine 02/19/2024 12:0 0 AM CDT documented in this encounter Results * DERMATOPATHOLOGY (02/19/2024 12:00 AM CDT) Case Report Dermatopathology Report Case: [id number] Authorizing Provider: Jose العراقي MD Collected: 02/19/2024 12:00 AM Ordering Location: [facility] - Received: 02/20/2024 [...] characteristic determined by the Dermatopathology Laboratory at [facility], directed by Dr. Ed Dietz. These tests need not be, and therefore are not, approved by the [place] Food and Drug Administration. The tests are used for clinical purposes. Billing Codes Specimen Charges Stain Charges 50087 1 88508 48038 1 1 11:01 AM CDT DERMATOPATHOLOGY LABORATORY Embedded Images 11:01 AM CDT DERMATOPATHOLOGY LABORATORY Pathology/Cytolog y TISSUE SPECIMEN FROM SKIN / Unknown 02/19/2024 02/20/2024 10:17 AM CDT Jose العراقي MD LAB - PATHOLOGY/CYTOLOGY ORDERAB LES Final Result DERMATOPATHOLOGY LABORATORY [facility] - Department of Dermatology [address], [address] [phone] documented in this encounter Visit Diagnoses Not on filedocumented in this encounter Care Teams Workers Compensation Defense Attorney Relationship Specialty Start Date End Date John Ibrahim DO [address] [facility] [address] [facility] [address] [place] [address] PCP - General Internal Medicine 12/25/13 Irene Solis MD Orthopedic Surgery 12/25/13 documented as of this encounter
--- OUTSIDE RECORDS SUMMARY | 2025-04-28 08:59 | XMS_ITS | Referral Summary ---
Author Organization [facility] Address [address] [place] [id number] Care Team Providers Care Carton Liner Name Role Phone Medardo Jaramillo DO Primary Care Provider [phone] Joe Perea MD Unavailable Encounters Date Type Department Care Team Description 04/25/2025 12:51 PM CDT - 04/25/2025 11:59 PM CDT Hospital Encounter [facility] Pain [facility] [address] [address] Joe Perea MD Greater trochanteric bursitis of both hips (Primary Dx) Discharge Disposition: Discharge to home or self care 04/14/2025 Telephone [facility] Cardiology [address] [place] [address] Wally Dela Cruz MD 03/14/2025 8:06 AM CDT - 03/14/2025 11:59 PM CDT Hospital Encounter [facility] [address] [address] Joe Perea MD 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); Lumbar radiculopathy; Neural foraminal stenosis of lumbar spine Discharge Disposition: Discharge to home or self care 03/13/2025 8:34 AM CDT - 03/13/2025 11:59 PM CDT Hospital Encounter [facility] Pain Mgmt [address] [facility] [address] [place] [address] Joe Perea MD Lumbar radiculopathy (Primary Dx); Bulge of lumbar disc without myelopathy; Neural foraminal stenosis of lumbar spine Discharge Disposition: Discharge to home or self care 02/03/2025 Telephone [facility] Cardiology [address] [place] [address] Wally Dela Cruz MD from Last 3 Months Allergies Active [...] hypofunction Assessment & Plan (11/16/2022 11:48 AM CARRY OUT CLERK): Hypogonadism for few years. on small [...] off Androgel. PSA stable at 0.2 on 4/18/22- done annually with his Urologist. Last testosterone [...] basis. Assessment & Plan (10/20/2021 10:00 AM CARRY OUT CLERK): Hypogonadism for few years. on small [...] basis. Assessment & Plan (10/14/2020 10:19 AM CARRY OUT CLERK): Hypogonadism for few years. on small [...] benign Assessment & Plan (11/16/2022 11:39 AM CARRY OUT CLERK): Controlled with medication - low salt diet - continue medication per PCP Assessment & Plan (04/20/2022 10:28 AM CDT): Controlled with medication - low salt diet - continue medication per PCP Assessment & Plan (10/20/2021 10:01 AM CARRY OUT CLERK): Controlled with medication - low salt diet - continue medication per PCP Assessment & Plan (04/14/2021 10:36 AM CDT): Controlled with medication - low salt diet - continue medication per PCP Assessment & Plan (10/14/2020 10:19 AM CARRY OUT CLERK): Controlled with medication - low salt [...] on file Legal Sex Male 2:41 AM CARRY OUT CLERK Gender Identity Not on file Sexual [...] 04/25/2025 12:59 PM CDT Plan of Treatment Not on file Medical Devices Implanted Type Area Securities Vault Supervisor Device Identifier Shelf Expiration Date Model / Serial / Lot Neurostimulator Bladder-05/04/2021 Implanted: 021 by Unknown, Notinfile (Quantity not on file) Neurostimulator Pelvis Medtronic Neuro [id number] / / Neurostimulator Lead-05/04/2021 Implanted: 021 by Unknown, Notinfile (Quantity not on file) Neurostimulator Pelvis Medtronic Neuro [id number] / / Procedures Procedure Name Priority Date/Time Associated Diagnosis Comments PAIN MGMT IMAGING LUMBAR/SACRAL SELECTIVE NERVE ROOT INJ (TFE) BILATERAL Schedule Routine, Read Routine (OP Routine) 03/14/2025 8:43 AM CDT Lumbar radiculopathy from Last 3 Months Results * Imaging Lumbar/Sacral Selective Nerve Root INJ (TFE) Bilateral (90534) (03/14/2025 8:43 AM CDT) Narrative DELFINA_COLLETTE_INOCENCIA_MHE - 03/14/2025 1:27 PM CDT The images from this study are not interpreted by Radiology. Please refer to the physician's procedure / OR operative note. Joe Perea MD IMG PAIN MGMT PROCEDURES Final R esult RAD_CLARIO_MHB_MHE from Last 3 Months Insurance [facility] MEDICARE [facility] MEDICARE [facility] MEDICARE Care Teams Carton Liner Relationship Specialty Start Date End Date Medardo Jaramillo DO [address] [facility] [address] [address] PCP - General Internal Medicine 08/28/24 Joe Perea MD [address] [facility] [address] [place] [id number] Consulting Physician Pain Management 03/13/25
--- OUTSIDE RECORDS SUMMARY | 2025-04-28 08:59 | XMS_ITS | Encounter Summary ---
Author Organization [facility] Care Team Providers Care Fresh Work Wrapper Layer Name Role Phone Medardo Jaramillo DO Primary Care Provider [phone] Joe Perea MD Unavailable Encounter Details Date Type Department Care Team (Latest Contact Info) Description 03/22/2017 Orders Only [facility]INCON[facility] ProviderAnahi MD [address] [place] [address] Social History Tobacco Use Types Packs/Day Years Used Date Smoking Tobacco: Never Alcohol Use Standard Drinks/Week Comments Yes 0 (1 standard drink = 0.6 oz pur e alcohol) Sex and Gender Information Value Date Recorded Sex Assigned at Not on file Legal Sex Male 2:41 AM 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 [address] [place] [address] [place] [id number] Consulting Physician Pain Management 03/13/25 documented as of this encounter
--- OUTSIDE RECORDS SUMMARY | 2025-04-28 08:59 | XMS_ITS | Clinical Summary ---
Author Organization [facility] Address [address] [place] [address] Care Team Providers Care Director Of Retail Name Role Phone John Ibrahim MD Primary Care Provider [phone] Allergies Active Allergy Reactions Criticality Noted Date [...] PVC's (premature ventricular contractions) Nonischemic cardiomyopathy (CMS/HCC [facility]/HCC) Overview (05/05/2021): Nonischemic cardiomyopathy Swelling of extremity [...] 9:37 AM CDT Height 188 cm (6' 2) 05/05/2021 9:37 AM CDT Body Mass Index 29.53 05/05/2021 9:37 AM CDT Plan of Treatment Health Maintenance Due Date Last Done Comments DTaP, Tdap and Td Vaccines ( 1 - Tdap) 1964 Annual Medicare Wellness Visit 2010 RSV Immunization or 60+ Years (1 - 1-dose 75+ series) 2020 COVID-19 Vaccine (3 - 2023-2 5 season) 2024 12/04/2020, 11/09/2020 Pneumococcal [...] age to complete this topic Insurance MEDICARE [facility] Care Teams Director Of Retail Relationship Specialty Start Date End Date John Ibrahim MD [address] [place] [address] [place] [address] PCP - General INTERNAL MEDICINE 02/02/21
== END 2025-04-28 08:49 | disposition home or self-care (01) ==
PROVIDERS: PCP Internal Medicine; Visit Provider Internal Medicine
DX: R22.31 Localized swelling, mass and lump, right upper limb (principal)
CPT/HCPCS: 73090

== ENCOUNTER 2025-05-21 14:13 | Outpatient (CLI) | payer MEDICARE, SELFPAY ==
--- NOTE | ~2025-05-21 | US_ITS ---
US soft tissue UE RT 05/21/2025 15:12 Indication: Palpable right upper extremity line Procedure: Ultrasound of the right forearm soft tissues Comparison: No prior studies for comparison. Findings: In the area palpable concern there is a-appearing lymph node measuring 10 x 9 x 2 mm. No suspicious fluid collections or abnormal masses. Impression: 1: Normal-appearing 1 cm lymph node in the area of palpable concern. Reviewed, dictated and finalized at location A. Impression: 1: Normal-appearing 1 cm lymph node in the area of palpable concern.
--- OUTSIDE RECORDS SUMMARY | 2025-05-21 14:42 | XMS_ITS | Encounter Summary ---
Author Organization [facility] Address [address] [place] [address] Care Team Providers Care Machine Stapler Name Role Phone Irene Solis MD Unavailable [phone] John Ibrahim DO Primary Care Provider [phone] Reason for Visit * Reason Onset Date Comments General 05/14/2018 Encounter Details Date Type Department Care Team (Late st Contact Info) Description 05/14/2018 Telephone [facility] General Dermatology [address] [place] [address] Kiersten Mary PA [address] [facility] [address] [place] [phone] General Social History Tobacco Use Types Packs/Day Years Used Date Smoking Tobacco: Never Smokeless Tobacco: Never Alcohol Use Standard Drinks/Week Comments Yes 0 (1 standard drink = 0.6 oz pur e alcohol) 2-4 glasses of wine per day Sex and Gender Information Value Date Recorded Sex Assigned at Not on file 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
--- OUTSIDE RECORDS SUMMARY | 2025-05-21 14:42 | XMS_ITS | Encounter Summary ---
Author Organization [facility] Address [address] [facility] [place] [address] Care Team Providers Care Graphics Production Specialist Name Role Phone Irene Solis MD Unavailable [phone] John Ibrahim DO Primary Care Provider [phone] Encounter Details Date Type Department Care Team (Late st Contact Info) Description 02/20/2024 Lab Requisition [facility] - DermPath Lab [address] [facility], [place] [phone] Jose العراقي MD [address] [place] [address] Social History Tobacco Use Types Packs/Day Years Used Date Smoking Tobacco: Never Smokeless Tobacco: Never Alcohol Use Standard Drinks/Week Comments Yes 0 (1 standard drink = 0.6 oz pur e alcohol) 2-4 glasses of wine per day Sex and Gender Information Value Date Recorded Sex Assigned at Not on file Legal Sex Male 6:[address]/MEDICAL INTERPRETER Gender Identity Not on file Sexual Orientation Not on file documented as of this encounter Plan of Treatment Not on file documented as of this encounter Procedures Procedure Name Priority Date/Time Associated Diagnosis Comments DERMATOPATHOLOGY Routine 02/19/2024 12:0 0 AM CDT documented in this encounter Results * DERMATOPATHOLOGY (02/19/2024 12:00 AM CDT) Case Report Dermatopathology Report Case: [id number] Authorizing Provider: Jose العراقي MD Collected: 02/19/2024 12:00 AM Ordering Location: [facility] - Received: 02/20/2024 10:17 AM [...] characteristic determined by the Dermatopathology Laboratory at [facility], directed by Dr. Ed Dietz. These tests need not be, and therefore are not, approved by the [place] Food and Drug Administration. The tests are used for clinical purposes. Billing Codes Specimen Charges Stain Charges 25439 1 98179 14311 1 1 11:01 AM CDT DERMATOPATHOLOGY LABORATORY Embedded Images 11:01 AM CDT DERMATOPATHOLOGY LABORATORY Pathology/Cytolog y TISSUE SPECIMEN FROM SKIN / Unknown 02/19/2024 02/20/2024 10:17 AM CDT Jose العراقي MD LAB - PATHOLOGY/CYTOLOGY ORDERAB LES Final Result DERMATOPATHOLOGY LABORATORY [facility] - Department of Dermatology [address], [address] [phone] documented in this encounter Visit Diagnoses Not on filedocumented in this encounter Care Teams Graphics Production Specialist Relationship Specialty Start Date End Date John Ibrahim DO [address] [facility] [address] [place] [address] PCP - General Internal Medicine 12/25/13 Irene Solis MD Orthopedic Surgery 12/25/13 documented as of this encounter
--- OUTSIDE RECORDS SUMMARY | 2025-05-21 14:42 | XMS_ITS | Clinical Summary ---
Author Organization [facility] Address [address] [place] [phone] Care Team Providers Care Director Ship Name Role Phone Medardo Jaramillo Primary Care Provider [phone] Joe Perea MD Unavailable Allergies Active Allergy [...] mg total) by mouth daily 5 Active empagliflozin (JARDIANCE) 10 mg tabletIndications: Dilated cardiomyopathy (HCC) Take 1 tablet (10 mg total) by mouth daily 30 tablet 3 5 Active metoprolol XL (TOPROL-XL) 50 mg extended release tablet Take 1 tablet (50 mg total) by mouth daily 90 tablet 3 5 Active furosemide (LASIX) 20 mg tablet Take 1 tablet (20 mg total) by mouth daily Active sacubitriL-valsart an (ENTRESTO) 24-26 mg tabletIndications: chronic heart failure Take 1 tablet by mouth 2 (two) times a day 30 tablet 3 5 025 Discontin ued(Mary obrien ) Active Problems Problem Noted Date Diagnosed Date 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 on small dose [...] basis. Assessment & Plan (10/20/2021 10:00 AM ONLINE PRODUCER): Hypogonadism for few years. on small dose [...] basis. Assessment & Plan (10/14/2020 10:19 AM ONLINE PRODUCER): Hypogonadism for few years. on small dose [...] benign Assessment & Plan (11/16/2022 11:39 AM ONLINE PRODUCER): Controlled with medication - low salt diet - continue medication per PCP Assessment & Plan (04/20/2022 10:28 AM CDT): Controlled with medication - low salt diet - continue medication per PCP Assessment & Plan (10/20/2021 10:01 AM ONLINE PRODUCER): Controlled with medication - low salt diet - continue medication per PCP Assessment & Plan (04/14/2021 10:36 AM CDT): Controlled with medication - low salt diet - continue medication per PCP Assessment & Plan (10/14/2020 10:19 AM ONLINE PRODUCER): Controlled with medication - low salt diet [...] Encounters Date Type Department Care Team Description 05/14/2025 9:03 AM CDT - 05/14/2025 11:59 PM CDT Hospital Encounter [facility] [address] [address] Joe Perea MD Greater trochanteric bursitis of both hips Discharge Disposition: Discharge to home or self care 05/06/2025 9:00 AM CDT Ancillary Procedure [facility] Cardiology [address] [place] [address] PVC's (premature ventricular contractions) 05/06/2025 8:15 AM CDT Office Visit [facility] Cardiology [address] [place] [address] [place] [phone] Wally Dela Cruz MD Chronic combined systolic and diastolic congestive heart failure (HCC) (Primary Dx); Nonischemic cardiomyopathy (HCC); PVC's (premature ventricular contractions); Benign hypertension; Mixed hyperlipidemia; Hyperhidrosis; SOB (shortness of breath); GARCIA (dyspnea on exertion); Coronary artery disease 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 04/30/2025 8:04 AM CDT - 04/30/2025 11:59 PM CDT Hospital Encounter [facility] [address] [address] Joe Perea MD Greater trochanteric bursitis of both hips Discharge Disposition: Discharge to home or self care 04/25/2025 12:51 PM CDT - 04/25/2025 11:59 PM CDT Hospital Encounter [facility] Pain [facility] [address] [address] Joe Perea MD Greater trochanteric bursitis of both hips (Primary Dx); Bulge of lumbar disc without myelopathy; Neural foraminal stenosis of lumbar spine; Radiculopathy, lumbar region Discharge Disposition: Discharge to home or self care 04/14/2025 Telephone [facility] Cardiology [address] [place] [address] [place] [phone] Wally Dela Cruz MD 03/14/2025 8:06 AM CDT - 03/14/2025 11:59 PM CDT Hospital Encounter [facility] Pain [facility] [address] [place] [address] Joe Perea MD 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); Lumbar radiculopathy; Neural foraminal stenosis of lumbar spine Discharge Disposition: Discharge to home or self care 03/13/2025 8:34 AM CDT - 03/13/2025 11:59 PM CDT Hospital Encounter [facility] [place] [address] Joe Perea MD Lumbar radiculopathy (Primary Dx); Bulge of lumbar disc without myelopathy; Neural foraminal stenosis of lumbar spine Discharge Disposition: Discharge to home or self care from Last 3 Months Immunizations Immunization Administration [...] on file Legal Sex Male 2:41 AM ONLINE PRODUCER Gender Identity Not on file Sexual Orientation Not on file Occupation Industry Job Start Date Job End Date retired Not on file Not on file Not on file Obstetrics History Last Filed Vital Signs Vital Sign Reading Time Taken Comments Blood Pressure 95/73 05/14/2025 10:18 AM CDT Pulse 74 05/14/2025 10:18 AM CDT Temperature 36.1 C (97 F) 05/14/2025 9:20 AM CDT Respiratory Rate 18 05/14/2025 10:1 8 AM CDT Oxygen Saturation 95% 05/14/2025 10: 18 AM CDT Inhaled Oxygen Concentration - - Weight 108.1 kg (238 lb 6.4 oz) 05/06/2025 8:15 AM CDT Height 188 cm (6' 2) 05/06/2025 8:15 AM CDT Body Mass Index 30.61 05/06/2025 8:15 AM CDT Plan of Treatment Health Maintenance Due Date Last Done Comments Depression Screening 1945 Fall Risk Assessment 1945 DTaP/Tdap/Td Vaccine (1 - Tdap) 1956 Hepatitis B Screening 1963 Well Visit 65+ 2010 Influenza Vaccine (#1) 2025 0, 06/27/2019, 06/25/2018, Additional history exists Pneumococcal vaccine 65+ Completed 06/27/2019, 06/03 Zoster Vaccine Completed 08/05/2020, 06/01/2020 Medical Devices Implanted Type Area Logging Rafter Laborer Device Identifier Shelf Expiration Date Model / Serial / Lot Neurostimulator Bladder-05/04/2021 Implanted: 021 by Unknown, Notinfile (Quantity not on file) Neurostimulator Pelvis Medtronic Neuro [id number] / / Neurostimulator Lead-05/04/2021 Implanted: 021 by Unknown, Notinfile (Quantity not on file) Neurostimulator Pelvis Medtronic Neuro [id number] / / Procedures Procedure Name Priority Date/Time Associated Diagnosis Comments HOLTER MONITOR 24 HR Routine 05/06/2025 9:32 AM CDT PVC's (premature ventricular contractions) PAIN MGMT IMAGING LUMBAR/SACRAL SELECTIVE NERVE ROOT INJ (TFE) BILATERAL Schedule Routine, Read Routine (OP Routine) 03/14/2025 8:43 AM CDT Lumbar radiculopathy from Last 3 Months Results * 24 HR Holter Monitor (05/06/2025 9:32 AM CDT) Anatomical Region Laterality Modality Electrocardiogra phy Narrative 05/15/2025 6:16 PM CDT AMBULATORY OUTSIDE SALES INSPECTOR REPORT Patient Name: Paulette rWay Date of : 1945 Requesting Physician: Dr. Dela Cruz Date of interpretation: 05/15/25 Type of monitor : 24 hour Holter monitor Date of the study/Enrollment period: 05/06/2025 through 05/07/2025 Indication: PVC Quality of the study: Good Interpretation: Total 24 hours diagnostic time Underlying sinus rhythm with frequent supraventricular and ventricular ectopy. Heart rate variability between 38 and 142 beats per minute with an average heart rate of 69 beats per minute. A total of 6069 ventricular ectopic beats were noted which is 6% ectopic burden. This consisted of 2 ventricular triplets. Three hundred ninety-six beats were ventricular couplets and 5664 isolated PVCs. Eight thousand one hundred fifty-four supraventricular ectopic beats. This consisted of 7944 isolated premature atrial contractions, 102 atrial couplets and 2 runs of paroxysmal supraventricular tachycardia with the longest run being for 3 beats and the fastest run being at a rate of 142 beats per minute. No patient triggered events No significant heart block, pauses or no clear atrial fibrillation is seen Conclusions: Underlying sinus rhythm with frequent ventricular and supraventricular ectopy as detailed above Voice recognition software was used to complete this document, therefore, chronometer adjuster variances may occur. Wally Dela Cruz MD, [facility] 05/15/25 Procedure Note Wally Dela Cruz MD - 05/15/2025 AMBULATORY OUTSIDE SALES INSPECTOR REPORT Patient Name: Paulette Wray Date of : 1945 Requesting Physician: Dr. Dela Cruz Date of interpretation: 05/15/25 Type of monitor : 24 hour Holter monitor Date of the study/Enrollment period: 05/06/2025 through 05/07/2025 Indication: PVC Quality of the study: Good Interpretation: Total 24 hours diagnostic time Underlying sinus rhythm with frequent supraventricular and ventricularectopy. Heart rate variability between 38 and 142 beats per minute withan average heart rate of 69 beats per minute. A total of 6069 ventricular ectopic beats were noted which is 6% ectopicburden. This consisted of 2 ventricular triplets. Three hundredninety-six beats were ventricular couplets and 5664 isolated PVCs. Eight thousand one hundred fifty-four supraventricular ectopic beats.This consisted of 7944 isolated premature atrial contractions, 102 atrialcouplets and 2 runs of paroxysmal supraventricular tachycardia with thelongest run being for 3 beats and the fastest run being at a rate of 142beats per minute. No patient triggered events No significant heart block, pauses or no clear atrial fibrillation isseen Conclusions: Underlying sinus rhythm with frequent ventricular and supraventricularectopy as detailed above Voice recognition software was used to complete this document, therefore,chronometer adjuster variances may occur. Wally Dela Cruz MD, [facility] 05/15/25 Wally Dela Cruz MD CARDIAC SERVICES [facility] Final Result * Imaging Lumbar/Sacral Selective Nerve Root INJ (TFE) Bilateral (76318) (03/14/2025 8:43 AM CDT) Narrative RAD_DALIAMADELINE_MHB_MHE - 03/14/2025 1:27 PM CDT The images from this study are not interpreted by Radiology. Please refer to the physician's procedure / OR operative note. Joe Perea MD IMG PAIN MGMT PROCEDURES Final R esult RAD_CLARIO_MHB_MHE from Last 3 Months Insurance [facility] MEDICARE [facility] MEDICARE Member Subscriber Plan / Payer ( fective 2010-Present) Name:Paulette Wray Member ID:[id number] Relation to Subscriber:Self Name:Pratimaduran Paulette J Subscriber ID:[id number] Payer ID:[id number] Group ID:Not on file Type:MEDICARE TRADITIONAL Address: [place] [phone] [facility] MEDICARE Care Teams Director Ship Relationship Specialty Start Date End Date Medardo Jaramillo DO [address] [address] PCP - General Internal Medicine 08/28/24 Joe Perea MD [address] [address] Consulting Physician Pain Management 03/13/25
--- OUTSIDE RECORDS SUMMARY | 2025-05-21 14:42 | XMS_ITS | Clinical Summary ---
Author Organization [facility] Oneida Lanza Address [address] [place] [address] Care Team Providers Care Community Service Representative Name Role Phone ClintMedardo Primary Care Provider [phone] Allergies No known active allergies Medications atorvastatin [...] Encounters Date Type Department Care Team Description 05/20/2025 External Device Data STL ABSTRACTION Provider, Abstract 05/07/2025 External Device Data STL ABSTRACTION Provider, Abstract 2025 External Device Data STL ABSTRACTION Provider, Abstract 2025 External Device Data STL ABSTRACTION Provider, Abstract 2025 External Device Data STL ABSTRACTION Provider, Abstract 03/28/2025 Orders Only [facility] Oncology and Hematology [place] [address] [place] [address] Rafy Morales MD 03/26/2025 10:00 AM CDT Office Visit [facility] Oncology and Hematology - [place] [address] [place] [address] Rafy Morales MD Plasma cell disorder (Primary Dx) 03/26/2025 Orders Only [facility] Oncology and Hematology [facility] [address] [place] [address] Rafy Morales MD 03/25/2025 Orders Only [facility] Oncology and Hematology - [place] [address] [place] [address] Rafy Morales MD 03/18/2025 External Device Data [...] Weight 107.8 kg (237 lb 9.6 oz) 025 10:03 AM CDT Height 188 cm (6' 2) 07/04/2022 1:33 PM CDT Body Mass Index 30.51 07/04/2022 1:33 PM CDT Plan of Treatment Upcoming Encounters Date Type Department Care Team (Late st Contact Info) Description 04/01/2026 11:00 AM CDT Office Visit [facility] Oncology and Hematology - [place] [address] [facility] [address] [place] [address] Rafy Morales MD [address] [facility] [address] [place] [address] Health Maintenance Due Date Last [...] WITH DIFFERENTIAL (03/19/2025 5:17 PM CDT) Blood us Rafy Morales MD HEMATOLOGY ORDERABLES Final Res ult * KAPPA/LAMBDA, FREE LIGHT CHAINS (03/19/2025 1:52 PM CDT) Blood us Rafy Morales MD CHEMISTRY ORDERABLES Final Resu lt * IMMUNOGLOBULINS IGG IGA IGM (03/19/2025 1:09 PM CDT) Blood Rafy Morales MD CHEMISTRY ORDERABLES Final Resu lt * PROTEIN ELECTROPHORESIS, CSF (03/19/2025 10:43 AM CDT) Cerebrospinal fluid CEREBROSPINAL FLUID / Unknown Result [facility] us Rafy Morales MD BODY FLUIDS AND STOOLS Final Re sult from Last 3 Months Insurance MEDICARE PART A AND B [facility] [id number] Care Teams Community Service Representative Relationship Specialty Start Date End Date Medardo Jaramillo DO [address] [place] [address] PCP - General Internal Medicine 03/26/25
--- OUTSIDE RECORDS SUMMARY | 2025-05-21 14:42 | XMS_ITS | Encounter Summary ---
Author Organization [facility] Address [address] [facility] [place] [address] Care Team Providers Care Superintendent Seed Mill Name Role Phone Irene Solis MD Unavailable [phone] John Ibrahim DO Primary Care Provider [phone] Encounter Details Date Type Department Care Team (Late st Contact Info) Description 02/20/2024 Lab Requisition [facility] - DermPath Lab [address] [facility] [place] [id number] Jose العراقي MD [address] [place] [address] Social History Tobacco Use Types Packs/Day Years Used Date Smoking Tobacco: Never Smokeless Tobacco: Never Alcohol Use Standard Drinks/Week Comments Yes 0 (1 standard drink = 0.6 oz pur e alcohol) 2-4 glasses of wine per day Sex and Gender Information Value Date Recorded Sex Assigned at Not on file Legal Sex Male 6:29 AM LOAN REPRESENTATIVE Gender Identity Not on file Sexual Orientation Not on file documented as of this encounter Plan of Treatment Not on file documented as of this encounter Visit Diagnoses Not on filedocumented in this encounter Care Teams Superintendent Seed Mill Relationship Specialty Start Date End Date John Ibrahim DO [address] [facility] [address] [facility] [address] [place] [address] PCP - General Internal Medicine 12/25/13 Irene Solis MD Orthopedic Surgery 12/25/13 documented as of this encounter
--- OUTSIDE RECORDS SUMMARY | 2025-05-21 14:42 | XMS_ITS | Encounter Summary ---
Author Organization [facility] Address [address] [place] [address] Care Team Providers Care Assembler Tubing Name Role Phone Medardo Jaramillo DO Primary Care Provider [phone] Encounter Details Date Type Department Care Team (Late st Contact Info) Description 05/20/2025 External Device Data [facility] ABSTRACTION Provider, Abstract NO ADDRESS ON FILE Social History Tobacco Use Types Packs/Day Years Used Date Smoking Tobacco: Never Smokeless Tobacco: Never Sex and Gender Information Value Date Recorded Sex Assigned at Not on file Legal Sex Male 1:44 PM CDT Gender Identity Not on file Sexual Orientation Not on file documented as of this encounter Plan of Treatment Upcoming Encounters Date Type Department Care Team (Late st Contact Info) Description 04/01/2026 11:00 AM CDT Office Visit [facility] Oncology and Hematology - [place] [address] [place] [address] [address] [place] [address] Rafy Morales MD [address] [facility] [address] [place] [address] documented as of this encounter Visit Diagnoses Not on filedocumented in this encounter Care Teams Assembler Tubing Relationship Specialty Start Date End Date Medardo Jaramillo DO [address] [facility] [address] [facility] [address] [place] [phone] PCP - General Internal Medicine 03/26/25 documented as of this encounter
--- OUTSIDE RECORDS SUMMARY | 2025-05-21 14:42 | XMS_ITS | Clinical Summary ---
Author Organization [facility] Address [address] [facility] [place] [address] Care Team Providers Care Title Clerk Automobile Name Role Phone Irene Solis MD Unavailable [phone] John Ibrahim DO Primary Care Provider Source Comments [facility],non-owned Affiliates and Associated Physician Practices is amultiple site organization consisting of ambulatory clinics and hospital sitesin [place], [place], [place] and [place]. This disclosure is being madepursuant to the Care Everywhere program and may not contain all information available regarding this patient. Last updated 18.[facility] Allergies Active Allergy Reactions Criticality Noted Date [...] 10/19/2020 Assessment & Plan (10/19/2020 10:27 AM ELECTRONICS PROCESSING SUPERVISOR): - Chronic - Extensive lesions associated with sun damage and increased risk of skin cancer - Reviewed concerning signs for development of skin cancer - Counseled on importance of daily sun protection, recommend OTC broad spectrum, SPF >30 - Advised monthly self skin exams Ingrown hair 10/19/2020 Assessment & Plan (10/19/2020 10:38 AM ELECTRONICS PROCESSING SUPERVISOR): - L upper cutaneous lip - Topical retinoid samples provided today, apply small amount to area TIW Seborrheic keratosis, inflamed 06/24/2019 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 06/24/2019 Rash and other nonspecific skin eruption 019 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 (10/19/2020 10:28 AM ELECTRONICS PROCESSING SUPERVISOR): - Chronic, stable - Continue gabapentin 600 mg QHS - Refills today Actinic keratosis 04/30/2018 Assessment & Plan (10/19/2020 10:37 AM ELECTRONICS PROCESSING SUPERVISOR): - Counseled on diagnosis, etiology, natural disease [...] 04/30/2018 Assessment & Plan (10/19/2020 10:27 AM ELECTRONICS PROCESSING SUPERVISOR): - Chronic, stable - Continue Keflex 500 [...] on file Legal Sex Male 6:29 AM ELECTRONICS PROCESSING SUPERVISOR Gender Identity Not on file Sexual Orientation [...] patient's age to complete this topic Insurance [facility] MEDICARE MEDICARE Care Teams Title Clerk Automobile Relationship Specialty Start Date End Date John Ibrahim DO [address] [facility] [address] [place] [address] PCP - General Internal Medicine 12/25/13 Irene Solis MD Orthopedic Surgery 12/25/13
--- OUTSIDE RECORDS SUMMARY | 2025-05-21 14:42 | XMS_ITS | Encounter Summary ---
Author Organization [facility] Address [address] [facility] [place] [address] Care Team Providers Care Horse Rider Name Role Phone Irene Solis MD Unavailable [phone] John Ibrahim DO Primary Care Provider [phone] Encounter Details Date Type Department Care Team (Late st Contact Info) Description 01/27/2023 Lab Requisition [facility] Care DermPath Lab [address] [facility] [place] [address] Jose العراقي MD [address] [place] [address] Social History Tobacco Use Types Packs/Day Years Used Date Smoking Tobacco: Never Smokeless Tobacco: Never Alcohol Use Standard Drinks/Week Comments Yes 0 (1 standard drink = 0.6 oz pur e alcohol) 2-4 glasses of wine per day Sex and Gender Information Value Date Recorded Sex Assigned at Not on file Legal Sex Male 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 Gender Identity Not on file Sexual Orientation Not on file documented as of this encounter Plan of Treatment Not on file documented as of this encounter Procedures Procedure Name Priority Date/Time Associated Diagnosis Comments DERMATOPATHOLOGY Routine 01/26/2023 12:0 0 AM CDT documented in this encounter Results * DERMATOPATHOLOGY (01/26/2023 12:00 AM CDT) Case Report Dermatopathology Report Case: [id number] Authorizing Provider: Jose العراقي MD Collected: 01/26/2023 12:00 AM Ordering Location: [facility] DermPath Lab Received: 01/27/2023 12:28 PM [...] posterior shoulder. The specimen consists of a [id number] mm piece of skin. The margin is [...] characteristic determined by the Dermatopathology Laboratory at [facility], directed by Dr. Ed Dietz. These tests need not be, and therefore are not, approved by the [place] Food and Drug Administration. The tests are used for clinical purposes. Billing Codes Specimen Charges Stain Charges 74742 1 1:10 PM CDT DERMATOPATHOLOGY LABORATORY Embedded Images 1:10 PM CDT DERMATOPATHOLOGY LABORATORY Pathology/Cytolog y TISSUE SPECIMEN FROM SKIN / Unknown 01/26/2023 01/27/2023 12:28 PM CDT Jose العراقي MD LAB - PATHOLOGY/CYTOLOGY ORDERAB LES Final Result DERMATOPATHOLOGY LABORATORY [facility] - Department of Dermatology [facility] Specialized Medicine [address] [place] [address], [address] [phone] documented in this encounter Visit Diagnoses Not on filedocumented in this encounter Care Teams Horse Rider Relationship Specialty Start Date End Date John Ibrahim DO [address] [facility] [address] [facility] [address] [place] [address] PCP - General Internal Medicine 12/25/13 Irene Solis MD Orthopedic Surgery 12/25/13 documented as of this encounter
--- OUTSIDE RECORDS SUMMARY | 2025-05-21 14:42 | XMS_ITS | Clinical Summary ---
Author Organization [facility] Address [address] [address] Phone Care Team Providers Care Inspector Penetrant Name Role Phone John Ibrahim DO Primary Care Provider [phone] Social History Tobacco Use Types Packs/Day Years [...] to Health Maintenance Insurance MEDICARE Care Teams Inspector Penetrant Relationship Specialty Start Date End Date John Ibrahim DO [address] [facility] [address] [place] [address] PCP - General Internal Medicine 02/08/18
--- OUTSIDE RECORDS SUMMARY | 2025-05-21 14:42 | XMS_ITS | Patient Health Record ---
Author Organization 1 OF Peter edmond DPM [facility] Address [address] [address] Care Team Providers Care Director Of Securities And Real Estate Name Role Phone John Ibrahim MD Primary Care Provider Merlin Junior Unavailable [phone] Allergies Allergen (clinical drug ingredient) Drug/Non Drug Allergy documented on EMR Reaction Allergy Type Onset Date Status Adhesive Unknown Allergy Active Reason For Referral No Information Medications Medication SIG (Take, Route, Frequency, Duration) Notes Start Date End Date Status Nabumetone 750 MG TAKE 1 TABLET BY THANG TH TWICE DAILY Oral; Duration: 90 Active Metoprolol Succinate ER 50 MG Oral; Duration: 90 Active Atorvastatin Calcium 20 MG Oral; Duration: 90 Active Lisinopril 40 MG Oral; Duration: 90 Active Sildenafil Citrate 100 MG TAKE 1 TABLET BY MOUTH ONCE DAILY NEEDED Oral; Duration: 10 Active Venlafaxine HCl ER 75 MG Oral; Duration: 90 Active traMADol HCl 50 MG TAKE 2 TABLETS BY MO UTH AT BEDTIME NEEDED FOR PAIN. MUST LAST 90 DAYS. Diagnosis Unavailable Oral; Duration: 90 Active Gabapentin 300 MG Oral; Duration: 30 Active Allopurinol 100 MG Oral; Duration: 90 Active Social History Tobacco Use: Social History Observation Description Date Details (start date - stop date) Never Smoker NA - NA Tobacco Use/Smoking Question Answer Notes Are you a nonsmoker Problems Problem Type SNOMED Code ICD Code Onset Dates Problem Status W/U Status Risk Notes Problem Contusion of toe (46673975) Contusion of right great toe without damage to nail, initial encounter (S90.111A) Active confirmed Problem Idiopathic peripheral neuropathy (26785943) Idiopathic peripheral neuropathy (G60.9) Active confirmed Problem Lumbar radiculopathy (857349280) Lumbar radiculopathy (M54.16) Active confirmed Problem Acquired hammer toe of left foot (9653093037015043 ) Hammertoe of left foot (M20.42) Active confirmed Problem Muscle atrophy (45863607) 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 [place], [place] [id number] Marshal Rivera Self - patient is the insured [facility] MEDICARE SUPPLEMENT [address] [place] [address] [id number] Marshal Rivera Self - patient is the insured Medical (General) History Medical History History ICD Code arthritis Gout HTN Neuropathy of feet Surgical History Surgery Date(Month/Year) Cardiac Ablation
--- OUTSIDE RECORDS SUMMARY | 2025-05-21 14:43 | XMS_ITS | Encounter Summary ---
Author Organization [facility] Care Team Providers Care Glass Robot Operator Name Role Phone Medardo Jaramillo DO Primary Care Provider [phone] Jeo Perea MD Unavailable Encounter Details Date Type Department Care Team (Latest Contact Info) Description 03/22/2017 Orders Only [facility] CLINCONV ProviderAnahi MD [address] [place] [address] Social History Tobacco Use Types Packs/Day Years Used Date Smoking Tobacco: Never Alcohol Use Standard Drinks/Week Comments Yes 0 (1 standard drink = 0.6 oz pur e alcohol) Sex and Gender Information Value Date Recorded Sex Assigned at Not on file 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
--- OUTSIDE RECORDS SUMMARY | 2025-05-21 14:43 | XMS_ITS | Patient Health Record ---
Author Organization [facility] Address [address] [place], [place] [address] Care Team Providers Care Ballast Regulator Operator Name Role Phone KirbySTEFANIA bowles Unavailable John Ibrahim Unavailable Unavailable Reason For Referral No Information Plan Of Treatment No Information Insurance Providers Payer Name Payer Address Payer Phone Subscriber Number Group Number Insured Name Patient Relationship to Insured Coverage Start Date Coverage End Date Medicare Part B [place] [address] [place] [address] [id number] PAULETTE MANTILLA Self - patient is the insured [facility] [address] [address] [place], [place] [id number] PAULETTE MANTILLA Self - patient is the insured
--- OUTSIDE RECORDS SUMMARY | 2025-05-21 14:43 | XMS_ITS | Clinical Summary ---
Author Organization [facility] Address [address] [place] [address] Care Team Providers Care Clinical Unit Coordinator Name Role Phone John Ibrahim MD Primary Care Provider [phone] Allergies Active Allergy Reactions Criticality Noted Date [...] (premature ventricular contractions) Nonischemic cardiomyopathy (CMS/HCC [facility]/HCC) Overview (05/05/2021): Nonischemic cardiomyopathy Swelling of [...] age to complete this topic Insurance MEDICARE [facility] Care Teams Clinical Unit Coordinator Relationship Specialty Start Date End Date John Ibrahim MD [address] [place] [address] PCP - General INTERNAL MEDICINE 02/02/21
--- OUTSIDE RECORDS SUMMARY | 2025-05-21 14:43 | XMS_ITS | Encounter Summary ---
Author Organization [facility] Facility Care Team Providers Care Installer Interior Assemblies Name Role Phone Medardo Jaramillo DO Primary Care Provider [phone] Joe Perea MD Unavailable Encounter Details Date Type Department Care Team (Latest Contact Info) Description 06/26/2017 Orders Only [facility] CLINCONV ProviderAnahi MD [address] [place] [address] Social History Tobacco Use Types Packs/Day Years Used Date Smoking Tobacco: Never Alcohol Use Standard Drinks/Week Comments Yes 0 (1 standard drink = 0.6 oz pur e alcohol) Sex and Gender Information Value Date Recorded Sex Assigned at Not on file 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
== END 2025-05-21 14:14 | disposition home or self-care (01) ==
PROVIDERS: PCP Internal Medicine; Visit Provider Internal Medicine
DX: R59.0 Localized enlarged lymph nodes (principal)
CPT/HCPCS: 76882

== ENCOUNTER 2025-06-23 01:01 | Day surgery (SDC) | payer MEDICARE, SELFPAY ==
--- OUTSIDE RECORDS SUMMARY | 2023-03-29 12:02 | XMS_ITS | Continuity of Care Document ---
Author Organization [facility] Address [address] [place] [address] Phone Care Team Providers Care Actuarial Director Name Role Phone Best Valle PT Unavailable [...] Diagnoses Date Provider Providers Copied on Encounter [facility] [facility], [place], [place], [id number], tel:[phone] [place] No Information 3 Tori Jewell. . [facility], [place], [place], [address], tel:[phone] [place] No Information 3 Delиван Jewell. . Referring Provider: Gaston Mckenzie, [address], [place], [address]. tel:[phone] [facility], [place], [place], [address], tel:[phone] [place] No Information 3 Dellamano Best. . Referring Provider: Herbie Ruiz [facility] [address], [place], [address]. tel:[phone] [address], [place], [place], [address], tel:[phone] [place] No Information 3 Dellamano Best. . Referring Provider: Herbie Ruiz [facility] [address], [place], [address]. tel:[phone] [address] [address], [place], [place], [address], tel:[phone] [place] No Information 3 Dellamano Best. . Referring Provider: Herbie Ruiz [facility] [address], [place], [address]. tel:[phone] [address] [address], [place], [place], [address], tel:[phone] [place] No Information 3 Short Josefa. . Referring Provider: Herbie Ruiz [facility] [address], [place], [address]. tel:[phone] Family History Family Member Type Diagnosis Age At Onset No Information Payers Payer name Insurance type Covered alliance party ID Authorluha cosmo(s) Medicare [place] MB [id number] Social History Type Description Quantity Date Captured [...]
[2025-06-20 10:12] VITALS: BMI 30.2
[2025-06-23] VITALS (15 sets, daily range): BP systolic 110–142; BP diastolic 64–90; PULSE 55–86; RESP 9–20; TEMP 36.3; O2SAT 93–98; BMI 29.7
--- OUTSIDE RECORDS SUMMARY | 2025-06-23 01:04 | XMS_ITS | Clinical Summary ---
Author Organization [facility] Address [address] [address] Phone Care Team Providers Care Hotel Front Desk Clerk Name Role Phone John Ibrahim DO Primary [...] to Health Maintenance Insurance MEDICARE Care Teams Hotel Front Desk Clerk Relationship Specialty Start Date End Date John Ibrahim DO [address] [facility] [address] [address] [place] [address] PCP - General Internal Medicine 02/08/18
--- OUTSIDE RECORDS SUMMARY | 2025-06-23 01:04 | XMS_ITS | Patient Health Record ---
Author Organization 1 OF Peter edmond D[facility] Address [address] [place] [address] Care Team Providers Care Edging Machine Catcher Name Role Phone John Ibrahim MD Primary Care Provider Merlin Junior Unavailable [phone] Allergies Allergen (clinical drug ingredient) Drug/Non Drug Allergy documented on EMR Reaction Allergy Type Onset Date Status Adhesive Unknown Allergy Active Reason For Referral No Information Medications Medication SIG (Take, Route, Frequency, Duration) Notes Start Date End Date Status Nabumetone 750 MG Tablet TAKE 1 TABLET B Y MOUTH TWICE DAILY Oral; Duration: 90 Active Metoprolol Succinate ER 50 MG Tablet Extended Release 24 Hour Oral; Duration: 90 Active Atorvastatin Calcium 20 MG Tablet Oral; Duration: 90 Active Lisinopril 40 MG Tablet Oral; Duration: 90 Active Sildenafil Citrate 100 MG Tablet TAKE 1 TABLET BY MOUTH ONCE DAILY NEEDED Oral; Duration: 10 Active Venlafaxine HCl ER 75 MG Capsule Extended Release 24 Hour Oral; Duration: 90 Active traMADol HCl 50 MG Tablet TAKE 2 TABLETS BY MOUTH AT BEDTIME NEEDED FOR PAIN. MUST LAST 90 DAYS. 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 De nies Alcohol use: Social alcohol u se Recreational drugs Patient denie s recreational drug use Problems Problem Type SNOMED Code ICD Code Onset Dates Problem Status W/U Status Risk Notes Problem Contusion of toe (91660560) Contusion of right great toe without damage to nail, initial encounter (S90.111A) Active confirmed Problem Idiopathic peripheral neuropathy (34893783) Idiopathic peripheral neuropathy (G60.9) Active confirmed Problem Lumbar radiculopathy (063542222) Lumbar radiculopathy (M54.16) Active confirmed Problem Acquired hammer toe of left foot (8363557224656126 ) Hammertoe of left foot (M20.42) Active confirmed Problem Muscle atrophy (08551977) 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 [facility] [place], [place] [id number] Marshal Rivera Self - patient is the insured [facility] MEDICARE SUPPLEMENT [address] [place] [address] [id number] Marshal Rivera Self - patient is the insured Medical (General) History Medical History History ICD Code arthritis Gout HTN Neuropathy of feet Surgical History Surgery Date(Month/Year) Cardiac Ablation
--- OUTSIDE RECORDS SUMMARY | 2025-06-23 01:04 | XMS_ITS | Clinical Summary ---
Author Organization [facility] Oneida Lanza Address [address] [place] [address] Care Team Providers Care Back Roll Lathe Operator Name Role Phone ClintMedardo Primary Care Provider [phone] Allergies No known active allergies Medications atorvastatin [...] Encounters Date Type Department Care Team Description 06/17/2025 External Device Data ST[facility] ABSTRACTION Provider, Abstract 06/17/2025 External Device Data ST[facility] ABSTRACTION Provider, Abstract 05/21/2025 External Device Data [facility] ABSTRACTION Provider, Abstract 05/20/2025 External Device Data ST[facility] ABSTRACTION Provider, Abstract 05/07/2025 External Device Data STL ABSTRACTION Provider, Abstract 2025 External Device Data ST[facility] ABSTRACTION Provider, Abstract 2025 External Device Data ST[facility] ABSTRACTION Provider, Abstract 2025 External Device Data STL ABSTRACTION Provider, Abstract 03/28/2025 Orders Only [facility] Oncology and Hematology [facility] [address] [place] [phone] Rafy Morales MD 03/26/2025 10:00 AM CDT Office Visit [facility] Oncology and Hematology [facility] [address] [place] [address] Rafy Morales MD Plasma cell disorder (Primary Dx) 03/26/2025 Orders Only [facility] Oncology and Hematology [facility] [address] [place] [address] Rafy Morales MD 03/25/2025 Orders Only [facility] Oncology and Hematology - [facility] [address] [place] [phone] Rafy Morales MD from Last 3 Months Social History Tobacco [...] Description 04/01/2026 11:00 AM CDT Office Visit [facility] Oncology and Hematology - [place] [address] [facility] [address] [place] [address] Rafy Morales MD [address] [facility] [address] [place] [address] Health Maintenance Due Date Last [...] Discontinued Insurance MEDICARE PART A AND B [facility] [id number] Care Teams Back Roll Lathe Operator Relationship Specialty Start Date End Date Medardo Jaramillo DO [address] [facility] [address] [facility] [address] [place] [address] PCP - General Internal Medicine 03/26/25
--- OUTSIDE RECORDS SUMMARY | 2025-06-23 01:05 | XMS_ITS | Patient Health Record ---
Author Organization [facility] Address [address] [place], [place] [address] Care Team Providers Care Ingredient Specialist Name Role Phone KirbySTEFANIA bowles Unavailable [phone] John Ibrahim Unavailable Unavailable Reason For Referral No Information Plan Of Treatment No Information Insurance Providers Payer Name Payer Address Payer Phone Subscriber Number Group Number Insured Name Patient Relationship to Insured Coverage Start Date Coverage End Date Medicare Part B [place] [address] [facility] [place] [address] [id number] PAULETTE MANTILLA Self - patient is the insured [facility] [address] [address] [place], [place] [id number] PAULETET MANTILLA Self - patient is the insured
--- OUTSIDE RECORDS SUMMARY | 2025-06-23 01:05 | XMS_ITS | Encounter Summary ---
Author Organization [facility] Facility Care Team Providers Care Retail Client Solutions Analyst Name Role Phone Medardo Jaramillo DO Primary Care Provider [phone] Joe Perea MD Unavailable Encounter Details Date Type Department Care Team (Latest Contact Info) Description 06/26/2017 Orders Only [facility] CLINCONV ProviderAnahi MD [address] [place] [address] Social History Tobacco Use Types Packs/Day Years Used Date Smoking Tobacco: Never Alcohol Use Standard Drinks/Week Comments Yes 0 (1 standard drink = 0.6 oz pur e alcohol) Sex and Gender Information Value Date Recorded Sex Assigned at Not on file 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
--- OUTSIDE RECORDS SUMMARY | 2025-06-23 01:05 | XMS_ITS | Encounter Summary ---
Author Organization [facility] Address [address] [place] [address] Care Team Providers Care Computer Network Engineer Name Role Phone Medardo Jaramillo Primary Care Provider [phone] Joe Perea MD Unavailable Encounter Details Date Type Department Care Team (Late st Contact Info) Description 06/05/2025 Results Follow-Up [facility] Medical Group Cardiology at [address] [place] [address] Wally Dela Cruz MD [address] [facility] [address] [place] [address] CTA Heart and Coronary Arteries W Morphology when Performed Social History Tobacco Use Types Packs/Day Years [...] on file 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 Gender Identity Not on file Sexual Orientation Not on file Occupation Industry Job Start Date Job End Date retired Not on file Not on file Not on file documented as of this encounter Plan of Treatment Not on file documented as of this encounter Visit Diagnoses Not on filedocumented in this encounter Care Teams Computer Network Engineer Relationship Specialty Start Date End Date Medardo Jaramillo DO PCP - General Internal Medicine 08/28/24 Joe Perea MD [address] [facility] [address] [place] [address] Consulting Physician Pain Management 03/13/25 documented as of this encounter
--- OUTSIDE RECORDS SUMMARY | 2025-06-23 01:05 | XMS_ITS | Clinical Summary ---
Author Organization [facility] Address [address] [place] [address] Care Team Providers Care Kiln Car Unloader Name Role Phone John Ibrahim MD Primary Care Provider [phone] Allergies Active Allergy Reactions Criticality Noted Date [...] PVC's (premature ventricular contractions) Nonischemic cardiomyopathy (CMS/HCC [facility]/HCC) Overview (05/05/2021): Nonischemic cardiomyopathy Swelling of [...] 75+ series) 2020 COVID-19 Vaccine (3 - 2024-2 6 season) 2025 12/04/2020, 11/09/2020 Pneumococcal Vaccine: 50+ Years Completed [...] age to complete this topic Insurance MEDICARE [facility] Care Teams Kiln Car Unloader Relationship Specialty Start Date End Date John Ibrahim MD [address] [place] [address] PCP - General INTERNAL MEDICINE 02/02/21
--- OUTSIDE RECORDS SUMMARY | 2025-06-23 01:05 | XMS_ITS | Encounter Summary ---
Author Organization [facility] Facility Care Team Providers Care Decal Applier Name Role Phone Medardo Jaramillo DO Primary Care Provider [phone] Joe Perea MD Unavailable Encounter Details Date Type Department Care Team (Latest Contact Info) Description 03/22/2017 Orders Only [facility] CLINCONV ProviderAnahi MD [address] [place] [address] Social History Tobacco Use Types Packs/Day Years Used Date Smoking Tobacco: Never Alcohol Use Standard Drinks/Week Comments Yes 0 (1 standard drink = 0.6 oz pur e alcohol) Sex and Gender Information Value Date Recorded Sex Assigned at Not on file 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
[2025-06-23 07:31] LABS: Hematocrit 43.9 % (42.0-52.0); Hemoglobin 14.0 g/dL (14.0-18.0); Immature Granulocyte Percent A 0.8 % (0-0.5); Lymphocytes Absolute Auto 1.64 K/mm3 (0.9-3.2); Mean Corpuscular HGB Conc 31.9 g/dl (32-36); Mean Corpuscular Hemoglobin 30.8 pg (26-34); Mean Corpuscular Volume 96.5 fl (80-100); Nucleated Red Blood Cells Absolute Auto 0.000 K/mm3 (0.0-0.012); Nucleated Red Blood Cells Perc 0.0 % (0.0-0.2); Platelet Count Result 243 k/mm3 (150-375); Red Blood Count 4.55 M/mm3 (4.6-6.20); White Blood Count 6.2 K/mm3 (4.5-10.0)
[2025-06-23 07:40] LABS: Anion Gap 9 mmol/L (4-12); Blood Urea Nitrogen 41 mg/dL (9-20); Calcium 9.8 mg/dL (8.4-10.2); Carbon Dioxide 23 mmol/L (22-30); Chloride 108 mmol/L (98-107); Estimated CRCL calculation 40 ml/min; Estimated Glomerular Filt Rate 44; Glucose 113 mg/dL (65-110); Potassium 4.5 mmol/L (3.4-5.0); Sodium 140 mmol/L (137-145)
--- NOTE | 2025-06-23 08:27 | WPDHPUPDATE1 ---
History and Physical Update Update Date/Time: 06/23/25 08:27 History and Physical has been reviewed, including an updated exam of the patient. There are NO changes in the patient's condition. Risks, benefits, and alternatives have been discussed and questions answered. Patient agrees to proceed with procedure.
--- NOTE | 2025-06-23 08:27 | WPDMODSED ---
Moderate Sedation Note-Pt Data Patient Data Allergies Allergy/AdvReac Type Severity Reaction Status Date / Time adhesive Allergy Mild Rash Verified 06/23/25 07:24 bupropion Allergy Mild rash Verified 06/23/25 07:24 sertraline Allergy Mild rash Verified 06/23/25 07:24 Home Medications ?Medication ?Instructions ?Recorded ?Confirmed ?Type aspirin 81 mg tablet,delayed 81 mg PO DAILY 08/13/19 06/23/25 History release (Adult Low Dose Aspirin) atorvastatin 20 mg tablet (Lipitor) 20 mg PO DAILY 08/13/19 06/23/25 History metoprolol succinate 50 mg 50 mg PO DAILY 02/14/20 06/23/25 History tablet,extended release 24 hr calcium carbonate (Calcium 600) 600 mg PO 3XW 08/19/20 06/23/25 History glucosamine-chondroitin 250 mg-200 1 tablet PO DAILY 08/19/20 06/23/25 History mg tablet (Osteo Bi-Flex) triamcinolone acetonide 0.1 % 1 applic topical BID #15 grams 09/11/23 06/23/25 Rx topical cream alpha lipoic acid 100 mg capsule 100 mg PO DAILY 12/20/23 06/23/25 History gabapentin 300 mg capsule 300 mg PO .COMPLEX #360 caps 08/05/24 06/23/25 Rx nabumetone 750 mg tablet See Rx Instructions .Route 01/06/25 06/23/25 Rx .COMPLEX #180 tabs allopurinol 100 mg tablet 100 mg PO DAILY 01/29/25 06/23/25 History tramadol 50 mg tablet 100 mg (2 x 50 mg) PO HS PRN pain 04/24/25 06/23/25 Rx #60 tabs empagliflozin 25 mg tablet 25 mg PO DAILY 04/28/25 06/23/25 History (Jardiance) Sedation/Anesthesia: No previous sedation/anesthesia problems (including family history). [facility], [facility] Past Medical History Medical History BMI 34.0-34.9,adult Ventral hernia without obstruction or gangrene Swelling of toe of left foot Other hyperlipidemia History of colonic polyps Gastro-esophageal reflux disease without esophagitis Essential (primary) hypertension Encounter for screening for malignant neoplasm of prostate Cough Cervicalgia Rupture of left Achilles tendon Pes planus of right foot Acquired claw toe of left foot Radiculopathy due to disorder of intervertebral disc of lumbar spine Peripheral neuropathy Colon polyp JUAN (obstructive sleep apnea) Neuropathy Alcohol abuse with alcohol-induced anxiety disorder Cardiac arrhythmia Frequent PVCs and PACs Chronic back pain Hypertension Gout Congestive heart failure Dry eyes Depression Anxiety PVC (premature ventricular contraction) Hyperlipidemia Hypertension Excessive anger Sleep apnea, unspecified Surgical History Surgical History S/P TURP H/O foot surgery Left foot hammertoe History of arthroplasty of right knee H/O bilateral cataract extraction History of joint replacement right knee H/O toe surgery (~08/2019) Family History Family History Sibling Family history of arthritis Father Family history of congestive heart failure, Onset Age: 86 Patient's father is Mother Patient's mother is Heart disease Family history of congestive heart failure Social History Social History Social History: The patient is a lifelong nonsmoker. He is and lives with his . She is the durable power personal injury attorney for healthcare. He has 2 biological children and 1 stepchild. 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 The patient desires to be a full code. The patient states that he socially drinks wine. 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0 Hct 43.9 MCV 96.5 MCH 30.8 MCHC 31.9 L RDW 13.0 Plt Count 243 MPV 9.4 Immature Gran % (Auto) 0.8 H Neut % (Auto) 53.6 Lymph % (Auto) 26.3 Dewitt % (Auto) 13.2 H Eos % (Auto) 5.3 H Baso % (Auto) 0.8 Lymph # (Auto) 1.64 Dewitt # (Auto) 0.8 H Eos # (Auto) 0.3 Baso # (Auto) 0.1 Abs Immat Gran (auto) 0.05 H Absolute Neuts (auto) 3.3 Absolute Nucleated RBC 0.000 Nucleated RBC % 0.0 Sodium 140 Potassium 4.5 Chloride 108 H Carbon Dioxide 23 Anion Gap 9 BUN 41 H Creatinine 1.54 H Estim Creat Clear Calc 40 Estimated GFR 44 L Glucose 113 H Calcium 9.8 ASA Classification/Sedation ASA Classification/Sedation ASA Class: III Emergent: No Risks: Risks, benefits and alternatives explained and patient/family accepted plan for sedation. Patient re-evaluated immediately prior to sedation.
--- NOTE | 2025-06-23 09:38 | WPDCARDPROC ---
Cardiac Cath Procedure Note Date of procedure:: 06/23/25 Performing physician:: CATHETERIZATION LABORATORY REPORT Procedure Date: 06/23/2025 Referring Physician: Dr. Dela Cruz Anesthesia: Versed and Fentanyl were ordered and given in my presence at 0856, procedure ended at 0933. Supervision of nurse, Sonja Ambrose monitored moderate sedation with 2mg Versed and 200mcg Fentanyl was provided for 37 minutes. Pre-op Diagnosis: Abnormal coronary CTA Post-op Diagnosis: Abnormal coronary CTA Procedure(s): Left heart catheterization with coronary angiography Access Site: Right radial artery Brief History and Clinical Indications: 80-year-old man with chronic systolic cardiomyopathy, significant PVC burden status post ablation, and possible anginal equivalent symptoms who underwent a coronary CTA found to have blooming artifact in the LAD region for which cardiac catheterization was recommended to define his coronary anatomy. All risks, benefits and alternatives to left heart catheterization with or without percutaneous coronary intervention was discussed at length with the patient. Risk of complications including but not limited to bleeding, infection, arrhythmia, stroke, worsening kidney function, blood loss, groin hematoma, limb loss, emergency coronary artery bypass grafting, and even were discussed with the patient and all questions were answered. The patient understood and wished to proceed. Time out called, patient name, date of , medical record number, allergies, procedure performed, identify Medical Logistics Specialist, patient and staff member concurred with accurate data, procedure carried on. Findings: LEFT HEART CATHETERIZATION FINDINGS: 1. Left main: The left main coronary artery is widely patent without any significant obstructive disease. 2. Left anterior descending: The LAD has 20-30% severely calcified stenosis in its proximal body followed by diffuse severely calcified 30-40% stenosis in its midbody. The remainder of the LAD has luminal irregularities. The diagonal branches have luminal irregularities. 3. Left circumflex: The left circumflex artery is a large dominant vessel that gives off 3 OM branches. The proximal left circumflex has 10-20% stenosis. The distal left circumflex between the 2nd and 3rd OM branches has 40-50% stenosis. The OM branches have luminal irregularities. The left PDA and PL branches are small caliber vessels with no angiographic high-grade stenosis. 4. Right coronary artery: The RCA is a nondominant vessel with no high-grade angiographic stenosis. 5. Left ventricle: A. End-diastolic pressure 16 mmHg. B. LV gram deferred. C. No significant gradient across aortic valve on catheter pullback. 6. Opening AO pressure 102/64 and closing AO pressure 129/79 Description of Procedure: Informed consent signed and placed in the chart. Patient transferred to veterinary laboratory technician room. Prepped and draped in usual sterile fashion. 2% lidocaine injected subcutaneously in right wrist area. 22-gauge venipuncture catheter used to access the right radial artery with the Seldinger technique. 6-FR slender sheath placed in right radial artery. Nitroglycerin 200mcg, Verapamil 2.5mg, and Heparin 5000U was given intraarterial through the sheath. J wire advanced under fluoroscopy however given significant tortuosity in the subclavian artery, the 5F Ultra diagnostic catheter was unable to access the ascending aorta. The 5F Ultra diagnostic catheter was switched out for a JR4 diagnostic catheter which was able to be maneuvered into the aortic root where it was used to cross the aortic valve into the left ventricle. LVEDP and pullback gradients were recorded. The JR4 diagnostic catheter was unable to engage the Right Coronary Artery and was switched out for a 5F AR mod diagnostic catheter which not selectively assessed the right coronary artery and given that is non dominant no angiographic high-grade stenosis, no further attempts were made to engage the right coronary artery. A 5F JL 3.5 diagnostic catheter was unable to engaged the left main coronary artery and given difficulties torquing the catheter given the tortuosity in the subclavian artery, the catheter was switched out for a 6F EBU 3.5 guide catheter which was able to engage the left main coronary artery however was deep seated. Multiple orthogonal angiogram obtained and reviewed. Hemostasis was achieved by application of TR band. Assessment: Moderate coronary artery disease. Post Operative Condition: Stable No significant blood loss Disposition: Home Plan: The above findings were discussed with the referring physician. Continue aggressive medical therapy and risk factor modification. Would advise that if he were to need cardiac catheterization in the future, a femoral approach may be more feasible. Miguel A Philip Interventional Cardiology
[2025-06-23] MEDS: ACETAMINOPHEN 325 MG TABLET 650 MG PO (10:50)
[2025-06-23] MEDS: SODIUM CHLORIDE 0.9% IV 200 ML IV CONT (10:53)
== END 2025-06-23 13:40 | disposition home or self-care (01) ==
PROVIDERS: PCP Internal Medicine; Visit Provider Internal Medicine
PROC: 4A023N7 Measurement of Cardiac Sampling and Pressure, Left Heart, Percutaneous Approach (ICD-10-PCS; CPT 93452; principal; 2025-06-23 08:30)
DX: I25.10 Atherosclerotic heart disease of native coronary artery without angina pectoris (principal); I11.0 Hypertensive heart disease with heart failure; I50.9 Heart failure, unspecified; E78.49 Other hyperlipidemia; K21.9 Gastro-esophageal reflux disease without esophagitis; G47.33 Obstructive sleep apnea (adult) (pediatric); I49.3 Ventricular premature depolarization; I49.9 Cardiac arrhythmia, unspecified; F32.A Depression, unspecified; F41.9 Anxiety disorder, unspecified; M51.16 Intervertebral disc disorders with radiculopathy, lumbar region; G62.9 Polyneuropathy, unspecified; F10.180 Alcohol abuse with alcohol-induced anxiety disorder; G89.29 Other chronic pain; M54.9 Dorsalgia, unspecified; Z79.82 Long term (current) use of aspirin; Z79.891 Long term (current) use of opiate analgesic; Z79.84 Long term (current) use of oral hypoglycemic drugs; Z98.890 Other specified postprocedural states; Z86.0100 Personal history of colon polyps, unspecified; Z82.49 Family history of ischemic heart disease and other diseases of the circulatory system
CPT/HCPCS: 36415; 80048; 85025; 93458; A9270; C1769; C1887; C1894; J1644; J2003; J2250; J2305; J3010; J7040

== ENCOUNTER 2025-08-08 11:13 | Outpatient (CLI) | payer MEDICARE, SELFPAY ==
--- OUTSIDE RECORDS SUMMARY | 2025-08-08 11:55 | XMS_ITS | Encounter Summary ---
Author Organization [facility] Address [address] [place] [address] Care Team Providers Care Buyer Tobacco Head Name Role Phone Irene Solis MD Unavailable [phone] John Ibrahim DO Primary Care Provider [phone] Encounter Details Date Type Department Care Team (Late st Contact Info) Description 02/20/2024 Lab Requisition 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
--- OUTSIDE RECORDS SUMMARY | 2025-08-08 11:55 | XMS_ITS | Encounter Summary ---
Author Organization [facility] Address [address] [facility] [place] [address] Care Team Providers Care Senior Electrical Designer Name Role Phone Irene Solis MD Unavailable John Ibrahim DO Primary Care Provider [phone] Reason for Visit * Reason Onset Date Comments General 05/14/2018 Encounter Details Date Type Department Care Team (Late st Contact Info) Description 05/14/2018 Telephone [facility] [address] [place] [address] Kiersten Mary PA [address] [facility] [address] [place] [id number] General Social History Tobacco Use Types Packs/Day Years Used Date Smoking Tobacco: Never Smokeless Tobacco: Never Alcohol Use Standard Drinks/Week Comments Yes 0 (1 standard drink = 0.6 oz pur e alcohol) 2-4 glasses of wine per day Sex and Gender Information Value Date Recorded Sex Assigned at Not on file 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
--- OUTSIDE RECORDS SUMMARY | 2025-08-08 11:55 | XMS_ITS | Encounter Summary ---
Author Organization [facility] Address [address] [place] [address] Care Team Providers Care Chemist Internship Name Role Phone Irene Solis MD Unavailable [phone] John Ibrahim DO Primary Care Provider [phone] Encounter Details Date Type Department Care Team (Late st Contact Info) Description 01/27/[address] 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 Gender Identity Not on file Sexual Orientation Not on file documented as of this encounter Plan of Treatment Not on file documented as of this encounter Procedures Procedure Name Priority Date/Time Associated Diagnosis Comments DERMATOPATHOLOGY Routine 01/26/2023 12:0 0 AM CDT documented in this encounter Results * DERMATOPATHOLOGY (01/26/2023 12:00 AM CDT) Case Report Dermatopathology Report Case: [id number] Authorizing Provider: Jose العراقي MD Collected: 01/26/2023 12:00 AM Ordering Location: [facility] DermPath Lab Received: 01/27/2023 12:28 PM [...] posterior shoulder. The specimen consists of a 13p98y0 mm piece of skin. The margin is [...] characteristic determined by the Dermatopathology Laboratory at [facility], directed by Dr. Ed Dietz. These tests need not be, and therefore are not, approved by the [place] Food and Drug Administration. The tests are used for clinical purposes. Billing Codes Specimen Charges Stain Charges 24707 1 1:10 PM CDT DERMATOPATHOLOGY LABORATORY Embedded Images 1:10 PM CDT DERMATOPATHOLOGY LABORATORY Pathology/Cytolog y TISSUE SPECIMEN FROM SKIN / Unknown 01/26/2023 01/27/2023 12:28 PM CDT Jose العراقي MD LAB - PATHOLOGY/CYTOLOGY ORDERAB LES Final Result DERMATOPATHOLOGY LABORATORY [facility] - Department of Dermatology [facility] [address] [place] [address], [address] [phone] documented in this encounter Visit Diagnoses Not on filedocumented in this encounter Care Teams Chemist Internship Relationship Specialty Start Date End Date John Ibrahim DO [address] [facility] [address] [facility] [address] [place] [address] PCP - General Internal Medicine 12/25/13 Irene Solis MD Orthopedic Surgery 12/25/13 documented as of this encounter
--- OUTSIDE RECORDS SUMMARY | 2025-08-08 11:55 | XMS_ITS | Clinical Summary ---
Author Organization [facility] Address [address] [place] [address] Care Team Providers Care French Comber Name Role Phone Irene Solis MD Unavailable [phone] John Ibrahim DO Primary Care Provider [phone] Source Comments [facility],non-owned Affiliates and Associated Physician Practices is amultiple site organization consisting of ambulatory clinics and hospital sitesin [place], [place], [place] and [place]. This disclosure is being madepursuant to the Care Everywhere program and may not contain all information available regarding this patient. Last updated 18.[facility] Allergies Active Allergy Reactions Criticality Noted [...] 10/19/2020 Assessment & Plan (10/19/2020 10:27 AM MACHINE OPERATOR HELPER): - Chronic - Extensive lesions associated with sun damage and increased risk of skin cancer - Reviewed concerning signs for development of skin cancer - Counseled on importance of daily sun protection, recommend OTC broad spectrum, SPF >30 - Advised monthly self skin exams Ingrown hair 10/19/2020 Assessment & Plan (10/19/2020 10:38 AM MACHINE OPERATOR HELPER): - L upper cutaneous lip - Topical retinoid samples provided today, apply small amount to area TIW Seborrheic keratosis, inflamed 06/24/2019 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 06/24/2019 Rash and other nonspecific skin eruption 019 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 (10/19/2020 10:28 AM MACHINE OPERATOR HELPER): - Chronic, stable - Continue gabapentin 600 mg QHS - Refills today Actinic keratosis 04/30/2018 Assessment & Plan (10/19/2020 10:37 AM MACHINE OPERATOR HELPER): - Counseled on diagnosis, etiology, natural disease [...] 04/30/2018 Assessment & Plan (10/19/2020 10:27 AM MACHINE OPERATOR HELPER): - Chronic, stable - Continue Keflex 500 [...] on file Legal Sex Male 6:29 AM MACHINE OPERATOR HELPER Gender Identity Not on file Sexual [...] (2 of 2 - PCV) 06/27/2020 06/27/2019 DEPRESSION SCREENING 10/02/2024 COVID-19 VACCINE (1 - 2023-2 5 season) 2025 INFLUENZA VACCINE (#1) 2025 0, 06/27/2019 ZOSTER [...] patient's age to complete this topic Insurance [facility] MEDICARE MEDICARE Care Teams French Comber Relationship Specialty Start Date End Date John Ibrahim DO [address] [facility] [address] [place] [address] PCP - General Internal Medicine 12/25/13 Irene Solis MD Orthopedic Surgery 12/25/13
--- OUTSIDE RECORDS SUMMARY | 2025-08-08 11:55 | XMS_ITS | Encounter Summary ---
Author Organization [facility] Address [address] [facility] [place] [address] Care Team Providers Care Tow Car Driver Name Role Phone Irene Solis MD Unavailable John Ibrahim DO Primary Care Provider [phone] Encounter Details Date Type Department Care Team (Late st Contact Info) Description 02/20/[address] 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 - Received: 02/20/2024 10:17 AM [...] by the Dermatopathology Laboratory at [facility], directed by Dr. Ed Dietz. These tests need not be, and therefore are not, approved by the [place] Food and Drug Administration. The tests are used for clinical purposes. Billing Codes Specimen Charges Stain Charges 11216 1 12031 34590 1 1 11:01 AM CDT DERMATOPATHOLOGY LABORATORY Embedded Images 11:01 AM CDT DERMATOPATHOLOGY LABORATORY Pathology/Cytolog y TISSUE SPECIMEN FROM SKIN / Unknown 02/19/2024 02/20/2024 10:17 AM CDT Jose العراقي MD LAB - PATHOLOGY/CYTOLOGY ORDERAB LES Final Result DERMATOPATHOLOGY LABORATORY [facility] - Department of Dermatology [address], [address] [phone] documented in this encounter Visit Diagnoses Not on filedocumented in this encounter Care Teams Tow Car Driver Relationship Specialty Start Date End Date John Ibrahim DO [address] [facility] [address] [place] [address] PCP - General Internal Medicine 12/25/13 Irene Solis MD Orthopedic Surgery 12/25/13 documented as of this encounter
--- OUTSIDE RECORDS SUMMARY | 2025-08-08 11:55 | XMS_ITS | Clinical Summary ---
Author Organization [facility] Address [address] [place] [address] Care Team Providers Care Jail Officer Name Role Phone Medardo Jaramillo Primary Care Provider [phone] Joe Perea MD Unavailable Allergies Active Allergy Reactions Criticality Noted Date Comments Adhesive Tape-Silicones Swelling Medium Sertraline Rash Medium 01/06/2025 Zoloft Medications traMADol (ULTRAM) 50 mg tablet take 1 tablet (50MG) by oral route every 6 hours as needed 0 09/12/20 12 Active triamcinolone (KENALOG) 0.025 % ointment apply by topical route 2 times every day a thin layer to the affected area(s) 0 0 12/05/19 14 Active aspirin 81 mg tablet take 1 tablet by oral route every day 0 0 07/05/20 16 Active nabumetone (RELAFEN) 750 mg tablet take 1 tablet by oral route 2 times every day 0 0 07/05/20 16 Active diphenhydrAMINE (diphenhydrAMINE) 25 mg capsule Take 1 tablet/capsule (25 mg total) by mouth every 6 (six) hours as needed for itching Active venlafaxine XR (EFFEXOR-XR) 75 mg 24 hr capsule Take 1 capsule (75 mg total) by mouth daily 10/25/19 23 Active gabapentin (NEURONTIN) 300 mg capsuleIndications :Neuropathic Pain Take 1 capsule (300 mg total) by mouth 2 (two) times a day for 90 days, THEN 2 capsules (600 mg total) nightly. 120 capsule 3 11/28/19 24 Active Additional Information Patient taking differently: 2 capsules (600 mg total) nightly., Reported on 07/21/2025 allopurinoL (ZYLOPRIM) 100 mg tablet Take 1 tablet (100 mg total) by mouth daily 11/08/19 25 Active metoprolol XL (TOPROL-XL) 50 mg extended release tablet Take 1 tablet (50 mg total) by mouth daily 90 tablet 3 01/21/20 25 Active furosemide (LASIX) 20 mg tablet Take 1 tablet (20 mg total) by mouth daily Active empagliflozin (Jardiance) 10 mg tabletIndications: Dilated cardiomyopathy (HCC) TAKE 1 TABLET(10 MG) BY MOUTH DAILY 30 tablet 11 05/26/20 25 Active atorvastatin (LIPITOR) 20 mg tablet TAKE 1 TABLET DAILY 90 tablet 2 06/27/20 25 Active Active Problems Problem Noted Date Diagnosed [...] hypofunction Assessment & Plan (11/16/2022 11:48 AM SUPERVISOR PIG MACHINE): Hypogonadism for few years. on small dose [...] basis. Assessment & Plan (10/20/2021 10:00 AM SUPERVISOR PIG MACHINE): Hypogonadism for few years. on small dose [...] basis. Assessment & Plan (10/14/2020 10:19 AM SUPERVISOR PIG MACHINE): Hypogonadism for few years. on small dose [...] benign Assessment & Plan (11/16/2022 11:39 AM SUPERVISOR PIG MACHINE): Controlled with medication - low salt diet - continue medication per PCP Assessment & Plan (04/20/2022 10:28 AM CDT): Controlled with medication - low salt diet - continue medication per PCP Assessment & Plan (10/20/2021 10:01 AM SUPERVISOR PIG MACHINE): Controlled with medication - low salt diet - continue medication per PCP Assessment & Plan (04/14/2021 10:36 AM CDT): Controlled with medication - low salt diet - continue medication per PCP Assessment & Plan (10/14/2020 10:19 AM SUPERVISOR PIG MACHINE): Controlled with medication - low salt diet [...] Encounters Date Type Department Care Team Description 07/24/2025 Telephone [facility] Cardiology [address] [place] [phone] Renee Matta NP Med Management 07/22/2025 Orders Only [facility] Medical [facility] Cardiology [address] [place] [address] ProviderAnahi MD 07/21/2025 10:30 AM CDT Office Visit [facility] Medical [facility] Cardiology [address] [place] [address] Renee Matta NP Coronary artery disease involving kanatak coronary artery of kanatak heart without angina pectoris (Primary Dx); Status post coronary angiogram; Nonischemic cardiomyopathy (HCC); Hyperhidrosis 06/05/2025 8:55 AM CDT - 06/05/2025 11:59 PM CDT Hospital Encounter [facility] [address] [address] Joe Perea MD 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); Neural foraminal stenosis of lumbar spine; Facet arthropathy, lumbar; Greater trochanteric bursitis of both hips Discharge Disposition: Discharge to home or self care 06/05/2025 Telephone [facility] Medical [facility] Cardiology at [address] [place] [phone] Wally Dela Cruz MD 06/05/2025 Results Follow-Up [facility] Cardiology at [address] [place] [phone] Wally Dela Cruz MD CTA Heart and Coronary Arteries W Morphology when Performed 06/04/2025 10:04 AM CDT - 06/04/2025 11:59 PM CDT Hospital Encounter [facility] [address] [place] [id number] Nonischemic cardiomyopathy (HCC); PVC's (premature ventricular contractions); SOB (shortness of breath); GARCIA (dyspnea on exertion); Coronary artery disease involving kanatak coronary artery of kanatak heart without angina pectoris Discharge Disposition: Discharge to home or self care 05/14/2025 9:03 AM CDT - 05/14/2025 11:59 PM CDT Hospital Encounter [facility] [address] [address] Joe Perea MD Greater trochanteric bursitis of [...] file Legal Sex Male 2:41 AM SUPERVISOR PIG MACHINE Gender Identity Not on file Sexual Orientation Not on file Occupation Industry Job Start Date Job End Date retired Not on file Not on file Not on file Last Filed Vital Signs Vital Sign Reading Time Taken Comments Blood Pressure 120/64 07/21/2025 10:22 AM CDT Pulse 82 07/21/2025 10:22 AM CDT Temperature 35.5 C (95.9 F) 06/05/2025 9:00 AM CDT Respiratory Rate 16 07/21/2025 10:22 AM CDT Oxygen Saturation 99% 07/21/2025 10:22 AM CDT Inhaled Oxygen Concentration - - Weight 108.9 kg (240 lb) 07/21/2025 10:22 AM CDT Height 188 cm (6' 2) 07/21/2025 10:22 AM CDT Body Mass Index 30.81 07/21/2025 10:22 AM CDT Plan of Treatment Health Maintenance Due Date Last Done Comments Depression Screening 1945 Fall Risk Assessment 1945 DTaP/Tdap/Td Vaccine (1 - Tdap) 1956 Hepatitis B Screening 1963 Well Visit 65+ 2010 Covid-19 Vaccine (5 - 2024-11 6 season) 2025 01/12/2022, 09/09/2021, 12/04/2020, Additional history exists Influenza Vaccine (#1) 2025 4, 06/02/2021, 06/01/2020, Additional history exists Pneumococcal vaccine 65+ Completed 019, 06/25/2018, 06/25/2018 Zoster Vaccine Completed 08/05/2020, 06/01/2020 Medical Devices Implanted Type Area Professional Driver Device Identifier Shelf Expiration Date Model / Serial / Lot Neurostimulator Bladder-05/04/2021 Implanted: 021 by Unknown, Notinfile (Quantity not on file) Neurostimulator Pelvis Medtronic Neuro [id number] / / Neurostimulator Lead-05/04/2021 Implanted: 021 by Unknown, Notinfile (Quantity not on file) Neurostimulator Pelvis Medtronic Neuro [id number] / / Procedures Procedure Name Priority Date/Time Associated Diagnosis Comments COMPREHENSIVE METABOLIC PANEL Routine 06/23/2025 1:[address] HEART MORPHOLOGY AND CORONARY ARTERIES W CONTRAST Schedule Routine, Read Routine (OP Routine) 06/04/2025 11:13 AM CDT Nonischemic cardiomyopathy (HCC) PVC's (premature ventricular contractions) SOB (shortness of breath) GARCIA (dyspnea on exertion) Coronary artery disease involving kanatak coronary artery of kanatak heart without angina pectoris POCT CREATININE - DEVICE Routine 06/04/2025 10:52 AM CDT from Last 3 Months Results * Comprehensive metabolic panel (06/23/2025 1:01 PM CDT) Blood us Historical Provider LAB BLOOD ORDERABLES Shahrzad l Result * CTA Heart and Coronary Arteries W Morphology when Performed (06/04/2025 11:13 AM CDT) Anatomical Region Laterality Modality Chest N/A Computed Tomogra phy 06/04/2025 11:3 6 AM CDT Impressions 06/04/2025 1:37 PM CDT Nondiagnostic study due to high calcium score resulting in extensive blooming artifact in the center descending and circumflex coronary arteries Dictated by: Asa Ferrara MD The radiology attending physician has personally reviewed this study, and had reviewed and/or edited this written report and agrees with it. Electronically signed by: Sigifredo Mcgovern M.D. Narrative 06/04/2025 1:37 PM CDT EXAMINATION: CORONARY CT ANGIOGRAM HISTORY: Coronary artery disease TECHNIQUE: CT angiography of the coronary arteries was performed after the administration of 96 mL of Optiray 350. Images were also obtained precontrast for the purposes of calcium scoring. The patient's heart rate and blood pressure at the time of the examination were 74 beats per minute and 140/91 mmHg. Images were transferred to a 3D workstation for additional post-processing. FINDINGS: The coronary arteries are left system dominant. Right coronary system: Diminutive without significant disease Left coronary system: Minimal calcified disease at the distal left main. Extensive calcium in the mid left anterior descending and circumflex coronary artery with extensive blooming artifact precludes luminal evaluation for coronary artery disease. The calculated calcium score is 3310. Other findings: Mild atelectasis in the lung bases. No lymphadenopathy. Procedure Note Sigifredo Mcgovern MD - 06/04/2025 EXAMINATION: CORONARY CT ANGIOGRAM HISTORY: Coronary artery disease TECHNIQUE: CT angiography of the coronary arteries was performed after the administration of 96 mL of Optiray 350. Images were also obtained precontrast for the purposes of calcium scoring. The patient's heart rate and blood pressure at the time of the examination were 74 beats per minute and 140/91 mmHg. Images were transferred to a 3D workstation for additional post-processing. FINDINGS: The coronary arteries are left system dominant. Right coronary system: Diminutive without significant disease Left coronary system: Minimal calcified disease at the distal left main. Extensive calcium in the mid left anterior descending and circumflex coronary artery with extensive blooming artifact precludes luminal evaluation for coronary artery disease. The calculated calcium score is 3310. Other findings: Mild atelectasis in the lung bases. No lymphadenopathy. IMPRESSION: Nondiagnostic study due to high calcium score resulting in extensive blooming artifact in the center descending and circumflex coronary arteries Dictated by: Asa Ferrara MD The radiology attending physician has personally reviewed this study, and had reviewed and/or edited this written report and agrees with it. Electronically signed by: Sigifredo Mcgovern M.D. Wally Dela Cruz MD IMG CT PROCEDURES Final R esult * (ABNORMAL) POCT creatinine (06/04/2025 10:52 AM CDT) Creatinine POC 1.4(H) 0.8 - 1.3 mg/dL Blood 06/04/2025 10:5 2 AM CDT 06/04/2025 10:52 AM CDT Medardo Jaramillo DO LAB POCT ORDERABLES - DEVICE Fin al Result [facility] [place] [address] from Last 3 Months Insurance [facility] MEDICARE [facility] MEDICARE Care Teams Jail Officer Relationship Specialty Start Date End Date Medardo Jaramillo DO PCP - General Internal Medicine 08/28/24 Joe Perea MD [address] [facility] [place] [address] Consulting Physician Pain Management 03/13/25
--- OUTSIDE RECORDS SUMMARY | 2025-08-08 11:56 | XMS_ITS | Encounter Summary ---
Author Organization [facility] Facility Care Team Providers Care Tap Puller Name Role Phone Medardo Jaramillo DO Primary Care Provider [phone] Joe Perea MD Unavailable Encounter Details Date Type Department Care Team (Latest Contact Info) Description 06/26/2017 Orders Only [facility]CON[facility] ProviderAnahi MD [address] [place] [address] Social History Tobacco Use Types Packs/Day Years Used Date Smoking Tobacco: Never Alcohol Use Standard Drinks/Week Comments Yes 0 (1 standard drink = 0.6 oz pur e alcohol) Sex and Gender Information Value Date Recorded Sex Assigned at Not on file Legal Sex Male 2:41 AM 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
--- OUTSIDE RECORDS SUMMARY | 2025-08-08 11:56 | XMS_ITS | Clinical Summary ---
Author Organization [facility] Address [address] [place] [address] Care Team Providers Care Director Of Fundraising Name Role Phone ClintMedardo Primary Care Provider [phone] Allergies No known active allergies Medications atorvastatin [...] Encounters Date Type Department Care Team Description 07/30/2025 External Device Data [facility] ABSTRACTION Provider, Abstract 07/30/2025 External Device Data [facility] ABSTRACTION Provider, Abstract 07/23/2025 External Device Data [facility] ABSTRACTION Provider, Abstract 07/22/2025 External Device Data [facility] ABSTRACTION Provider, Abstract [...] Description 04/01/2026 11:00 AM CDT Office Visit [facility] - [place] [address] [place] [address] Rafy Morales MD [address] [facility] [address] [place] [address] Health Maintenance Due Date Last [...] Discontinued Insurance MEDICARE PART A AND [facility] [id number] Care Teams Director Of Fundraising Relationship Specialty Start Date End Date Medardo Jaramillo DO [address] [facility] [address] [place] [phone] PCP - General Internal Medicine 03/26/25
--- OUTSIDE RECORDS SUMMARY | 2025-08-08 11:56 | XMS_ITS | Patient Health Record ---
Author Organization [facility] Address [address] [place] [address] Care Team Providers Care Welder Gas Automatic Name Role Phone John Ibrahim MD Primary Care Provider Merlin Junior Unavailable [phone] Allergies Allergen (clinical drug ingredient) Drug/Non Drug [...] Status Risk Notes Problem Contusion of toe (78570748) Contusion of right great toe without damage to nail, initial encounter (S90.111A) Active confirmed Problem Idiopathic peripheral neuropathy (31080543) Idiopathic peripheral neuropathy (G60.9) Active confirmed Problem Lumbar radiculopathy (024842087) Lumbar radiculopathy (M54.16) Active confirmed Problem Acquired hammer toe of left foot (6829672458363284 ) Hammertoe of left foot (M20.42) Active confirmed Problem Muscle atrophy (55624225) 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 [facility] [place] [id number] Marshal Rivera Self - patient is the insured [facility] MEDICARE SUPPLEMENT [address] [place] [address] [id number] Marshal Rivera Self - patient is the insured Medical (General) History Medical History History ICD Code arthritis Gout HTN Neuropathy of feet Surgical History Surgery Date(Month/Year) Cardiac Ablation
--- OUTSIDE RECORDS SUMMARY | 2025-08-08 11:56 | XMS_ITS | Clinical Summary ---
Author Organization [facility] Address [address] [place] [address] Care Team Providers Care Farmworker Cranberry Name Role Phone John Ibrahim MD Primary Care Provider [phone] Allergies Active Allergy Reactions Criticality Noted Date [...] (05/05/2021): PVC's (premature ventricular contractions) Nonischemic cardiomyopathy 12/29/2015 Overview (05/05/2021): Nonischemic cardiomyopathy Swelling of extremity 12/04/2015 Perineal pain in male 07/28/2015 Primary localized osteoarthrosis, lower leg 05/0 10/2014 Cervicalgia 11/19/2014 Old bucket handle tear of [...] Done Comments DTaP, Tdap and Td Vaccines (1 - Tdap) 1964 Annual Medicare Wellness Visit 2010 RSV Immunization or 60+ Years (1 - 1-dose 75+ series) 2020 COVID-19 Vaccine ( season) 2025 12/04/2020, 11/09/2020 Influenza Adult (#1) 2025 06/01/2020, 06/27/2019, 06/25/2018, Additional history exists Pneumococcal Vaccine: 50+ Years Completed 06/27/2019, 06/25/2018 Zoster Vaccines Completed 08/05/2020, 06/01/2020 Hepatitis A Vaccines Aged Out No long er eligible based on patient's age to complete this topic Meningococcal B Vaccine Aged Out No l onger eligible based on patient's age to complete this topic Meningococcal Vaccine Aged Out No lynn mraita eligible based on patient's age to complete this topic RSV Immunizations Under 20 Months Aged Out No longer eligible based on patient's age to complete this topic Insurance MEDICARE [facility] Care Teams Farmworker Cranberry Relationship Specialty Start Date End Date John Ibrahim MD [address] [place] [address] [place] [address] PCP - General INTERNAL MEDICINE 02/02/21
--- OUTSIDE RECORDS SUMMARY | 2025-08-08 11:56 | XMS_ITS | Patient Health Record ---
Author Organization [facility] Address [address] [place], [place] [address] Care Team Providers Care Kid Club Attendant Name Role Phone STEFANIA Blake Unavailable [phone] John Ibrahim Unavailable Unavailable Reason For Referral No Information Social History Social History Additional Details Category Social Info Options Details Migrated Social History Migrated Social History Alcohol intake : , History of tobacco use : , Smoking Status : Never smoked Plan Of Treatment No Information Insurance Providers Payer Name Payer Address Payer Phone Subscriber Number Group Number Insured Name Patient Relationship to Insured Coverage Start Date Coverage End Date Medicare Part B [place] [address] [place] [address] [id number] PAULETTE MANTILLA Self - patient is the insured [facility] [address] [address] [place], [place] [id number] PAULETTE MANTILLA Self - patient is the insured
--- OUTSIDE RECORDS SUMMARY | 2025-08-08 11:56 | XMS_ITS | Encounter Summary ---
Author Organization [facility] Facility Care Team Providers Care Relish Blender Name Role Phone Medardo Jaramillo DO Primary Care Provider [phone] Joe Perea MD Unavailable Encounter Details Date Type Department Care Team (Latest Contact Info) Description 03/22/2017 Orders Only [facility] CLINCON[facility] ProviderAnahi MD [address] [place] [address] Social History Tobacco Use Types Packs/Day Years Used Date Smoking Tobacco: Never Alcohol Use Standard Drinks/Week Comments Yes 0 (1 standard drink = 0.6 oz pur e alcohol) Sex and Gender Information Value Date Recorded Sex Assigned at Not on file 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
--- OUTSIDE RECORDS SUMMARY | 2025-08-08 11:56 | XMS_ITS | Clinical Summary ---
Author Organization [facility] Address [address] [address] Phone Care Team Providers Care Overhauler Bus Truck Name Role Phone John Ibrahim DO Primary Care Provider [phone] Social History Tobacco Use Types Packs/Day Years Used Date Smoking Tobacco: Never Assessed Sex and Gender Information Value Date Recorded Sex Assigned at Not on file Legal Sex Male 10:35 PM CDT Gender Identity Not on file Sexual Orientation Not on file Plan of Treatment Health Maintenance Due Date Last Done Comments Hepatitis C Virus (HCV) Screening 1945 TdaP Immunization 1945 Medicare Initial AWV [id number] 03/02/2007 Respiratory Syncytial Virus (RSV) Immunization (Adult) (1 - 1-dose 75+ series) 2020 Influenza Immunization (#1) 06/02/202505/04, 06/27/2019, 06/25/2018, Additional history exists SARS-COV-2 Immunization ( season) 2025 09/09/2021, 12/04/2020, 11/09/2020 Colonoscopy Discontinued 08/09/2018, 08/16/2012 Colorectal Cancer Screening [...] to Health Maintenance Insurance MEDICARE Care Teams Overhauler Bus Truck Relationship Specialty Start Date End Date John Ibrahim DO [address] [place] [address] PCP - General Internal Medicine 02/08/18
[2025-08-08 12:06] LABS: Hematocrit 40.5 % (42.0-52.0); Hemoglobin 12.9 g/dL (14.0-18.0); Mean Corpuscular HGB Conc 31.9 g/dl (32-36); Mean Corpuscular Hemoglobin 31.4 pg (26-34); Mean Corpuscular Volume 98.5 fl (80-100); Platelet Count Result 233 k/mm3 (150-375); Red Blood Count 4.11 M/mm3 (4.6-6.20); White Blood Count 6.1 K/mm3 (4.5-10.0)
[2025-08-08 12:28] LABS: Albumin Level 4.1 g/dL (3.5-5.1); Anion Gap 9 mmol/L (4-12); Blood Urea Nitrogen 27 mg/dL (9-20); Calcium 9.6 mg/dL (8.4-10.2); Carbon Dioxide 22 mmol/L (22-30); Chloride 109 mmol/L (98-107); Estimated Glomerular Filt Rate 53; Glucose 99 mg/dL (65-110); Potassium 4.2 mmol/L (3.4-5.0); Sodium 140 mmol/L (137-145)
[2025-08-08 12:36] LABS: Parathyroid Intact 47.1 pg/mL (14.5-75.2)
[2025-08-08 12:41] LABS: Total Protein Urine Random 12 mg/dL; Ur Ttl Prot Creatinine Ratio 0.15 mg/mg (0-0.20)
== END 2025-08-08 11:14 | disposition home or self-care (01) ==
PROVIDERS: PCP Nurse Practitioner; Visit Provider Internal Medicine Nephrology
DX: R94.4 Abnormal results of kidney function studies (principal)
CPT/HCPCS: 36415; 80069; 82570; 83970; 84156; 85027

== ENCOUNTER 2025-09-03 10:32 | Outpatient (CLI) | payer MEDICARE, SELFPAY ==
--- NOTE | ~2025-09-03 | US_ITS ---
EXAMINATION:US_VDOPREFBI_US INDICATION:Lower extremity swelling TECHNIQUE: Multiple grayscale, color flow and Doppler images of the right and left lower extremity deep venous systems were obtained and reviewed. COMPARISON:No prior studies for comparison. FINDINGS: The common femoral, superficial femoral and popliteal veins demonstrate normal respiratory variation, augmentation and compressibility. Color flow is also seen within the posterior tibial, peroneal, greater saphenous and profunda veins. There is venous reflux bilaterally in the distal aspect of the greater saphenous veins. IMPRESSION: 1: No lower extremity deep venous thrombosis. 2: Venous reflux distal aspect of the greater saphenous veins bilaterally.. Reviewed, dictated and finalized at location I. EMERGENCY SERVICES AMBULANCE DRIVER
--- OUTSIDE RECORDS SUMMARY | 2025-09-03 12:05 | XMS_ITS | Encounter Summary ---
Author Organization [facility] Address [address] [facility] [place] [address] Care Team Providers Care Cement Mason Apprentice Name Role Phone Irene Solis MD Unavailable [phone] John Ibrahim DO Primary Care Provider [phone] Reason for Visit * Reason Onset Date Comments General 05/14/2018 Encounter Details Date Type Department Care Team (Late st Contact Info) Description 05/14/2018 Telephone [facility] D[facility]atology [address] [place] [address] Kiersten Mary PA [address] [facility] [address] [place] [phone] General Social History Tobacco Use Types Packs/Day Years Used Date Smoking Tobacco: Never Smokeless Tobacco: Never Alcohol Use Standard Drinks/Week Comments Yes 0 (1 standard drink = 0.6 oz pur e alcohol) 2-4 glasses of wine per day Sex and Gender Information Value Date Recorded Sex Assigned at Not on file Legal Sex Male 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
--- OUTSIDE RECORDS SUMMARY | 2025-09-03 12:05 | XMS_ITS | Encounter Summary ---
Author Organization [facility] Address [address] [place] [address] Care Team Providers Care Proofer Prepress Name Role Phone Medardo Jaramillo DO Primary Care Provider [phone] Encounter Details Date Type Department Care Team (Late st Contact Info) Description 09/02/2025 External Device Data [facility] ABSTRACTION Provider, Abstract [...] Description 04/01/2026 11:00 AM CDT Office Visit [facility] Oncology and Hematology [place] [address] [place] [address] [address] [place] [address] Rafy Morales MD [address] [facility] [address] [place] [address] documented as of this encounter Visit Diagnoses Not on filedocumented in this encounter Care Teams Proofer Prepress Relationship Specialty Start Date End Date Medardo Jaramillo DO [address] [facility] [address] [facility] [address] [place] [phone] PCP - General Internal Medicine 03/26/25 documented as of this encounter
--- OUTSIDE RECORDS SUMMARY | 2025-09-03 12:05 | XMS_ITS | Encounter Summary ---
Author Organization [facility] Address [address] [place] [address] Care Team Providers Care Paint Mixer Hand Name Role Phone Irene Solis MD Unavailable John Ibrahim DO Primary Care Provider [phone] Encounter Details Date Type Department Care Team (Late st Contact Info) Description 02/20/2024 Lab Requisition [facility] - DermPath Lab [address] [facility] [place] [address] Jose العراقي MD [address] [place] [address] Social History Tobacco Use Types Packs/Day Years Used Date Smoking Tobacco: Never Smokeless Tobacco: Never Alcohol Use Standard Drinks/Week Comments Yes 0 (1 standard drink = 0.6 oz pur e alcohol) 2-4 glasses of wine per day Sex and Gender Information Value Date Recorded Sex Assigned at Not on file Legal Sex Male 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 Gender Identity Not on file Sexual Orientation Not on file documented as of this encounter Plan of Treatment Not on file documented as of this encounter Procedures Procedure Name Priority Date/Time Associated Diagnosis Comments DERMATOPATHOLOGY Routine 02/19/2024 12:0 0 AM CDT documented in this encounter Results * DERMATOPATHOLOGY (02/19/2024 12:00 AM CDT) Case Report Dermatopathology Report Case: [id number] Authorizing Provider: Jose العراقي MD Collected: 02/19/2024 12:00 AM Ordering Location: [facility] - Received: 02/20/2024 10:17 [...] characteristic determined by the Dermatopathology Laboratory at [facility], directed by Dr. Ed Dietz. These tests need not be, and therefore are not, approved by the [place] Food and Drug Administration. The tests are used for clinical purposes. Billing Codes Specimen Charges Stain Charges 40906 1 61811 69348 1 1 11:01 AM CDT DERMATOPATHOLOGY LABORATORY Embedded Images 11:01 AM CDT DERMATOPATHOLOGY LABORATORY Pathology/Cytolog y TISSUE SPECIMEN FROM SKIN / Unknown 02/19/2024 02/20/2024 10:17 AM CDT Jose العراقي MD LAB - PATHOLOGY/CYTOLOGY ORDERAB LES Final Result DERMATOPATHOLOGY LABORATORY [facility] - Department of Dermatology [address], [address] [phone] documented in this encounter Visit Diagnoses Not on filedocumented in this encounter Care Teams Paint Mixer Hand Relationship Specialty Start Date End Date John Ibrahim DO [address] [facility] [address] [place] [address] PCP - General Internal Medicine 12/25/13 Irene Solis MD Orthopedic Surgery 12/25/13 documented as of this encounter
--- OUTSIDE RECORDS SUMMARY | 2025-09-03 12:05 | XMS_ITS | Clinical Summary ---
Author Organization Address [address] [place] [address] Care Team Providers Care Decating Machine Operator Name Role Phone Medardo Jaramillo Primary Care Provider [phone] Joe Perea MD Unavailable Allergies Active Allergy [...] hypofunction Assessment & Plan (11/16/2022 11:48 AM OBGYN SPECIALIST): Hypogonadism for few years. on small dose [...] basis. Assessment & Plan (10/20/2021 10:00 AM OBGYN SPECIALIST): Hypogonadism for few years. on small dose [...] basis. Assessment & Plan (10/14/2020 10:19 AM OBGYN SPECIALIST): Hypogonadism for few years. on small dose [...] benign Assessment & Plan (11/16/2022 11:39 AM OBGYN SPECIALIST): Controlled with medication - low salt diet - continue medication per PCP Assessment & Plan (04/20/2022 10:28 AM CDT): Controlled with medication - low salt diet - continue medication per PCP Assessment & Plan (10/20/2021 10:01 AM OBGYN SPECIALIST): Controlled with medication - low salt diet - continue medication per PCP Assessment & Plan (04/14/2021 10:36 AM CDT): Controlled with medication - low salt diet - continue medication per PCP Assessment & Plan (10/14/2020 10:19 AM OBGYN SPECIALIST): Controlled with medication - low salt diet [...] Encounters Date Type Department Care Team Description 08/14/2025 Telephone [facility] Cardiology [address] [place] [address] Wally Dela Cruz MD 07/24/2025 Telephone [facility] Medical [facility] Cardiology [address] [place] [address] Renee Matta NP Med Management 07/22/2025 Orders Only [facility] Medical [facility] Cardiology [address] [place] [address] ProviderAnahi MD 07/21/2025 10:30 AM CDT Office Visit [facility] Group Cardiology [address] [place] [address] Renee Matta NP Coronary artery disease involving [place] coronary artery of [place] heart without angina pectoris (Primary Dx); Status post coronary angiogram; Nonischemic cardiomyopathy (HCC); Hyperhidrosis 06/05/2025 8:55 AM CDT - 06/05/2025 11:59 PM CDT Hospital Encounter [facility] [address] [employer] [employer] [facility] [address] [place] [address] Joe Perea MD 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); Neural foraminal stenosis of lumbar spine; Facet arthropathy, lumbar; Greater trochanteric bursitis of both hips Discharge Disposition: Discharge to home or self care 06/05/2025 [facility]phone [facility] Cardiology at [address] [place] [address] Wally Dela Cruz MD 06/05/2025 Results Follow-Up [facility] Cardiology at [address] [place] [address] Wally Dela Cruz MD CTA Heart and Coronary Arteries W Morphology when Performed 06/04/2025 10:04 AM CDT - 06/04/2025 11:59 PM CDT Hospital Encounter [facility] [address] [place] [address] Nonischemic cardiomyopathy (HCC); PVC's (premature ventricular contractions); SOB (shortness of breath); GARCIA (dyspnea on exertion); Coronary artery disease involving [place] coronary artery of [place] heart without angina pectoris Discharge Disposition: Discharge [...] on file Legal Sex Male 2:41 AM OBGYN SPECIALIST Gender Identity Not on file Sexual Orientation [...] Well Visit 65+ 2010 Covid-19 Vaccine (5 2024-2 6 season) 2025 01/12/2022, 09/09/2021, 12/04/2020, Additional history exists Influenza Vaccine (#1) 2025 4, 06/02/2021, 06/01/2020, Additional history exists Pneumococcal vaccine 65+ Completed 019, 06/25/2018, 06/25/2018 Zoster Vaccine Completed 08/05/2020, 06/01/2020 Medical Devices Implanted Type Area Motor Carrier Inspector Device Identifier Shelf Expiration Date Model / Serial / Lot Neurostimulator Bladder-05/04/2021 Implanted: 021 by Unknown, Notinfile (Quantity not on file) Neurostimulator Pelvis Medtronic Neuro [id number] / / Neurostimulator Lead-05/04/2021 Implanted: 021 by Unknown, Notinfile (Quantity not on file) Neurostimulator Pelvis Medtronic Neuro [id number] / / Procedures Procedure Name Priority Date/Time Associated Diagnosis Comments COMPREHENSIVE METABOLIC PANEL Routine 06/23/2025 1:[address] HEART MORPHOLOGY AND CORONARY ARTERIES W CONTRAST Schedule Routine, Read Routine (OP Routine) 06/04/2025 11:13 AM CDT Nonischemic cardiomyopathy (HCC) PVC's (premature ventricular contractions) SOB (shortness of breath) GARCIA (dyspnea on exertion) Coronary artery disease involving [place] coronary artery of [place] heart without angina pectoris POCT CREATININE - DEVICE Routine 06/04/2025 10:52 AM CDT from Last 3 Months Results * Comprehensive metabolic panel (06/23/2025 1:01 PM CDT) Blood us Historical Provider LAB BLOOD ORDERABLES Shahrzad gaitan Result * CTA Heart and Coronary Arteries [...] POCT ORDERABLES - DEVICE Fin al Result Performing Organization Address City/State/[facility] Co de Phone Number [facility] [place] [address] from Last 3 Months Insurance [facility] MEDICARE [facility] MEDICARE [facility] MEDICARE Care Teams Decating Machine Operator Relationship Specialty Start Date End Date Medardo Jaramillo DO PCP - General Internal Medicine 08/28/24 Joe Perea MD [facility] [place] [address] Consulting Physician Pain Management 03/13/25
--- OUTSIDE RECORDS SUMMARY | 2025-09-03 12:05 | XMS_ITS | Clinical Summary ---
Author Organization [facility] Oneida Lanza Address [address] [place] [address] Care Team Providers Care Aws Architect Name Role Phone ClintMedardo Primary Care Provider [phone] Allergies No known active allergies Medications atorvastatin [...] Encounters Date Type Department Care Team Description 09/02/2025 External Device Data STL ABSTRACTION [...] Description 04/01/2026 11:00 AM CDT Office Visit [facility] Oncology and Hematology - [facility] [address] [facility] [address] [place] [address] Rafy Morales MD [address] [facility] [address] [place] [address] Health Maintenance Due Date Last [...] Discontinued Insurance MEDICARE PART A AND B [facility] [id number] Care Teams Aws Architect Relationship Specialty Start Date End Date Medardo Jaramillo DO [address] [facility] [address] [place] [address] PCP - General Internal Medicine 03/26/25
--- OUTSIDE RECORDS SUMMARY | 2025-09-03 12:05 | XMS_ITS | Clinical Summary ---
Author Organization [facility] Address [address] [facility] [place] [address] Care Team Providers Care Vice President Of Compliance Name Role Phone Irene Solis MD Unavailable [phone] John Ibrahim DO Primary Care Provider Source Comments [facility],non-owned Affiliates and Associated Physician Practices is amultiple site organization consisting of ambulatory clinics and hospital sitesin [place], [place], [place] and [place]. This disclosure is being madepursuant to the Care Everywhere program and may not contain all information available regarding this patient. Last updated 18.[facility] Allergies Active Allergy Reactions Criticality [...] 10/19/2020 Assessment & Plan (10/19/2020 10:27 AM HAND MARKER): - Chronic - Extensive lesions associated with sun damage and increased risk of skin cancer - Reviewed concerning signs for development of skin cancer - Counseled on importance of daily sun protection, recommend OTC broad spectrum, SPF >30 - Advised monthly self skin exams Ingrown hair 10/19/2020 Assessment & Plan (10/19/2020 10:38 AM HAND MARKER): - L upper cutaneous lip - Topical retinoid samples provided today, apply small amount to area TIW Seborrheic keratosis, inflamed 06/24/2019 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 06/24/2019 Rash and other nonspecific skin eruption 019 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 (10/19/2020 10:28 AM HAND MARKER): - Chronic, stable - Continue gabapentin 600 mg QHS - Refills today Actinic keratosis 04/30/2018 Assessment & Plan (10/19/2020 10:37 AM HAND MARKER): - Counseled on diagnosis, etiology, natural disease [...] 04/30/2018 Assessment & Plan (10/19/2020 10:27 AM HAND MARKER): - Chronic, stable - Continue Keflex 500 [...] on file Legal Sex Male 6:29 AM HAND MARKER Gender Identity Not on file Sexual Orientation [...] 06/27/2020 06/27/2019 DEPRESSION SCREENING 10/02/2024 COVID-19 VACCINE ( - 2024-2 6 season) 2025 INFLUENZA VACCINE (#1) 2025 0, [...] patient's age to complete this topic Insurance [facility] MEDICARE MEDICARE Care Teams Vice President Of Compliance Relationship Specialty Start Date End Date John Ibrahim DO [address] [facility] [address] [place] [address] PCP - General Internal Medicine 12/25/13 Irene Solis MD Orthopedic Surgery 12/25/13
--- OUTSIDE RECORDS SUMMARY | 2025-09-03 12:05 | XMS_ITS | Encounter Summary ---
Author Organization [facility] Address [address] [place] [address] Care Team Providers Care Media Specialist Name Role Phone Irene Solis MD Unavailable John Ibrahim DO Primary Care Provider [phone] Encounter Details Date Type Department Care Team (Late st Contact Info) Description 02/20/2024 Lab Requisition [facility] - DermPath Lab [address] [facility] [place] [address] Jose العراقي MD [address] [place] [address] Social History Tobacco Use Types Packs/Day Years Used Date Smoking Tobacco: Never Smokeless Tobacco: Never Alcohol Use Standard Drinks/Week Comments Yes 0 (1 standard drink = 0.6 oz pur e alcohol) 2-4 glasses of wine per day Sex and Gender Information Value Date Recorded Sex Assigned at Not on file Legal Sex Male 6:29 AM GYROSCOPIC INSTRUMENT TESTER Gender Identity Not on file Sexual Orientation Not on file documented as of this encounter Plan of Treatment Not on file documented as of this encounter Visit Diagnoses Not on filedocumented in this encounter Care Teams Media Specialist Relationship Specialty Start Date End Date John Ibrahim DO [address] [facility] [address] [facility] [address] [place] [address] PCP - General Internal Medicine 12/25/13 Irene Solis MD Orthopedic Surgery 12/25/13 documented as of this encounter
--- OUTSIDE RECORDS SUMMARY | 2025-09-03 12:05 | XMS_ITS | Encounter Summary ---
Author Organization [facility] Address [address] [facility] [place] [address] Care Team Providers Care Commercial Relationship Manager Name Role Phone Irene Solis MD Unavailable John Ibrahim DO Primary Care Provider [phone] Encounter Details Date Type Department Care Team (Late st Contact Info) Description 01/27/2023 Lab Requisition [facility] Care DermPath Lab [address] [facility] [place] [address] Jose العراقي MD [address] [place] [address] Social History Tobacco Use Types Packs/Day Years Used Date Smoking Tobacco: Never Smokeless Tobacco: Never Alcohol Use Standard Drinks/Week Comments Yes 0 (1 standard drink = 0.6 oz pur e alcohol) 2-4 glasses of wine per day Sex and Gender Information Value Date Recorded Sex Assigned at Not on file Legal Sex Male 6:29 AM CLIENT SUCCESS MANAGER Gender Identity Not on file Sexual Orientation Not on file documented as of this encounter Plan of Treatment Not on file documented as of this encounter Procedures Procedure Name Priority Date/Time Associated Diagnosis Comments DERMATOPATHOLOGY Routine 01/26/2023 12:0 0 AM CDT documented in this encounter Results * DERMATOPATHOLOGY (01/26/2023 12:00 AM CDT) Case Report Dermatopathology Report Case: [id number] Authorizing Provider: Jose العراقي MD Collected: 01/26/2023 12:00 AM Ordering Location: [facility] DermPath Lab Received: 01/27/2023 12:28 PM Pathologist: [...] posterior shoulder. The specimen consists of a 16x48s3 mm piece of skin. The margin is [...] by the Dermatopathology Laboratory at [facility], directed by Dr. Ed Dietz. These tests need not be, and therefore are not, approved by the [place] Food and Drug Administration. The tests are used for clinical purposes. Billing Codes Specimen Charges Stain Charges 83706 1 1:10 PM CDT DERMATOPATHOLOGY LABORATORY Embedded Images 1:10 PM CDT DERMATOPATHOLOGY LABORATORY Pathology/Cytolog y TISSUE SPECIMEN FROM SKIN / Unknown 01/26/2023 01/27/2023 12:28 PM CDT Jose العراقي MD LAB - PATHOLOGY/CYTOLOGY ORDERAB LES Final Result DERMATOPATHOLOGY LABORATORY [facility] - Department of Dermatology [facility] [address] [place] [address], [address] [phone] documented in this encounter Visit Diagnoses Not on filedocumented in this encounter Care Teams Commercial Relationship Manager Relationship Specialty Start Date End Date John Ibrahim DO [address] [facility] [address] [facility] [address] [place] [address] PCP - General Internal Medicine 12/25/13 Irene Solis MD Orthopedic Surgery 12/25/13 documented as of this encounter
--- OUTSIDE RECORDS SUMMARY | 2025-09-03 12:05 | XMS_ITS | Clinical Summary ---
Author Organization [facility] Address [address] [address] Phone Care Team Providers Care Shipping Clerk Packing Name Role Phone John Ibrahim DO Primary Care Provider [phone] Social History Tobacco Use Types Packs/Day Years [...] to Health Maintenance Insurance MEDICARE Care Teams Shipping Clerk Packing Relationship Specialty Start Date End Date John Ibrahim DO [address] [place] [address] PCP - General Internal Medicine 02/08/18
--- OUTSIDE RECORDS SUMMARY | 2025-09-03 12:06 | XMS_ITS | Encounter Summary ---
Author Organization [facility] Care Team Providers Care Surgical Corsetier Name Role Phone Medardo Jaramillo DO Primary Care Provider [phone] Joe Perea MD Unavailable Encounter Details Date Type Department Care Team (Latest Contact Info) Description 03/22/2017 Orders Only [facility] CLINCONV ProviderAnahi MD [address] [place] [address] Social History Tobacco Use Types Packs/Day Years Used Date Smoking Tobacco: Never Alcohol Use Standard Drinks/Week Comments Yes 0 (1 standard drink = 0.6 oz pur e alcohol) Sex and Gender Information Value Date Recorded Sex Assigned at Not on file Legal Sex Male 2:41 AM RESPIRATORY ASSISTANT Gender Identity Not on file Sexual [...] on filedocumented in this encounter Care Teams Surgical Corsetier Relationship Specialty Start Date End Date Medardo Jaramillo DO PCP - General Internal Medicine 08/28/24 Joe Perea MD [address] [facility] [address] [place] [address] Consulting Physician Pain Management 03/13/25 documented as of this encounter
--- OUTSIDE RECORDS SUMMARY | 2025-09-03 12:06 | XMS_ITS | Patient Health Record ---
Author Organization [address] [facility] Address [address] [place] [address] Care Team Providers Care Feed Crusher Operator Name Role Phone John Ibrahim MD Primary Care Provider Merlin Junior Unavailable [phone] Allergies Allergen (clinical drug ingredient) Drug/Non Drug [...] Status Risk Notes Problem Contusion of toe (05737681) Contusion of right great toe without damage to nail, initial encounter (S90.111A) Active confirmed Problem Idiopathic peripheral neuropathy (48279820) Idiopathic peripheral neuropathy (G60.9) Active confirmed Problem Lumbar radiculopathy (550684546) Lumbar radiculopathy (M54.16) Active confirmed Problem Acquired hammer toe of left foot (9936323282319053 ) Hammertoe of left foot (M20.42) Active confirmed Problem Muscle atrophy (97680458) 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 [facility] [place] [id number] Marshal Rivera Self - patient is the insured [facility] MEDICARE SUPPLEMENT [address] [place] [address] [id number] Marshal Rivera Self - patient is the insured Medical (General) History Medical History History ICD Code arthritis Gout HTN Neuropathy of feet Surgical History Surgery Date(Month/Year) Cardiac Ablation
--- OUTSIDE RECORDS SUMMARY | 2025-09-03 12:06 | XMS_ITS | Encounter Summary ---
Author Organization [facility] Facility Care Team Providers Care Transition Nurse Name Role Phone Medardo Jaramillo DO Primary Care Provider [phone] Joe Perea MD Unavailable Encounter Details Date Type Department Care Team (Latest Contact Info) Description 06/26/2017 Orders Only [facility] CLINCONV ProviderAnahi MD [address] [place] [address] Social History Tobacco Use Types Packs/Day Years Used Date Smoking Tobacco: Never Alcohol Use Standard Drinks/Week Comments Yes 0 (1 standard drink = 0.6 oz pur e alcohol) Sex and Gender Information Value Date Recorded Sex Assigned at Not on file Legal Sex Male 2:41 AM DISPATCHER RADIO Gender Identity Not on file Sexual Orientation [...] on filedocumented in this encounter Care Teams Transition Nurse Relationship Specialty Start Date End Date Medardo Jaramillo DO PCP - General Internal Medicine 08/28/24 Joe Perea MD [address] [facility] [address] [place] [address] Consulting Physician Pain Management 03/13/25 documented as of this encounter
--- OUTSIDE RECORDS SUMMARY | 2025-09-03 12:06 | XMS_ITS | Clinical Summary ---
Author Organization [facility] Address [address] [place] [address] Care Team Providers Care Shift Supervisor Film Processing Name Role Phone John Ibrahim MD Primary Care Provider [phone] Allergies Active Allergy Reactions Criticality Noted Date [...] age to complete this topic Insurance MEDICARE [facility] Care Teams Shift Supervisor Film Processing Relationship Specialty Start Date End Date John Ibrahim MD [address] [place] [address] [place] [address] PCP - General INTERNAL MEDICINE 02/02/21
== END 2025-09-03 10:33 | disposition home or self-care (01) ==
PROVIDERS: PCP Internal Medicine; Visit Provider Internal Medicine Nephrology
DX: M79.89 Other specified soft tissue disorders (principal)
CPT/HCPCS: 93970

== ENCOUNTER 2025-09-09 21:16 | Emergency (ER) | payer MEDICARE, SELFPAY ==
--- OUTSIDE RECORDS SUMMARY | 2023-03-29 11:02 | XMS_ITS | Continuity of Care Document ---
Author Organization [facility] Address [address] [place] [address] Phone Care Team Providers Care Dressing Machine Operator Name Role Phone Best Valle PT Unavailable Unavailable Procedures Procedure Date Therapeutic Activities Neuromuscular Re-Ed Therapeutic Activities Neuromuscular Re-Ed Therapeutic Exercise Therapeutic Activities Neuromuscular Re-Ed Therapeutic Activities Neuromuscular Re-Ed Doc neg elder mal no plan PT Evaluation Moderate Complexity Therapeutic Activities Neuromuscular Re-Ed Therapeutic Exercise Advance Directives Directive Yes / No Effective Date File Name No Information Encounters Encounter Description Practice Location Reason(s) For Visit Diagnoses Date Provider Providers Copied on Encounter [facility], [place], [place], [id number], tel:[phone] [place] No Information [address] [facility], [place], [place], [id number], [place] tel:[phone] [place] No Information [address] [facility], [place], [place], [address], tel:[phone] [place] No Information 3 Tori Jewell. . [facility] [address], [place], [place], [id number], tel:[phone] [place] No Information [address] [facility], [place], [place], [address], tel:[phone] [place] No Information [address] [facility], [place], [place], [address], tel:[phone] [place] No Information 3 Short Josefa. . Family History Family Member Type Diagnosis Age At Onset No Information Payers Payer name Insurance type Covered democrat ID Authorluha cosmo(s) Medicare [place] MB [id number] Social History Type Description Quantity Date Captured Comments Sex Male Smoking Status No Information Chief Complaint And Reason For Visit No Information Reason For Referral Reason For Referral No Information History Of Present Illness Encounter Date Complaint History Of Prese nt Illness No Information Functional Status Date Functional Assessmen t No Information Instructions Date Instruction Additional Infor mation Giving encouragement to exercise Related to Overweight Giving encouragement to exercise Related to Overweight Assessments Type Assessment Date No Information Patient Care Teams Name Effective Dates (start - stop) Status Members No Information
--- NOTE | ~2025-09-09 | CT_ITS ---
EXAM/PROCEDURE: CT pelvis wo con HISTORY: trauma COMPARISON: None TECHNIQUE: CT of the pelvis without contrast FINDINGS: No fracture lucency, subluxation or dislocation. Right sacral neurostimulator noted. Moderate to large amount of stool present in the rectal vault. Advanced diverticular disease in the sigmoid colon with no gross acute diverticulitis. Small fat-containing only inguinal hernias. Advanced degenerative changes in both hips and the lumbar spine. IMPRESSION: No fracture lucency identified. Several chronic findings as above. Patient may also be constipated. NOTE: Preliminary radiology report provided by [facility] radiologist/physician. Reviewed, dictated and finalized at location A. OGRAPHIC SURVEYOR
--- NOTE | ~2025-09-09 | CT_ITS ---
EXAM/PROCEDURE: CT femur LT wo con HISTORY: left leg pain, trauma COMPARISON: None available. TECHNIQUE: CT left femur FINDINGS: No definite fracture seen. There is small oblique linear lucency extending through the inferoposterior acetabulum image 28 series 3 but this appears slightly corticated. Advanced degenerative changes in the left hip. IMPRESSION: No definite acute fracture. Probable old fracture or unfused osteophyte in the infra posterior acetabulum. NOTE: Preliminary radiology report provided by [facility] radiologist/physician. Reviewed, dictated and finalized at location A. OGICAL SCIENCES INSTRUCTOR
[2025-09-09 21:15] VITALS: BP 140/96; PULSE 81; RESP 16; TEMP 36.5; O2SAT 100
--- OUTSIDE RECORDS SUMMARY | 2025-09-09 21:25 | XMS_ITS | Clinical Summary ---
Author Organization [facility] Address [address] [address] Phone Care Team Providers Care Manager Safe Name Role Phone John Ibrahim DO Primary [...] to Health Maintenance Insurance MEDICARE Care Teams Manager Safe Relationship Specialty Start Date End Date John Ibrahim DO [address] [place] [address] PCP - General Internal Medicine 02/08/18
--- OUTSIDE RECORDS SUMMARY | 2025-09-09 21:25 | XMS_ITS | Encounter Summary ---
Author Organization [facility] Address [address] [place] [address] Care Team Providers Care Linux Programmer Name Role Phone Irene Solis MD Unavailable [phone] John Ibrahim DO Primary Care Provider [phone] Encounter Details Date Type Department Care Team (Late st Contact Info) Description 02/20/2024 Lab Requisition [facility] - DermPath Lab [address] [facility] [place] [id number] Jose العراقي MD [address] [place] [address] Social History Tobacco Use Types Packs/Day Years Used Date Smoking Tobacco: Never Smokeless Tobacco: Never Alcohol Use Standard Drinks/Week Comments Yes 0 (1 standard drink = 0.6 oz pur e alcohol) 2-4 glasses of wine per day Sex and Gender Information Value Date Recorded Sex Assigned at Not on file Legal Sex Male 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
--- OUTSIDE RECORDS SUMMARY | 2025-09-09 21:25 | XMS_ITS | Clinical Summary ---
Author Organization [facility] Oneida Lanza Address [address] [place] [address] Care Team Providers Care Faculty Physician Name Role Phone ClintMedardo Primary Care Provider [phone] Allergies No known active allergies Medications atorvastatin [...] External Device Data STL ABSTRACTION Provider, Abstract 09/02/2025 External Device Data STL ABSTRACTION Provider, [...] Description 04/01/2026 11:00 AM CDT Office Visit [facility] Oncology and Hematology - [place] [address] [facility] [address] [place] [address] Rafy Morales MD [address] [facility] [address] [place] [address] Health Maintenance Due Date Last [...] Discontinued Insurance MEDICARE PART A AND B [facility] [id number] Care Teams Faculty Physician Relationship Specialty Start Date End Date Medardo Jaramillo DO [address] [facility] [address] [place] [id number] PCP - General Internal Medicine 03/26/25
--- OUTSIDE RECORDS SUMMARY | 2025-09-09 21:25 | XMS_ITS | Encounter Summary ---
Author Organization [facility] Address [address] [place] [address] Care Team Providers Care Novelty Candy Maker Name Role Phone Irene Solis MD Unavailable [phone] John Ibrahim DO Primary Care Provider [phone] Reason for Visit * Reason Onset Date Comments General 05/14/2018 Encounter Details Date Type Department Care Team (Late st Contact Info) Description 05/14/2018 Telephone [facility] Dermatology [address] [place] [address] Kiersten Mary PA [address] [facility] [address] [place] [address] General Social History Tobacco Use Types Packs/Day Years Used Date Smoking Tobacco: Never Smokeless Tobacco: Never Alcohol Use Standard Drinks/Week Comments Yes 0 (1 standard drink = 0.6 oz pur e alcohol) 2-4 glasses of wine per day Sex and Gender Information Value Date Recorded Sex Assigned at Not on file Legal Sex Male 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
--- OUTSIDE RECORDS SUMMARY | 2025-09-09 21:25 | XMS_ITS | Encounter Summary ---
Author Organization [facility] Address [address] [place] [address] Care Team Providers Care Occupational Therapy Program Director Name Role Phone Irene Solis MD Unavailable John Ibrahim DO Primary Care Provider [phone] Encounter Details Date Type Department Care Team (Late st Contact Info) Description 02/20/[address] [facility] - DermPath Lab [address] 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 - Received: 02/20/2024 10:17 AM [...] characteristic determined by the Dermatopathology Laboratory at [facility], directed by Dr. Ed Dietz. These tests need not be, and therefore are not, approved by the [place] Food and Drug Administration. The tests are used for clinical purposes. Billing Codes Specimen Charges Stain Charges 11053 1 58018 59268 1 1 11:01 AM CDT DERMATOPATHOLOGY LABORATORY Embedded Images 11:01 AM CDT DERMATOPATHOLOGY LABORATORY Pathology/Cytolog y TISSUE SPECIMEN FROM SKIN / Unknown 02/19/2024 02/20/2024 10:17 AM CDT Jose العراقي MD LAB - PATHOLOGY/CYTOLOGY ORDERAB LES Final Result DERMATOPATHOLOGY LABORATORY [facility] - Department of Dermatology [address], [address] [phone] documented in this encounter Visit Diagnoses Not on filedocumented in this encounter Care Teams Occupational Therapy Program Director Relationship Specialty Start Date End Date John Ibrahim DO [address] [facility] [address] [place] [address] PCP - General Internal Medicine 12/25/13 Irene Solis MD Orthopedic Surgery 12/25/13 documented as of this encounter
--- OUTSIDE RECORDS SUMMARY | 2025-09-09 21:25 | XMS_ITS | Encounter Summary ---
Author Organization [facility] Address [address] [place] [address] Care Team Providers Care Route Relief Driver Name Role Phone Irene Solis MD Unavailable John Ibrahim DO Primary Care Provider [phone] Encounter Details Date Type Department Care Team (Late st Contact Info) Description 01/27/2023 Lab Requisition [facility] Care DermPath Lab [address] 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 The specimen consists of a [id number] mm piece of skin. The margin is [...] determined by the Dermatopathology Laboratory at [facility], directed by Dr. Ed Dietz. These tests need not be, and therefore are not, approved by the [place] Food and Drug Administration. The tests are used for clinical purposes. Billing Codes Specimen Charges Stain Charges 77893 1 1:10 PM CDT DERMATOPATHOLOGY LABORATORY Embedded Images 1:10 PM CDT DERMATOPATHOLOGY LABORATORY Pathology/Cytolog y TISSUE SPECIMEN FROM SKIN / Unknown 01/26/2023 01/27/2023 12:28 PM CDT Jose العراقي MD LAB - PATHOLOGY/CYTOLOGY ORDERAB LES Final Result DERMATOPATHOLOGY LABORATORY [facility] - Department of Dermatology [facility] Specialized Medicine [address] [place] [address], [address] [phone] documented in this encounter Visit Diagnoses Not on filedocumented in this encounter Care Teams Route Relief Driver Relationship Specialty Start Date End Date John Ibrahim DO [address] [facility] [address] [facility] [address] [place] [address] PCP - General Internal Medicine 12/25/13 Irene Solis MD Orthopedic Surgery 12/25/13 documented as of this encounter
--- OUTSIDE RECORDS SUMMARY | 2025-09-09 21:25 | XMS_ITS | Clinical Summary ---
Author Organization [facility] Address [address] [place] [address] Care Team Providers Care Quality Assurance Group Leader Name Role Phone Irene Solis MD Unavailable [phone] John Ibrahim DO Primary Care Provider [phone] Source Comments [facility],non-owned Affiliates and Associated Physician Practices is amultiple site organization consisting of ambulatory clinics and hospital sitesin [place], [place], [place] and [place]. This disclosure is being madepursuant to the Care Everywhere program and may not contain all information available regarding this patient. Last updated 18.[facility] Allergies Active Allergy Reactions Criticality Noted Date [...] 10/19/2020 Assessment & Plan (10/19/2020 10:27 AM ETYMOLOGY PROFESSOR): - Chronic - Extensive lesions associated with sun damage and increased risk of skin cancer - Reviewed concerning signs for development of skin cancer - Counseled on importance of daily sun protection, recommend OTC broad spectrum, SPF >30 - Advised monthly self skin exams Ingrown hair 10/19/2020 Assessment & Plan (10/19/2020 10:38 AM ETYMOLOGY PROFESSOR): - L upper cutaneous lip - Topical retinoid samples provided today, apply small amount to area TIW Seborrheic keratosis, inflamed 06/24/2019 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 06/24/2019 Rash and other nonspecific skin eruption 019 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 (10/19/2020 10:28 AM ETYMOLOGY PROFESSOR): - Chronic, stable - Continue gabapentin 600 mg QHS - Refills today Actinic keratosis 04/30/2018 Assessment & Plan (10/19/2020 10:37 AM ETYMOLOGY PROFESSOR): - Counseled on diagnosis, etiology, natural disease [...] 04/30/2018 Assessment & Plan (10/19/2020 10:27 AM ETYMOLOGY PROFESSOR): - Chronic, stable - Continue Keflex 500 [...] on file Legal Sex Male 6:29 AM 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
--- OUTSIDE RECORDS SUMMARY | 2025-09-09 21:25 | XMS_ITS | Clinical Summary ---
Author Organization [facility] Address [address] [place] [address] Care Team Providers Care Diesel Automotive Technician Name Role Phone Medardo Jaramillo Primary Care Provider [phone] Joe Perea MD Unavailable Allergies Active Allergy [...] tablet 11 05/26/20 25 Active atorvastatin (LIPITOR) 40 mg tablet Take 1 tablet (40 mg total) by mouth daily 90 tablet 1 09/08/20 25 Active atorvastatin (LIPITOR) 20 mg tablet TAKE 1 TABLET DAILY 90 tablet 2 06/27/20 25 025 Discontin ued(Reord er) Active Problems Problem [...] hypofunction Assessment & Plan (11/16/2022 11:48 AM CUSTOMER FIELD REPRESENTATIVE): Hypogonadism for few years. on small dose of Testosterone, due to high H&H He was symptomatic when we took him off Androgel. PSA stable at 0.2 on 01/17/22- done annually with his Urologist. Last testosterone was normal 536 on 7/20/22 H/H was 14.7/42 Plan: Patient agrees that [...] basis. Assessment & Plan (10/20/2021 10:00 AM CUSTOMER FIELD REPRESENTATIVE): Hypogonadism for few years. on small dose [...] basis. Assessment & Plan (10/14/2020 10:19 AM CUSTOMER FIELD REPRESENTATIVE): Hypogonadism for few years. on small dose [...] benign Assessment & Plan (11/16/2022 11:39 AM CUSTOMER FIELD REPRESENTATIVE): Controlled with medication - low salt diet - continue medication per PCP Assessment & Plan (04/20/2022 10:28 AM CDT): Controlled with medication - low salt diet - continue medication per PCP Assessment & Plan (10/20/2021 10:01 AM CUSTOMER FIELD REPRESENTATIVE): Controlled with medication - low salt diet - continue medication per PCP Assessment & Plan (04/14/2021 10:36 AM CDT): Controlled with medication - low salt diet - continue medication per PCP Assessment & Plan (10/14/2020 10:19 AM CUSTOMER FIELD REPRESENTATIVE): Controlled with medication - low salt diet [...] Encounters Date Type Department Care Team Description 09/05/2025 Results Follow-Up [facility] Cardiology [address] [place] [address] Renee Matta NP Lipid panel 08/14/2025 Telephone [facility] [address] [place] [address] Wally Dela Cruz MD 07/24/2025 Telephone [facility] [address] [place] [address] Renee Matta NP Med Management 07/22/2025 Orders Only [facility] Cardiology [address] [place] [address] ProviderAnahi MD 07/21/2025 10:30 AM CDT Office Visit [facility] Cardiology [address] [facility] [address] [place] [address] Renee Matta NP Coronary artery disease involving choctaw coronary artery of choctaw heart without angina pectoris (Primary Dx); Status post coronary angiogram; Nonischemic cardiomyopathy (HCC); 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 Immunizations Immunization Administration [...] on file Legal Sex Male 2:41 AM CUSTOMER FIELD REPRESENTATIVE Gender Identity Not on file Sexual [...] 08/05/2020, 06/01/2020 Medical Devices Implanted Type Area Pipe Finisher Device Identifier Shelf Expiration Date Model / Serial / Lot Neurostimulator Bladder-05/04/2021 Implanted: 021 by Unknown, Notinfile (Quantity not on file) Neurostimulator Pelvis Medtronic Neuro [id number] / / Neurostimulator Lead-05/04/2021 Implanted: 021 by Unknown, Notinfile (Quantity not on file) Neurostimulator Pelvis Medtronic Neuro [id number] / / Procedures Procedure Name Priority Date/Time Associated Diagnosis Comments LIPID PANEL Routine 08/01/2025 Coronary artery disease involving choctaw coronary artery of choctaw heart without angina pectoris COMPREHENSIVE METABOLIC PANEL Routine 06/23/2025 1:01 PM CDT from Last 3 Months Results * Lipid panel (08/01/2025) SCRIBED Cholesterol, Total 173 30 - 199 mg/dL EXTERNAL LAB SCRIBED Triglycerides 130 <=149 mg/dL EXTERNAL LAB SCRIBED HDL 64 >=40 mg/dL EXTERNAL LAB SCRIBED LDL 86 <=129 mg/dL EXTERNAL LAB Scribed Non-HDL Cholesterol 109 NONE mg/dL EXTERNAL LAB SCRIBED Total Cholesterol/HDL Ratio 173 NONE EXTERNAL LAB Blood 08/01/2025 Renee Matta NP LAB BLOOD ORDERABLES Edit ed Result - Final EXTERNAL LAB * Comprehensive metabolic panel (06/23/2025 1:01 PM CDT) Blood Historical Provider LAB BLOOD ORDERABLES Shahrzad gaitan Result from Last 3 Months Insurance [employer] MEDICARE [facility] MEDICARE [facility] MEDICARE Care Teams Diesel Automotive Technician Relationship Specialty Start Date End Date Medardo Jaramillo DO PCP - General Internal Medicine 08/28/24 Joe Perea MD [address] [facility] [place] [address] Consulting Physician Pain Management 03/13/25
--- OUTSIDE RECORDS SUMMARY | 2025-09-09 21:26 | XMS_ITS | Encounter Summary ---
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 Gender Identity Not on file Sexual Orientation Not on file Occupation Industry Job Start Date Job End Date retired Not on file Not on file Not on file documented as of this encounter Ordered Prescriptions Prescription Sig Dispense Quantity Refills Last Filled Start Date End Date atorvastatin (LIPITOR) 40 mg tablet Take 1 tablet (40 mg total) by mouth daily 90 tablet 1 09/08/2025 documented in this encounter Miscellaneous Notes * Telephone Encounter - Roseann Damon RN - 09/08/2025 2:07 PM CONSULTATIVE SALES ASSOCIATE Reviewed the above message with patient and he verbalized understanding, He will take 2 of his current 20 mg dose until his new rx arrives, script faxed ULTATIVE SALES ASSOCIATE * Telephone Encounter - Ashley Tong - 09/08/2025 1:44 PM CST Pt returning call about his lipid panel results. Requesting a call back. Please advise. Thank you. Contact [phone] ULTATIVE SALES ASSOCIATE * Result Encounter Note - Roseann Damon RN - 09/08/2025 9:25 AM CONSULTATIVE SALES ASSOCIATE LM to return call ULTATIVE SALES ASSOCIATE * Result Encounter Note - Roseann Damon RN - 09/05/2025 12:03 PM CONSULTATIVE SALES ASSOCIATE LM to return call ULTATIVE SALES ASSOCIATE documented in this encounter Plan of Treatment Not on file documented as of this encounter Visit Diagnoses Not on filedocumented in this encounter Discontinued Medications Medication Sig Discontinue Reason Start Date End Da te atorvastatin (LIPITOR) 20 mg tablet TAKE 1 TABLET DAILY Reorder 06/27/2025 09/08/2025 documented as of this encounter Care Teams Retort Loader Relationship Specialty Start Date End Date Medardo Jaramillo DO PCP - General Internal Medicine 08/28/24 Joe Perea MD [address] [facility] [place] [address] Consulting Physician Pain Management 03/13/25 documented as of this encounter
--- OUTSIDE RECORDS SUMMARY | 2025-09-09 21:26 | XMS_ITS | Clinical Summary ---
Author Organization [facility] Address [address] [place] [address] Care Team Providers Care Gaming Cage Cashier Name Role Phone John bIrahim MD Primary Care Provider [phone] Allergies Active Allergy Reactions Criticality Noted Date [...] age to complete this topic Insurance MEDICARE [facility] Care Teams Gaming Cage Cashier Relationship Specialty Start Date End Date John Ibrahim MD [address] [place] [address] [place] [address] PCP - General INTERNAL MEDICINE 02/02/21
--- OUTSIDE RECORDS SUMMARY | 2025-09-09 21:26 | XMS_ITS | Patient Health Record ---
Author Organization [facility] Address [address] [place], [place] [address] Care Team Providers Care Aquatics Assistant Department Head Name Role Phone STEFANIA Blake Unavailable John Ibrahim Unavailable Unavailable Reason For [...] Date Coverage End Date Medicare Part B [place] [address] [place] [address] [id number] PAULETTE MANTILLA Self - patient is the insured [facility] [address] [address] [place], [place] [id number] PAULETTE MANTILLA Self - patient is the insured
--- OUTSIDE RECORDS SUMMARY | 2025-09-09 21:26 | XMS_ITS | Patient Health Record ---
Author Organization 1 OF [facility] Address [address] [place] [address] Care Team Providers Care Advertising Internship Name Role Phone John Ibrahim MD Primary Care Provider Merlin Junior Unavailable [phone] Allergies Allergen (clinical drug ingredient) Drug/Non Drug [...] Status Risk Notes Problem Contusion of toe (57670140) Contusion of right great toe without damage to nail, initial encounter (S90.111A) Active confirmed Problem Idiopathic peripheral neuropathy (30467053) Idiopathic peripheral neuropathy (G60.9) Active confirmed Problem Lumbar radiculopathy (752945346) Lumbar radiculopathy (M54.16) Active confirmed Problem Acquired hammer toe of left foot (6502842113008042 ) Hammertoe of left foot (M20.42) Active confirmed Problem Muscle atrophy (94325614) 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 [facility] [place] [id number] Marshal Rivera Self - patient is the insured [facility] MEDICARE SUPPLEMENT [address] [place] [address] [id number] Marshal Rivera Self - patient is the insured Medical (General) History Medical History History ICD Code arthritis Gout HTN Neuropathy of feet Surgical History Surgery Date(Month/Year) Cardiac Ablation
--- NOTE | 2025-09-09 21:27 | ED.GENADULT ---
HPI - General Adult General Chief complaint: Extremity Injury, Lower Stated complaint: Fall-L Leg pain Time Seen by Provider: 09/09/25 21:20 History of Present Illness HPI narrative: 80-year-old male presenting to the emergency department for evaluation for left posterior upper leg pain /hip pain. Patient reports he was changing laundry and attempted to catch a laundry basket that was falling and felt a pop in his posterior left hip. Patient denies striking his head denies loss conscious. Related Data Home Medications ?Medication ?Instructions ?Recorded ?Confirmed ?Last Taken ?Type aspirin 81 mg tablet,delayed 81 mg PO DAILY 08/13/19 09/02/25 06/22/25 History release (Adult Low Dose Aspirin) atorvastatin 20 mg tablet (Lipitor) 20 mg PO DAILY 08/13/19 09/02/25 06/22/25 History metoprolol succinate 50 mg 50 mg PO DAILY 02/14/20 09/02/25 06/23/25 History tablet,extended release 24 hr allopurinol 100 mg tablet 100 mg PO DAILY 01/29/25 09/02/25 06/23/25 History glucosamine-chondroitin 250 mg-200 0.5 tablet PO DAILY 09/01/25 09/02/25 Unknown History mg tablet (Osteo Bi-Flex) Allergies Allergy/AdvReac Type Severity Reaction Status Date / Time adhesive Allergy Mild Rash Verified 09/01/25 10:20 bupropion Allergy Mild rash Verified 09/01/25 10:20 sertraline Allergy Mild rash Verified 09/01/25 10:20 Review of Systems Review of Systems: All systems reviewed & are unremarkable except as noted in HPI and below PMFSH Past Medical History Medical History BMI 34.0-34.9,adult Ventral hernia without obstruction or gangrene Swelling of toe of left foot Other hyperlipidemia History of colonic polyps Gastro-esophageal reflux disease without esophagitis Essential (primary) hypertension Encounter for screening for malignant neoplasm of prostate Cough Cervicalgia Rupture of left Achilles tendon Pes planus of right foot Acquired claw toe of left foot Radiculopathy due to disorder of intervertebral disc of lumbar spine Peripheral neuropathy Colon polyp JUAN (obstructive sleep apnea) Neuropathy Alcohol abuse with alcohol-induced anxiety disorder Cardiac arrhythmia Frequent PVCs and PACs Chronic back pain Hypertension Gout Congestive heart failure Dry eyes Depression Anxiety PVC (premature ventricular contraction) Hyperlipidemia Hypertension Excessive anger Sleep apnea, unspecified Surgical History Surgical History S/P TURP H/O foot surgery Left foot hammertoe History of arthroplasty of right knee H/O bilateral cataract extraction History of joint replacement right knee H/O toe surgery (~08/2019) Family History Family History Sibling Family history of arthritis Father Family history of congestive heart failure, Onset Age: 86 Patient's father is Mother Patient's mother is Heart disease Family history of congestive heart failure Social History Social History (Updated 09/01/25 @ 11:10 by oLlis Grimm MA) Social History: The patient is a lifelong nonsmoker. He is and lives with his . She is the durable power assistant prosecuting attorney for healthcare. He has 2 biological children and 1 stepchild. 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 The patient desires to be a full code. The patient states that he socially drinks wine. 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 HEAD: normocephalic, atraumatic. EYES: PERRLA/EOMI, conjunctivae clear. NOSE: Normal no drainage EARS:TMS clear with good light reflex. THROAT: Pharynx clear, no exudate. NECK: Supple. No adenopathy, no masses. RESPIRATORY: Airway patent, respirations nonlabored. Clear to auscultation bilaterally, no rales, rhonchi, wheezing. CARDIOVASCULAR: Regular rate and rhythm without murmurs rubs or gallops. ABDOMINAL: Soft, nontender, nondistended, normal bowel sounds MUSCULOSKELETAL: Pain and posterior left leg, normal range of motion, lower extremity edema NEURO: Alert. Cranial nerves II through XII intact. Good gait. Good coordination SKIN: Warm, dry. Normal Color Course Vital Signs Vital signs: Vital Signs Temperature 97.7 F 09/09/25 21:15 Pulse Rate 81 09/09/25 21:15 Respiratory Rate 16 09/09/25 21:15 Blood Pressure 140/96 H 09/09/25 21:15 Pulse Oximetry 100 09/09/25 21:15 Temperature 98.7 F 09/09/25 23:50 Pulse Rate 82 09/09/25 23:50 Respiratory Rate 20 09/09/25 23:50 Blood Pressure 131/65 09/09/25 23:50 Pulse Oximetry 97 09/09/25 23:50 MDM MDM Narrative Medical decision making narrative: 80-year-old male present to the emergency department for evaluation for left posterior leg pain. Patient states he felt a pop. Patient had no acute abnormalities identified on the CT scan of pelvis or femur. I do suspect patient has a muscle strain. Patient states he does take muscle relaxants and tramadol at home for pain control. Patient is being provided additional [place] for pain control p.r.n.. Patient will utilize a walker to ambulate at home. This plan was discussed with both the patient and his . He was comfortable with this plan. All questions concerns were addressed. Differential Diagnosis Differential Diagnosis: Pelvic fracture, hip fracture, hip dislocation, muscle tear Imaging Data Radiologist's impression: overnight read CT femur, no fracture, no acute abnormality seen CT pelvis: No acute displaced fracture seen. Right sacral nerve stimulator Discharge Plan Discharge Clinical Impression: Muscle strain Patient Disposition: Home Condition: Stable Instructions: Antibiotic Form Additional Instructions: Home tramadol for pain control. [place] as needed for additional pain control. Utilize a walker for limited weight-bearing on the affected left leg. Have close follow-up with your primary care physician for additional outpatient imaging if her symptoms do not improve. If you have any worsening symptoms or if you have any questions or concerns then please call or return to the emergency department. Patient Language: Icelandic Prescriptions: New hydrocodone-acetaminophen 5-325 mg tablet 1 tablet PO Q12H PRN (Reason: pain) Qty: 10 0RF No Action metoprolol succinate 50 mg tablet extended release 24 hr 50 mg PO DAILY glucosamine-chondroitin [Osteo Bi-Flex] 250-200 mg tablet 0.5 tablet PO DAILY Rx Instructions: give after food/meal allopurinol 100 mg tablet 100 mg PO DAILY metronidazole 0.75 % gel 1 applic topical BID Qty: 45 1RF cephalexin 500 mg capsule 500 mg PO DAILY Qty: 60 1RF gabapentin 300 mg capsule 300 mg PO .COMPLEX Qty: 360 1RF Rx Instructions: 300 mg orally 1 capsule in the AM, one capsule at 3 PM and 2 capsules at night. tramadol 50 mg tablet 100 mg PO HS PRN (Reason: pain) Qty: 60 1RF Rx Instructions: 2 TABS PO at night PRN; atorvastatin [Lipitor] 20 mg tablet 20 mg PO DAILY aspirin [Adult Low Dose Aspirin] 81 mg tablet,delayed release (DR/EC) 81 mg PO DAILY bumetanide 2 mg tablet 2 mg PO DAILY Qty: 30 5RF nabumetone 750 mg tablet See Rx Instructions .ROUTE .COMPLEX Qty: 180 1RF Dose Instruction: TAKE 1 TABLET BY MOUTH TWICE DAILY Rx Instructions: TAKE 1 TABLET BY MOUTH TWICE DAILY Follow-up/Referrals: Medardo Jaramillo DO [Primary Care Provider, Internal Medicine]
--- OUTSIDE RECORDS SUMMARY | 2025-09-09 21:27 | XMS_ITS | Encounter Summary ---
Author Organization [facility] Care Team Providers Care Senior Training Specialist Name Role Phone Medardo Jaramillo DO Primary Care Provider [phone] Joe Perea MD Unavailable Encounter Details Date Type Department Care Team (Latest Contact Info) Description 06/26/2017 Orders Only [facility] ProviderAnahi MD [address] [place] [address] Social History Tobacco Use Types Packs/Day Years Used Date Smoking Tobacco: Never Alcohol Use Standard Drinks/Week Comments Yes 0 (1 standard drink = 0.6 oz pur e alcohol) Sex and Gender Information Value Date Recorded Sex Assigned at Not on file 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
--- OUTSIDE RECORDS SUMMARY | 2025-09-09 21:27 | XMS_ITS | Encounter Summary ---
Author Organization [facility] Facility Care Team Providers Care [place] Reporter Name Role Phone Medardo Jaramillo DO Primary Care Provider [phone] Joe Perea MD Unavailable Encounter Details Date Type Department Care Team (Latest Contact Info) Description 03/22/2017 Orders Only [facility]INCON[facility] ProviderAnahi MD [address] [place] [id number] Social History Tobacco Use Types Packs/Day Years Used Date Smoking Tobacco: Never Alcohol Use Standard Drinks/Week Comments Yes 0 (1 standard drink = 0.6 oz pur e alcohol) Sex and Gender Information Value Date Recorded Sex Assigned at Not on file 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
[2025-09-09 21:31] VITALS: BP 129/86; PULSE 86; RESP 14; O2SAT 100
[2025-09-09 21:50] VITALS: BP 126/87; PULSE 70; RESP 18; O2SAT 100
[2025-09-09 22:31] VITALS: BP 136/81; PULSE 70; RESP 14; O2SAT 97
[2025-09-09 23:50] VITALS: BP 131/65; PULSE 82; RESP 20; TEMP 37.1; O2SAT 97
[2025-09-09] MEDS: HYDROcodone/acetaminophen (*CRX) 5-325 MG TABLET 1 TAB PO (23:50)
== END 2025-09-10 00:11 | disposition home or self-care (01) ==
PROVIDERS: Emergency Provider Emergency Medicine; PCP Internal Medicine
DX: S76.912A Strain of unspecified muscles, fascia and tendons at thigh level, left thigh, initial encounter (principal); I11.0 Hypertensive heart disease with heart failure; I50.9 Heart failure, unspecified; M10.9 Gout, unspecified; G47.33 Obstructive sleep apnea (adult) (pediatric); G62.9 Polyneuropathy, unspecified; K21.9 Gastro-esophageal reflux disease without esophagitis; F32.A Depression, unspecified; F41.9 Anxiety disorder, unspecified; E78.49 Other hyperlipidemia; Z86.0100 Personal history of colon polyps, unspecified; Z96.651 Presence of right artificial knee joint; Z98.42 Cataract extraction status, left eye; Z98.41 Cataract extraction status, right eye; Z77.22 Contact with and (suspected) exposure to environmental tobacco smoke (acute) (chronic); X50.9XXA Other and unspecified overexertion or strenuous movements or postures, initial encounter
CPT/HCPCS: 72192; 73700; 99284; A9270